=== PATIENT | female | born 1950 | race Two or more races ===

== ENCOUNTER → 2020-08-16 09:23 | Outpatient (BNVA) | payer MEDICARE, SELFPAY | PROVIDERS: PCP Internal Medicine; Visit Provider Hospitalist | DX: J45.909 Unspecified asthma, uncomplicated (principal); R01.1 Cardiac murmur, unspecified; Z79.899 Other long term (current) drug therapy | CPT/HCPCS: 99214 ==

== ENCOUNTER → 2020-09-20 14:43 | Outpatient (BNVA) | payer MEDICARE, SELFPAY | PROVIDERS: PCP Internal Medicine; Visit Provider Hospitalist | DX: J44.9 Chronic obstructive pulmonary disease, unspecified (principal); J45.41 Moderate persistent asthma with (acute) exacerbation; R01.1 Cardiac murmur, unspecified; Z79.899 Other long term (current) drug therapy | CPT/HCPCS: Q3014 ==

== ENCOUNTER → 2020-11-24 09:38 | Outpatient (BNVA) | payer MEDICARE, SELFPAY | PROVIDERS: PCP Internal Medicine; Visit Provider Hospitalist | DX: Z13.89 Encounter for screening for other disorder (principal) | CPT/HCPCS: Q3014 ==

== ENCOUNTER 2020-12-28 10:11 | Outpatient (REF) | payer MEDICARE, SELFPAY ==
[2020-12-28 11:58] LABS: SARS COV2 IgG Positive (Negative)
== END 2020-12-28 10:12 | disposition home or self-care (01) ==
LOC: HO.LAB 10:11
PROVIDERS: PCP Internal Medicine; Visit Provider Hospitalist
DX: Z01.84 Encounter for antibody response examination (principal); U07.1 COVID-19
CPT/HCPCS: 36415; 86769

== ENCOUNTER 2021-02-09 10:04 | Outpatient (REF) | payer MEDICARE, SELFPAY ==
--- NOTE | ~2021-02-09 | XR_ITS ---
EXAMINATION: XR CHEST CLINICAL INFORMATION: Dyspnea. COMPARISON: None TECHNIQUE: 2 views of the chest were obtained. FINDINGS: The lungs are well-expanded and clear of acute pneumonic process. There is a 8 mm small nodule left lung base. Minimal atelectasis or scarring is seen in the left lung base. The heart size and pulmonary vascularity is normal. There is mild dextroscoliosis dorsal spine. No lytic process. XR/XR chest 2V IMPRESSION: Minimal scarring or atelectasis left lung base with a small nodule as well. Moderate dextroscoliosis dorsal spine.
--- NOTE | 2021-02-09 16:59 | PFT_ITS ---
INDICATION: Dyspnea. SPIROMETRY: The FEV1 to FVC 80% with an FEV1 of 2.01 L, which is 105% predicted, and an FVC of 2.5 L, which is 100% predicted. Bronchodilators were not used because she had just used her Ventolin. Maximum voluntary ventilation 126% predicted. LUNG VOLUMES: Total lung capacity 98% predicted. DIFFUSION CAPACITY: DLCO 91% predicted. COMPARISONS: None. INTERPRETATION: No obstructive nor restrictive ventilatory defects identified. No bronchodilators were used. Normal maximum voluntary ventilation. Lung volumes are within normal limits. Diffusion capacity within normal limits. Otherwise consistent with normal lung mechanics. Matheus Dover MD MR/MODL / [id number]
== END 2021-02-09 10:05 | disposition home or self-care (01) ==
LOC: HO.RESP 10:04
PROVIDERS: PCP Internal Medicine; Visit Provider Hospitalist
DX: R06.00 Dyspnea, unspecified (principal)
CPT/HCPCS: 71046; 94010; 94727; 94729; 99212

== ENCOUNTER 2021-03-21 12:33 | Outpatient (REF) | payer MEDICARE, SELFPAY ==
--- NOTE | ~2021-03-21 | CT_ITS ---
EXAMINATION: CT CHEST WITHOUT CONTRAST CLINICAL INFORMATION: Pulmonary nodule. COMPARISON: Previous chest x-ray January 2021 TECHNIQUE: Multidetector volumetric CT imaging of the chest was done. Axial MIP volume rendering provided. Sagittal and coronal reformatted images were obtained. This CT examination was performed using dose optimization techniques as appropriate, variously including the following: *Automated exposure control *Adjustment of mA and/or kV according to patient size (this includes techniques or standardized protocols for targeted exams where dose is matched to indication/reason for exam; i.e. extremities or head) *Use of iterative reconstruction technique DLP: 153 mGy-cm FINDINGS: LUNGS: There is a 3 mm posterior segment right upper lobe nodule axial image 161 series 7. There is scarring or subsegmental atelectasis seen at the lung bases in the lingula, left lower lobe and right middle lobe. There is a 0.8 x 1.6 cm calcified peripheral or subpleural left lower lobe nodule versus pleural calcification axial image 409 series 7 accounting for abnormality on chest x-ray. MEDIASTINUM: There is mild coronary artery and aortic valve calcification. The mediastinum is otherwise normal. No adenopathy is seen. PLEURA: No pleural thickening or pleural effusion. AXILLA: No chest wall mass is seen. Small left axillary lymph nodes. UPPER ABDOMEN: Post cholecystectomy. OSSEOUS STRUCTURES: Severe thoracolumbar scoliosis. There are degenerative changes of the spine. CT/CT chest wo con IMPRESSION: 0.8 x 1.6 cm left lower lobe peripheral or subpleural calcified nodule accounting for chest x-ray abnormality. Small 3 mm right upper lobe noncalcified nodule. Coronary artery and aortic valve calcification.
== END 2021-03-21 12:34 | disposition home or self-care (01) ==
LOC: HO.CT 12:33
PROVIDERS: PCP Internal Medicine; Visit Provider Hospitalist
DX: R91.1 Solitary pulmonary nodule (principal); R91.8 Other nonspecific abnormal finding of lung field
CPT/HCPCS: 71250

== ENCOUNTER → 2022-01-24 10:36 | Outpatient (BNVA) | payer MEDICARE, SELFPAY | PROVIDERS: PCP Internal Medicine; Visit Provider Internal Medicine | DX: J45.901 Unspecified asthma with (acute) exacerbation (principal); J30.9 Allergic rhinitis, unspecified; R91.1 Solitary pulmonary nodule | CPT/HCPCS: 99212 ==

== ENCOUNTER 2022-01-31 07:42 | Outpatient (REF) | payer OTHER, SELFPAY ==
--- NOTE | ~2022-01-31 | CT_ITS ---
EXAMINATION: CT chest wo con. CLINICAL INFORMATION: Lung nodule COMPARISON: Prior CT from February 2021 TECHNIQUE: Multidetector volumetric CT imaging of the chest was done. Axial MIP volume rendering provided. Sagittal and coronal reformatted images were obtained. This CT examination was performed using dose optimization techniques as appropriate, variously including the following: *Automated exposure control *Adjustment of mA and/or kV according to patient size (this includes techniques or standardized protocols for targeted exams where dose is matched to indication/reason for exam; i.e. extremities or head) *Use of iterative reconstruction technique CONTRAST: Noncontrasted study. DLP: 128 mGy-cm FINDINGS: EXCEL EXPERT: LINES/TUBES: Electrophysiology Tech reviewed, no lines. LUNGS: Lung parenchyma: No evidence of significant interstitial disease. Lung nodules/masses: 3 mm nodule posterior segment right upper lobe image 224 series 7 unchanged. No new nodules no suspicious lesion no mass. AIRWAYS: Trachea and bronchi are normal. PLEURA: Redemonstration of a calcified nodule peripheral pleural-based or subpleural 1.4 cm left lower lobe unchanged. MEDIASTINUM AND KRISTY: No mediastinal, hilar or axillary lymphadenopathy. No mediastinal mass. VESSELS: HEART AND PERICARDIUM: Thoracic aorta is normal in size. Heart is normal in size. No pericardial effusion. There are coronary calcifications. Pulmonary arteries are normal in size. LOWER NECK, AXILLA: The visualized thyroid gland is unremarkable. No axillary mass or adenopathy. VISUALIZED ABDOMEN: Unremarkable CHEST WALL AND BONES: Asymmetric dense tissue right breast retroareolar region for which correlation with follow-up mammogram recommended. Severe S-shaped scoliosis of the thoracolumbar spine. CT/CT chest wo con IMPRESSION: *Stable 3 mm nodule right upper lobe, stable calcified pleural-based or subpleural nodule left lower lobe. No new or suspicious nodule or lesion. *Incidental finding was made of asymmetric dense tissue retroareolar RIGHT BREAST this require further investigation. attention to correlation with FOLLOW-UP MAMMOGRAM RECOMMENDED. *Coronary calcifications. *Scoliosis. (Referring physician staff is being called, to be alerted of the above findings and recommendations.) DC
== END 2022-01-31 07:43 | disposition home or self-care (01) ==
LOC: HO.CT 07:42
PROVIDERS: PCP Internal Medicine; Visit Provider Hospitalist
DX: R91.1 Solitary pulmonary nodule (principal)
CPT/HCPCS: 71250

== ENCOUNTER → 2022-02-09 09:49 | Outpatient (BNVA) | payer OTHER, SELFPAY | PROVIDERS: PCP Internal Medicine; Visit Provider Hospitalist | DX: J45.41 Moderate persistent asthma with (acute) exacerbation (principal); R91.1 Solitary pulmonary nodule; R92.8 Other abnormal and inconclusive findings on diagnostic imaging of breast; Z79.899 Other long term (current) drug therapy; Z86.16 Personal history of COVID-19 | CPT/HCPCS: 99212 ==

== ENCOUNTER 2022-03-02 08:15 | Outpatient (REF) | payer OTHER, SELFPAY ==
[2022-03-02 08:41] LABS: MANUAL DIFF FLAG NO
[2022-03-02 09:03] LABS: Basophils Percent Auto 0.6 % (0-2); Eosinophils Absolute Auto 0.2 X10*3/uL (0.0-0.4); Eosinophils Percent Auto 3.3 % (0-4); Hematocrit 38.9 % (37.0-47.0); Hemoglobin 11.7 g/dl (12.0-16.0); Imm Gran Abs Auto 0.02 X10*3/uL (0.00-0.03); Imm Gran Pct Auto 0.3 % (0.0-0.4); Lymphocytes Absolute Auto 1.6 X10*3/uL (1.2-4.9); Lymphocytes Percent Auto 23.4 % (20-40); Mean Corpuscular HGB Conc 30.1 g/dl (31.0-35.0); Mean Corpuscular Hemoglobin 24.9 pg (27.0-33.0); Mean Corpuscular Volume 82.9 fL (80.0-98.0); Mean Platelet Volume 9.6 fL (9.4-12.3); Monocytes Absolute Auto 0.5 X10*3/uL (0.1-1.2); Monocytes Percent Auto 7.3 % (2-11); Neutrophils Absolute Auto 4.4 x10*3/uL (2.0-8.3); Neutrophils Percent Auto 65.1 % (45-73); Platelet Count 292 X10*3/uL (160-400); Red Blood Count 4.69 X10*6/uL (4.20-5.50); Red Cell Distribution Width 14.2 % (11.0-16.0); White Blood Count 6.7 X10*3/uL (4.8-10.8)
[2022-03-02 09:27] LABS: Anion Gap 14 (12-20); Blood Urea Nitrogen 11 mg/dL (9-16); Calcium 9.9 mg/dL (8.4-10.2); Carbon Dioxide 25 mmol/L (22-29); Chloride 107 mmol/L (96-108); Estimated Glomerular Filt Rate > 60; Glucose Random 91 mg/dL (60-115); Potassium 4.2 mmol/L (3.3-5.1); Sodium 142 mmol/L (135-145)
[2022-03-02 09:44] LABS: Erythrocyte Sedimentation Rate 18 MM/HR (0-20)
[2022-03-05 18:21] LABS: IgA 166 mg/dL (70-320); IgG 1052 mg/dL (600-1540); IgM 141 mg/dL (50-300)
[2022-03-05 22:56] LABS: Immunoglobulin E 39 kU/L (<OR=114)
== END 2022-03-02 08:16 | disposition home or self-care (01) ==
LOC: HO.LAB 08:15
PROVIDERS: PCP Internal Medicine; Visit Provider Hospitalist
DX: J45.41 Moderate persistent asthma with (acute) exacerbation (principal)
CPT/HCPCS: 36415; 80048; 82784; 82785; 85025; 85652

== ENCOUNTER → 2022-08-10 09:42 | Outpatient (BNVA) | payer OTHER, SELFPAY | PROVIDERS: PCP Internal Medicine; Visit Provider Hospitalist | DX: J44.9 Chronic obstructive pulmonary disease, unspecified (principal); J45.41 Moderate persistent asthma with (acute) exacerbation; R06.00 Dyspnea, unspecified; R91.1 Solitary pulmonary nodule | CPT/HCPCS: 99212 ==

== ENCOUNTER 2023-02-20 08:17 | Outpatient (REF) | payer OTHER, SELFPAY ==
--- NOTE | ~2023-02-20 | CT_ITS ---
EXAMINATION: CT CHEST WITHOUT CONTRAST CLINICAL INFORMATION: Solitary pulmonary nodule COMPARISON: Previous chest CT scans from 2020 and 2021 and chest x-ray from 2020 TECHNIQUE: Multidetector volumetric CT imaging of the chest was done. Axial MIP volume rendering provided. Sagittal and coronal reformatted images were obtained. This CT examination was performed using dose optimization techniques as appropriate, variously including the following: *Automated exposure control *Adjustment of mA and/or kV according to patient size (this includes techniques or standardized protocols for targeted exams where dose is matched to indication/reason for exam; i.e. extremities or head) *Use of iterative reconstruction technique DLP: 279 mGy-cm FINDINGS: LUNGS: There are bilateral stable noncalcified and calcified nodules. 2 mm right upper lobe nodule axial image 135 series 5. 3 mm heterogeneous or semisolid right upper lobe nodule axial 5. 3 mm peripheral or subpleural right lower lobe nodule axial image 338 series 5. 1.4 cm calcified peripheral or subpleural left lower lobe nodule versus pleural calcification axial image 343 series 5. There is mild lower lobe bronchiectasis, left greater than right. There is a scarring or chronic subsegmental atelectasis left lower lobe. No endobronchial or endotracheal lesion. MEDIASTINUM: Trace pericardial fluid or thickening that is stable. Tortuous calcified thoracic aorta. Normal heart size. Mild coronary artery and aortic valve calcification. No enlarged hilar or mediastinal lymph nodes. Normal thyroid gland. CORONARY ARTERY CALCIFICATION: None visualized on this study. PLEURA: There is no pleural effusion. No pleural mass or thickening. AXILLA: Surgical clips in the right axilla. UPPER ABDOMEN: Postcholecystectomy. OSSEOUS STRUCTURES: Scoliosis and degenerative changes of the spine. CT/CT chest wo IV con IMPRESSION: Stable noncalcified and calcified pulmonary nodules. Fleischner guidelines were followed.
== END 2023-02-20 08:18 | disposition home or self-care (01) ==
LOC: HO.CT 08:17
PROVIDERS: PCP Internal Medicine; Visit Provider Hospitalist
DX: R91.1 Solitary pulmonary nodule (principal)
CPT/HCPCS: 71250

== ENCOUNTER 2023-06-27 15:15 | Outpatient (AMB) | payer OTHER, SELFPAY ==
[2023-06-27 15:22] VITALS: BP 132/60; PULSE 75; O2SAT 97; BMI 28.7
--- NOTE | 2023-06-27 15:22 | MHC.OFFVIS ---
Intake Vital Signs 06/27/23 15:22 Height 5 ft Weight 147 lb BMI 28.7 BP 132/60 Blood Pressure Location Lt brachial Position Sitting Pulse 75 Pulse Source Pulse Oximeter Pulse Oximetry (%) 97 Oxygen Delivery Method Room Air Intake Visit Reasons: CT Chest Follow Up Bar Staff Required: No Allergies meperidine [From Demerol] Allergy (Intermediate, Verified 06/27/23 15:25) Throat swollen HPI HPI Comments History of Present Illness Details the patient is a 73-year-old woman with a known history of asthma COPD overlap syndrome, chronic rhinitis. Overall she is responding well to the current respiratory regimen. Last fall she did have an exacerbation likely due to a respiratory infection. She does complaint of some dyspnea on exertion mild in severity. Does get better with rest. She continues to use her medication as prescribed a day and been effective in beneficial. We did have to switch Symbicort to Dulera due to her insurance issues, but, she is tolerating it well. Denies any significant nasal congestion at this time. Denies any lower extremity edema. On examination she did have a very mild systolic ejection murmur. 09/20/2020 the patient has of motion real a telephone visit. She has been developing worsening shortness of breath and wheezing and coughing for the last couple days. She feels like her typical asthma exacerbations. She denies any fevers or chills or any sore throat. She does not have any COVID like symptoms at this time. No one in the family has been experiencing any viral symptoms either. The patient be treated for an asthma exacerbation. If she is no better she should be tested for COVID-19. In the meantime she is going to maintain her distance as she heals from her condition. 11/24/2020 patient today has a telephone visit. Apparently she was tested positive for COVID-19. About 5 days ago she started having symptoms of flu-like symptoms. She was tested over the weekend and that recently was told that she was positive. She has not had any significant respiratory complaints. She does have a slight cough. 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 And has had some headaches and malaise. Aptx-do-[id number] severity. She did has been using her respiratory medications for asthma, but, at this point the asthma symptoms have not worsen. Patient is aware that if she starts having worsening respiratory symptoms she is to start Decadron 6 mg daily for 10 days and also could also started taking doxycycline for postviral bacterial infection. The patient will get an oximeter to be able to monitor her oxygen. She is also going to start vitamin-C, vitamin-D and she is going to take zinc. She is taking melatonin for sleep at this time. Will continue monitoring her progress the patient is aware that if her symptoms worsen on the medical therapy she is to seek medical advice. 02/09/2021 the patient is here for pulmonary follow-up visit. She recovered completely from COVID-19. She also became vaccinated. Overall she is feeling a lot better. Denies any significant shortness of breath. Denies any significant coughing. She has been using her respiratory therapy as prescribed. She did undergo blood work demonstrating positive antibodies for the SARs cov2. In addition to that she did have a pulmonary function studies which we reviewed in the office demonstrating normal lung mechanics. In addition to that she did have a chest x-ray which demonstrated a nodular opacity in the left lower lung zone. This is measuring more than 1 cm. I will request a CT scan at this time 08/10/2022 the patient is here for pulmonary follow-up visit. overall the patient has been doing well. She continues to respond well to Dulera. She still requires her rescue inhaler once or twice a week. She also has some wheezing at times. Although, she tried multiple medications already ill seems that Dulera is most effective. We also talked a biologic. At this point the patient is not interested since she is doing okay. We did again review her last CT scan of the chest that was done back in January 2021 demonstrating pulmonary nodules. The patient has 2 nodules that need to be followed further. In addition to that she did have her abnormal breast findings evaluated with ultrasound in close monitoring. This point will have the patient undergo repeat CT scan of the chest to make sure that there is stability of the pulmonary nodules for more than 2 years. Once that is completed if the nodules are stable the they do no longer have to be monitored serially. 06/27/2023 the patient is here for a pulmonary follow-up visit. The patient overall continues to do well. She continues on the Dulera inhaler with good effect. Has not required any prednisone of her rescue inhaler which is reassuring. Regards her pulmonary nodules she did have a CT scan in January 2023 demonstrating stable pulmonary nodules and more than 2 years. The patient's nodules are extremely small and sent have not changed in a couple years is safe to say that they are benign. This point we can hold off on serial imaging studies. If the patient develops any worsening symptoms or any new symptoms we can always reassess. COUNT INCLUDES THE [facility] Medical History (Updated 02/18/22 @ 21:05 by Matheus Dover MD) Abnormal finding on breast imaging Allergic rhinitis Asthma Bronchitis Dyspnea Exacerbation of asthma Murmur Pulmonary nodule Family History Other Asthma Social History (Updated 08/10/22 @ 10:09 by Maria Luz Garay [facility]) Patient Tobacco Use Status: Never used Tobacco Review of Systems Const Reports fatigue, Denies headache(s) and Denies night sweats ENT Denies change in voice, Denies headache(s), Denies lip swelling, Denies mouth pain, Reports nasal congestion, Reports nasal discharge and Denies tongue swelling Card Denies chest pain Resp Denies chest congestion, Reports cough and Denies wheezing GI Denies abdominal pain Musc Denies no additional complaints Neuro Denies Neuro-related abnormal movements and Denies headache(s) Psych Denies no additional complaints Endo Reports fatigue Chandan/Lymph Denies easy bleeding and Denies lymphadenopathy Aller/Immun Denies lip swelling, Denies tongue swelling and Denies wheezing Physical Exam Vital Signs: Last Vital Signs Pulse 75 06/27/23 15:22 BP 132/60 06/27/23 15:22 Pulse Ox 97 06/27/23 15:22 Oxygen Delivery Method Room Air 06/27/23 15:22 BMI result Body Mass Index 28.7 Const General: comfortable, no acute distress, alert and awake Orientation/consciousness: patient oriented x3 HEENT Head: Yes normal to inspection General nose exam: No nasal polyps present and No nasal discharge present Face and sinus: Yes sinuses nontender Mouth: oropharynx normal Throat: Yes posterior oropharynx normal Eyes General: appearance normal, both eyes and all related structures Neck Neck: Yes normal visual inspection, Yes no lymphadenopathy, Yes trachea midline and Yes no JVD Thyroid: Thyroid normal Chest Chest palpation & inspection: normal inspection of the chest, normal palpation of entire chest wall and no tenderness Resp Other: Percussion note is resonant, breath sounds are equal on both sides. She has definite inspiratory crackles over the right upper and mid chest, and she has scattered expiratory wheezes throughout the chest. Auscultation: clear to auscultation bilaterally, no rales, no rhonchi and no wheezes Cardio Palpation: normal PMI Rate: regular rate Rhythm: regular rhythm Heart sounds: no gallops and no murmurs Peripheral pulses: Peripheral pulses 2+ throughout GI Palpation (GI): Soft to palpation, Tenderness to palpation present (GI), No hepatosplenomegaly present and Palpable mass present Auscultation: normal bowel sounds Back/Spine/Pelvis Thoracic/Lumbar Spine: thoracic and lumbar spine normal to inspection Skin General skin exam: no rashes or lesions noted Neuro General: patient oriented x3 and no focal motor deficits Cranial nerves: Yes CN's II-XII intact bilaterally Extrem General: Yes normal to inspection, Yes no clubbing, cyanosis or edema and Yes no calf tenderness Psych Appearance: grossly normal and well kempt Speech and movement: Normal speech and movement present Results Reviewed Results Reviewed: [address] [address] [address] Scan Report Signed Patient: Jessi Castrejon MR#: [id number] : 1950 Acct:[id number] Age/Sex: 73 / F ADM Date: 02/20/23 Loc: .CT Attending Dr: Matheus Dover MD Ordering Physician: Matheus Dover MD Date of Service: 02/20/23 Procedure(s): CT chest wo IV con Accession Number(s): [id number] cc: Matheus Dover MD~ EXAMINATION: CT CHEST WITHOUT CONTRAST CLINICAL INFORMATION: Solitary pulmonary nodule? COMPARISON: Previous chest CT scans from 2020 and 2021 and chest x-ray from 2020 TECHNIQUE: Multidetector volumetric CT imaging of the chest was done. Axial MIP volume rendering provided. Sagittal and coronal reformatted images were obtained.? This CT examination was performed using dose optimization techniques as appropriate, variously including the following: *Automated exposure control *Adjustment of mA and/or kV according to patient size (this includes techniques or standardized protocols for targeted exams where dose is matched to indication/reason for exam; i.e. extremities or head) *Use of iterative reconstruction technique DLP: 279 mGy-cm FINDINGS: LUNGS: There are bilateral stable noncalcified and calcified nodules. 2 mm right upper lobe nodule axial image 135 series 5. 3 mm heterogeneous or semisolid right upper lobe nodule axial 5. 3 mm peripheral or subpleural right lower lobe nodule axial image 338 series 5. 1.4 cm calcified peripheral or subpleural left lower lobe nodule versus pleural calcification axial image 343 series 5. There is mild lower lobe bronchiectasis, left greater than right. There is a scarring or chronic subsegmental atelectasis left lower lobe. No endobronchial or endotracheal lesion. MEDIASTINUM: Trace pericardial fluid or thickening that is stable. Tortuous calcified thoracic aorta. Normal heart size. Mild coronary artery and aortic valve calcification. No enlarged hilar or mediastinal lymph nodes. Normal thyroid gland.? CORONARY ARTERY CALCIFICATION: None visualized on this study. PLEURA: There is no pleural effusion. No pleural mass or thickening.? AXILLA: Surgical clips in the right axilla.? UPPER ABDOMEN: Postcholecystectomy.? OSSEOUS STRUCTURES: Scoliosis and degenerative changes of the spine. CT/CT chest wo IV con IMPRESSION: Stable noncalcified and calcified pulmonary nodules. ? Fleischner guidelines were followed. Dictated By: Yolanda Acevedo MD Signed By: <Electronically signed by Yolanda Acevedo MD in OV> 02/27/23 1212 DD/ 0840 TD/TT:? Crime Specialist: KATHIE Assessment & Plan Assessment & Plan (1) Asthma: Code(s): J45.909 - Unspecified asthma, uncomplicated Qualifiers: Asthma complication type: with acute exacerbation Asthma persistence: persistent Asthma severity: moderate Qualified Code(s): J45.41 - Moderate persistent asthma with (acute) exacerbation (2) Dyspnea: Code(s): R06.00 - Dyspnea, unspecified Qualifiers: Dyspnea type: dyspnea on exertion Qualified Code(s): R06.00 - Dyspnea, unspecified (3) Pulmonary nodule: Comment: unchanged when compared to last CT scan from February 2021 pulmonary nodule measuring 3 mm in size and also with the pleural base component Code(s): R91.1 - Solitary pulmonary nodule Plan Continue Dulera consider additng LAMA short-acting beta agonist as needed continue singular at nighttime Follow-up in the Spring 2023 Coding Level of Care Code Est Pt Level 4 (58050) Diagnoses Asthma J45.41 Asthma complication type: with acute exacerbation Asthma persistence: persistent Asthma severity: moderate Dyspnea R06.00 Dyspnea type: dyspnea on exertion Pulmonary nodule R91.1 Time Spent (min) 17
== END 2023-06-27 15:53 | disposition home or self-care (01) ==
PROVIDERS: PCP Internal Medicine; Visit Provider Hospitalist
DX: J45.41 Moderate persistent asthma with (acute) exacerbation (principal); R06.00 Dyspnea, unspecified; R91.1 Solitary pulmonary nodule
CPT/HCPCS: 99214

== ENCOUNTER → 2023-06-27 15:15 | Outpatient (BNVA) | payer OTHER, SELFPAY | PROVIDERS: PCP Internal Medicine; Visit Provider Hospitalist | DX: J45.41 Moderate persistent asthma with (acute) exacerbation (principal); R06.00 Dyspnea, unspecified; R91.1 Solitary pulmonary nodule | CPT/HCPCS: 99212 ==

== ENCOUNTER 2024-01-27 15:07 | Outpatient (REF) | payer MEDICARE, SELFPAY ==
--- NOTE | ~2024-01-27 | XR_ITS ---
EXAMINATION: XR CHEST CLINICAL INFORMATION: Dorsalgia. COMPARISON: CXR from 02/09/2021 TECHNIQUE: 2 views of the chest were obtained. FINDINGS: Lungs are well expanded. Linear opacity of scarring or atelectasis in the left lung base. No airspace disease, pleural effusion or pneumothorax. An old stable calcified pleural-based nodule seen in the medial left lung base. Cardiac silhouette is normal in size. Pulmonary vascular pattern is normal. Skeletal findings include chronic dextroscoliosis of the thoracic spine, levoscoliosis of the lumbar spine and osteoarthritis of glenohumeral joints. Chronic multilevel degenerative narrowing of disc spaces and vertebral osteophyte formation. No acute vertebral compression fractures. Cholecystectomy clips are present in the right upper quadrant of the abdomen. Surgical clips in right axillary region. XR/XR chest 2V IMPRESSION: No acute abnormalities within the chest compared to 02/09/2021.
== END 2024-01-27 15:08 | disposition home or self-care (01) ==
LOC: HO.XRAY 15:07
PROVIDERS: PCP Internal Medicine; Visit Provider Hospitalist
DX: J45.41 Moderate persistent asthma with (acute) exacerbation (principal); M54.9 Dorsalgia, unspecified; R06.00 Dyspnea, unspecified; R91.1 Solitary pulmonary nodule
CPT/HCPCS: 71046; 99212

== ENCOUNTER 2024-01-27 15:07 | Outpatient (AMB) | payer MEDICARE, SELFPAY ==
--- NOTE | 2024-01-27 15:19 | MHC.OFFVIS ---
Intake Vital Signs 01/27/24 15:21 Height 5 ft Weight 146 lb 13.246 oz BMI 28.7 Pulse 73 Pulse Source Pulse Oximeter Pulse Oximetry (%) 98 Oxygen Delivery Method Room Air Intake Visit Reasons: CT Chest Follow Up Director Educational Radio Required: No Allergies meperidine [From Demerol] Allergy (Intermediate, Verified 01/27/24 15:23) Throat swollen HPI HPI Comments History of Present Illness Details The patient is a 73-year-old woman with a known history of asthma COPD overlap syndrome, chronic rhinitis. Overall she is responding well to the current respiratory regimen. Last fall she did have an exacerbation likely due to a respiratory infection. She does complaint of some dyspnea on exertion mild in severity. Does get better with rest. She continues to use her medication as prescribed a day and been effective in beneficial. We did have to switch Symbicort to Dulera due to her insurance issues, but, she is tolerating it well. Denies any significant nasal congestion at this time. Denies any lower extremity edema. On examination she did have a very mild systolic ejection murmur. 01/27/2024 the patient is here for a pulmonary follow-up visit. Overall she is doing fair. She continues have asthma symptoms. She continues on the Dulera and also the allergy medications. She is started developing worsening respiratory symptoms she is congestion. Patient did have some wheezing intermittently. She has a planned trip to [place] to visit a sick family member. Therefore, will send her some antibiotics and prednisone in case her symptoms do worsen. In addition to that she does need a nebulizer. She does need albuterol for the nebulizer. I will make sure to provide her a nebulizer 1 of the [employer]. The patient can use it twice a day with albuterol to help her with her significant bronchospasms and wheezing. The patient also has been having some back pain. Appears to be positional. Primarily when she is sleeping. Denies any respirophasic component. She did have a chest x-ray demonstrating significant scoliosis and degenerative disc disease. Likely musculoskeletal issues are contributing to her back pain. [facility] Medical History (Updated 01/27/24 @ 15:49 by Matheus Dover MD) Abnormal finding on breast imaging Allergic rhinitis Bronchitis Exacerbation of asthma Pulmonary nodule Murmur Asthma Dyspnea Family History Other Asthma Social History (Updated 08/10/22 @ 10:09 by ERIN Betancourt) Patient Tobacco Use Status: Never used Tobacco Review of Systems Const Reports fatigue, Denies headache(s) and Denies night sweats ENT Denies change in voice, Denies headache(s), Denies lip swelling, Denies mouth pain, Reports nasal congestion, Reports nasal discharge and Denies tongue swelling Card Denies chest pain Resp Reports chest congestion, Reports cough and Reports wheezing GI Denies abdominal pain Musc Denies no additional complaints Neuro Denies Neuro-related abnormal movements and Denies headache(s) Psych Denies no additional complaints Endo Reports fatigue Chandan/Lymph Denies easy bleeding and Denies lymphadenopathy Aller/Immun Denies lip swelling, Denies tongue swelling and Reports wheezing Physical Exam Vital Signs: Last Vital Signs Pulse 73 01/27/24 15:21 Pulse Ox 98 01/27/24 15:21 Oxygen Delivery Method Room Air 01/27/24 15:21 BMI result Body Mass Index 28.7 Const General: comfortable, no acute distress, alert and awake Orientation/consciousness: patient oriented x3 HEENT Head: Yes normal to inspection General nose exam: No nasal polyps present and No nasal discharge present Face and sinus: Yes sinuses nontender Mouth: oropharynx normal Throat: Yes posterior oropharynx normal Eyes General: appearance normal, both eyes and all related structures Neck Neck: Yes normal visual inspection, Yes no lymphadenopathy, Yes trachea midline and Yes no JVD Thyroid: Thyroid normal Chest Chest palpation & inspection: normal inspection of the chest, normal palpation of entire chest wall and no tenderness Resp Other: Percussion note is resonant, breath sounds are equal on both sides. She has definite inspiratory crackles over the right upper and mid chest, and she has scattered expiratory wheezes throughout the chest. Auscultation: no rales, no rhonchi, no wheezes and diminished lung sounds Cardio Palpation: normal PMI Rate: regular rate Rhythm: regular rhythm Heart sounds: no gallops and no murmurs Peripheral pulses: Peripheral pulses 2+ throughout GI Palpation (GI): Soft to palpation, Tenderness to palpation present (GI), No hepatosplenomegaly present and Palpable mass present Auscultation: normal bowel sounds Back/Spine/Pelvis Thoracic/Lumbar Spine: thoracic and lumbar spine normal to inspection Skin General skin exam: no rashes or lesions noted Neuro General: patient oriented x3 and no focal motor deficits Cranial nerves: Yes CN's II-XII intact bilaterally Extrem General: Yes normal to inspection, Yes no clubbing, cyanosis or edema and Yes no calf tenderness Psych Appearance: grossly normal and well kempt Speech and movement: Normal speech and movement present Assessment & Plan Assessment & Plan (1) Asthma: Code(s): J45.909 - Unspecified asthma, uncomplicated Qualifiers: Asthma complication type: with acute exacerbation Asthma persistence: persistent Asthma severity: moderate Qualified Code(s): J45.41 - Moderate persistent asthma with (acute) exacerbation (2) Dyspnea: Code(s): R06.00 - Dyspnea, unspecified Qualifiers: Dyspnea type: dyspnea on exertion Qualified Code(s): R06.00 - Dyspnea, unspecified (3) Pulmonary nodule: Comment: unchanged when compared to last CT scan from February 2021 pulmonary nodule measuring 3 mm in size and also with the pleural base component Code(s): R91.1 - Solitary pulmonary nodule Plan Continue Dulera consider additng LAMA short-acting beta agonist as needed Needs anebulizer (provided) for albuterol continue singular at nighttime CXR Follow-up 6-8 months Orders: Orders XR chest 2V Today M54.9 - Dorsalgia, unspecified Medications: New prednisone PO daily; Take 2 tabs daily x 5 days, then 1 tablet daily x 5 days 10 days 15 tabs 0RF azithromycin 500 mg PO DAILY 5 days 5 tabs 0RF Changed From albuterol sulfate 2.5 mg (3 mL) inhalation Q4-6H 30 days PRN 75 mL 1RF shortness of breath or wheezing To albuterol sulfate 2.5 mg (3 mL) inhalation Q6H 30 days PRN 180 mL 6RF shortness of breath or wheezing Coding Level of Care Code Est Pt Level 4 (33184) Diagnoses Moderate persistent asthma with acute exacerbation J45.41 Asthma complication type: with acute exacerbation Asthma persistence: persistent Asthma severity: moderate Dyspnea on exertion R06.00 Dyspnea type: dyspnea on exertion Pulmonary nodule R91.1 Time Spent (min) 17
[2024-01-27 15:21] VITALS: PULSE 73; O2SAT 98; BMI 28.7
== END 2024-01-27 15:56 | disposition home or self-care (01) ==
PROVIDERS: PCP Internal Medicine; Visit Provider Hospitalist
DX: J45.41 Moderate persistent asthma with (acute) exacerbation (principal); R06.00 Dyspnea, unspecified; R91.1 Solitary pulmonary nodule
CPT/HCPCS: 99214

== ENCOUNTER 2024-07-31 15:06 | Outpatient (AMB) | payer MEDICARE, MEDICAID, SELFPAY ==
[2024-07-31 15:11] VITALS: BP 132/60; PULSE 80; O2SAT 98; BMI 26.7
--- NOTE | 2024-07-31 15:11 | MHC.OFFVIS ---
Vital Signs 07/31/24 15:11 Height 5 ft Weight 136 lb 10.986 oz BMI 26.7 BP 132/60 Blood Pressure Location Lt brachial Position Sitting Pulse 80 Pulse Source Pulse Oximeter Pulse Oximetry (%) 98 Oxygen Delivery Method Room Air Intake Visit Reasons: Asthma Food And Beverage Controller Required: No Allergies meperidine [From Demerol] Allergy (Intermediate, Verified 07/31/24 15:13) Throat swollen HPI Comments Details: The patient is a 74-year-old woman with a known history of asthma COPD overlap syndrome, chronic rhinitis. Overall she is responding well to the current respiratory regimen. Last fall she did have an exacerbation likely due to a respiratory infection. She does complaint of some dyspnea on exertion mild in severity. Does get better with rest. She continues to use her medication as prescribed a day and been effective in beneficial. We did have to switch Symbicort to Dulera due to her insurance issues, but, she is tolerating it well. Denies any significant nasal congestion at this time. Denies any lower extremity edema. On examination she did have a very mild systolic ejection murmur. 01/27/2024 the patient is here for a pulmonary follow-up visit. Overall she is doing fair. She continues have asthma symptoms. She continues on the Dulera and also the allergy medications. She is started developing worsening respiratory symptoms she is congestion. Patient did have some wheezing intermittently. She has a planned trip to [place] to visit a sick family member. Therefore, will send her some antibiotics and prednisone in case her symptoms do worsen. In addition to that she does need a nebulizer. She does need albuterol for the nebulizer. I will make sure to provide her a nebulizer 1 of the [employer]. The patient can use it twice a day with albuterol to help her with her significant bronchospasms and wheezing. The patient also has been having some back pain. Appears to be positional. Primarily when she is sleeping. Denies any respirophasic component. She did have a chest x-ray demonstrating significant scoliosis and degenerative disc disease. Likely musculoskeletal issues are contributing to her back pain. 07/31/2024 the patient is here for a pulmonary follow-up visit. Overall she is doing well from a respiratory status. She continues Dulera. She is having significant allergies though. She stopped taking the Singulair because she thought it was causing to have high blood pressure. Therefore will go ahead and send her Claritin. She can also use as the Astelin nasal spray to also help her. The patient also was having issues with pain on the right side of the chest especially when laying down and sleeping. She had gotten an x-ray that was back in 02/15/2024 which we personally reviewed. She had significant scoliosis. Also has evidence of osteoarthritis primarily in the right shoulder. Therefore, likely contributing to her discomfort. Although with abnormal chest x-ray and the fact that she has pulmonary nodules will plan to repeat the CT scan of the chest in 6 months to make sure that there stability of the nodules in view of her persistent chest pain. [facility] Medical History (Updated 08/02/24 @ 22:12 by Matheus Dover MD) Abnormal finding on breast imaging Allergic rhinitis Bronchitis Exacerbation of asthma Pulmonary nodule Murmur Asthma Dyspnea Family History Other Asthma Social History (Updated 08/10/22 @ 10:09 by Maria Luz Garay [facility]) Patient Tobacco Use Status: Never used Tobacco Review of Systems Const Reports fatigue, Denies headache(s) and Denies night sweats ENT Denies change in voice, Denies headache(s), Denies lip swelling, Denies mouth pain, Reports nasal congestion, Reports nasal discharge and Denies tongue swelling Card Denies chest pain Resp Reports chest congestion, Reports cough and Reports wheezing GI Denies abdominal pain Musc Denies no additional complaints Neuro Denies Neuro-related abnormal movements and Denies headache(s) Psych Denies no additional complaints Endo Reports fatigue Chandan/Lymph Denies easy bleeding and Denies lymphadenopathy Aller/Immun Denies lip swelling, Denies tongue swelling and Reports wheezing Physical Exam Vital Signs: Last Vital Signs Pulse 80 07/31/24 15:11 BP 132/60 07/31/24 15:11 Pulse Ox 98 07/31/24 15:11 Oxygen Delivery Method Room Air 07/31/24 15:11 BMI result Body Mass Index 26.7 Const General: comfortable, no acute distress, alert and awake Orientation/consciousness: patient oriented x3 HEENT Head: Yes normal to inspection General nose exam: No nasal polyps present and No nasal discharge present Face and sinus: Yes sinuses nontender Mouth: oropharynx normal Throat: Yes posterior oropharynx normal Eyes General: appearance normal, both eyes and all related structures Neck Neck: Yes normal visual inspection, Yes no lymphadenopathy, Yes trachea midline and Yes no JVD Thyroid: Thyroid normal Chest Chest palpation & inspection: normal inspection of the chest, normal palpation of entire chest wall and no tenderness Resp Other: Percussion note is resonant, breath sounds are equal on both sides. She has definite inspiratory crackles over the right upper and mid chest, and she has scattered expiratory wheezes throughout the chest. Auscultation: no rales, no rhonchi, no wheezes and diminished lung sounds Cardio Palpation: normal PMI Rate: regular rate Rhythm: regular rhythm Heart sounds: no gallops and no murmurs Peripheral pulses: Peripheral pulses 2+ throughout GI Palpation (GI): Soft to palpation, Tenderness to palpation present (GI), No hepatosplenomegaly present and Palpable mass present Auscultation: normal bowel sounds Back/Spine/Pelvis Thoracic/Lumbar Spine: thoracic and lumbar spine normal to inspection Skin General skin exam: no rashes or lesions noted Neuro General: patient oriented x3 and no focal motor deficits Cranial nerves: Yes CN's II-XII intact bilaterally Extrem General: Yes normal to inspection, Yes no clubbing, cyanosis or edema and Yes no calf tenderness Psych Appearance: grossly normal and well kempt Speech and movement: Normal speech and movement present Assessment & Plan Assessment & Plan (1) Asthma: Code(s): J45.909 - Unspecified asthma, uncomplicated Category: Medical Qualifiers: Asthma complication type: with acute exacerbation Asthma persistence: persistent Asthma severity: moderate Qualified Code(s): J45.41 - Moderate persistent asthma with (acute) exacerbation (2) Dyspnea: Code(s): R06.00 - Dyspnea, unspecified Category: Medical Qualifiers: Dyspnea type: dyspnea on exertion Qualified Code(s): R06.00 - Dyspnea, unspecified (3) Pulmonary nodule: Code(s): R91.1 - Solitary pulmonary nodule Category: Medical Plan Continue Dulera consider additng LAMA short-acting beta agonist as needed Needs nebulizer (provided) for albuterol stop singular at nighttime CT chest Follow-up 6-8 months Orders: Orders CT chest wo IV con 01/11/25 R91.1 - Solitary pulmonary nodule Medications: New azelastine administer into each nostril 2 sprays intranasal BID 30 mL 6RF 30 days Changed From loratadine 10 mg PO DAILY To loratadine 10 mg PO DAILY 30 tabs 6RF 30 days Coding Level of Care Code Est Pt Level 4 (82197) Diagnoses Moderate persistent asthma with acute exacerbation J45.41 Asthma complication type: with acute exacerbation Asthma persistence: persistent Asthma severity: moderate Dyspnea on exertion R06.00 Dyspnea type: dyspnea on exertion Pulmonary nodule R91.1 Time Spent (min) 17
== END 2024-07-31 15:52 | disposition home or self-care (01) ==
PROVIDERS: PCP Internal Medicine; Visit Provider Hospitalist
DX: J45.41 Moderate persistent asthma with (acute) exacerbation (principal); R06.00 Dyspnea, unspecified; R91.1 Solitary pulmonary nodule
CPT/HCPCS: 99214

== ENCOUNTER → 2024-07-31 15:06 | Outpatient (BNVA) | payer MEDICARE, MEDICAID, SELFPAY | PROVIDERS: PCP Internal Medicine; Visit Provider Hospitalist | DX: J45.41 Moderate persistent asthma with (acute) exacerbation (principal); J31.0 Chronic rhinitis; R06.00 Dyspnea, unspecified; R91.1 Solitary pulmonary nodule | CPT/HCPCS: 99212 ==

== ENCOUNTER 2024-12-24 13:35 | Outpatient (RCR) | payer OTHER, SELFPAY | END 2024-12-24 15:11 | disposition home or self-care (01) | LOC: HO.PT 13:35 | PROVIDERS: PCP Internal Medicine | DX: M41.9 Scoliosis, unspecified (principal) | CPT/HCPCS: 97110; 97140; 97162; 97530 ==

== ENCOUNTER 2025-01-11 15:43 | Outpatient (REF) | payer OTHER, MEDICAID, SELFPAY ==
--- OUTSIDE RECORDS SUMMARY | 2025-01-11 18:09 | XMS_ITS ---
Author Organization [employer] [facility] Address [address] [place] [address] Care Team Providers Care Internal Sales Name Role Phone BERNADINEEileen BAYLEE Unavailable [phone] MEDICATIONS Medication SIG (Take, Route, Fr equency, Duration) Notes Start Date End Date Status Zepbound 2.5 MG/0.5ML 2.5mg Subcutaneous weekly for 30 days 11/16/2024 Active Encounters Encounter Location Date Provider Diagnosis [place] [id number] [address] 11/13/2024 BAYLEE PAVON PLAN OF TREATMENT Medication Medication Name Sig Start Date Stop Date Notes Zepbound 2.5 MG/0.5ML 2.5mg Subcutaneous weekly for 30 days 11/16/2024 Next Appt Details Provider Name:BAYLEE PAVON, 01/13/2025 08:30:00 AM, [address], [phone], Provider Name:BAYLEE PAVON, 2025 02:45:00 PM, [address], [address], Progress Notes * DION DALEY:11/1949 (74 yo F)Acc No.[id number]:11/13/2024 Patient:??JUVE DALEY BRIE :1950?Age:74 Y?Sex:Fe male Address:[address] [place] [id number] * Refills?? Start Zepbound Solution Auto-injector, 2.5 MG/0.5ML, Subcutaneous, 4 Pen Needle, 2.5mg, weekly, 30 days, Refills=0 * true * Date:??
--- OUTSIDE RECORDS SUMMARY | 2025-01-11 18:09 | XMS_ITS | Encounter Summary ---
Author Organization [employer] Address [address] [place] [address] Care Team Providers Care Clinical Documentation Consultant Name Role Phone Saba Solorzano MD Primary Care Provider [phone] Reason for Referral * Consultation (Routine) - Closed Specialty Diagnoses / Procedures Referred By Farrukh nolan Referred To Contact Neurology Diagnoses Loss of memory Saba Solorzano MD [address] [place] [phone] Phone: tel: fax: Valeri Aguilar MD [address] [place] [address] [place] [address] Phone: tel: fax: Referral ID Status Reason Start Date Expiration Date V isits Requested Visits Authorized [id number] Closed Specialty Services Required 12/23/2024 12/23/2025 1 1 Reason for Visit * Reason Onset Date Comments referral 12/23/2024 Encounter Details Date Type Department Care Team ([facility] Contact Info) Description 12/23/2024 Telephone Adult Medicine [address] [phone] Saba Solorzano MD [address] [place] [phone] referral Social History Tobacco Use Types Packs/Day Years Used Date Smoking Tobacco: Former Cigarettes 0.2 5 0 10/28/1968 - 10/28/1973 Smokeless Tobacco: Never Alcohol Use Standard Drinks/Week Comments Not Currently 0 (1 standard drink = 0.6 oz pur e alcohol) Comments No Sex and Gender Information Value Date Recorded Sex Assigned at Female 11/25/2024 10:30 AM EST Legal Sex Female 1:45 AM EST Gender Identity Female 11/25/2024 10:30 AM EST Sexual Orientation Straight 11/25/2024 10 :30 AM EST documented as of this encounter Progress Notes * Ambreen Fairbanks RN - 12/24/2024 11:03 AM EST Pt booked 12/29 with kayleigh torres * Saba Solorzano MD - 12/23/2024 8:10 PM EST Patient does not have a visit schedule with us ,please schedule visit , I have signed the referral * Ton Foley RN - 12/23/2024 3:01 PM EST Called and spoke with pt. Pt st that used to see neurology years ago believes 2022, pt could tell me where, pt sts mother has been seeing dr albright and would like to see him too for it please review and advise * Binta Serrano - 12/23/2024 2:55 PM EST The patient is requesting a referral to [facility] Albright she states she is having forgetness. documented in this encounter Plan of Treatment Upcoming Encounters Date Type Department Care Team (Late st Contact Info) Description 02/11/2025 3:00 PM EDT Office Visit Orthopedic Surgery - [place] [address] [facility] [address] [place] [address] Gus Judge, DPM 175 [facility] [address] [place] [address] 07/02/2025 3:00 PM EDT Ancillary Procedure [facility] [address] [facility] [address] [place] [phone] 07/15/2025 1:30 PM EDT Office Visit Adult Medicine [place] [id number] [place] [address] Saba Solorzano MD [address] [place] [address] 08/03/2025 3:30 PM EDT Office Visit [facility] [address] [place] [address] Yan Hilario MD [address] [place] [address] [address] [place] [address] Scheduled Referrals Name Type Priority Associated Diagnoses Order Schedule Ambulatory referral to Neurology Outpatient Referral Routine Loss of memory 1 Occurrences starting 12/23/2024 until 12/23/2025 documented as of this encounter Goals Goal Patient Goal Type Associated Problems Recent Progress Patient-Stated? Author LTG in 4 visits General On track(10/15/20 24 3:25 PM EST) No Aurora Curtis, OT Note: No nystag w/ repeat positonal testing all 10/15 MET No reported dizziness w/ bed mob 10/15 MET Indep HEP if/when indic 10/15 MET documented as of this encounter Visit Diagnoses Diagnosis Loss of memory- Primary Memory loss documented in this encounter Care Teams Clinical Documentation Consultant Relationship Specialty Start Date End Date Saba Solorzano MD [address] [place] [phone] PCP - General Internal Medicine 09/21/24 documented as of this encounter"
--- OUTSIDE RECORDS SUMMARY | 2025-01-11 18:09 | XMS_ITS | Clinical Summary ---
Author Organization [facility] Address [address] [place] [address] Care Team Providers Care Software Development Leader Name Role Phone Ayo Denis MD Primary Care Provider [phone] Allergies Active Allergy Reactions Criticality Noted Date Comments Lisinopril Cough 03/31/2020 And dizziness Meperidine Lethargy 12/26/2021 Meperidine Hcl Lethargy 08/16/2021 Medications Ventolin HFA 90 mcg/actuation inhaler INHALE 2 PUFFS EVERY 6 HOURS NEEDED FOR SHORTNESS OF BREATH OR WHEEZING FOR 30 DAYS 1 Active busPIRone (BUSPAR) 5 mg tablet Take 5 mg by mouth 3 times a day. 1 Active calcium carbonate-vitam in D3 600 mg-10 mcg (400 unit) per tablet TAKE 1 TABLET BY MOUTH TWICE A DAY WITH MEALS 2 Active cetirizine (ZyrTEC) 10 mg tablet Take 10 mg by mouth daily as needed. 1 Active cholecalciferol (VITAMIN D3) 1,000 unit tablet Take 1,000 Units by mouth once a day. 1 Active fluticasone propionate (FLONASE) 50 mcg/actuation nasal spray fluticasone propionate 50 mcg/actuation nasal spray,suspension Active ibuprofen (MOTRIN) 800 mg tablet ibuprofen 800 mg tablet Active loratadine (CLARITIN) 10 mg tablet Take 10 mg by mouth once a day. 1 Active Dulera 200-5 mcg/actuation inhaler 2 puffs 2 times a day. 1 Active naproxen (NAPROSYN) 500 mg tablet Take 500 mg by mouth nightly as needed. 1 Active neomycin-polymy sharmin B-dexamethasone (MAXITROL) 3.5 mg/g-10,000 unit/g-0.1 % ointment SMARTSIG:Sparing ly In Eye(s) Every Night 1 Active omeprazole (PriLOSEC) 40 mg capsule 2 Active sucralfate (CARAFATE) 1 g/10 mL suspension SMARTSI Milliliter(s) By Mouth Twice Daily 1 Active rosuvastatin (CRESTOR) 10 mg tablet Take 10 mg by mouth once a day. 2 Active famotidine (PEPCID) 20 mg tablet Take 10 mg by mouth. PRN Active LORazepam (ATIVAN) 1 mg tablet Take 1 tablet (1 mg total) by mouth See admin instructions. 1 by mouth 1 hour prior to MRI, may repeat X 1 dose 2 tablet 2 Active azithromycin (ZITHROMAX) 250 mg tablet TAKE 2 TABLETS BY MOUTH TODAY, THEN TAKE 1 TABLET DAILY FOR 4 DAYS 2 Active montelukast (SINGULAIR) 10 mg tablet 2 Active predniSONE (DELTASONE) 20 mg tablet Take 20 mg by mouth 2 times a day. 2 Active Active Problems No known active problems Family History Medical History Relation Name Comments Cancer Mother's Sister Relation Name Status Comments Father Mother Mother's Sister Social History Tobacco Use Types Packs/Day Years Used Date Smoking Tobacco: Former Smokeless Tobacco: Never Alcohol Use Standard Drinks/Week Comments Never 0 (1 standard drink = 0.6 oz pur e alcohol) Comments Unknown Sex and Gender Information Value Date Recorded Sex Assigned at Not on file Legal Sex Female 1:58 PM EST Gender Identity Not on file Sexual Orientation Not on file Last Filed Vital Signs Vital Sign Reading Time Taken Comments Blood Pressure 144/86 12/26/2021 3:54 PM EST Pulse 97 12/26/2021 3:54 PM EST Temperature - - Respiratory Rate - - Oxygen Saturation - - Inhaled Oxygen Concentration - - Weight 71.8 kg (158 lb 6.4 oz) 12/26/2021 3:54 P M EST Height 152.4 cm (5') 12/26/2021 3:54 PM EST Body Mass Index 30.94 12/26/2021 3:54 PM EST Plan of Treatment Health Maintenance Due Date Last Done Comments Cologuard 1951 Colon Cancer Screening 1950 Colonoscopy 1950 FOBT / Fit Test 1950 Hepatitis C Screening 1950 Sigmoidoscopy [address] Lung Cancer Screening (Baseline) 2001 Osteoporosis Screening 2001 RSV Vaccine (60+ years old and patients) (1 - Risk 60-74 years 1-dose series) 2011 Zoster Vaccines (3 of 3) 10/07/2020 08/12/2020, 03/2009 DTaP,Tdap,and Td Vaccines (2 - Td or Tdap) 03/05/2023 03/05/2013 COVID-19 Vaccine (4 - season) 2024 09/09/2021, 02/28/2021, 01/31/2021 Influenza Vaccine (#1) 2024 , 07/26/2020, 07/26/2020, Additional history exists Alcohol/Substance Use Screening 10/28/2024 Depression Screening and Follow-Up 10/28/2024 Health Care Proxy Review 10/28/2024 Social Drivers of Health Annual Screening 10/28/2024 Pneumococcal Vaccine: 50+ Years Completed 04/25/2021, 03/01/2017, 08/02/2009 Hepatitis B Vaccines Aged Out No long er eligible based on patient's age to complete this topic Insurance [facility] Care Teams Software Development Leader Relationship Specialty Start Date End Date Ayo Denis MD PCP - General Internal Medicine 12/26/21
--- OUTSIDE RECORDS SUMMARY | 2025-01-11 18:09 | XMS_ITS | Referral Summary ---
Author Organization [facility] Address [address] [place] [address] Care Team Providers Care Hotel Manager Name Role Phone Ayo Denis MD Primary Care Provider [phone] Allergies Active Allergy Reactions Criticality Noted Date [...] Active Active Problems No known active problems Social History Tobacco Use Types Packs/Day Years [...] 12/26/2021 3:54 PM EST Plan of Treatment Not on file Insurance [facility] Care Teams Hotel Manager Relationship Specialty Start Date End Date Ayo Denis MD PCP - General Internal Medicine 12/26/21
--- OUTSIDE RECORDS SUMMARY | 2025-01-11 18:09 | XMS_ITS | Encounter Summary ---
Author Organization [facility] Address [address] [place] [address] Care Team Providers Care Rectangular Tank Cooper Name Role Phone Saba Solorzano MD Primary Care Provider Reason for Visit * Reason Comments medication review Encounter Details Date Type Department Care Team (Late st Contact Info) Description 12/29/2024 11:30 AM EST Office Visit Adult Medicine [address] [phone] Darrell Salazar PA [address] [place] [phone] Vitamin D deficiency (Primary Dx); Age-related osteoporosis without current pathological fracture; Pure hypercholesterolemia; Moderate persistent asthma without complication Social History Tobacco Use Types Packs/Day Years Used Date Smoking Tobacco: Former Cigarettes 0.2 5 0 10/28/1968 - 10/28/1973 Smokeless Tobacco: Never Tobacco Cessation:Counseling Given: Not Answered Alcohol Use Standard Drinks/Week Comments Not Currently 0 (1 standard drink = 0.6 oz pur e alcohol) Comments No Sex and Gender Information Value Date Recorded Sex Assigned at Female 11/25/2024 10:30 AM EST Legal Sex Female 1:45 AM EST Gender Identity Female 11/25/2024 10:30 AM EST Sexual Orientation Straight 11/25/2024 10 :30 AM EST documented as of this encounter Last Filed Vital Signs Vital Sign Reading Time Taken Comments Blood Pressure 124/62 12/29/2024 11:19 AM EST Pulse 80 12/29/2024 11:19 AM EST Temperature 36.8 ??C (98.2 ??F) 12/29/2024 11:[address] Respiratory Rate 14 12/29/2024 11:19 AM EST Oxygen Saturation - - Inhaled Oxygen Concentration - - Weight 64.6 kg (142 lb 8 oz) 12/29/2024 11:19 AM EST Height 152.4 cm (5') 12/29/2024 11:19 AM EST Body Mass Index 27.83 12/29/2024 11:19 AM EST documented in this encounter Progress Notes * NEIL Trivedi - 12/29/2024 11:30 AM EST CHIEF COMPLAINT: medication review IDENTIFIER: Jessi Sunshine is a 74 y.o. old female. HPI: 74-year-old female presents for follow-up and reports no concerns today. Patient has vitamin D deficiency, recent bone density screening also showed osteoporosis. Reports taking calcium and vitamin Ddaily. Patient has hyperlipidemia, follows with Dr. Perez who has ordered repeat lipid studies which she tells me she will complete later this week. Reports taking rosuvastatin 20 mg daily as prescribed. Patient has asthma, on Dulera, follows with Dr. Dover and states she has an upcoming appointment with him. ROS: GENERAL: No malaise, significant weight loss or fever. RESPIRATORY: Denies shortness of breath. CARDIOVASCULAR: Denies chest pain, palpitations. PAST MEDICAL HISTORY: Patient Active Problem List Diagnosis Date Noted Vitamin D deficiency 12/29/2024 Age-related osteoporosis without current pathological fracture 12/29/2024 Stress incontinence 10/23/2024 BPPV (benign paroxysmal positional vertigo), unspecified laterality 09/21/2024 Asthma, moderate persistent 08/14/2024 Chronic back pain 08/14/2024 Gastropathy 08/14/2024 GERD (gastroesophageal reflux disease) 08/14/2024 Passage of loose stools 08/14/2024 Coronary artery disease involving [place] coronary artery of [place] heart without angina pectoris 08/09/2023 COVID-19 virus infection 06/13/2023 Abnormal MRI, shoulder 01/30/2022 Anxiety 10/17/2021 HLD (hyperlipidemia) 07/11/2021 History of 2019 novel coronavirus disease (COVID-19) 11/21/2020 Cataract 10/07/2020 Elevated anti-tissue transglutaminase (tTG) IgA level 08/31/2020 Internal derangement of knee, right 08/05/2020 Osteoarthritis 08/05/2020 Obesity (BMI 30.0-34.9) 02/24/2020 Gastric polyps 08/05/2018 Aortic stenosis 12/10/2017 Past Surgical History: Procedure Laterality Date BREAST BIOPSY Left 2016 PROCEDURE: BX BREAST; PERC NEEDLE CORE W/IMAG GUID; COMMENT: neg BREAST SURGERY Right 2000 PROCEDURE: [place] UNLISTED PROCEDURE BREAST; COMMENT: cancer BREAST SURGERY Right 2001 PROCEDURE: [place] UNLISTED PROCEDURE BREAST; COMMENT: b9 SECTION PROCEDURE: HISTORICAL DELIVERY; COMMENT: x 2; 1977, 1974 CHOLECYSTECTOMY PROCEDURE: HISTORICAL CHOLECYSTECTOMY; COMMENT: in [place] COLONOSCOPY 2011 PROCEDURE: HISTORICAL COLONOSCOPY; COMMENT: In [place]. Patient reports clear ESOPHAGOGASTRODUODENOSCOPY PROCEDURE: [place] EGD TRANSORAL BIOPSY SINGLE/MULTIPLE; COMMENT: Performed in [place] OTHER SURGICAL HISTORY 12/29/2020 PROCEDURE: [place] ESOPHAGEAL MOTILITY STUDY W/INTERP&RPT; COMMENT: [facility]; small sliding hiatal hernia suggested, otherwise normal. OTHER SURGICAL HISTORY 12/29/2020 PROCEDURE: ACID REFLUX TEST OF ESOPHAGUS; COMMENT: [facility]; 24 hour ambulatory impedance-pH study off meds: positive for acid reflux. STEREOTACTIC BREAST BIOPSY Left 04/26/2015 PROCEDURE: STEREOTACTIC BREAST BIOPSY; COMMENT: Negative for malignancy UPPER GASTROINTESTINAL ENDOSCOPY 04/26/2020 PROCEDURE: UPPER GI ENDOSCOPY/EXAM; COMMENT: negative, biopsy shows reactive gastropathy without H.pylori UPPER GASTROINTESTINAL ENDOSCOPY 01/05/2015 PROCEDURE: [place] UPPER GI ENDOSCOPY PERFORMED; COMMENT: Gastric polyp x 3 - SOCIAL HISTORY: Social History Tobacco Use Smoking status: Former Current packs/day: 0.00 Average packs/day: 0.2 packs/day for 5.0 years (0.8 ttl pk-yrs) Types: Cigarettes Start date: 10/28/1968 Quit date: 10/28/1973 Years since quittin.2 Smokeless tobacco: Never Substance Use Topics Alcohol use: Not Currently FAMILY HISTORY: Family History Problem Relation Name Age of Onset Other (Other: cancer of throat) Father + smoker, Alcohol Abuse Diabetes Mother hypertension Obesity Son Andrew : 1975 No Known Problems Daughter Noni : 08/28/1978 No Known Problems Brother Soren Multiple sclerosis Brother Almas No Known Problems Sister Neida No Known Problems Sister Milagros Other (Other: Pancreatitis) Sister Sandy Celiac Disease Uterine cancer Maternal Grandmother Breast cancer Mother's side aunt 67 Aunt Prostate cancer Mother's side Uncle Coronary artery disease Neg Hx Family Status Relation Name Status Father at age 50s CA of throat and jaw; + EtOH/smoker Mother Alive Son Andrew Alive Daughter Noni Alive Brother Soren Alive Brother Almas at age 50 Sister Neida Alive Sister Milagros Alive Sister Sandy MGM Mother's alexa aunt 67 Mother's alexa (Not Specified) Neg Hx (Not Specified) MGF PGM PGF No partnership data on file MEDICATIONS DISCONTINUED/REORDERED: Medications Discontinued During This Encounter Medication Reason busPIRone (BUSPAR) 10 mg tablet Therapy completed cloNIDine (CATAPRES) 0.1 mg tablet Therapy completed ACTIVE MEDICATIONS: Outpatient Medications Marked as Taking for the 12/29/24 encounter (Office Visit) with NEIL Trivedi Medication Sig Dispense Refill albuterol HFA (PROVENTIL HFA;VENTOLIN HFA) 108 (90 Base) MCG/ACT inhaler INHALE 2 PUFFS INTO THE LUNGS EVERY 4 HOURS NEEDED FOR COUGH, WHEEZING OR SHORTNESS OF BREATH ammonium lactate (AMLACTIN) 12 % cream Apply topically at bedtime. Both heels dry skin 770 g 0 aspirin 81 mg chewable tablet Chew 1 tablet (81 mg total) 1 (one) time each day. calcium carbonate-vitamin D3 600 mg-5 mcg (200 unit) per tablet TAKE 1 TABLET BY MOUTH EVERY DAY coenzyme Q-10 10 mg capsule Take by mouth daily. famotidine (PEPCID) 20 mg tablet Take 0.5 Tablets by mouth daily. fluocinolone acetonide oiL 0.01 % drops Place 3 Drops in ear(s) as needed (ear itching). 50 each 1 incontinence pad, liner, disp pad 5 Each by Does not apply route as needed for Other (urinary incontinence). MAIDA-99 5/day 150/month 11 refills For urinary incontinence magnesium oxide 250 mg magnesium tablet Take 1 tablet (250 mg total) by mouth 1 (one) time each day. naproxen (NAPROSYN) 500 mg tablet TAKE 1 TABLET BY MOUTH AT BEDTIME NEEDED (JOINT PAIN). omeprazole (PriLOSEC) [address] capsule Take 1 capsule (40 mg total) by mouth 2 (two) times a day before meals. 180 each 1 rosuvastatin (CRESTOR) 20 mg tablet TAKE 1 TABLET BY MOUTH EVERY DAY 90 tablet 1 salicylic acid 17 % gel Apply topically 1 (one) time each day. 15 g 0 sertraline (ZOLOFT) 25 mg tablet Take 1 tablet (25 mg total) by mouth 1 (one) time each day. sucralfate (CARAFATE) 100 mg/mL suspension TAKE 10 ML BY MOUTH 4 TIMES DAILY (BEFORE MEALS AND NIGHTLY). Vitamin D3 25 mcg (1,000 unit) tablet TAKE 2 TABLETS BY MOUTH DAILY 180 tablet 1 [DISCONTINUED] cloNIDine (CATAPRES) 0.1 mg tablet TAKE 1 TABLET ORALLY AT BEDTIME NEEDED FOR SLEEP, ANXIETY 30 DAYS ALLERGIES: Allergies Allergen Reactions Lisinopril Cough And dizziness Meperidine Unknown PHYSICAL EXAM: Visit Vitals BP 124/62 Pulse 80 Temp 36.8 ??C (98.2 ??F) (Temporal) Resp 14 Ht 1.524 m (60 ) Wt 64.6 kg (142 lb 8 oz) BMI 27.83 kg/m?? OB Status Postmenopausal Smoking Status Former BSA 1.62 m?? APPEARANCE: Alert and in no acute distress EYES: PERRL, conjunctiva and sclera normal. HEART: RRR with normal S1 and S2, no murmurs, no gallops NEURO: Awake, alert and oriented x 3 LABS: Ordered No results found for: WBC , HGB , HCT , MCV No results found for: NA , K , CO2 , CL , BUN , GLU , ALB , ALKPHOS , TP Lab Results Component Value Date CHOL 160 09/27/2023 LDL 72 09/27/2023 HDL 71 09/27/2023 TRIG 86 09/27/2023 IMAGING: none IMPRESSION: 1. Vitamin D deficiency 2. Age-related osteoporosis without current pathological fracture 3. Pure hypercholesterolemia 4. Moderate persistent asthma without complication PLAN: 74-year-old female with vitamin D deficiency and osteoporosis. Continue daily calcium and vitamin D. Will obtain repeat vitamin D studies to assess for additional replenishment needs with further orders pending results. Patient follows with Dr. Perez for management of hyperlipidemia, has repeat lipid studies ordered and states she will complete them later this week. Continue rosuvastatin as prescribed. Patient has asthma, does not appear to have an acute exacerbation. Follows with Dr. Dover in [facility]. I have asked patient to have Dr. Dover send visit notes for review asthe last one received was from January of last year. Advise schedule annual wellness exam. Patient instructed to return if symptoms worsen or do not improve; patient acknowledges understandsand agrees with plan Medication and lab orders: Orders Placed This Encounter Procedures Vitamin D 25 hydroxy Other orders: None documented in this encounter Plan of Treatment Upcoming Encounters Date Type Department Care Team (Late st Contact Info) Description 02/11/2025 3:00 PM EDT Office Visit Orthopedic Surgery - [place] [address] [facility] [address] [place] [id number] Gus Judge DPLonnie [address] [facility] [address] [place] [address] 07/02/2025 3:00 PM EDT Ancillary Procedure [facility] [address] [place] [address] 07/15/2025 1:30 PM EDT Office Visit Adult Medicine [facility] [place] [address] [place] [address] Saba Solorzano MD [address] [place] [address] 08/03/2025 3:30 PM EDT Office Visit [facility] [address] [facility] [address] [place] [address] Yan Hilario MD [address] [place] [address] [place] [address] documented as of this encounter Goals Goal Patient Goal Type Associated Problems Recent Progress Patient-Stated? Author in 4 visits General On track(10/15/20 24 3:25 PM EST) No Aurora Curtis, OT Note: No nystag w/ repeat positonal testing all 10/15 MET No reported dizziness w/ bed mob 10/15 MET Indep HEP if/when indic 10/15 MET documented as of this encounter Results * (ABNORMAL) Vitamin D 25 hydroxy (01/01/2025 7:43 AM EST) Vit D, 25-Hydroxy 28.6(L) 30.0 - 80.0 ng/mL LAB CHEMISTRY METHOD 01/01/2025 10:25 AM EST [facility] Blood Venous blood specimen / Unknown Venipuncture / Unknown 01/01/2025 7:43 AM EST 01/01/2025 7:43 AM EST us Darrell TREJO LAB BLOOD ORDERABLES Final Res ult [facility] [address] [place] [address], documented in this encounter Visit Diagnoses Diagnosis Vitamin D deficiency- Primary Age-related osteoporosis without current pathological fracture Pure hypercholesterolemia Moderate persistent asthma without complication documented in this encounter Discontinued Medications Medication Sig Discontinue Reason Start Date End Da te busPIRone (BUSPAR) 10 mg tablet TOME MISAEL TABLETA TODOS LOS D FOR 30 DAYS Therapy completed 10/24/2023 12/29/2024 cloNIDine (CATAPRES) 0.1 mg tablet TAKE 1 TABLET ORALLY AT BEDTIME NEEDED FOR SLEEP, ANXIETY 30 DAYS Therapy completed 10/19/2023 12/29/2024 documented as of this encounter Historical Medications * This list may reflect changes made after this encounter. mometasone/formot delio (DULERA INHL) Inhale by mouth. added in this encounter Care Teams Rectangular Tank Cooper Relationship Specialty Start Date End Date Saba Solorzano MD [address] [place] [address] PCP - General Internal Medicine 09/21/24 documented as of this encounter
--- OUTSIDE RECORDS SUMMARY | 2025-01-11 18:09 | XMS_ITS | Encounter Summary ---
Author Organization [employer] Address [address] [place] [address] Care Team Providers Care Groundskeeper Name Role Phone Saba Solorzano MD Primary Care Provider [phone] Reason for Visit * Reason Comments Follow-up NPV plantars wart * Consultation (Routine) - Closed Specialty Diagnoses / Procedures Referred By Contact Referred To Contact Podiatry / Orthopaedic Surgery Diagnoses Plantar warts Procedures AMB REFERRAL TO PODIATRY Darrell Salazar PA Phone: tel: fax: Orthopedic Surgery [facility] [address] [address] Phone: tel: fax: Referral ID Status Reason Start Date Expiration Date V isits Requested Visits Authorized [id number] Closed Consult and Treat 08/29/2024 08/29/2025 1 1 Encounter Details Date Type Department Care Team ([facility] st Contact Info) Description 01/07/2025 3:00 PM EDT Office Visit Orthopedic Surgery [facility] [address] [address] Gus Judge, DPM [address] [address] Xerosis of skin (Primary Dx); Verruca plantaris Social History Tobacco Use Types Packs/Day Years [...] Sign Reading Time Taken Comments Blood Pressure - - Pulse - - Temperature - - Respiratory Rate - - Oxygen Saturation - - Inhaled Oxygen Concentration - - Weight 64.4 kg (142 lb) 01/07/2025 2:38 PM EDT Height 152.4 cm (5') 01/07/2025 2:38 PM EDT Body Mass Index 27.73 01/07/2025 2:38 PM EDT documented in this encounter Progress Notes * Gus Judge DPM - 01/07/2025 3:00 PM EDT S Presents complaining of chronic pain in both feet she states that she has multiple areas on her right heel and left foot that feels she is walking small rocks she is wonders what they are she states her prescription out they was come back and they never really go away she states she has had it for several years they are chronic achy painful 3-7 out of 10 visual analog scale also reports she has dry skin patient is seen the back of her heels has been improving she has been using lotion states that the left great toe wart seems to have resolved she is also in her left heel but overall is been happy with the treatment so far and pain discomfort continues to improve ROS: GENERAL: Pt denies nausea, fever, vomiting, chills, or shortness of breath. Pt in NAD. CARDIOLOGY: pt denies chest pain, palpitations LUNGS: pt denies shortness of breath MUSCULOSKELETAL: See HPI, otherwise no joint pain or swelling, back pain, or muscle pain. SKIN: see HPI, otherwise no lesions, rash or itching NEURO: No persistent headache, weakness or numbness The remainder of the review of systems is noncontributory PAST MEDICAL HISTORY: Patient Active Problem List Diagnosis Abnormal MRI, shoulder Anxiety Aortic stenosis Asthma, moderate persistent Coronary artery disease involving [place] coronary artery of [place] heart without angina pectoris Cataract Chronic back pain COVID-19 virus infection Elevated anti-tissue transglutaminase (tTG) IgA level Gastric polyps Gastropathy GERD (gastroesophageal reflux disease) History of 2018 novel coronavirus disease (COVID-19) HLD (hyperlipidemia) Internal derangement of knee, right Obesity (BMI 30.0-34.9) Osteoarthritis Passage of loose stools BPPV (benign paroxysmal positional vertigo), unspecified laterality Stress incontinence Vitamin D deficiency Age-related osteoporosis without current pathological fracture SOCIAL HISTORY: Social History Tobacco Use Smoking status: Former Current packs/day: 0.00 Average packs/day: 0.2 packs/day for 5.0 years (0.8 ttl pk-yrs) Types: Cigarettes Start date: 10/28/1968 Quit date: 10/28/1973 Years since quittin.2 Smokeless tobacco: Never Substance Use Topics Alcohol use: Not Currently ACTIVE MEDICATIONS: Outpatient Medications Marked as Taking for the 01/07/25 encounter (Office Visit) with Gus Briones DPM Medication Sig Dispense Refill albuterol HFA (PROVENTIL [...] 5/day 150/month 11 refills For urinary incontinence loratadine (CLARITIN) 10 mg tablet Take 10 mg by mouth daily. magnesium oxide 250 mg magnesium tablet Take 1 tablet (250 mg total) by mouth 1 (one) time each day. mometasone/formoterol (DULERA INHL) Inhale by mouth. naproxen (NAPROSYN) 500 mg tablet TAKE 1 TABLET BY MOUTH AT BEDTIME NEEDED (JOINT PAIN). omeprazole (PriLOSEC) [address] capsule Take 1 capsule (40 mg total) by mouth 2 (two) times a day before meals. 180 each 1 rosuvastatin (CRESTOR) 20 mg tablet TAKE 1 TABLET BY MOUTH EVERY DAY 90 tablet 1 sertraline (ZOLOFT) 25 mg tablet Take 1 tablet (25 mg total) by mouth 1 (one) time each day. sucralfate (CARAFATE) 100 mg/mL suspension TAKE 10 ML BY MOUTH 4 TIMES DAILY (BEFORE MEALS AND NIGHTLY). UNABLE TO FIND Mometasone Furo-Formoterol Fum 200-5 MCG/ACT Aerosol Sig - Route: Inhale into the lungs daily. - Inhalation Vitamin D3 25 mcg (1,000 unit) tablet TAKE 2 TABLETS BY MOUTH DAILY 180 tablet 1 ALLERGIES: Allergies Allergen Reactions Lisinopril Cough And dizziness Meperidine Unknown PHYSICAL EXAM: Visit Vitals Ht 1.524 m (60 ) Wt 64.4 kg (142 lb) BMI 27.73 kg/m?? OB Status Postmenopausal Smoking Status Former BSA 1.61 m?? PODIATRIC EXAMINATION: GENERAL: Patient appears well nourished, with NAD. VASCULAR: Dorsalis pedis pulses are 2/4 bilaterally and Posterior tibial pulses are 2/4 bilaterally. Capillary filling time within normal limits the digits. No pallor on elevation or rubor on dependency. No varicosities. Denies rest pain or claudication pain. NEUROLOGICAL: Sharp/dull sensation intact, protective sensation intact 10/10 with 5.07 semmes sharan bilaterally, vibratory sensation with tuning fork intact to the tibial tuberosity. ORTHOPEDIC: Good muscle strength 5/5 of all flexors and extensors. Dorsi flexion of ankle ,10 degrees, plantar flexion WNL. No muscle atrophy. DERMATOLOGICAL:. Dryness and thickness of heels bilaterally Multiple skin lesions right heel deep central core pain with lateral compression pinpoint bleeding on debridement total of 2 lesions right heel BIOMECHANICS: Ankle ROM WNL, STJ ROM wnl, MTJ ROM wnl, 1st MPJ ROM wnl. IMAGING: IMPRESSION: 1. Xerosis of skin 2. Verruca plantaris PLAN: Pt was seen and examined, history reviewed. Xerosis dryness of skin heels and thickness of skin was discussed and reviewed ammonium lactate continue with Salicylic acid continue with treatment options verrucous plantaris were discussed and reviewed including definitive diagnosis with biopsy Discussed with patient concerns for biopsy as it may lead to scar tissue formation but would have surgical cure and definitive diagnosis patient declined Would recommend destructive procedures patient is willing to proceed Salicylic acid was prescribed to be used at home daily at night Follow-up in 1 month [id number]: Destruction of Plantar Verrucae: Verbal informed consent was obtained from the patient. Debrided wart(s) with a scalpel. Aggressive debridement dermal curette and 15 scalpel blade followed by chemical destruction and cauterization with silver nitrate sticks. Gus Judge DPM documented in this encounter Plan of Treatment Upcoming Encounters Date Type Department Care Team (Late st Contact Info) Description 02/11/2025 3:00 PM EDT Office Visit Orthopedic Surgery - [facility] [address] [address] Gus Judge DPM [address] [address] 07/02/2025 3:00 PM EDT Ancillary Procedure [facility] [address] [facility] [address] [place] [address] 07/15/2025 1:30 PM EDT Office Visit Adult Medicine [address] [address] Saba Solorzano MD [address] [place] [phone] 08/03/2025 3:30 PM EDT Office Visit [facility] [address] [place] [address] Yan Hilario MD [address] [place] [address] [address] [place] [address] documented as of this encounter Goals Goal Patient Goal Type Associated Problems Recent Progress Patient-Stated? Author LTG in 4 visits General On track(10/15/20 3:25 PM EST) No Aurora Curtis, OT Note: No nystag w/ repeat positonal testing all 10/15 MET No reported dizziness w/ bed mob 10/15 MET Indep HEP if/when indic 10/15 MET documented as of this encounter Visit Diagnoses Diagnosis Xerosis of skin- Primary Verruca plantaris Plantar wart documented in this encounter Care Teams Groundskeeper Relationship Specialty Start Date End Date Saba Solorzano MD [address] [place] [id number] PCP - General Internal Medicine 09/21/24 documented as of this encounter
--- OUTSIDE RECORDS SUMMARY | 2025-01-11 18:09 | XMS_ITS | Encounter Summary ---
Author Organization [employer] Address [address] [place] [address] Care Team Providers Care Belling Machine Operator Name Role Phone Saba Solorzano MD Primary Care Provider [phone] Reason for Referral * Imaging (Routine) - Pending Review Specialty Diagnoses / Procedures Referred By Farrukh nolan Referred To Contact Cardiology Diagnoses Nonrheumatic aortic valve stenosis Procedures Transthoracic echocardiogram (TTE) complete with PRN contrast, bubble, strain, and 3D order panel TX TTE W 2D IMAGE COMPLETE W DOPPLER ECHO & COLOR FLOW DOPPLER ECHO TX JOEL 2D COMPLETE W/CONTRAST OR W & WO CONTRAST WITH DOPPLER Nirmal Oleary MD [address] [place] [address] [address] Vigil [address] [place] [id number] Phone: tel: fax: [facility] Referral ID Status Reason Start Date Expiration Date V isits Requested Visits Authorized [id number] Pending Review 12/23/2024 12/23/2025 1 1 Reason for Visit * Reason Comments Follow-up Encounter Details Date Type Department Care Team ([facility] Contact Info) Description 12/23/2024 8:20 AM EST Office Visit [facility] [address] [place] [address] Dr [address] [place] [address] Nirmal Oleary MD [address] [place] [address] Dr V[address] [place] [address] Coronary artery disease involving [place] coronary artery of [place] heart without angina pectoris (Primary Dx); Nonrheumatic aortic valve stenosis; Pure hypercholesterolemia; Coronary artery disease, unspecified vessel or lesion type, unspecified whether angina present, unspecified whether [place] or transplanted heart Social History Tobacco Use Types Packs/Day Years [...] Sign Reading Time Taken Comments Blood Pressure 138/70 12/23/2024 7:55 AM EST Pulse 78 12/23/2024 7:55 AM EST Temperature - - Respiratory Rate - - Oxygen Saturation 96% 12/23/2024 7:55 AM EST Inhaled Oxygen Concentration - - Weight 62.6 kg (138 lb) 12/23/2024 7:55 AM EST Height 152.4 cm (5') 12/23/2024 7:55 AM EST Body Mass Index 26.95 12/23/2024 7:55 AM EST documented in this encounter Progress Notes * Nirmal Oleary MD - 12/23/2024 8:20 AM ESTAssociated Problem(s): Coronary artery disease involving [place] coronary artery of [place] heart with out angina pectoris The patient was found to have mild nonobstructive coronary artery disease on a cardiac CT scan donein 2022. On today's visit, she denies any symptoms of chest discomfort. She continues on rosuvastatin 20 mg orally daily. Patient was instructed to start aspirin 81 mg orally daily for primary prevention given her history of mild nonobstructive CAD. Patient occasionally uses naproxen for joint pain. The patient was advised to avoid the use of naproxen. Instead, she was instructed to use Tylenol as needed for her joint pain. * Nirmal Oleary MD - 12/23/2024 8:20 AM ESTAssociated Problem(s): Aortic stenosis The patient has a history of aortic valve stenosis. On her last echocardiogram from 2022 the aorticvalve stenosis was noted to be mild in severity. On today's visit, the patient refers a mild shortness of breath sensation when she is doing more intense activities (or exertion). Nevertheless, she denies any shortness of breath with her usual activities. Given that her coronary artery disease is only mild, it is unlikely that her symptoms are due to her underlying coronary artery disease. Nevertheless, we need to consider the possibility that her mild exertional dyspnea may be secondary to progression of her aortic valve stenosis. Therefore, we will proceed with an echocardiogram to reevaluate his aortic valve stenosis. Orders: Transthoracic echocardiogram (TTE) complete with PRN contrast, bubble, strain, and 3D order panel; Future perflutren lipid microsphere (DEFINITY) 1.3 mL in sodium chloride 0.9% 8.7 mL injection * Nirmal Oleary MD - 12/23/2024 8:20 AM ESTAssociated Problem(s): HLD (hyperlipidemia) The patient has a history of hyperlipidemia. The patient is currently on rosuvastatin 20 mg orally daily. We will order a new lipid panel to evaluate the patient's current lipid control and determineif any adjustment are needed in the lipid lowering therapy. Orders: Lipid panel with reflex to direct LDL; Future Comprehensive metabolic panel; Future * Nirmal Oleary MD - 12/23/2024 8:20 AM EST [facility] Outpatient Follow Up Note PCP: Saba Solorzano MD HPI: Mrs. De La Rosa is a 74 years old female patient with history of mild nonobstructive coronary artery disease, aortic stenosis, bronchial asthma (followed by Dr. Dover - Pulmonology), GERD, scoliosis,right breast cancer status post chemotherapy and radiotherapy, former smoker, scoliosis, and obesity who underwent a follow-up evaluation today. The patient states that she has been noticing a mild shortness of breath with overexertion. Nevertheless, she denies any shortness of breath with her usual activities. She denies any chest pain, palpitations, dizziness, or syncope. Ancillary testin. Chest CT (03/21/2021): Mild coronary artery and aortic valve calcification. 2. Echocardiogram (August 2021): Normal ventricular systolic function with a left ventricular ejection fraction of 60 to 65%. Normal RV size and function. Mild aortic valve stenosis. 3. Echocardiogram (01/21/2023): LVEF 55 to 60%. Indeterminate LV diastolic function. Normal left atrial size. Normal RV size and function. Mild aortic stenosis. No changes when compared to the echo done in 2020. 4. Nuclear stress test (01/30/2023): Normal study. No evidence of ischemia or infarct. 5. Cardiac CT scan (04/26/2023): Image quality is excellent. Contrast-enhancement is excellent. Trileaflet aortic valve. Normal left main. Small eccentric calcified plaque in the ostial LAD causing a 25% stenosis. Remainder of the LAD is normal. Normal circumflex. Normal RCA. ACTIVE MEDICATIONS: Outpatient Medications Marked as Taking for the 12/23/24 encounter (Office Visit) with Nirmal Oleary MD Medication Sig Dispense Refill albuterol HFA (PROVENTIL HFA;VENTOLIN HFA) 108 (90 Base) MCG/ACT inhaler INHALE 2 PUFFS INTO THE LUNGS EVERY 4 HOURS NEEDED FOR COUGH, WHEEZING OR SHORTNESS OF BREATH ammonium lactate (AMLACTIN) 12 % cream Apply topically at bedtime. Both heels dry skin 770 g 0 calcium carbonate-vitamin D3 600 mg-5 mcg (200 unit) per tablet TAKE 1 TABLET BY MOUTH EVERY DAY cloNIDine (CATAPRES) 0.1 mg tablet TAKE 1 TABLET ORALLY AT BEDTIME NEEDED FOR SLEEP, ANXIETY 30 DAYS coenzyme Q-10 10 mg capsule Take by [...] Reactions Lisinopril Cough And dizziness Meperidine Unknown SOCIAL HISTORY: Social History Tobacco Use Smoking status: Former Current packs/day: 0.00 Average packs/day: 0.2 packs/day for 5.0 years (0.8 ttl pk-yrs) Types: Cigarettes Start date: 10/28/1968 Quit date: 10/28/1973 Years since quittin.1 Smokeless tobacco: Never Substance Use Topics Alcohol use: Not Currently REVIEW OF SYSTEMS: Review of Systems Constitutional: Negative for malaise/fatigue. Cardiovascular: Positive for dyspnea on exertion. Negative for chest pain, claudication, leg swelling, near-syncope, orthopnea, palpitations, paroxysmal nocturnal dyspnea and syncope. Respiratory: Positive for shortness of breath. Neurological: Negative for dizziness and light-headedness. PHYSICAL EXAM: Vitals: 12/23/24 0755 BP: 138/70 Pulse: 78 SpO2: 96% Body mass index is 26.95 kg/m??. Physical Exam Constitutional: Appearance: Normal appearance. HENT: Head: Normocephalic. Nose: Nose normal. Cardiovascular: Rate and Rhythm: Normal rate and regular rhythm. Heart sounds: Murmur heard. Midsystolic murmur is present with a grade of 3/6 at the upper right sternal border. No friction rub. No gallop. Pulmonary: Effort: Pulmonary effort is normal. Breath sounds: Normal breath sounds. Musculoskeletal: General: No swelling. Skin: General: Skin is warm. Neurological: Mental Status: She is oriented to person, place, and time. Mental status is at baseline. Psychiatric: Mood and Affect: Mood normal. Behavior: Behavior normal. EKG: Encounter Date: 12/23/24 ECG 12 lead Result Value Ventricular Rate ECG 76 Atrial Rate 76 P-R Interval 120 QRS Duration 80 Q-T Interval 390 QTc 438 P Wave [place] 25 R [place] 93 T [place] 18 ECG Interpretation Normal sinus rhythm Normal ECG No previous ECGs available Confirmed by NIRMAL OLEARY ([id number]) on 12/23/2024 8:22:01 AM *Note: Due to a large number of results and/or encounters for the requested time period, some results have not been displayed. A complete set of results can be found in Results Review. ASSESSMENT/PLAN: Assessment & Plan Coronary artery disease involving [place] coronary artery of [place] heart without angina pectoris The patient was found to have mild nonobstructive coronary artery disease on a cardiac CT scan donein 2022. On today's visit, she denies any symptoms of chest discomfort. She continues on rosuvastatin 20 mg orally daily. Patient was instructed to start aspirin 81 mg orally daily for primary prevention given her history of mild nonobstructive CAD. Patient occasionally uses naproxen for joint pain. The patient was advised to avoid the use of naproxen. Instead, she was instructed to use Tylenol as needed for her joint pain. Nonrheumatic aortic valve stenosis The patient has a history of aortic valve stenosis. On her last echocardiogram from 2022 the aorticvalve stenosis was noted to be mild in severity. On today's visit, the patient refers a mild shortness of breath sensation when she is doing more intense activities (or exertion). Nevertheless, she denies any shortness of breath with her usual activities. Given that her coronary artery disease is only mild, it is unlikely that her symptoms are due to her underlying coronary artery disease. Nevertheless, we need to consider the possibility that her mild exertional dyspnea may be secondary to progression of her aortic valve stenosis. Therefore, we will proceed with an echocardiogram to reevaluate his aortic valve stenosis. Orders: Transthoracic echocardiogram (TTE) complete with PRN contrast, bubble, strain, and 3D order panel; Future perflutren lipid microsphere (DEFINITY) 1.3 mL in sodium chloride 0.9% 8.7 mL injection Pure hypercholesterolemia The patient has a history of hyperlipidemia. The patient is currently on rosuvastatin 20 mg orally daily. We will order a new lipid panel to evaluate the patient's current lipid control and determineif any adjustment are needed in the lipid lowering therapy. Orders: Lipid panel with reflex to direct LDL; Future Comprehensive metabolic panel; Future The [facility] team will continue to co-manage this patient following the plan of care as established by my initial visit and as per AHA guidelines for ongoing management and surveillance of the medical conditions described previously in this note. This will include medication titration, initiation of appropriate medications and further titration, and diagnostic studies to manage this disease process. I have applied the code G2211 to this patient???s visit as the provider managing CAD, aortic stenosis, hyperlipidemia that is/are complex) leading to the extensive work up, ongoing monitoring, and management associated with the medical care of this patient.? I have a longitudinal relationship with the patient. documented in this encounter Plan of Treatment Upcoming Encounters Date Type Department Care Team (Late st Contact Info) Description 02/11/2025 3:00 PM EDT Office Visit Orthopedic Surgery - [place] [address] [facility] [address] [place] [id number] Gus Judge, DPM [address] [facility] [address] [place] [address] 07/02/2025 3:00 PM EDT Ancillary Procedure [facility] [address] [place] [address] 07/15/2025 1:30 PM EDT Office Visit On [facility] [address] [place] [address] Saba Solorzano MD [address] [place] [address] 08/03/2025 3:30 PM EDT Office Visit [facility] [place] [address] [place] [address] Nirmal Oleary MD [address] [place] [address] [address] [place] [address] Scheduled Orders Name Type Priority Associated Diagnoses Order Schedule Transthoracic echocardiogram (TTE) complete with PRN contrast, bubble, strain, and 3D order panel Echocardiography Routine Nonrheumatic aortic valve stenosis 1 Occurrences starting 12/23/2024 until 12/23/2025 documented [...] 10/15 MET documented as of this encounter Procedures Procedure Name Priority Date/Time Associated Diagnosis Comments ECG 12-LEAD Routine 12/23/2024 8:14 AM EST Coronary artery disease, unspecified vessel or lesion type, unspecified whether angina present, unspecified whether [place] or transplanted heart documented in this encounter Results * Comprehensive metabolic panel (01/01/2025 7:43 AM EST) Sodium 142 133 - 145 mmol/L LAB CHEMISTRY METHOD 01/01/2025 10:21 AM [facility] Potassium 3.8 3.5 - 5.5 mmol/L LAB CHEMISTRY METHOD 01/01/2025 10:21 AM [facility] Chloride 108 96 - 110 mmol/L LAB CHEMISTRY METHOD 01/01/2025 10:21 AM [facility] CO2 26 21 - 32 mmol/L LAB CHEMISTRY METHOD 01/01/2025 10:21 AM [facility] Anion Gap 8 3 - 11 LAB CHEMISTRY METHOD 01/01/2025 10:21 AM [facility] Glucose 79 70 - 100 mg/dL LAB CHEMISTRY METHOD 01/01/2025 10:21 AM [facility] BUN 15 5 - 25 mg/dL LAB CHEMISTRY METHOD 01/01/2025 10:21 AM [facility] Creatinine 0.70 0.50 - 1.10 mg/dL LAB CHEMISTRY METHOD 01/01/2025 10:21 AM [facility] eGFR 91 >=60 mL/min/1. 73m2 LAB CHEMISTRY METHOD 01/01/2025 10:21 AM [facility] Comment:Calculation based on the??Chronic Kidney Disease Epidemiology Collaboration (CKD-EPI) equation refit??without adjustment for race. BUN/Creatinine Ratio 21.4 LAB CHEMISTRY METHOD 01/01/2025 10:21 AM [facility] Calcium 9.6 8.5 - 10.5 mg/dL LAB CHEMISTRY METHOD 01/01/2025 10:21 AM [facility] AST (SGOT) 23 10 - 42 unit/L LAB CHEMISTRY METHOD 01/01/2025 10:21 AM [facility] ALT (SGPT) 26 10 - 60 unit/L LAB CHEMISTRY METHOD 01/01/2025 10:21 AM [facility] Alkaline Phosphatase 106 42 - 121 unit/L LAB CHEMISTRY METHOD 01/01/2025 10:21 AM [facility] Total Protein 7.1 6.0 - 8.0 g/dL LAB CHEMISTRY METHOD 01/01/2025 10:21 AM [facility] Albumin 3.8 3.2 - 5.0 g/dL LAB CHEMISTRY METHOD 01/01/2025 10:21 AM [facility] Total Bilirubin 0.5 0.0 - 1.4 mg/dL LAB CHEMISTRY METHOD 01/01/2025 10:21 AM [facility] Blood Venous blood specimen / Unknown Venipuncture / Unknown 01/01/2025 7:43 AM EST 01/01/2025 7:43 AM EST us Nirmal Oleary MD LAB BLOOD ORDERABLES F inal Result [facility] [address] [place] [address], * Lipid panel with reflex to direct LDL (01/01/2025 7:43 AM EST) Cholesterol 158 0 - 200 mg/dL LAB CHEMISTRY METHOD 01/01/2025 10:18 AM [facility] Triglycerides 94 0 - 150 mg/dL LAB CHEMISTRY METHOD 01/01/2025 10:18 AM [facility] HDL 79 >=40 mg/dL LAB CHEMISTRY METHOD 01/01/2025 10:18 AM [facility] LDL Calculated 60 0 - 100 mg/dL LAB CHEMISTRY METHOD 01/01/2025 10:18 AM [facility] VLDL Cholesterol Reji 18.8 mg/dL LAB CHEMISTRY METHOD 01/01/2025 10:18 AM EST [facility] Non HDL Chol. (LDL+VLDL) 79 <145 mg/dL LAB CHEMISTRY METHOD 01/01/2025 10:18 AM EST [facility] Chol/HDL Ratio 2.0 0.0 - 4.4 LAB CHEMISTRY METHOD 01/01/2025 10:18 AM EST [facility] Blood Venous blood specimen / Unknown Venipuncture / Unknown 01/01/2025 7:43 AM EST 01/01/2025 7:43 AM EST Nirmal Oleary MD LAB BLOOD ORDERABLES F inal Result Performing Organization Address [facility] Co de Phone Number [facility] [address] [place] [address], [place] [phone] * ECG 12 lead (12/23/2024 8:14 AM EST) Ventricular Rate ECG 76 BPM GEMUSE Atrial Rate 76 BPM GEMUSE P-R Interval 120 ms GEMUSE QRS Duration 80 ms GEMUSE Q-T Interval 390 ms GEMUSE QTc 438 ms GEMUSE P Wave [place] 25 degrees GEMUSE R [place] 93 degrees GEMUSE T [place] 18 degrees GEMUSE ECG Interpretation Normal sinus rhythm Normal ECG No previous ECGs available Confirmed by NIRMAL OLEARY ([id number]) on 12/23/2024 8:22:01 AM GEMUSE 12/23/2024 8:14 AM EST 12/23/2024 8:22 AM EST Nirmal Oleary MD ECG ORDERABLES Final Result GEMUSE documented in this encounter Visit Diagnoses Diagnosis Coronary artery disease, unspecified vessel or lesion type, unspecified whether angina present, unspecified whether [place] or transplanted heart Nonrheumatic aortic valve stenosis Pure hypercholesterolemia documented in this encounter Discontinued Medications Medication Sig Discontinue Reason Start Date End Da te busPIRone (BUSPAR) 10 mg tablet TOME MISAEL TABLETA TODOS LOS D FOR 30 DAYS Therapy completed 10/24/2023 12/29/2024 tirzepatide (Mounjaro) 2.5 mg/0.5 mL injection Inject into the skin daily. Mounjaro Patient Discharge 12/23/2024 documented as of this encounter Historical Medications * This list may reflect changes made after this encounter. aspirin 81 mg chewable tablet Chew 1 tablet (81 mg total) 1 (one) time each day. sertraline (ZOLOFT) 25 mg tablet Take 1 tablet (25 mg total) by mouth 1 (one) time each day. added in this encounter Care Teams Belling Machine Operator Relationship Specialty Start Date End Date Saba Solorzano MD [address] [place] [id number] PCP - General Internal Medicine 09/21/24 documented as of this encounter
--- OUTSIDE RECORDS SUMMARY | 2025-01-11 18:10 | XMS_ITS ---
Author Organization [facility] Address [address] [place] [address] Care Team Providers Care Theatrical Performer Name Role Phone BAYLEE PAVON Unavailable [phone] ALLERGIES Allergen (clinical drug ingredient) Drug/Non Drug Allergy documented on EMR Reaction Allergy Type Onset Date Status meperidine Demerol Unknown Drug Allergy Active REASON FOR VISIT Pt seen in office for wt mgt f/u visit with DANAY, Pt received tirzepatide injection given in right arm sub Q, Pt tolerated well with no interactions and discharged in stable condition. MEDICATIONS Medication SIG (Take, Route, Frequency, Duration) Notes Start Date End Date Status busPIRone HCl 5 MG 1 tablet Orally Twic e a day Active Rosuvastatin Calcium 10 MG 1 tablet Orally Once a day Active Calcium + D3 600-800 MG-UNIT 1 tablet with a meal Orally Once a day Active Linzess 145 MCG 1 capsule at least 3 0 minutes before the first meal of the day on an empty stomach Orally Once a day for 30 days Active Zepbound 2.5 MG/0.5ML 2.5mg Subcutaneous weekly for 30 days 11/16/2024 Not-Taking Naproxen 500 MG 1 tablet with food o r milk as needed Orally every 12 hrs Active Wegovy 0.25 MG/0.5ML 0.25mg Subcutaneous weekly for 30 days 11/23/2024 Active Mounjaro 2.5 MG/0.5ML 2.5mg Subcutaneous weekly for 30 days Not-Taking Omeprazole 40 MG 1 capsule 30 minutes before morning meal Orally Once a day Active SOCIAL HISTORY Tobacco Use: Social History Observation Description Date Details (start date - stop date) Former Smoker NA - NA Sex Assigned At : Social History Observation Description Sex Assigned At Unknown Tobacco Use/Smoking Question Answer Notes Are you a former smoker How long has it been since y ou last smoked? > 10 years Additional Findings: Tobacco User Modera te cigarette smoker (10-19 cigs/day) Section Notes: QUIT SMOKING 1970 ABOUT N1 P ACK A DAY VITAL SIGNS Blood pressure systolic 112 mm Hg 11/23/19 25 Blood pressure diastolic 80 mm Hg 025 Heart Rate 73 /min 11/23/2024 Height 59 in 11/23/2024 Weight 139 lbs 11/23/2024 BMI 28.07 kg/m2 11/23/2024 Oximetry 99 % 11/23/2024 Encounters Encounter Location Date Provider Diagnosis [facility] [address] [facility] [address] [place] [address] 11/23/2024 BAYLEE PAVON BMI 27.0-27.9,adult Z68.27 ; Mild intermittent asthma without complication J45.20 ; Overweight E66.3 and Gastroesophageal reflux disease with esophagitis without hemorrhage K21.00 ASSESSMENTS Encounter Date Diagnosis Assessment Notes Treatment Notes Treatment Clinical Notes Section Notes 11/23/2024 BMI 27.0-27.9,adult (ICD-10 - Z68.27) #Weight Management 11/23/2024 Will give her dose of 2.5 mg today here in office of Tirz Will work on getting Wegovy covered Patient has been found to be overweight with a BMI of (27). Patient was reassured and welcomed to the practice. Total time spent today was 30 minutes of which greater than 50% was spent on coordinating and counseling Of note, some information is being carried forward from prior records for informational purposes only and is being cited so that efficiency, safety and quality of the patient's care is not compromised This note was prepared using voice recognition software and direct typing Please excuse inadvertent wrist closer or typing errors, or uncorrected word substitutions Although every attempt has been made by the provider to proofread this document, occasional misspellings and typographical errors may still be present Due to the previous pandemic, and the use of personal protective equipment (PPE) This may decrease voice recognition accuracy Inadvertent wrist closer errors may occur 11/23/2024 Mild intermittent asthma without complication (ICD-10 - J45.20) #Weight Management 11/23/2024 Will give her dose of 2.5 mg today here in office of Tirz Will work on getting Wegovy covered Patient has been found to be overweight with a BMI of (27). Patient was reassured and welcomed to the practice. Total time spent today was 30 minutes of which greater than 50% was spent on coordinating and counseling Of note, some information is being carried forward from prior records for informational purposes only and is being cited so that efficiency, safety and quality of the patient's care is not compromised This note was prepared using voice recognition software and direct typing Please excuse inadvertent wrist closer or typing errors, or uncorrected word substitutions Although every attempt has been made by the provider to proofread this document, occasional misspellings and typographical errors may still be present Due to the previous pandemic, and the use of personal protective equipment (PPE) This may decrease voice recognition accuracy Inadvertent wrist closer errors may occur 11/23/2024 Overweight (ICD-10 - E66.3) #Weight Management 11/23/2024 Will give her dose of 2.5 mg today here in office of Tir Will work on getting Wegovy covered Patient has been found to be overweight with a BMI of (27). Patient was reassured and welcomed to the practice. Total time spent today was 30 minutes of which greater than 50% was spent on coordinating and counseling Of note, some information is being carried forward from prior records for informational purposes only and is being cited so that efficiency, safety and quality of the patient's care is not compromised This note was prepared using voice recognition software and direct typing Please excuse inadvertent wrist closer or typing errors, or uncorrected word substitutions Although every attempt has been made by the provider to proofread this document, occasional misspellings and typographical errors may still be present Due to the previous pandemic, and the use of personal protective equipment (PPE) This may decrease voice recognition accuracy Inadvertent wrist closer errors may occur 11/23/2024 Gastroesophageal reflux disease with esophagitis without hemorrhage (ICD-10 - K21.00) #Weight Management 11/23/2024 Will give her dose of 2.5 mg today here in office of Tir Will work on getting Wegovy covered Patient has been found to be overweight with a BMI of (27). Patient was reassured and welcomed to the practice. Total time spent today was 30 minutes of which greater than 50% was spent on coordinating and counseling Of note, some information is being carried forward from prior records for informational purposes only and is being cited so that efficiency, safety and quality of the patient's care is not compromised This note was prepared using voice recognition software and direct typing Please excuse inadvertent wrist closer or typing errors, or uncorrected word substitutions Although every attempt has been made by the provider to proofread this document, occasional misspellings and typographical errors may still be present Due to the previous pandemic, and the use of personal protective equipment (PPE) This may decrease voice recognition accuracy Inadvertent wrist closer errors may occur PLAN OF TREATMENT Medication Medication Name Sig Start Date Stop Date Notes Linzess 145 MCG 1 capsule at least 3 0 minutes before the first meal of the day on an empty stomach Orally Once a day for 30 days Wegovy 0.25 MG/0.5ML 0.25mg Subcutaneous weekly for 30 days 11/23/2024 Next Appt Details Provider Name:BAYLEE PAVON, 01/13/2025 08:30:00 AM, [address] [facility], [place] [address], [place], [address], Provider Name:BAYLEE PAVON, 2025 02:45:00 PM, [address] [facility], [facility] [address], [place], [address], MEDICATIONS ADMINISTERED Medication Instructions Date of Administration Dosage Notes Tirzepatide 11/23/2024 2.5 mg Progress Notes * CHAGO DALEYB:11/1949 (74 yo F)Acc No.[id number]:11/23/2024 Patient:??JUVE DALEY [place] Provider:??BAYLEE PAVON NP :1950?Age:74 Y?Sex:Fe male Date:11/23/2024 Address:[address] [place], [place] [id number] Subjective: * Chief Complaints: * ?1. Pt seen in office f or wt mgt f/u visit with SECA, Pt received tirzepatide injection given in right arm sub Q, Pt tolerated well with no interactions and discharged in stable condition.. * HPI: ?Constitutional:? Patient here today for a weight management f/u visit ?Patient seen and examined. ?Full past medical history, social history, family history, allergies and current medications ?were reviewed and updated ?Body composition analysis reviewed ?#Weight Management ?11/23/2024 ?Patient has been off of her medication for 3 weeks ?Was on Mounjaro 2.5 mg ?Lack of type 2 diabetes diagnosis ?Insurance change, does not cover Zepbound ?Had done very well was thriving ?on maintenance dosing ?As she has reached her target goal weight ?Discussed compounding program versus transitioning to Wegovy ?We also discussed getting a home sleep study to have a potential MIRIAN diagnosis ?Past medical history that includes acid reflux, chronic obstructive asthma which is well controlled w/Dulera ? Denies side effects such as nausea, vomtiing, diarrhea, constipation, or abdominal pain. ?She does have a history of gastroesophageal reflux on PPI as well as Carafate ?Recent EGD with , [facility] ?Dr Cornelius/Physiatry, gets injections for her lower back pain ?States her pain has been a barrier to exercise ?hx of scoliosis. Has appoinment tomorrow. ?BP stable, states at home 130s/80s. ?Has had elevated BP during previous visits as well. ?Pt follows w/ Cardiology. Sees them once yearly ?Sees a membership administrator once a year, Niall ?Liliana HOFF ? comprehensive labs in April 2024 at [place] through epic chart review ?weight 11/23/2024 139lbs , BMI 27 ?weight 10/01/2024, 138 lbs, BMI 27.87 ?weight 08/11/2024, 135lbs BMI 27 ?weight 01/15/2024, 136lbs BMI 27 ?weight ,11/15/2023, 136lbs, BMI 27 ?weight 09/12/23: 137lbs, BMI 27, (-3lbs) ?weight 07/31/23: 140 lbs (-16 lbs) 28.3 BMI ?weight 01/31/23: 156 lbs, BMI 31.5 (+1) ?weight 12/19/22: 155 BMI 31, (+1lbs) ?weight 11/07/22: 154lbs BMI 31,(+2lbs) ?weight 09/26/22: 152lbs, 5 MONTH HIATUS, BMI 30 ?weight 04/11/22: 156lbs, BMI 31 (+1lb) ?weight 02/22/22, 155lbs, BMI 31 (-2lbs) ?weight 12/20/21 157 lbs, BMI 31 (-1 lbs) ?weight 11/14/21 158lbs, BMI 32 (-6lbs) ?weight 09/28/21 164lbs, BMI 32 (+4lbs) ?weight 08/30/21 160lbs, BMI 32 ?Her target goal weight is 140 pounds. * ROS:?All Other Systems:?Review of Systems (ROS)??All others negative except those mentioned in HPI.? * Medical History:??Asthma, Go ut, Anxiety, Allergic rhinitis. * Surgical History:??lumpectom y, right breast 2000, section 1975, cholecystectomy 02/2005. * Hospitalization/Major Diagno stic Procedure:??Denies Past Hospitalization. * Family History:??Father: dec eased, cancer, throat, diagnosed with Other malignant neoplasm of unspecified site.??Mother: , hypertension, type II diabetes controlled, diagnosed with Diabetes mellitus without mention of complication, type II or unspecified type, not stated as uncontrolled, Unspecified essential hypertension.??2 brother(s) , 3 sister(s) - healthy. 1 son(s) , 1 daughter(s) - healthy. .?? 1 sister 1 brother . * Social History:?Tobacco Use:??Tobacco Use/Smoking??Are you a??former smoker,??How long has it been since you last smoked???> 10 years,??Additional Findings: Tobacco User??Moderate cigarette smoker (10-19 cigs/day).?QUIT SMOKING 1970 ABOUT N1 PACK A DAY. * Medications:??Taking Linzess 145 MCG Capsule 1 capsule at least 30 minutes before the first meal of the day on an empty stomach Orally Once a day , Taking Rosuvastatin Calcium 10 MG Tablet 1 tablet Orally Once a day , Taking busPIRone HCl 5 MG Tablet 1 tablet Orally Twice a day , Taking Calcium + D3 600-800 MG-UNIT Tablet 1 tablet with a meal Orally Once a day , Taking Naproxen 500 MG Tablet 1 tablet with food or milk as needed Orally every 12 hrs , Taking Omeprazole 40 MG Capsule Delayed Release 1 capsule 30 minutes before morning meal Orally Once a day , Not-Taking Mounjaro 2.5 MG/0.5ML Solution Pen-injector 2.5mg Subcutaneous weekly , Not-Taking Zepbound 2.5 MG/0.5ML Solution Auto-injector 2.5mg Subcutaneous weekly , Medication List reviewed and reconciled with the patient * Allergies:??Demerol. Objective: * Vitals:??HR:73/min, BP:112/8 0mm Hg, Wt:139lbs, BMI:28.07Index, Ht: 59 in, Oxygen sat %:99%. * Examination: ?General Examination: ?GENERAL APPEARANCE:??in no acute distress, well developed, well nourished.??HEAD:??normocephalic, atraumatic.??EYES:??pupils equal, round, reactive to light and accommodation.??NECK/THYROID:??neck supple, full range of motion..??SKIN:??no suspicious lesions, warm and dry.??HEART:??3/6 systolic ejection murmur, regular rate and rhythm, S1, S2 normal.??LUNGS:??clear to auscultation bilaterally.??ABDOMEN:??normal, bowel sounds present, soft, nontender, nondistended.??EXTREMITIES:??no clubbing, cyanosis, or edema.??NEUROLOGIC:??nonfocal, active range of motion present in the upper and lower extremities bilaterally. Sensory exam intact.? Assessment: * Assessment: 1.??Overweight - E66.3 (Prim jazmin)??2.??BMI 27.0-27.9,adult - Z68.27??3.??Mild intermittent asthma without complication - J45.20??4.??Gastroesophageal reflux disease with esophagitis without hemorrhage - K21.00?? #Weight Management 11/23/2024 Will give her dose of 2.5 mg today here in office of Keira Will work on getting Wegovy covered Patient has been found to be overweight with a BMI of (27). Patient was reassured and welcomed to the practice. Total time spent today was 30 minutes of which greater than 50% was spent on coordinating and counseling Of note, some information is being carried forward from prior records for informational purposes only and is being cited so that efficiency, safety and quality of the patient's care is not compromised This note was prepared using voice recognition software and direct typing Please excuse inadvertent wrist closer or typing errors, or uncorrected word substitutions Although every attempt has been made by the provider to proofread this document, occasional misspellings and typographical errors may still be present Due to the previous pandemic, and the use of personal protective equipment (PPE) This may decrease voice recognition accuracy Inadvertent wrist closer errors may occur. Plan: * Treatment: * Therapeutic Injections:? Tirzepatide : 2.5 mg (Route: Subcutaneous) given by Kay Fish on subcutaneus * Procedure Codes:??80980 P/M FRAME BANDER, INDIV 15 MIN * Images: Billing Information: * Visit Code:?? 30941 Office Visit, Est Pt., Level 4. * Procedure Codes:?? 85123 P/M FRAME BANDER, INDIV 15 MIN. * Sign off status: Completed true * Provider:??BAYLEE PAVON NP Date:??10/29 History and Physical Notes * HPI (History of Present Illness) Category Sub-Category Detail Notes Category Not es Constitutional Patient here today for a weight management f/u visit Patient seen and examined. Full past medical history, social history, family history, allergies and current medications were reviewed and updated Body composition analysis reviewed #Weight Management 11/23/2024 Patient has been off of her medication for 3 weeks Was on Mounjaro 2.5 mg Lack of type 2 diabetes diagnosis Insurance change, does not cover Zepbound Had done very well was thriving on maintenance dosing As she has reached her target goal weight Discussed compounding program versus transitioning to Wegovy We also discussed getting a home sleep study to have a potential MIRIAN diagnosis Past medical history that includes acid reflux, chronic obstructive asthma which is well controlled w/Dulera Denies side effects such as nausea, vomtiing, diarrhea, constipation, or abdominal pain. She does have a history of gastroesophageal reflux on PPI as well as Carafate Recent EGD with GI, [facility] Dr Cornelius/Physiatry, gets injections for her lower back pain States her pain has been a barrier to exercise hx of scoliosis. Has appoinment tomorrow. BP stable, states at home 130s/80s. Has had elevated BP during previous visits as well. Pt follows w/ Cardiology. Sees them once yearly Sees a membership administrator once a year, Niall PCP Liliana GUEVARA comprehensive labs in April 2024 at [place] through epic chart review weight 11/23/2024 139lbs , BMI 27 weight 10/01/2024, 138 lbs, BMI 27.87 weight 08/11/2024, 135lbs BMI 27 weight 01/15/2024, 136lbs BMI 27 weight ,11/15/2023, 136lbs, BMI 27 weight 09/12/23: 137lbs, BMI 27, (-3lbs) weight 07/31/23: 140 lbs (-16 lbs) 28.3 BMI weight 01/31/23: 156 lbs, BMI 31.5 (+1) weight 12/19/22: 155 BMI 31, (+1lbs) weight 11/07/22: 154lbs BMI 31,(+2lbs) weight 09/26/22: 152lbs, 5 MONTH HIATUS, BMI 30 weight 04/11/22: 156lbs, BMI 31 (+1lb) weight 02/22/22, 155lbs, BMI 31 (-2lbs) weight 12/20/21 157 lbs, BMI 31 (-1 lbs) weight 11/14/21 158lbs, BMI 32 (-6lbs) weight 09/28/21 164lbs, BMI 32 (+4lbs) weight 08/30/21 160lbs, BMI 32 Her target goal weight is 140 pounds Examination Category Sub-Category Detail Notes Category Not es General Examination GENERAL APPEARANCE: in no ac [place] distress, well developed, well nourished HEAD: normocephalic, atrau matic EYES: pupils equal, round, reactive to light and accommodation NECK/THYROID: neck supple, full ra nge of motion. HEART: 3/6 systolic ejectio n murmur, regular rate and rhythm, S1, S2 normal LUNGS: clear to auscultatio n bilaterally ABDOMEN: normal, bowel sounds present, soft, nontender, nondistended NEUROLOGIC: nonfocal, active ran ge of motion present in the upper and lower extremities bilaterally. Sensory exam intact SKIN: no suspicious lesion s, warm and dry EXTREMITIES: no clubbing, cyanosi s, or edema
--- OUTSIDE RECORDS SUMMARY | 2025-01-11 18:10 | XMS_ITS ---
Author Organization [facility] Address [address] [place] [address] Care Team Providers Care Silver Spray Worker Name Role Phone BAYLEE PAVON Unavailable [phone] ALLERGIES Allergen (clinical drug ingredient) Drug/Non Drug Allergy documented on EMR Reaction Allergy Type Onset Date Status meperidine Demerol Unknown Drug Allergy Active REASON FOR VISIT Pt here for weight management follow up SECA done. Pt has not been on anything due to insurance reasons. Tirzepatide 2.5mg given on LLQ sub q, pt tolerated well with no reaction. MEDICATIONS Medication SIG (Take, Route, Frequency, Duration) Notes Start Date End Date Status Omeprazole 40 MG 1 capsule 30 minutes before morning meal Orally Once a day Active Rosuvastatin Calcium 10 MG 1 tablet Orally Once a day Active Calcium + D3 600-800 MG-UNIT 1 tablet with a meal Orally Once a day Active busPIRone HCl 5 MG 1 tablet Orally Twic e a day Active Wegovy 0.25 MG/0.5ML 0.25mg Subcutaneous weekly for 30 days Active Linzess 145 MCG 1 capsule at least 3 0 minutes before the first meal of the day on an empty stomach Orally Once a day for 30 days Active SOCIAL HISTORY Tobacco Use: Social History [...] A DAY VITAL SIGNS Blood pressure systolic 156 mm Hg 12/31/19 25 Blood pressure diastolic 88 mm Hg 025 Heart Rate 80 /min 12/30/2024 Height 59 in 12/30/2024 Weight 142 lbs 12/30/2024 BMI 28.68 kg/m2 12/30/2024 Oximetry 98 % 12/30/2024 Encounters Encounter Location Date Provider Diagnosis [address] [facility] [address] [place] [address] 12/30/2024 BAYLEE PAVON BMI 28.0-28.9,adult Z68.28 ; Dietary counseling and surveillance Z71.3 ; Mild intermittent asthma without complication J45.20 ; Overweight E66.3 and Gastroesophageal reflux disease with esophagitis without hemorrhage K21.00 ASSESSMENTS Encounter Date Diagnosis Assessment Notes Treatment Notes Treatment Clinical Notes Section Notes 12/30/2024 BMI 28.0-28.9,adult (ICD-10 - Z68.28) #Weight Management 12/30/2024 Discussed options for her. She seems amendable to maintenance dosing of Tirzepatide compounded. She will get back to us if this works financially Going for labs on Saturday from Dr. Perez@ [facility] Patient has been found to be overweight with a BMI of (28). Total time spent today was 30 minutes [...] software and direct typing Please excuse inadvertent financial director or typing errors, or uncorrected word substitutions Although every attempt has been made by the provider to proofread this document, occasional misspellings and typographical errors may still be present Due to the previous pandemic, and the use of personal protective equipment (PPE) This may decrease voice recognition accuracy Inadvertent financial director errors may occur 12/30/2024 Dietary counseling and surveillance (ICD-10 - Z71.3) #Weight Management 12/30/2024 Discussed options for her. She seems amendable to maintenance dosing of Tirzepatide compounded. She will get back to us if this works financially Going for labs on Saturday from Dr. Perez@ [facility] Patient has been found to be overweight with a BMI of (28). Total time spent today was 30 minutes [...] software and direct typing Please excuse inadvertent financial director or typing errors, or uncorrected word substitutions Although every attempt has been made by the provider to proofread this document, occasional misspellings and typographical errors may still be present Due to the previous pandemic, and the use of personal protective equipment (PPE) This may decrease voice recognition accuracy Inadvertent financial director errors may occur 12/30/2024 Mild intermittent asthma without complication (ICD-10 - J45.20) #Weight Management 12/30/2024 Discussed options for her. She seems amendable to maintenance dosing of Tirzepatide compounded. She will get back to us if this works financially Going for labs on Saturday from Dr. Perez@ [facility] Patient has been found to be overweight with a BMI of (28). Total time spent today was 30 minutes [...] software and direct typing Please excuse inadvertent financial director or typing errors, or uncorrected word substitutions Although every attempt has been made by the provider to proofread this document, occasional misspellings and typographical errors may still be present Due to the previous pandemic, and the use of personal protective equipment (PPE) This may decrease voice recognition accuracy Inadvertent financial director errors may occur 12/30/2024 Overweight (ICD-10 - E66.3) #Weight Management 12/30/2024 Discussed options for her. She seems amendable to maintenance dosing of Tirzepatide compounded. She will get back to us if this works financially Going for labs on Saturday from Dr. Perez@ [facility] Patient has been found to be overweight with a BMI of (28). Total time spent today was 30 minutes [...] software and direct typing Please excuse inadvertent financial director or typing errors, or uncorrected word substitutions Although every attempt has been made by the provider to proofread this document, occasional misspellings and typographical errors may still be present Due to the previous pandemic, and the use of personal protective equipment (PPE) This may decrease voice recognition accuracy Inadvertent financial director errors may occur 12/30/2024 Gastroesophageal reflux disease with esophagitis without hemorrhage (ICD-10 - K21.00) #Weight Management 12/30/2024 Discussed options for her. She seems amendable to maintenance dosing of Tirzepatide compounded. She will get back to us if this works financially Going for labs on Saturday from Dr. Perez@ [facility] Patient has been found to be overweight with a BMI of (28). Total time spent today was 30 minutes [...] software and direct typing Please excuse inadvertent financial director or typing errors, or uncorrected word substitutions Although every attempt has been made by the provider to proofread this document, occasional misspellings and typographical errors may still be present Due to the previous pandemic, and the use of personal protective equipment (PPE) This may decrease voice recognition accuracy Inadvertent financial director errors may occur PLAN OF TREATMENT Medication Medication Name Sig Start Date Stop Date Notes Wegovy 0.25 MG/0.5ML 0.25mg Subcutaneous weekly for 30 days Linzess 145 MCG 1 capsule at least 3 0 minutes before the first meal of the day on an empty stomach Orally Once a day for 30 days Next Appt Details Provider Name:BAYLEE PAVON, 01/13/2025 08:30:00 AM, [address] [facility], [address], [place], [address], Provider Name:BAYLEE PAVON, 2025 02:45:00 PM, [address], [address], [place], [address], MEDICATIONS ADMINISTERED Medication Instructions Date of Administration Dosage Notes Tirzepatide 12/30/2024 2.5 mg Progress Notes * DION DALEY:11/1949 (74 yo F)Acc No.[id number]:12/30/2024 Patient:??JUVE DALEY [place] Provider:??BAYLEE PAVON NP :1950?Age:74 Y?Sex:Fe male Date:12/30/2024 Address:[address] [place], [place] [id number] Subjective: * Chief Complaints: * ?1. Pt here for weight management follow up SECA done. Pt has not been on anything due to insurance reasons. Tirzepatide 2.5mg given on LLQ sub q, pt tolerated well with no reaction.. * HPI: ?Constitutional:? Patient here today for a weight management f/u visit ?Patient seen and examined. ?Full past medical history, social history, family history, allergies and current medications ?were reviewed and updated ?Body composition analysis reviewed ?#Weight Management ?12/30/2024 ?Not on weight loss medications at present. ?[facility] will not approve any weight loss meds. ?She is at her goal weight but is very concerned about weight gain. ?Concerned that with weight gain, her scoliosis will get worse. ?No sleep study in the past. ?Protein: Doing Fairly well, peanut butter, eggs, chicken, beans. ?Exercise: Walks stairs, especially while cold. ?Was on Mounjaro ?Lack of type 2 diabetes diagnosis ?Had done very well was thriving ?Discussed compounding program versus transitioning to [facility] direct. ?We also discussed getting a home sleep study to have a potential MIRIAN diagnosis ?other Past medical history that includes acid reflux, chronic obstructive asthma which is well controlled w/Dulera ? Denies side effects such as nausea, vomtiing, diarrhea, constipation, or abdominal pain. ?She does have a history of gastroesophageal reflux on PPI as well as Carafate ?Recent EGD with GI, [facility] ?Dr Cornelius/Physiatry, gets injections for her lower back pain ?States her pain has been a barrier to exercise ?hx of scoliosis. Has appoinment tomorrow. ?BP stable, states at home 130s/80s. ?Has had elevated BP during previous visits as well. ?Pt follows w/ Cardiology. Sees them once yearly ?Sees a dag sprayer once a year, Niall ?PCP Liliana GUEVARA ? comprehensive labs in April 2024 at [place] through epic chart review ?weight 12/30/2024 142 , BMI 27.8 ?weight 11/23/2024 139lbs , BMI 27 ?weight [...] breast 2000, section 1975, cholecystectomy 02/2005. * Family History:??Father: dec eased, cancer, throat, [...] ABOUT N1 PACK A DAY. * Medications:??Taking Rosuvas tatin Calcium 10 MG Tablet 1 tablet Orally Once a day , Taking busPIRone HCl 5 MG Tablet 1 tablet Orally Twice a day , Taking Calcium + D3 600-800 MG-UNIT Tablet 1 tablet with a meal Orally Once a day , Taking Omeprazole 40 MG Capsule Delayed Release 1 capsule 30 minutes before morning meal Orally Once a day , Discontinued Linzess 145 MCG Capsule 1 capsule at least 30 minutes before the first meal of the day on an empty stomach Orally Once a day , Discontinued Naproxen 500 MG Tablet 1 tablet with food or milk as needed Orally every 12 hrs , Discontinued Wegovy 0.25 MG/0.5ML Solution Auto-injector 0.25mg Subcutaneous weekly , Discontinued Mounjaro 2.5 MG/0.5ML Solution Pen-injector 2.5mg Subcutaneous weekly , Discontinued Zepbound 2.5 MG/0.5ML Solution Auto-injector 2.5mg Subcutaneous weekly , Medication List reviewed and reconciled with the patient * Allergies:??Demerol. Objective: * Vitals:??HR:80/min, BP:156/8 8mm Hg, Wt:142lbs, BMI:28.68Index, Ht: 59 in, Oxygen sat %:98%. * Examination: ?General Examination: ?GENERAL APPEARANCE:??in no [...] * Assessment: 1.??Overweight - E66.3 (Prim jazmin)??2.??BMI 28.0-28.9,adult - Z68.28??3.??Dietary counseling and surveillance - Z71.3??4.??Mild intermittent asthma without complication - J45.20??5.??Gastroesophageal reflux disease with esophagitis without hemorrhage - K21.00?? #Weight Management 12/30/2024 Discussed options for her. She seems amendable to maintenance dosing of Tirzepatide compounded. She will get back to us if this works financially Going for labs on Saturday from Dr. Perez@ [facility] Patient has been found to be overweight with a BMI of (28). Total time spent today was 30 minutes [...] software and direct typing Please excuse inadvertent financial director or typing errors, or uncorrected word substitutions Although every attempt has been made by the provider to proofread this document, occasional misspellings and typographical errors may still be present Due to the previous pandemic, and the use of personal protective equipment (PPE) This may decrease voice recognition accuracy Inadvertent financial director errors may occur. Plan: * Treatment: * Therapeutic Injections:? Tirzepatide : 2.5 mg (Route: Subcutaneous) given by Osvaldo Bowen on subcutaneus * Procedure Codes:??51790 P/M STEAM STATION SUPERVISOR, INDIV 15 MIN * Images: Billing Information: * Visit Code:?? 92637 Office Visit, Est Pt., Level 4. Modifiers: 25, SA * Procedure Codes:?? 52449 P/M STEAM STATION SUPERVISOR, INDIV 15 MIN. * Sign off status: Completed true * Provider:??BAYLEE PAVON NP Date:??02/2025 History and Physical Notes * HPI (History of Present Illness) Category Sub-Category Detail Notes Category Not es Constitutional Patient here today for a weight management f/u visit Patient seen and examined. Full past medical history, social history, family history, allergies and current medications were reviewed and updated Body composition analysis reviewed #Weight Management 12/30/2024 Not on weight loss medications at present. D[facility]elle will not approve any weight loss meds. She is at her goal weight but is very concerned about weight gain. Concerned that with weight gain, her scoliosis will get worse. No sleep study in the past. Protein: Doing Fairly well, peanut butter, eggs, chicken, beans. Exercise: Walks stairs, especially while cold. Was on Mounjaro Lack of type 2 diabetes diagnosis Had done very well was thriving Discussed compounding program versus transitioning to [employer] direct. We also discussed getting a home sleep study to have a potential MIRIAN diagnosis other Past medical history that includes acid reflux, chronic obstructive asthma which is well controlled w/Dulera Denies side effects such as nausea, vomtiing, diarrhea, constipation, or abdominal pain. She does have a history of gastroesophageal reflux on PPI as well as Carafate Recent EGD with GI, [facility] Dr Cornelius/Physiatry, gets injections for her lower back pain States her pain has been a barrier to exercise hx of scoliosis. Has appoinment tomorrow. BP stable, states at home 130s/80s. Has had elevated BP during previous visits as well. Pt follows w/ Cardiology. Sees them once yearly Sees a dag sprayer once a year, Liliana Gonzalez comprehensive labs in April 2024 at [place] through epic chart review weight 12/30/2024 142 , BMI 27.8 weight 11/23/2024 139lbs , BMI 27 weight 10/01/2024, 138 lbs, BMI 27.87 weight 08/11/2024, 135lbs BMI 27 weight 01/15/2024, 136lbs BMI 27 weight ,11/15/2023, 136lbs, BMI 27 weight 09/12/23: 137lbs, BMI 27, (-3lbs) weight 07/31/23: 140 lbs (-16 lbs) 28.3 BMI weight 01/31/23: 156 lbs, BMI 31.5 (+1) weight 12/19/22: 155 BMI 31, (+1lbs) weight 11/07/22: 154lbs BMI 31,(+2lbs) weight 11/30/22: 152lbs, 5 MONTH HIATUS, BMI 30 weight [...] General Examination GENERAL APPEARANCE: in no ac [place] distress, well developed, well nourished HEAD: normocephalic, [...]
--- OUTSIDE RECORDS SUMMARY | 2025-01-11 18:10 | XMS_ITS | Clinical Summary ---
Author Organization [facility] Address [address] [place] [address] Phone Care Team Providers Care Registered Pharmacist Name Role Phone Saba Solorzano MD Primary Care Provider [phone] Allergies Active Allergy Reactions Criticality Noted Date Comments Lisinopril Cough 03/31/2020 And dizziness Meperidine Unknown 04/26/2020 Medications naproxen (NAPROSYN) 500 mg tablet TAKE 1 TABLET BY MOUTH AT BEDTIME NEEDED (JOINT PAIN). 06/22/20 24 Active sucralfate (CARAFATE) 100 mg/mL suspension TAKE 10 ML BY MOUTH 4 TIMES DAILY (BEFORE MEALS AND NIGHTLY). 03/02/20 24 Active famotidine (PEPCID) 20 mg tablet Take 0.5 Tablets by mouth daily. Active calcium carbonate-vitam in D3 600 mg-5 mcg (200 unit) per tablet TAKE 1 TABLET BY MOUTH EVERY DAY Active magnesium oxide 250 mg magnesium tablet Take 1 tablet (250 mg total) by mouth 1 (one) time each day. 10/30/19 24 Active coenzyme Q-10 10 mg capsule Take by mouth daily. Active incontinence pad, liner, disp pad 5 Each by Does not apply route as needed for Other (urinary incontinence). MAIDA-99 5/day 150/month 11 refills For urinary incontinence 04/16/20 22 Active loratadine (CLARITIN) 10 mg tablet Take 10 mg by mouth daily. Active UNABLE TO FIND Mometasone Furo-Formoterol Fum 200-5 MCG/ACT Aerosol Sig - Route: Inhale ??into the lungs daily. - Inhalation Active albuterol HFA (PROVENTIL HFA;VENTOLIN HFA) 108 (90 Base) MCG/ACT inhaler INHALE 2 PUFFS INTO THE LUNGS EVERY 4 HOURS NEEDED FOR COUGH, WHEEZING OR SHORTNESS OF BREATH Active Vitamin D3 25 mcg (1,000 unit) tabletIndicatio ns:Vitamin D deficiency TAKE 2 TABLETS BY MOUTH DAILY 180 tablet 1 09/02/20 24 Active rosuvastatin (CRESTOR) 20 mg tabletIndicatio ns:Pure hypercholestero lemia, unspecified TAKE 1 TABLET BY MOUTH EVERY DAY 90 tablet 1 09/01/20 24 Active fluocinolone acetonide oiL 0.01 % drops Place 3 Drops in ear(s) as needed (ear itching). 50 each 1 10/23/20 24 Active omeprazole (PriLOSEC) [address] capsule Take 1 capsule (40 mg total) by mouth 2 (two) times a day before meals. 180 each 1 11/24/19 25 025 Active ammonium lactate (AMLACTIN) 12 % cream Apply topically at bedtime. Both heels dry skin 770 g 12/07/19 25 026 Active sertraline (ZOLOFT) 25 mg tablet Take 1 tablet (25 mg total) by mouth 1 (one) time each day. Active aspirin 81 mg chewable tablet Chew 1 tablet (81 mg total) 1 (one) time each day. Active mometasone/form oterol (DULERA INHL) Inhale by mouth. Act damien busPIRone (BUSPAR) 10 mg tablet TOME MISAEL LANETTEA TODOS LOS D FOR 30 DAYS 10/24/20 23 025 Discontinu ed(Therapy completed) cloNIDine (CATAPRES) 0.1 mg tablet TAKE 1 TABLET ORALLY AT BEDTIME NEEDED FOR SLEEP, ANXIETY 30 DAYS 10/19/20 23 025 Discontinu ed(Therapy completed) tirzepatide (Mounjaro) 2.5 mg/0.5 mL injection Inject into the skin daily. Chalo 025 Discontinu ed(Patient Discharge) salicylic acid 17 % gel Apply topically 1 (one) time each day. 15 g 12/07/19 25 025 Active Problems Problem Noted Date Diagnosed Date Vitamin D deficiency 12/29/2024 Age-related osteoporosis wit hout current pathological fracture 12/29/2024 Stress incontinence 10/23/2024 BPPV (benign paroxysmal posi tional vertigo), unspecified laterality 09/21/2024 Asthma, moderate persistent 08/14/2024 Chronic back pain 08/14/2024 Gastropathy 08/14/2024 GERD (gastroesophageal reflux disease) Overview (08/14/2024): Refractory GERD despite trying multiple PPIs, H2 blockers and [id number] antacids. Upper endoscopy in March 2020 was essentially normal with biopsy consistent with reactive gastropathy, no H. Pylori. Per Dr. Stahl on 01/09/21 - received the report of the esophageal motility and the 24-hour ambulatory impedance-pH study which was performed while the patient was not taking any acid suppression medications. The esophageal motility study was normal. The 24-hour acid study was positive for acid reflux with good symptom correlation and a DeMeester score of 31.6. Passage of loose stools 08/14/2024 Coronary artery disease invo lving iroquois coronary artery of iroquois heart without angina pectoris 08/09/2023 Overview (08/14/2024): Last Assessment & Plan: The patient has a history of coronary artery disease. Recent cardiac CT scan showed mild nonobstructive coronary artery disease in the LAD without any significant disease in the left main, circumflex, and RCA. Currently, the patient denies any chest pain at rest or with exertion. The patient continues on statin therapy with rosuvastatin. This point, we will continue her current therapy. Assessment & Plan (12/23/2024 8:41 AM EST): The patient was found to have mild nonobstructive coronary artery disease on a cardiac CT scan done in 2022. On today's visit, she denies any [...] Tylenol as needed for her joint pain. COVID-19 virus infection 06/13/2023 Overview (08/14/2024): May/2023, likely from travel to/from [place], treated with Paxlovid Abnormal MRI, shoulder 01/30/2022 Overview (08/14/2024): Focal bony abnormality in the proximal humerus as described above. Principal differential diagnostic considerations include but are not limited to enchondroma, chondrosarcoma, bone infarct and metastasis. CT and whole body bone scan are recommended for further evaluation. Pt seen with [facility] Ortho Onc Dr. Cueva. Repeat MRI W/WO contrast and finding felt to be consistent with hyperemic red marrow not a marrow replacing neoplastic process. Advised no further w/u needed and to f/u with local ortho for intrinsic shoulder issues. Anxiety 10/17/2021 HLD (hyperlipidemia) 07/11/2021 Overview (08/14/2024): Last Assessment & Plan: The patient has a history of hyperlipidemia. She is currently on rosuvastatin 20 mg orally daily. We will continue her current therapy. Assessment & Plan (12/23/2024 8:41 AM EST): The patient has a history of hyperlipidemia. The patient is currently on rosuvastatin 20 mg orally daily. We will order a new lipid panel to evaluate the patient's current lipid control and determine if any adjustment are needed in the lipid lowering therapy. Orders: Lipid panel with reflex to direct LDL; Future Comprehensive metabolic panel; Future History of 2019 novel coronavirus disease (COVID -19) 11/21/2020 Cataract 10/07/2020 Overview (08/14/2024): Bilateral Elevated anti-tissue transglutaminase (tTG) IgA level 08/31/2020 Overview (08/14/2024): Patient with chronic diarrhea found to have elevated TTG suggestive of celiac disease. Would normally confirm his diagnosis with upper endoscopy and duodenal biopsy, however the patient just had upper endoscopy completed on 04/26/2020. Patient will be referred for nutrition counseling and was advised to follow a gluten- free diet to see if this has any significant impact at reducing her symptoms. Internal derangement of knee, right 08/05/2020 Osteoarthritis 08/05/2020 Overview (08/14/2024): Lubosacral Spine, Rt Knee Obesity (BMI 30.0-34.9) 02/24/2020 Gastric polyps 08/05/2018 Overview (08/14/2024): EGD [address] Daniel Cota - 3 fundic polyps removed. Also has a pathology report from [place] dated 01/2009 with fundic gland polyp Aortic stenosis 12/10/2017 Overview (08/14/2024): Last Assessment & Plan: The patient has a history of aortic valve stenosis. Aortic valve stenosis was noted to be mild on the echocardiogram done in December 2022. We will recommend to continue periodic monitoring with annual echocardiograms every 3 to 5 years. Assessment & Plan (12/23/2024 8:41 AM EST): The patient has a history of aortic valve stenosis. On her last echocardiogram from 2022 the aortic valve stenosis was noted to be mild in [...] in sodium chloride 0.9% 8.7 mL injection Resolved Problems Problem Noted Date Diagnosed Date Resolved Date Chest pain 11/28/2022 12/23/2024 Overview (08/14/2024): Last Assessment & Plan: The patient has been experiencing episodes of exertional chest discomfort. She describes her symptoms as a chest tightness sensation that occurs in association with shortness of breath. This is worse with certain activities such as participating in longer walks. She denies any chest discomfort or shortness of breath at rest. She underwent a nuclear stress test in January 2023 that did not show any evidence of ischemia or infarct. Also, the echocardiogram done recently showed a normal EF and mild aortic valve stenosis. However, the patient does have multiple risk factors for CAD including: Former smoker, hyperlipidemia, and obesity. Therefore, given her continued exertional symptoms as well as her risk factors for coronary artery disease, further testing is indicated. We will order a cardiac CT scan to rule out any epicardial coronary artery disease as a cause of her symptoms. The use of a cardiac CT scan as recommended by the [employer] chest pain guidelines. Osteopenia 03/22/2020 12/29/2024 Encounters Date Type Department Care Team Description 01/07/2025 3:00 PM EDT Office Visit Orthopedic Surgery - [place] [address] [facility] [address] [place] [address] Gus Judge DPM Xerosis of skin (Primary Dx); Verruca plantaris 12/29/2024 11:30 AM EST Office Visit [address] [phone] Darrell Salazar PA Vitamin D deficiency (Primary Dx); Age-related osteoporosis without current pathological fracture; Pure hypercholesterolemia ; Moderate persistent asthma without complication 12/23/2024 8:20 AM EST Office Visit [facility] [address] [place] [address] Nirmal Hilario MD Coronary artery disease involving iroquois coronary artery of iroquois heart without angina pectoris (Primary Dx); Nonrheumatic aortic valve stenosis; Pure hypercholesterolemia ; Coronary artery disease, unspecified vessel or lesion type, unspecified whether angina present, unspecified whether iroquois or transplanted heart 12/23/2024 Telephone Adult [address] [phone] Saba Solorzano MD referral 12/08/2024 Telephone [place] [phone] [phone] Gus Judge DPM 12/07/2024 9:15 AM EST Office Visit [place] [address] [phone] Gus Judge DPM Verruca plantaris (Primary Dx); Xerosis of skin 10/23/2024 9:00 AM EST Office Visit Adult [address] [phone] Saba Solorzano MD Ear itching (Primary Dx); Skin lesion; Stress incontinence 10/23/2024 Telephone Adult [address] [phone] Susan Velázquez LPN Fitting for DME 10/15/2024 3:00 PM EST Treatment [facility] [address] [phone] Aurora Curtis, OT BPPV (benign paroxysmal positional vertigo), unspecified laterality (Primary Dx) from Last 3 Months Immunizations Name Administration Dates Next Due Influenza trivalent, 0.5mL ( Fluad) 65yo and older 08/10/2023,08/06/2021,07/27/2019,07/21 Influenza trivalent, with pr eservative (Fluzone; Afluria) 6mo and older 07/26/2020 Influenza, Unspecified 09/17/2021 Pneumococcal conjugate 13 va lent (Prevnar 13, PCV13) 2mo and older 03/01/2017 Pneumococcal polysaccharide 23 valent (Pneumovax 23) 2yo and older 04/25/2021,08/02/2009 RSV, bivalent, protein subun it RSVpreF, 0.5mL, Preservative Free (Arexvy) 60yo and older 09/25/2023 Tdap Tetanus diptheria acell ular pertussis (Boostrix; Adacel) 7yo and older 03/05/2013 Zoster Live 08/02/2009 Zoster recombinant (Shingrix ) 19yo and older 08/12/2020 Surgical History Surgery Date Site/Laterality Comments SECTION PROCEDURE: HISTORICAL DELIVERY; COMMENT: x 2; 1977, 1974 CHOLECYSTECTOMY PROCEDURE: HISTORICAL CHOLECYSTECTOMY; COMMENT: [place] ESOPHAGOGASTRODUODENOSCOPY PROCEDURE: [place] EGD TRANSORAL BIOPSY SINGLE/MULTIPLE; COMMENT: Performed in [place] UPPER GASTROINTESTINAL ENDOSCOPY 04/26/2020 PROCEDURE: UPPER GI ENDOSCOPY/EXAM; COMMENT: negative, biopsy shows reactive gastropathy without H. pylori STEREOTACTIC BREAST BIOPSY 04/26/2015 Left PROCEDURE: STEREOTACTIC BREAST BIOPSY; COMMENT: Negative for malignancy UPPER GASTROINTESTINAL ENDOSCOPY 01/05/2015 PROCEDURE: [place] UPPER GI ENDOSCOPY PERFORMED; COMMENT: Gastric polyp x 3 - COLONOSCOPY 2011 PROCEDURE: HISTORICAL COLONOSCOPY; COMMENT: In [place]. Patient reports clear OTHER SURGICAL HISTORY 12/29/2020 PROCEDURE: [place] ESOPHAGEAL MOTILITY STUDY W/INTERP&RPT; COMMENT: [facility]; small sliding hiatal hernia suggested, otherwise normal. OTHER SURGICAL HISTORY 12/29/2020 PROCEDURE: ACID REFLUX TEST OF ESOPHAGUS; COMMENT: [facility]; 24 hour ambulatory impedance-pH study off meds: positive for acid reflux. BREAST BIOPSY 2016 Left PROCEDURE: BX BREAST; PERC NEEDLE CORE W/IMAG GUID; COMMENT: neg BREAST SURGERY 2000 Right PROCEDURE: NV UNLISTED PROCEDURE BREAST; COMMENT: cancer BREAST SURGERY 2001 Right PROCEDURE: [place] UNLISTED PROCEDURE BREAST; COMMENT: b9 Medical History Medical History Date Comments GERD (gastroesophageal reflu x disease) DX:GERD (gastroesophageal re flux disease) Chronic back pain DX:Chronic garry k pain Asthma, moderate persistent DX:A sthma, moderate persistent Gastric polyps 08/05/2018 DX:Gastric polyp s; COMMENT: EGD [address] Daniel Cota - 3 fundic polyps removed. Also has a pathology report from [place] dated 01/2009 with fundic gland polyp Abdominal discomfort DX:Abdomina l discomfort Passage of loose stools DX:Passa ge of loose stools Elevated anti-tissue transgl utaminase (tTG) IgA level 08/31/2020 DX:Elevated anti-tissue transglutaminase (tTG) IgA level; COMMENT: Patient with chronic diarrhea found to have elevated TTG suggestive of celiac disease. Would normally confirm his diagnosis with upper endoscopy and duodenal biopsy, however the patient just had upper endoscopy completed on 04/26/2020. Patient will be referred for nutrition counseling and was advised to follow a gluten-free diet t* Acute adjustment disorder wi th mixed anxiety and depressed mood 10/07/2020 DX:Acute adjustment disorde r with mixed anxiety and depressed mood Cataract 10/07/2020 DX:Cataract; COM MENT: Bilateral Osteopenia 03/22/2020 DX:Osteopenia Osteoarthritis 08/05/2020 DX:Osteoarthriti s; COMMENT: Lubosacral Spine, Rt Knee Gastropathy DX:Gastropathy History of breast cancer in female DX:History of breast cancer in female; COMMENT: [id number] wide local excision & axillary node dissection f/b XRT & Chemo for Lobular carcinoma Internal derangement of knee, right 08/05/2020 DX:Internal derangement of knee, right Obesity (BMI 30.0-34.9) 02/24/2020 DX:Obesi ty (BMI 30.0-34.9) Perennial allergic rhinitis 07/16/2017 DX:P erennial allergic rhinitis Vitamin D deficiency 01/05/2020 DX:Vitamin D deficiency Hypertension 12/23/2018 DX:Hypertension Personal history of malignan t neoplasm of breast DX:Personal history of malig nant neoplasm of breast GERD (gastroesophageal reflu x disease) DX:GERD (gastroesophageal re flux disease) Esophagitis DX:Esophagitis Hyperlipidemia DX:Hyperlipidemi a Family History Medical History Relation Name Comments No Known Problems Brother 1 Soren Multiple sclerosis Brother 2 Almas No Known Problems Daughter Noni : 1977 Other: cancer of throat Father + sm oker, Alcohol Abuse Uterine cancer Maternal Grandmother Diabetes Mother hypertension Breast cancer Mother's side 1 aunt 67 Aunt Prostate cancer Mother's side 2 Uncle No Known Problems Sister 1 Martiza No Known Problems Sister 2 Milagros Other: Pancreatitis Sister 3 Sandy Celiac D isease Obesity Son Andrew : 1975 Coronary artery disease Neg Hx Relation Name Status Comments Brother 1 Soren Alive Brother 2 Almas (Age 50) Daughter Noni Alive Father (Age 50s) CA of thr oat and jaw; + EtOH/smoker Maternal Grandfather Maternal Grandmother Mother Alive Mother's side 1 aunt 67 Mother's side 2 Paternal Grandfather Paternal Grandmother Sister 1 Martiza Alive Sister 2 Milagros Alive Sister 3 Sandy Son Andrew Alive Social History Tobacco Use Types Packs/Day Years [...] Orientation Straight 11/25/2024 10 :30 AM EST Obstetrics History Last Filed Vital Signs Vital Sign Reading Time Taken Comments Blood Pressure 124/62 12/29/2024 11:19 AM EST Pulse 80 12/29/2024 11:19 AM EST Temperature 36.8 ??C (98.2 ??F) 12/29/2024 11:[address] Respiratory Rate 14 12/29/2024 11:19 AM EST Oxygen Saturation 96% 12/23/2024 7:55 AM EST Inhaled Oxygen Concentration - - Weight 64.4 kg (142 lb) 01/07/2025 2:38 PM EDT Height 152.4 cm (5') 01/07/2025 2:38 PM EDT Body Mass Index 27.73 01/07/2025 2:38 PM EDT Plan of Treatment Upcoming Encounters Date Type Department Care Team (Late st Contact Info) Description 02/11/2025 3:00 PM EDT Office Visit Orthopedic Surgery - [place] [address] [facility] [address] [place] [phone] Gus Judge, ISAURA [address] [address] 07/02/2025 3:00 PM EDT Ancillary Procedure [facility] [address] [place] [phone] 07/15/2025 1:30 PM EDT Office Visit Adult Medicine [facility] [address] [place] [phone] Saba Solorzano MD [address] [place] [phone] 08/03/2025 3:30 PM EDT Office Visit [facility] [address] [place] [phone] Chris-Nirmal Ledezma MD [address] [place] [address] [address] [place] [address] Health Maintenance Due Date Last Done Comments Falls Risk Assessment 10/06/2022 Social Influencers of Health Screening 10/06/2022 Depression Screening 09/27/2024 09/27/2023 Medicare Annual Wellness Visit 09/27/2024 09/27/2023 Hypertension/CHF/CAD Annual BMP Blood Test 01/01/2026 01/01/2025, 07/30/2023 Breast Cancer Screening 08/21/2026 08/21/20, 08/03/2023, 07/28/2022, Additional history exists Colorectal Cancer Screening: Colonoscopy 12/30/2028 12/31/2023 Cholesterol Screening (Lipid Panel) 01/01/2030 01/01/2025, 09/27/2023 DTaP,Tdap,and Td Vaccines (3 - Td or Tdap) 01/14/2034 01/15/2024, 03/05/2013 Osteoporosis Screening (Bone Density Screening) 07/24/2034 07/24/2024, 08/17/2020, 04/10/2018 Hepatitis C Screening Completed 04/01/2020 Pneumococcal Vaccine: 50+ Years Completed 04/25/2021, 03/01/2017, 08/02/2009 RSV Immunization Patients 60+ Years Old Completed 09/25/2023 Zoster Vaccines Completed 01/10/2024, 07/28, 08/02/2009 COVID-19 Vaccine Completed 07/21/2024, , 09/09/2021, Additional history exists Influenza Vaccine Completed 07/21/2024, , 08/22/2022, Additional history exists HIB Vaccines Aged Out No longer eligi ble based on patient's age to complete this topic HPV Vaccines Aged Out No longer eligi ble based on patient's age to complete this topic Hepatitis A Vaccines Aged Out No long er eligible based on patient's age to complete this topic Hepatitis B Vaccines Aged Out No long er eligible based on patient's age to complete this topic IPV Vaccines Aged Out No longer eligi ble based on patient's age to complete this topic MMR Vaccines Aged Out No longer eligi ble based on patient's age to complete this topic Meningococcal ACWY Vaccine Aged Out N o longer eligible based on patient's age to complete this topic Meningococcal B Vacine Aged Out No lo nger eligible based on patient's age to complete this topic RSV Immunization Patients Under 20 months Aged Out No longer eligible based on patient's age to complete this topic Varicella Vaccines Aged Out No longer eligible based on patient's age to complete this topic Goals Goal Patient Goal Type Associated Problems Recent Progress Patient-Stated? Author in 4 visits General On track(10/15/20 24 3:25 PM EST) No Aurora Curtis, OT Note: No nystag w/ repeat positonal testing all 10/15 MET No reported dizziness w/ bed mob 10/15 MET Indep HEP if/when indic 10/15 MET Procedures Procedure Name Priority Date/Time Associated Diagnosis Comments COMPREHENSIVE METABOLIC PANEL Routine 01/01/2025 7:43 AM EST Pure hypercholesterolemia LIPID PANEL WITH REFLEX TO DIRECT LDL Routine 01/01/2025 7:43 AM EST Pure hypercholesterolemia VITAMIN D 25 HYDROXY Routine 01/01/2025 7:43 AM EST Vitamin D deficiency ECG 12-LEAD Routine 12/23/2024 8:14 AM EST Coronary artery disease, unspecified vessel or lesion type, unspecified whether angina present, unspecified whether iroquois or transplanted heart BRETT SCREENING DIGITAL Routine 08/21/2024 1:08 PM EDT Encounter for screening mammogram for malignant neoplasm of breast [facility] DEXA AXIAL SKELETON Routine 07/24/2024 1:14 PM EDT Age-related osteoporosis without current pathological fracture COLONOSCOPY Routine 12/31/2023 DEPRESSION SCREENING Routine 09/27/2023 HEPATITIS C SCREENING Routine 04/01/2020 from Last 3 Months or Most Recently Relevant to Health Maintenance Results * Lipid panel with reflex to direct LDL (01/01/2025 7:43 AM EST) Cholesterol 158 0 - 200 mg/dL LAB CHEMISTRY METHOD 01/01/2025 10:18 AM EST [facility] Triglycerides 94 0 - 150 mg/dL LAB CHEMISTRY METHOD 01/01/2025 10:18 AM EST [facility] HDL 79 >=40 mg/dL LAB CHEMISTRY METHOD 01/01/2025 10:18 AM EST [facility] LDL Calculated 60 0 - 100 mg/dL LAB CHEMISTRY METHOD 01/01/2025 10:18 AM EST [facility] VLDL Cholesterol Reji 18.8 mg/dL LAB CHEMISTRY METHOD 01/01/2025 10:18 AM EST [facility] Non HDL Chol. (LDL+VLDL) 79 <145 mg/dL LAB CHEMISTRY METHOD 01/01/2025 10:18 AM EST [facility] Chol/HDL Ratio 2.0 0.0 - 4.4 LAB CHEMISTRY METHOD 01/01/2025 10:18 AM [facility] Blood Venous blood specimen / Unknown Venipuncture / Unknown 01/01/2025 7:43 AM EST 01/01/2025 7:43 AM EST us Nirmal Hilario MD LAB BLOOD ORDERABLES F inal Result [facility] [address] [place] [address], [place] [phone] * (ABNORMAL) Vitamin D 25 hydroxy (01/01/2025 7:43 AM EST) [facility] Vit D, 25-Hydroxy 28.6(L) 30.0 - 80.0 ng/mL LAB CHEMISTRY METHOD 01/01/2025 10:25 AM EST [facility] Blood Venous blood specimen / Unknown Venipuncture / Unknown 01/01/2025 7:43 AM EST 01/01/2025 7:43 AM EST Darrell TREJO LAB BLOOD ORDERABLES Final Res ult [facility] [address] [place] [address], [place] [phone] * Comprehensive metabolic panel (01/01/2025 7:43 AM EST) [facility] Sodium 142 133 - 145 mmol/L LAB CHEMISTRY METHOD 01/01/2025 10:21 AM [facility] Potassium 3.8 3.5 - 5.5 mmol/L LAB CHEMISTRY METHOD 01/01/2025 10:21 AM [facility] Chloride 108 96 - 110 mmol/L LAB CHEMISTRY METHOD 01/01/2025 10:21 AM [facility] CO2 26 21 - 32 mmol/L LAB CHEMISTRY METHOD 01/01/2025 10:21 AM [facility] Anion Gap 8 3 - 11 LAB CHEMISTRY METHOD 01/01/2025 10:21 AM [facility] Glucose 79 70 - 100 mg/dL LAB CHEMISTRY METHOD 01/01/2025 10:21 AM [facility] BUN 15 5 - 25 mg/dL LAB CHEMISTRY METHOD 01/01/2025 10:21 AM [facility] Creatinine 0.70 0.50 - 1.10 mg/dL LAB CHEMISTRY METHOD 01/01/2025 10:21 AM [facility] eGFR 91 >=60 mL/min/1. 73m2 LAB CHEMISTRY METHOD 01/01/2025 10:21 AM [facility] Comment:Calculation based on the??Chronic Kidney Disease Epidemiology Collaboration (CKD-EPI) equation refit??without adjustment for race. BUN/Creatinine Ratio 21.4 LAB CHEMISTRY METHOD 01/01/2025 10:21 AM [facility] Calcium 9.6 8.5 - 10.5 mg/dL LAB CHEMISTRY METHOD 01/01/2025 10:21 AM [facility] AST (SGOT) 23 10 - 42 unit/L LAB CHEMISTRY METHOD 01/01/2025 10:21 AM [facility] ALT (SGPT) 26 10 - 60 unit/L LAB CHEMISTRY METHOD 01/01/2025 10:21 AM [facility] Alkaline Phosphatase 106 42 - 121 unit/L LAB CHEMISTRY METHOD 01/01/2025 10:21 AM [facility] Total Protein 7.1 6.0 - 8.0 g/dL LAB CHEMISTRY METHOD 01/01/2025 10:21 AM [facility] Albumin 3.8 3.2 - 5.0 g/dL LAB CHEMISTRY METHOD 01/01/2025 10:21 AM [facility] Total Bilirubin 0.5 0.0 - 1.4 mg/dL LAB CHEMISTRY METHOD 01/01/2025 10:21 AM [facility] Blood Venous blood specimen / Unknown Venipuncture / Unknown 01/01/2025 7:43 AM EST 01/01/2025 7:43 AM EST Nirmal Hilario MD LAB BLOOD ORDERABLES F inal Result [facility] [address] [place] [address], * ECG 12 lead (12/23/2024 8:14 AM EST) Ventricular Rate ECG 76 BPM GEMUSE Atrial Rate 76 BPM GEMUSE P-R Interval 120 ms GEMUSE QRS Duration 80 ms GEMUSE Q-T Interval 390 ms GEMUSE QTc 438 ms GEMUSE P Wave [place] 25 degrees GEMUSE R [place] 93 degrees GEMUSE T [place] 18 degrees GEMUSE ECG Interpretation Normal sinus rhythm Normal ECG No previous ECGs available Confirmed by NIRMAL HILARIO ([id number]) on 12/23/2024 8:22:01 AM GEMUSE 12/23/2024 8:14 AM EST 12/23/2024 8:22 AM EST us Nirmal Hilario MD ECG ORDERABLES Final Result GEMUSE * BRETT SCREENING DIGITAL (08/21/2024 1:08 PM EDT) Anatomical Region Laterality Modality Mammography 08/20/2024 3:10 PM EDT Narrative 08/21/2024 1:08 PM EDT [facility] Diagnostic Imaging Department [address] [place] [address] Patient: ??JESSI CASTREJON ?/Age/Sex: 1950 - Unit#: ??[id number] ? Location/Status: ??SPDIMAM/REG CLI ? Mnemonic/Ordering Site: ??DIGSC/SPMAM Ordering Physician: ??SABA SOLORZANO MD [facility] Screening Digital - 08/20/24 - 1535 Report Status:Signed EXAM: [facility] Screening Digital EXAM DATE AND TIME: 08/20/2024 3:36 PM HISTORY: ??Annual screening. ??History of right breast cancer. COMPARISON: ??07/18/2020 and 04/23/2019 TECHNIQUE: Bilateral digital breast tomosynthesis was performed in the CC and MLO projections. Computer aided detection with Gangkr 7.2-H and Dealdrive 3D 3.1 was employed. TISSUE DENSITY: b. There are scattered areas of fibroglandular density. FINDINGS: No suspicious masses, grouped microcalcifications, or areas of architectural distortion are seen. The skin and vascularity are unremarkable. ??Stable lumpectomy changes in the right breast. ??Bilateral benign-appearing calcifications. ??Biopsy marker in the left breast. IMPRESSION: Stable mammographic appearance of the breasts. ??No evidence of malignancy is seen. A negative mammogram in the presence of a clinically suspicious palpable abnormality does not preclude the possibility of malignancy or alter the indications for biopsy. BI-RADS: ??Category 2: Benign RECOMMENDATION(S): 1: Routine screening mammogram BILATERAL in 1 year. Dictating Physician: ??FREDY CAR MD Electronically Signed by: ??FREDY CAR MD Dic Date/Time: ??08/21/24 1306 Sign date/Time: ??08/21/24 1308 Procedure Note Fredy Car MD - 08/29/2024 [facility] Diagnostic Imaging Department [address] [place] [address] [id number] Patient: DUBOIS SANCHEZ,JESSI M /Age/Sex: 1950 - 74 - F Unit#: [id number] Location/Status: SPDIMAM/REG CLI Mnemonic/Ordering Site: [facility] Ordering Physician: SABA SOLORZANO MD [facility] Screening Digital - 08/20/24 - 1535 Report Status:Signed EXAM: [facility] Screening Digital EXAM DATE AND TIME: 08/20/2024 3:36 PM HISTORY: Annual screening. History of right breast cancer. COMPARISON: 07/18/2020 and 04/23/2019 TECHNIQUE: Bilateral digital breast tomosynthesis was performed in the CCand MLO projections. Computer aided detection with Gangkr 7.2-H andfrenting AI 3D 3.1 was employed. TISSUE DENSITY: b. There are scattered areas of fibroglandular density. FINDINGS: No suspicious masses, grouped microcalcifications, or areas ofarchitectural distortion are seen. The skin and vascularity are unremarkable. Stable lumpectomy changes in the right breast. Bilateral benign-appearing calcifications. Biopsy marker in the left breast. IMPRESSION: Stable mammographic appearance of the breasts. No evidence of malignancyis seen. A negative mammogram in the presence of a clinically suspicious palpable abnormality does not preclude the possibility of malignancy or alter the indications for biopsy. BI-RADS: Category 2: Benign RECOMMENDATION(S): 1: Routine screening mammogram BILATERAL in 1 year. Dictating Physician: FREDY CAR MD Electronically Signed by: FREDY CAR MD Dic Date/Time: 08/21/24 1306 Sign date/Time: 08/21/24 1308 us Saba Solorzano MD IMG BI PROCEDURES Final Result * [facility] DEXA AXIAL SKELETON (07/24/2024 1:14 PM EDT) Anatomical Region Laterality Modality Mammography 07/23/2024 2:29 PM EDT Narrative 07/24/2024 1:14 PM EDT [facility] Diagnostic Imaging Department [address] [place], [place] [id number] Patient: ??DUBOISJESSI HOOKER Lonnie ?/Age/Sex: 1950 - Unit#: ??[id number] ? Location/Status: ??SPDIMAM/REG CLI ? Mnemonic/Ordering Site: ??MAMDEXAAX/SPMAM Ordering Physician: ??SABA SOLORZANO MD [facility] Dexa Axial Skeleton - 07/23/24 - Report Status:Signed History: Low estrogen state due to menopause. Parent hip fracture. On omeprazole. Comparison: No comparison imaging. Findings: Bone densitometry is performed utilizing dual energy x-ray absorptiometry (DXA) in the ZoweeTVigDataRank unit. The lumbar spine and proximal femora are evaluated in the AP projection. The FRAX questionaire was completed. The results indicate osteoporosis, with a right femoral neck T-score of -3.3. The Z score is -1.4, indicating low bone mineral density for age. ??The detailed DEXA report will be mailed to the referring physician's office. DualFemur FRAX: 10-year Probability of Fracture: Major Osteoporotic 27.0 percent ??Hip 18.1 percent. IMPRESSION: Osteoporosis. [id number] Dictating Physician: ??YESSI SULLIVAN MD Electronically Signed by: ??YESSI SULLIVAN MD Dic Date/Time: ??07/24/24 1314 Sign date/Time: ??07/24/24 1314 Procedure Note Yessi Sullivan MD - 08/12/2024 [facility] Diagnostic Imaging Department [address] [place] [address] Patient: SILVINO SANCHEZJESSIO.B./Age/Sex: 1950 - 74 - F Unit#: [id number] Location/Status: [facility] CLI [facility]emonic[facility] Order[facility] Physician: SABA SOLORZANO MD [facility] Dexa Axial Skeleton - 07/23/24 - Report Status:Signed History: Low estrogen state due to menopause. Parent hip fracture. On omeprazole. Comparison: No comparison imaging. Findings: Bone densitometry is performed utilizing dual energy x-ray absorptiometry(DXA) in the ZoweeTVigDataRank unit. The lumbar spine and proximal femora areevaluated in the AP projection. The FRAX questionaire was completed. The results indicate osteoporosis, with a right femoral neck T-score of-3.3. The Z score is -1.4, indicating low bone mineral density for age. Thedetailed DEXA report will be mailed to the referring physician's office. DualFemur FRAX: 10-year Probability of Fracture: Major Osteoporotic 27.0 percent Hip 18.1 percent. IMPRESSION: Osteoporosis. [id number] Dictating Physician: YESSI SULLIVAN MD Electronically Signed by: YESSI SULLIVAN MD Dic Date/Time: 07/24/24 1314 Sign date/Time: 07/24/24 1314 Saba Solorzano MD IMG BI PROCEDURES Final Result * Colonoscopy (12/31/2023) Colonoscopy no interpretation , abstracted Anatomical Region Laterality Modality Other Historical Provider HEALTH MAINTENANCE Final Result * Depression Screening (09/27/2023) Depression Screening ABSTRACTED Historical Provider HEALTH MAINTENANCE Final Result * Hepatitis C Screening (04/01/2020) Hepatitis C Screening ABSTRACTED Historical Provider HEALTH MAINTENANCE Final Result from Last 3 Months or Most Recently Relevant to Health Maintenance Insurance MEDICA[place] [employer] MEDIC[place] ADVANTAGE Care Teams Registered Pharmacist Relationship Specialty Start Date End Date Saba Solorzano MD [address] [place] [id number] PCP - General Internal Medicine 09/21/24
--- OUTSIDE RECORDS SUMMARY | 2025-01-11 18:10 | XMS_ITS | Patient Health Record ---
Author Organization [facility] Address [address] [place] [address] Care Team Providers Care Pet Caregiver Name Role Phone BAYLEE PAVON Unavailable [phone] ALLERGIES Allergen (clinical drug ingredient) Drug/Non Drug Allergy documented on EMR Reaction Allergy Type Onset Date Status meperidine Demerol Unknown Drug Allergy Active REASON FOR REFERRAL No Information MEDICATIONS Medication SIG (Take, Route, Frequency, Duration) Notes Start Date End Date Status Linzess 145 MCG 1 capsule at least 3 0 minutes before the first meal of the day on an empty stomach Orally Once a day for 30 days Active Rosuvastatin Calcium 10 MG 1 tablet Orally Once a day Active Calcium + D3 600-800 MG-UNIT 1 tablet with a meal Orally Once a day Active busPIRone HCl 5 MG 1 tablet Orally Twic e a day Active Wegovy 0.25 MG/0.5ML 0.25mg Subcutaneous weekly for 30 days Active Omeprazole 40 MG 1 capsule 30 minutes [...] smoker (10-19 cigs/day) Section Notes: QUIT SMOKING 1969 ABOUT N1 P ACK A DAY QUIT SMOKING 1969 ABOUT N1 P ACK A DAY QUIT SMOKING 1969 ABOUT N1 P ACK A DAY QUIT SMOKING 1969 ABOUT N1 P ACK A DAY QUIT SMOKING 1969 ABOUT N1 P ACK A DAY QUIT SMOKING 1969 ABOUT N1 P ACK A DAY QUIT SMOKING 1969 ABOUT N1 P ACK A DAY QUIT SMOKING 1969 ABOUT N1 P ACK A DAY QUIT SMOKING 1969 ABOUT N1 P ACK A DAY QUIT SMOKING 1969 ABOUT N1 P ACK A DAY QUIT SMOKING 1969 ABOUT N1 P ACK A DAY QUIT SMOKING 1969 ABOUT N1 P ACK A DAY QUIT SMOKING 1969 ABOUT N1 P ACK A DAY QUIT SMOKING 1969 ABOUT N1 P ACK A DAY QUIT SMOKING 1970 ABOUT N1 P ACK A DAY QUIT SMOKING 1969 ABOUT N1 P ACK A DAY QUIT SMOKING 1969 ABOUT N1 P ACK A DAY QUIT SMOKING 1969 ABOUT N1 P ACK A DAY PROBLEMS Problem Type ICD Code Onset Dates Problem Status W/U Status Risk SNOMED Code Notes Problem Other obesity due to excess calories (E66.09) Active confirmed 206672340 Problem Overweight (E66.3) Active confirmed Ove rweight (410534791) Problem Body mass index [BMI] 32.0-32.9, adult (Z68.32) Active confirmed 536746853 Problem Gastroesophageal reflux disease with esophagitis without hemorrhage (K21.00) Active confirmed 890469601 Problem Mild intermittent asthma without complication (J45.20) Active confirmed 663457127 Problem BMI 30.0-30.9,adult (Z68.30) Active confirmed 312300664 VITAL SIGNS Heart Rate 80 /min 12/30/2024 Oximetry 98 % 12/30/2024 Blood pressure diastolic 88 mm Hg 12/30/2024 Height 59 in 12/30/2024 Blood pressure systolic 156 mm Hg 12/30/2024 Weight 142 lbs 12/30/2024 BMI 28.68 kg/m2 12/30/2024 Encounters Encounter Location Date Provider Diagnosis [place] [address] [address] 07/31/2024 BAYLEE BORHOT Mild intermittent as thma without complication J45.20 ; Overweight E66.3 ; Gastroesophageal reflux disease with esophagitis without hemorrhage K21.00 and BMI 27.0-27.9,adult Z68.27 [place] [address] 01/15/2024 BAYLEE BORHOT Mild intermittent as thma without complication J45.20 ; Overweight E66.3 ; Gastroesophageal reflux disease with esophagitis without hemorrhage K21.00 and BMI 27.0-27.9,adult Z68.27 [place] [address] [address] 08/11/2024 BAYLEE BORHOT BMI 27.0-27.9,adult Z68.27 ; Mild intermittent asthma without complication J45.20 ; Overweight E66.3 and Gastroesophageal reflux disease with esophagitis without hemorrhage K21.00 [place] [address] [address] 10/01/2024 BAYLEE BORHOT BMI 27.0-27.9,adult Z68.27 ; Mild intermittent asthma without complication J45.20 ; Overweight E66.3 and Gastroesophageal reflux disease with esophagitis without hemorrhage K21.00 [place] [address] [address] 11/23/2024 BAYLEE BORHOT BMI 27.0-27.9,adult Z68.27 ; Mild intermittent asthma without complication J45.20 ; Overweight E66.3 and Gastroesophageal reflux disease with esophagitis without hemorrhage K21.00 [place] [address] 12/30/2024 BAYLEE MONROEHOT BMI 28.0-28.9,adult Z68.28 ; Dietary counseling and surveillance Z71.3 ; Mild intermittent asthma without complication J45.20 ; Overweight E66.3 and Gastroesophageal reflux disease with esophagitis without hemorrhage K21.00 [place] [address] [address] 07/13/2024 [place] [address] 07/30/2024 BAYLEE MONROEHOT [place] [address] [address] 10/02/2024 BAYLEE MONROEHOT [place] [address] [phone] 10/16/2024 [place] [address] 11/13/2024 BAYLEE PAVON ASSESSMENTS Encounter Date Diagnosis Assessment Notes Treatment Notes Treatment Clinical Notes Section Notes 01/15/2024 Mild intermittent asthma without complication (ICD-10 - J45.20) #Weight Management 01/15/2024 followup on labs* She likes her current regimen and feels like her inactivity is the reason for the weight gain cont Genero 2.5mg, We discussed maintenance dosing moving forward* Linzess for constipation Discussed 5-10lb weights exercises to avoid sacropenia, especially in the upper extremities. Reports decreased activity due to back and shoulder pain I did discuss with her all FDA approved options Discussed importance of protein consumption for muscle maintenance as well as probiotics, B12 complex biotin , iron and other nutrients, To help avoid telogen effluvium while on weight loss medications such as GLP-1 Will follow up in 6 weeks Patient has been found to be overweight with a BMI of (27). Patient was reassured and welcomed to the practice. We discussed that we stress a hollistic medical approach with emphasis on lifestyle modification. Patient was informed that a healthy lifestyle with exercise and good eating habits can help reduce his risk of medical complications. He is explained that obesity increases his risk of diabetes, cardiovascular disease, or organ damage. We spent a lot of time discussing the relationship between food, exercise, sleep, mental health and obesity. Patient was counseled on the importance EATING local, organic food when possible. Patient was educated on clean 15 and dirty dozen. I provided information about reading books called The Food Rules by Evans Benavides and Eat Fat Get Lean by Dr Ishmael Craig. Self education is important in the journey for weight management. Patient was offered diagnostic testing. We want to measure visceral adiposity, advanced body composition, adverse lipids, fatty acid balance, risk for heart disease and atherosclerosis, markers of inflammation and genetic susceptibility. Patient was counseled on weight management and was advised to lose weight using A. Meal Replacement Products Patient was educated on the replacement products called optifast. This is a good way of taking fixed amount of calories. It has been shown in studies to be ineffective weight management tool. This however has to be coupled with lifestyle intervention as well as laboratory data and EKG monitoring. It is impossible to know how a person will tolerate complete meal replacement. The side effects of meal replacement and weight loss could include syncopal attacks, dizziness, gallstones, potential cholecystectomy, possible heart attack and even . The benefits of meal replacement would be potential weight loss but no guarantees can be made. Meal replacement products are not covered by insurance. Once the patient has bought these products we cannot return them B. Lifestyle management which includes several strategies as below 1. Eat a low carbohydrate good fat good protein diet. Eliminate refined carbohydrates from the diet. Continue blood sugar and sugared beverages. Eat local organic when possible. Cook your own meals. Read food labels. None about healthy snacks. Portion control and food with low glycemic index 2. Exercise regularly. Try to get at least 6000 steps a day. Use a predominant to track activity level. Consider using apps like Evomail, Results [employer], lose it, stick as needed for self-monitoring and weight management. Consider group exercises. Consider hiring a sports athletic trainer. Regular exercise is benavidez to sustainable health and prevents as a buffer against weight regain 3. Sleep is most important for healing. Tried to sleep at least 8 hours a night. A good quality sleep needs a sleep ritual with ideal room temperature of around 68. It might help to take a shower and have no electronics in the room and sleep in a very dark room without artificial light. Start her sleep routine and get up early in the morning and go to bed on time 4. Make a social connection. Surround yourself with positive people with positive energy. Connect with friends and family. 5. Get into the habit of meditating and mindfulness while doing everything. 6. Go outside and connect with nature. C. Prescription medications Patient was educated on the use of prescription medications for medical weight loss. This is a growing list and includes phentermine, Topamax,Qsymia, contrave, belviq and saxenda. All prescription medications could have side effects including but not limited to kidney stones, seizure disorder cardiac arrhythmias heart attack pancreatitis etc. etc.. Patient was encouraged to read the prescription insert and have coaching with their pharmacist and make an informed decision about taking medication and know that these medications are being prescribed with good intentions and we do not know how a patient would react to her medication. Sudden medications are FDA approved for weight loss and there is also off label use depending on patient's inability to afford medications in an attempt to lose weight D. Behavioral counseling was done to establish a relationship between food and an mood. Patient was provided information about local counseling and psychiatry and Dr Bearden at [facility]. We would like to cover regular topics and build on low glycemic eating exercise mindful eating, using yoga and meditation along with deep breathing and connecting with friends and family. E. MASS PAT reviewed, Patient's current medications were reviewed and opinion was given on medication that can cause weight gain and can be substituted F. Patient was assessed for risk with obesity including and not limiting to atherosclerosis heart disease stroke kidney disease, restrictive lung disease, irritable bowel syndrome and overall mortality. Risk of developing prediabetes diabetes and metabolic syndrome was discussed G. Therapeutic plan: We have decided to make therapeutic plan which would include choosing wisely on calories restricting portion getting active, tracking weight, getting good quality sleep and working on time management H. Patient will follow up in (4) weeks for weight management Total time spent today was 30 minutes [...] software and direct typing Please excuse inadvertent adult care manager or typing errors, or uncorrected word substitutions Although every attempt has been made by the provider to proofread this document, occasional misspellings and typographical errors may still be present Due to the previous pandemic, and the use of personal protective equipment (PPE) This may decrease voice recognition accuracy Inadvertent adult care manager errors may occur 07/31/2024 Mild intermittent asthma without complication (ICD-10 - J45.20) #Weight Management 07/31/2024 followup on labs* She likes her current regimen and feels like her inactivity is the reason for the weight gain cont Mounjaro 2.5mg, We discussed maintenance dosing moving forward* Linzess for constipation Discussed 5-10lb weights exercises to avoid sacropenia, especially in the upper extremities. Reports decreased activity due to back and shoulder pain I did discuss with her all FDA approved options Discussed importance of protein consumption for muscle maintenance as well as probiotics, B12 complex biotin , iron and other nutrients, To help avoid telogen effluvium while on weight loss medications such as GLP-1 Will follow up in 6 weeks Patient has been found to be overweight with a BMI of (27). Patient was reassured and welcomed to the practice. We discussed that we stress a hollistic medical approach with emphasis on lifestyle modification. Patient was informed that a healthy lifestyle with exercise and good eating habits can help reduce his risk of medical complications. He is explained that obesity increases his risk of diabetes, cardiovascular disease, or organ damage. We spent a lot of time discussing the relationship between food, exercise, sleep, mental health and obesity. Patient was counseled on the importance EATING local, organic food when possible. Patient was educated on clean 15 and dirty dozen. I provided information about reading books called The Food Rules by Evans Benavides and Eat Fat Get Lean by Dr Ishmael Craig. Self education is important in the journey for weight management. Patient was offered diagnostic testing. We want to measure visceral adiposity, advanced body composition, adverse lipids, fatty acid balance, risk for heart disease and atherosclerosis, markers of inflammation and genetic susceptibility. Patient was counseled on weight management and was advised to lose weight using A. Meal Replacement Products Patient was educated on the replacement products called optifast. This is a good way of taking fixed amount of calories. It has been shown in studies to be ineffective weight management tool. This however has to be coupled with lifestyle intervention as well as laboratory data and EKG monitoring. It is impossible to know how a person will tolerate complete meal replacement. The side effects of meal replacement and weight loss could include syncopal attacks, dizziness, gallstones, potential cholecystectomy, possible heart attack and even . The benefits of meal replacement would be potential weight loss but no guarantees can be made. Meal replacement products are not covered by insurance. Once the patient has bought these products we cannot return them B. Lifestyle management which includes several strategies as below 1. Eat a low carbohydrate good fat good protein diet. Eliminate refined carbohydrates from the diet. Continue blood sugar and sugared beverages. Eat local organic when possible. Cook your own meals. Read food labels. None about healthy snacks. Portion control and food with low glycemic index 2. Exercise regularly. Try to get at least 6000 steps a day. Use a predominant to track activity level. Consider using apps like Evomail, Results [employer], lose it, stick as needed for self-monitoring and weight management. Consider group exercises. Consider hiring a sports athletic trainer. Regular exercise is benavidez to sustainable health and prevents as a buffer against weight regain 3. Sleep is most important for healing. Tried to sleep at least 8 hours a night. A good quality sleep needs a sleep ritual with ideal room temperature of around 68. It might help to take a shower and have no electronics in the room and sleep in a very dark room without artificial light. Start her sleep routine and get up early in the morning and go to bed on time 4. Make a social connection. Surround yourself with positive people with positive energy. Connect with friends and family. 5. Get into the habit of meditating and mindfulness while doing everything. 6. Go outside and connect with nature. C. Prescription medications Patient was educated on the use of prescription medications for medical weight loss. This is a growing list and includes phentermine, Topamax,Qsymia, contrave, belviq and saxenda. All prescription medications could have side effects including but not limited to kidney stones, seizure disorder cardiac arrhythmias heart attack pancreatitis etc. etc.. Patient was encouraged to read the prescription insert and have coaching with their pharmacist and make an informed decision about taking medication and know that these medications are being prescribed with good intentions and we do not know how a patient would react to her medication. Sudden medications are FDA approved for weight loss and there is also off label use depending on patient's inability to afford medications in an attempt to lose weight D. Behavioral counseling was done to establish a relationship between food and an mood. Patient was provided information about local counseling and psychiatry and Dr Bearden at [facility]. We would like to cover regular topics and build on low glycemic eating exercise mindful eating, using yoga and meditation along with deep breathing and connecting with friends and family. E. MASS PAT reviewed, Patient's current medications were reviewed and opinion was given on medication that can cause weight gain and can be substituted F. Patient was assessed for risk with obesity including and not limiting to atherosclerosis heart disease stroke kidney disease, restrictive lung disease, irritable bowel syndrome and overall mortality. Risk of developing prediabetes diabetes and metabolic syndrome was discussed G. Therapeutic plan: We have decided to make therapeutic plan which would include choosing wisely on calories restricting portion getting active, tracking weight, getting good quality sleep and working on time management H. Patient will follow up in (4) weeks for weight management Total time spent today was 30 minutes [...] software and direct typing Please excuse inadvertent adult care manager or typing errors, or uncorrected word substitutions Although every attempt has been made by the provider to proofread this document, occasional misspellings and typographical errors may still be present Due to the previous pandemic, and the use of personal protective equipment (PPE) This may decrease voice recognition accuracy Inadvertent adult care manager errors may occur 08/11/2024 BMI 27.0-27.9,adult (ICD-10 - Z68.27) #Weight Management 08/11/2024 Continue 2.5 mg dosing Patient has been found to be overweight with a BMI of (27). Patient was reassured and welcomed to the practice. We discussed that we stress a hollistic medical approach with emphasis on lifestyle modification. Patient was informed that a healthy lifestyle with exercise and good eating habits can help reduce his risk of medical complications. He is explained that obesity increases his risk of diabetes, cardiovascular disease, or organ damage. We spent a lot of time discussing the relationship between food, exercise, sleep, mental health and obesity. Patient was counseled on the importance EATING local, organic food when possible. Patient was educated on clean 15 and dirty dozen. I provided information about reading books called The Food Rules by Evans Benavides and Eat Fat Get Lean by Dr Ishmael Craig. Self education is important in the journey for weight management. Patient was offered diagnostic testing. We want to measure visceral adiposity, advanced body composition, adverse lipids, fatty acid balance, risk for heart disease and atherosclerosis, markers of inflammation and genetic susceptibility. Patient was counseled on weight management and was advised to lose weight using A. Meal Replacement Products Patient was educated on the replacement products called optifast. This is a good way of taking fixed amount of calories. It has been shown in studies to be ineffective weight management tool. This however has to be coupled with lifestyle intervention as well as laboratory data and EKG monitoring. It is impossible to know how a person will tolerate complete meal replacement. The side effects of meal replacement and weight loss could include syncopal attacks, dizziness, gallstones, potential cholecystectomy, possible heart attack and even . The benefits of meal replacement would be potential weight loss but no guarantees can be made. Meal replacement products are not covered by insurance. Once the patient has bought these products we cannot return them B. Lifestyle management which includes several strategies as below 1. Eat a low carbohydrate good fat good protein diet. Eliminate refined carbohydrates from the diet. Continue blood sugar and sugared beverages. Eat local organic when possible. Cook your own meals. Read food labels. None about healthy snacks. Portion control and food with low glycemic index 2. Exercise regularly. Try to get at least 6000 steps a day. Use a predominant to track activity level. Consider using apps like Evomail, myfitnesspal, lose it, stick as needed for self-monitoring and weight management. Consider group exercises. Consider hiring a sports athletic trainer. Regular exercise is benavidez to sustainable health and prevents as a buffer against weight regain 3. Sleep is most important for healing. Tried to sleep at least 8 hours a night. A good quality sleep needs a sleep ritual with ideal room temperature of around 68. It might help to take a shower and have no electronics in the room and sleep in a very dark room without artificial light. Start her sleep routine and get up early in the morning and go to bed on time 4. Make a social connection. Surround yourself with positive people with positive energy. Connect with friends and family. 5. Get into the habit of meditating and mindfulness while doing everything. 6. Go outside and connect with nature. C. Prescription medications Patient was educated on the use of prescription medications for medical weight loss. This is a growing list and includes phentermine, Topamax,Qsymia, contrave, belviq and saxenda. All prescription medications could have side effects including but not limited to kidney stones, seizure disorder cardiac arrhythmias heart attack pancreatitis etc. etc.. Patient was encouraged to read the prescription insert and have coaching with their pharmacist and make an informed decision about taking medication and know that these medications are being prescribed with good intentions and we do not know how a patient would react to her medication. Sudden medications are FDA approved for weight loss and there is also off label use depending on patient's inability to afford medications in an attempt to lose weight D. Behavioral counseling was done to establish a relationship between food and an mood. Patient was provided information about local counseling and psychiatry and Dr Bearden at [facility]. We would like to cover regular topics and build on low glycemic eating exercise mindful eating, using yoga and meditation along with deep breathing and connecting with friends and family. E. MASS PAT reviewed, Patient's current medications were reviewed and opinion was given on medication that can cause weight gain and can be substituted F. Patient was assessed for risk with obesity including and not limiting to atherosclerosis heart disease stroke kidney disease, restrictive lung disease, irritable bowel syndrome and overall mortality. Risk of developing prediabetes diabetes and metabolic syndrome was discussed G. Therapeutic plan: We have decided to make therapeutic plan which would include choosing wisely on calories restricting portion getting active, tracking weight, getting good quality sleep and working on time management H. Patient will follow up in (4) weeks for weight management Total time spent today was 30 minutes [...] software and direct typing Please excuse inadvertent adult care manager or typing errors, or uncorrected word substitutions Although every attempt has been made by the provider to proofread this document, occasional misspellings and typographical errors may still be present Due to the previous pandemic, and the use of personal protective equipment (PPE) This may decrease voice recognition accuracy Inadvertent adult care manager errors may occur 10/01/2024 BMI 27.0-27.9,adult (ICD-10 - Z68.27) #Weight Management 10/01/2024 Continue Mounjaro 2.5 mg dosing. Congratulated patient on effort for physical actiivty and making healthy choices regarding her diet. Patient has been found to be overweight [...] software and direct typing Please excuse inadvertent adult care manager or typing errors, or uncorrected word substitutions Although every attempt has been made by the provider to proofread this document, occasional misspellings and typographical errors may still be present Due to the previous pandemic, and the use of personal protective equipment (PPE) This may decrease voice recognition accuracy Inadvertent adult care manager errors may occur 11/23/2024 BMI 27.0-27.9,adult (ICD-10 - Z68.27) #Weight [...] software and direct typing Please excuse inadvertent adult care manager or typing errors, or uncorrected word substitutions Although every attempt has been made by the provider to proofread this document, occasional misspellings and typographical errors may still be present Due to the previous pandemic, and the use of personal protective equipment (PPE) This may decrease voice recognition accuracy Inadvertent adult care manager errors may occur 12/30/2024 BMI 28.0-28.9,adult (ICD-10 - Z68.28) #Weight Management 12/30/2024 Discussed options for her. She seems amendable to maintenance dosing of Tirzepatide compounded. She will get back to us if this works financially Going for labs on Saturday from Dr. Perez@ [facility] Patient has been found to be [...] software and direct typing Please excuse inadvertent adult care manager or typing errors, or uncorrected word substitutions Although every attempt has been made by the provider to proofread this document, occasional misspellings and typographical errors may still be present Due to the previous pandemic, and the use of personal protective equipment (PPE) This may decrease voice recognition accuracy Inadvertent adult care manager errors may occur 12/30/2024 Dietary counseling and surveillance (ICD-10 - Z71.3) #Weight Management 12/30/2024 Discussed options for her. She seems amendable to maintenance dosing of Tirzepatide compounded. She will get back to us if this works financially Going for labs on Saturday from Dr. Perez@ [facility] Patient has been found to be [...] software and direct typing Please excuse inadvertent adult care manager or typing errors, or uncorrected word substitutions Although every attempt has been made by the provider to proofread this document, occasional misspellings and typographical errors may still be present Due to the previous pandemic, and the use of personal protective equipment (PPE) This may decrease voice recognition accuracy Inadvertent adult care manager errors may occur 10/01/2024 Mild intermittent asthma without complication (ICD-10 - J45.20) #Weight Management 10/01/2024 Continue Mounjaro 2.5 mg dosing. Congratulated patient on effort for physical actiivty and making healthy choices regarding her diet. Patient has been found to be overweight [...] software and direct typing Please excuse inadvertent adult care manager or typing errors, or uncorrected word substitutions Although every attempt has been made by the provider to proofread this document, occasional misspellings and typographical errors may still be present Due to the previous pandemic, and the use of personal protective equipment (PPE) This may decrease voice recognition accuracy Inadvertent adult care manager errors may occur 11/23/2024 Mild intermittent asthma [...] software and direct typing Please excuse inadvertent adult care manager or typing errors, or uncorrected word substitutions Although every attempt has been made by the provider to proofread this document, occasional misspellings and typographical errors may still be present Due to the previous pandemic, and the use of personal protective equipment (PPE) This may decrease voice recognition accuracy Inadvertent adult care manager errors may occur 08/11/2024 Mild intermittent asthma without complication (ICD-10 - J45.20) #Weight Management 08/11/2024 Continue 2.5 mg dosing Patient has been found to be overweight with a BMI of (27). Patient was reassured and welcomed to the practice. We discussed that we stress a hollistic medical approach with emphasis on lifestyle modification. Patient was informed that a healthy lifestyle with exercise and good eating habits can help reduce his risk of medical complications. He is explained that obesity increases his risk of diabetes, cardiovascular disease, or organ damage. We spent a lot of time discussing the relationship between food, exercise, sleep, mental health and obesity. Patient was counseled on the importance EATING local, organic food when possible. Patient was educated on clean 15 and dirty dozen. I provided information about reading books called The Food Rules by Evans Benavides and Eat Fat Get Lean by Dr Ishmael Craig. Self education is important in the journey for weight management. Patient was offered diagnostic testing. We want to measure visceral adiposity, advanced body composition, adverse lipids, fatty acid balance, risk for heart disease and atherosclerosis, markers of inflammation and genetic susceptibility. Patient was counseled on weight management and was advised to lose weight using A. Meal Replacement Products Patient was educated on the replacement products called optifast. This is a good way of taking fixed amount of calories. It has been shown in studies to be ineffective weight management tool. This however has to be coupled with lifestyle intervention as well as laboratory data and EKG monitoring. It is impossible to know how a person will tolerate complete meal replacement. The side effects of meal replacement and weight loss could include syncopal attacks, dizziness, gallstones, potential cholecystectomy, possible heart attack and even . The benefits of meal replacement would be potential weight loss but no guarantees can be made. Meal replacement products are not covered by insurance. Once the patient has bought these products we cannot return them B. Lifestyle management which includes several strategies as below 1. Eat a low carbohydrate good fat good protein diet. Eliminate refined carbohydrates from the diet. Continue blood sugar and sugared beverages. Eat local organic when possible. Cook your own meals. Read food labels. None about healthy snacks. Portion control and food with low glycemic index 2. Exercise regularly. Try to get at least 6000 steps a day. Use a predominant to track activity level. Consider using apps like [employer], [employer], lose it, stick as needed for self-monitoring and weight management. Consider group exercises. Consider hiring a sports athletic trainer. Regular exercise is benavidez to sustainable health and prevents as a buffer against weight regain 3. Sleep is most important for healing. Tried to sleep at least 8 hours a night. A good quality sleep needs a sleep ritual with ideal room temperature of around 68. It might help to take a shower and have no electronics in the room and sleep in a very dark room without artificial light. Start her sleep routine and get up early in the morning and go to bed on time 4. Make a social connection. Surround yourself with positive people with positive energy. Connect with friends and family. 5. Get into the habit of meditating and mindfulness while doing everything. 6. Go outside and connect with nature. C. Prescription medications Patient was educated on the use of prescription medications for medical weight loss. This is a growing list and includes phentermine, Topamax,Qsymia, contrave, belviq and saxenda. All prescription medications could have side effects including but not limited to kidney stones, seizure disorder cardiac arrhythmias heart attack pancreatitis etc. etc.. Patient was encouraged to read the prescription insert and have coaching with their pharmacist and make an informed decision about taking medication and know that these medications are being prescribed with good intentions and we do not know how a patient would react to her medication. Sudden medications are FDA approved for weight loss and there is also off label use depending on patient's inability to afford medications in an attempt to lose weight D. Behavioral counseling was done to establish a relationship between food and an mood. Patient was provided information about local counseling and psychiatry and Dr Bearden at [facility]. We would like to cover regular topics and build on low glycemic eating exercise mindful eating, using yoga and meditation along with deep breathing and connecting with friends and family. E. MASS PAT reviewed, Patient's current medications were reviewed and opinion was given on medication that can cause weight gain and can be substituted F. Patient was assessed for risk with obesity including and not limiting to atherosclerosis heart disease stroke kidney disease, restrictive lung disease, irritable bowel syndrome and overall mortality. Risk of developing prediabetes diabetes and metabolic syndrome was discussed G. Therapeutic plan: We have decided to make therapeutic plan which would include choosing wisely on calories restricting portion getting active, tracking weight, getting good quality sleep and working on time management H. Patient will follow up in (4) weeks for weight management Total time spent today was 30 minutes [...] software and direct typing Please excuse inadvertent adult care manager or typing errors, or uncorrected word substitutions Although every attempt has been made by the provider to proofread this document, occasional misspellings and typographical errors may still be present Due to the previous pandemic, and the use of personal protective equipment (PPE) This may decrease voice recognition accuracy Inadvertent adult care manager errors may occur 08/11/2024 Overweight (ICD-10 - E66.3) #Weight Management 08/11/2024 Continue 2.5 mg dosing Patient has been found to be overweight with a BMI of (27). Patient was reassured and welcomed to the practice. We discussed that we stress a hollistic medical approach with emphasis on lifestyle modification. Patient was informed that a healthy lifestyle with exercise and good eating habits can help reduce his risk of medical complications. He is explained that obesity increases his risk of diabetes, cardiovascular disease, or organ damage. We spent a lot of time discussing the relationship between food, exercise, sleep, mental health and obesity. Patient was counseled on the importance EATING local, organic food when possible. Patient was educated on clean 15 and dirty dozen. I provided information about reading books called The Food Rules by Evans Benavides and Eat Fat Get Lean by Dr Ishmael Craig. Self education is important in the journey for weight management. Patient was offered diagnostic testing. We want to measure visceral adiposity, advanced body composition, adverse lipids, fatty acid balance, risk for heart disease and atherosclerosis, markers of inflammation and genetic susceptibility. Patient was counseled on weight management and was advised to lose weight using A. Meal Replacement Products Patient was educated on the replacement products called optifast. This is a good way of taking fixed amount of calories. It has been shown in studies to be ineffective weight management tool. This however has to be coupled with lifestyle intervention as well as laboratory data and EKG monitoring. It is impossible to know how a person will tolerate complete meal replacement. The side effects of meal replacement and weight loss could include syncopal attacks, dizziness, gallstones, potential cholecystectomy, possible heart attack and even . The benefits of meal replacement would be potential weight loss but no guarantees can be made. Meal replacement products are not covered by insurance. Once the patient has bought these products we cannot return them B. Lifestyle management which includes several strategies as below 1. Eat a low carbohydrate good fat good protein diet. Eliminate refined carbohydrates from the diet. Continue blood sugar and sugared beverages. Eat local organic when possible. Cook your own meals. Read food labels. None about healthy snacks. Portion control and food with low glycemic index 2. Exercise regularly. Try to get at least 6000 steps a day. Use a predominant to track activity level. Consider using apps like Ev[employer], [employer], lose it, stick as needed for self-monitoring and weight management. Consider group exercises. Consider hiring a sports athletic trainer. Regular exercise is benavidez to sustainable health and prevents as a buffer against weight regain 3. Sleep is most important for healing. Tried to sleep at least 8 hours a night. A good quality sleep needs a sleep ritual with ideal room temperature of around 68. It might help to take a shower and have no electronics in the room and sleep in a very dark room without artificial light. Start her sleep routine and get up early in the morning and go to bed on time 4. Make a social connection. Surround yourself with positive people with positive energy. Connect with friends and family. 5. Get into the habit of meditating and mindfulness while doing everything. 6. Go outside and connect with nature. C. Prescription medications Patient was educated on the use of prescription medications for medical weight loss. This is a growing list and includes phentermine, Topamax,Qsymia, contrave, belviq and saxenda. All prescription medications could have side effects including but not limited to kidney stones, seizure disorder cardiac arrhythmias heart attack pancreatitis etc. etc.. Patient was encouraged to read the prescription insert and have coaching with their pharmacist and make an informed decision about taking medication and know that these medications are being prescribed with good intentions and we do not know how a patient would react to her medication. Sudden medications are FDA approved for weight loss and there is also off label use depending on patient's inability to afford medications in an attempt to lose weight D. Behavioral counseling was done to establish a relationship between food and an mood. Patient was provided information about local counseling and psychiatry and Dr Bearden at [facility]. We would like to cover regular topics and build on low glycemic eating exercise mindful eating, using yoga and meditation along with deep breathing and connecting with friends and family. E. MASS PAT reviewed, Patient's current medications were reviewed and opinion was given on medication that can cause weight gain and can be substituted F. Patient was assessed for risk with obesity including and not limiting to atherosclerosis heart disease stroke kidney disease, restrictive lung disease, irritable bowel syndrome and overall mortality. Risk of developing prediabetes diabetes and metabolic syndrome was discussed G. Therapeutic plan: We have decided to make therapeutic plan which would include choosing wisely on calories restricting portion getting active, tracking weight, getting good quality sleep and working on time management H. Patient will follow up in (4) weeks for weight management Total time spent today was 30 minutes [...] software and direct typing Please excuse inadvertent adult care manager or typing errors, or uncorrected word substitutions Although every attempt has been made by the provider to proofread this document, occasional misspellings and typographical errors may still be present Due to the previous pandemic, and the use of personal protective equipment (PPE) This may decrease voice recognition accuracy Inadvertent adult care manager errors may occur 07/31/2024 Overweight (ICD-10 - E66.3) #Weight Management 07/31/2024 followup on labs* She likes her current regimen and feels like her inactivity is the reason for the weight gain cont Mounjaro 2.5mg, We discussed maintenance dosing moving forward* Linzess for constipation Discussed 5-10lb weights exercises to avoid sacropenia, especially in the upper extremities. Reports decreased activity due to back and shoulder pain I did discuss with her all FDA approved options Discussed importance of protein consumption for muscle maintenance as well as probiotics, B12 complex biotin , iron and other nutrients, To help avoid telogen effluvium while on weight loss medications such as GLP-1 Will follow up in 6 weeks Patient has been found to be overweight with a BMI of (27). Patient was reassured and welcomed to the practice. We discussed that we stress a hollistic medical approach with emphasis on lifestyle modification. Patient was informed that a healthy lifestyle with exercise and good eating habits can help reduce his risk of medical complications. He is explained that obesity increases his risk of diabetes, cardiovascular disease, or organ damage. We spent a lot of time discussing the relationship between food, exercise, sleep, mental health and obesity. Patient was counseled on the importance EATING local, organic food when possible. Patient was educated on clean 15 and dirty dozen. I provided information about reading books called The Food Rules by Evans Benavides and Eat Fat Get Lean by Dr Ishmael Craig. Self education is important in the journey for weight management. Patient was offered diagnostic testing. We want to measure visceral adiposity, advanced body composition, adverse lipids, fatty acid balance, risk for heart disease and atherosclerosis, markers of inflammation and genetic susceptibility. Patient was counseled on weight management and was advised to lose weight using A. Meal Replacement Products Patient was educated on the replacement products called optifast. This is a good way of taking fixed amount of calories. It has been shown in studies to be ineffective weight management tool. This however has to be coupled with lifestyle intervention as well as laboratory data and EKG monitoring. It is impossible to know how a person will tolerate complete meal replacement. The side effects of meal replacement and weight loss could include syncopal attacks, dizziness, gallstones, potential cholecystectomy, possible heart attack and even . The benefits of meal replacement would be potential weight loss but no guarantees can be made. Meal replacement products are not covered by insurance. Once the patient has bought these products we cannot return them B. Lifestyle management which includes several strategies as below 1. Eat a low carbohydrate good fat good protein diet. Eliminate refined carbohydrates from the diet. Continue blood sugar and sugared beverages. Eat local organic when possible. Cook your own meals. Read food labels. None about healthy snacks. Portion control and food with low glycemic index 2. Exercise regularly. Try to get at least 6000 steps a day. Use a predominant to track activity level. Consider using apps like [employer], [employer], lose it, stick as needed for self-monitoring and weight management. Consider group exercises. Consider hiring a sports athletic trainer. Regular exercise is benavidez to sustainable health and prevents as a buffer against weight regain 3. Sleep is most important for healing. Tried to sleep at least 8 hours a night. A good quality sleep needs a sleep ritual with ideal room temperature of around 68. It might help to take a shower and have no electronics in the room and sleep in a very dark room without artificial light. Start her sleep routine and get up early in the morning and go to bed on time 4. Make a social connection. Surround yourself with positive people with positive energy. Connect with friends and family. 5. Get into the habit of meditating and mindfulness while doing everything. 6. Go outside and connect with nature. C. Prescription medications Patient was educated on the use of prescription medications for medical weight loss. This is a growing list and includes phentermine, Topamax,Qsymia, contrave, belviq and saxenda. All prescription medications could have side effects including but not limited to kidney stones, seizure disorder cardiac arrhythmias heart attack pancreatitis etc. etc.. Patient was encouraged to read the prescription insert and have coaching with their pharmacist and make an informed decision about taking medication and know that these medications are being prescribed with good intentions and we do not know how a patient would react to her medication. Sudden medications are FDA approved for weight loss and there is also off label use depending on patient's inability to afford medications in an attempt to lose weight D. Behavioral counseling was done to establish a relationship between food and an mood. Patient was provided information about local counseling and psychiatry and Dr Bearden at [facility]. We would like to cover regular topics and build on low glycemic eating exercise mindful eating, using yoga and meditation along with deep breathing and connecting with friends and family. E. MASS PAT reviewed, Patient's current medications were reviewed and opinion was given on medication that can cause weight gain and can be substituted F. Patient was assessed for risk with obesity including and not limiting to atherosclerosis heart disease stroke kidney disease, restrictive lung disease, irritable bowel syndrome and overall mortality. Risk of developing prediabetes diabetes and metabolic syndrome was discussed G. Therapeutic plan: We have decided to make therapeutic plan which would include choosing wisely on calories restricting portion getting active, tracking weight, getting good quality sleep and working on time management H. Patient will follow up in (4) weeks for weight management Total time spent today was 30 minutes [...] software and direct typing Please excuse inadvertent adult care manager or typing errors, or uncorrected word substitutions Although every attempt has been made by the provider to proofread this document, occasional misspellings and typographical errors may still be present Due to the previous pandemic, and the use of personal protective equipment (PPE) This may decrease voice recognition accuracy Inadvertent adult care manager errors may occur 01/15/2024 Overweight (ICD-10 - E66.3) #Weight Management 01/15/2024 followup on labs* She likes her current regimen and feels like her inactivity is the reason for the weight gain cont Mounjaro 2.5mg, We discussed maintenance dosing moving forward* Linzess for constipation Discussed 5-10lb weights exercises to avoid sacropenia, especially in the upper extremities. Reports decreased activity due to back and shoulder pain I did discuss with her all FDA approved options Discussed importance of protein consumption for muscle maintenance as well as probiotics, B12 complex biotin , iron and other nutrients, To help avoid telogen effluvium while on weight loss medications such as GLP-1 Will follow up in 6 weeks Patient has been found to be overweight with a BMI of (27). Patient was reassured and welcomed to the practice. We discussed that we stress a hollistic medical approach with emphasis on lifestyle modification. Patient was informed that a healthy lifestyle with exercise and good eating habits can help reduce his risk of medical complications. He is explained that obesity increases his risk of diabetes, cardiovascular disease, or organ damage. We spent a lot of time discussing the relationship between food, exercise, sleep, mental health and obesity. Patient was counseled on the importance EATING local, organic food when possible. Patient was educated on clean 15 and dirty dozen. I provided information about reading books called The Food Rules by Evans Benavides and Eat Fat Get Lean by Dr Ishmael Craig. Self education is important in the journey for weight management. Patient was offered diagnostic testing. We want to measure visceral adiposity, advanced body composition, adverse lipids, fatty acid balance, risk for heart disease and atherosclerosis, markers of inflammation and genetic susceptibility. Patient was counseled on weight management and was advised to lose weight using A. Meal Replacement Products Patient was educated on the replacement products called optifast. This is a good way of taking fixed amount of calories. It has been shown in studies to be ineffective weight management tool. This however has to be coupled with lifestyle intervention as well as laboratory data and EKG monitoring. It is impossible to know how a person will tolerate complete meal replacement. The side effects of meal replacement and weight loss could include syncopal attacks, dizziness, gallstones, potential cholecystectomy, possible heart attack and even . The benefits of meal replacement would be potential weight loss but no guarantees can be made. Meal replacement products are not covered by insurance. Once the patient has bought these products we cannot return them B. Lifestyle management which includes several strategies as below 1. Eat a low carbohydrate good fat good protein diet. Eliminate refined carbohydrates from the diet. Continue blood sugar and sugared beverages. Eat local organic when possible. Cook your own meals. Read food labels. None about healthy snacks. Portion control and food with low glycemic index 2. Exercise regularly. Try to get at least 6000 steps a day. Use a predominant to track activity level. Consider using apps like Evomail, myfitStudentboxpal, lose it, stick as needed for self-monitoring and weight management. Consider group exercises. Consider hiring a sports athletic trainer. Regular exercise is benavidez to sustainable health and prevents as a buffer against weight regain 3. Sleep is most important for healing. Tried to sleep at least 8 hours a night. A good quality sleep needs a sleep ritual with ideal room temperature of around 68. It might help to take a shower and have no electronics in the room and sleep in a very dark room without artificial light. Start her sleep routine and get up early in the morning and go to bed on time 4. Make a social connection. Surround yourself with positive people with positive energy. Connect with friends and family. 5. Get into the habit of meditating and mindfulness while doing everything. 6. Go outside and connect with nature. C. Prescription medications Patient was educated on the use of prescription medications for medical weight loss. This is a growing list and includes phentermine, Topamax,Qsymia, contrave, belviq and saxenda. All prescription medications could have side effects including but not limited to kidney stones, seizure disorder cardiac arrhythmias heart attack pancreatitis etc. etc.. Patient was encouraged to read the prescription insert and have coaching with their pharmacist and make an informed decision about taking medication and know that these medications are being prescribed with good intentions and we do not know how a patient would react to her medication. Sudden medications are FDA approved for weight loss and there is also off label use depending on patient's inability to afford medications in an attempt to lose weight D. Behavioral counseling was done to establish a relationship between food and an mood. Patient was provided information about local counseling and psychiatry and Dr Bearden at [facility]. We would like to cover regular topics and build on low glycemic eating exercise mindful eating, using yoga and meditation along with deep breathing and connecting with friends and family. E. MASS PAT reviewed, Patient's current medications were reviewed and opinion was given on medication that can cause weight gain and can be substituted F. Patient was assessed for risk with obesity including and not limiting to atherosclerosis heart disease stroke kidney disease, restrictive lung disease, irritable bowel syndrome and overall mortality. Risk of developing prediabetes diabetes and metabolic syndrome was discussed G. Therapeutic plan: We have decided to make therapeutic plan which would include choosing wisely on calories restricting portion getting active, tracking weight, getting good quality sleep and working on time management H. Patient will follow up in (4) weeks for weight management Total time spent today was 30 minutes [...] software and direct typing Please excuse inadvertent adult care manager or typing errors, or uncorrected word substitutions Although every attempt has been made by the provider to proofread this document, occasional misspellings and typographical errors may still be present Due to the previous pandemic, and the use of personal protective equipment (PPE) This may decrease voice recognition accuracy Inadvertent adult care manager errors may occur 01/15/2024 Gastroesophageal reflux disease with esophagitis without hemorrhage (ICD-10 - K21.00) #Weight Management 01/15/2024 followup on labs* She likes her current regimen and feels like her inactivity is the reason for the weight gain cont Mounjaro 2.5mg, We discussed maintenance dosing moving forward* Linzess for constipation Discussed 5-10lb weights exercises to avoid sacropenia, especially in the upper extremities. Reports decreased activity due to back and shoulder pain I did discuss with her all FDA approved options Discussed importance of protein consumption for muscle maintenance as well as probiotics, B12 complex biotin , iron and other nutrients, To help avoid telogen effluvium while on weight loss medications such as GLP-1 Will follow up in 6 weeks Patient has been found to be overweight with a BMI of (27). Patient was reassured and welcomed to the practice. We discussed that we stress a hollistic medical approach with emphasis on lifestyle modification. Patient was informed that a healthy lifestyle with exercise and good eating habits can help reduce his risk of medical complications. He is explained that obesity increases his risk of diabetes, cardiovascular disease, or organ damage. We spent a lot of time discussing the relationship between food, exercise, sleep, mental health and obesity. Patient was counseled on the importance EATING local, organic food when possible. Patient was educated on clean 15 and dirty dozen. I provided information about reading books called The Food Rules by Evans Benavides and Eat Fat Get Lean by Dr Ishmael Craig. Self education is important in the journey for weight management. Patient was offered diagnostic testing. We want to measure visceral adiposity, advanced body composition, adverse lipids, fatty acid balance, risk for heart disease and atherosclerosis, markers of inflammation and genetic susceptibility. Patient was counseled on weight management and was advised to lose weight using A. Meal Replacement Products Patient was educated on the replacement products called optifast. This is a good way of taking fixed amount of calories. It has been shown in studies to be ineffective weight management tool. This however has to be coupled with lifestyle intervention as well as laboratory data and EKG monitoring. It is impossible to know how a person will tolerate complete meal replacement. The side effects of meal replacement and weight loss could include syncopal attacks, dizziness, gallstones, potential cholecystectomy, possible heart attack and even . The benefits of meal replacement would be potential weight loss but no guarantees can be made. Meal replacement products are not covered by insurance. Once the patient has bought these products we cannot return them B. Lifestyle management which includes several strategies as below 1. Eat a low carbohydrate good fat good protein diet. Eliminate refined carbohydrates from the diet. Continue blood sugar and sugared beverages. Eat local organic when possible. Cook your own meals. Read food labels. None about healthy snacks. Portion control and food with low glycemic index 2. Exercise regularly. Try to get at least 6000 steps a day. Use a predominant to track activity level. Consider using apps like Evomail, myfitnesspal, lose it, stick as needed for self-monitoring and weight management. Consider group exercises. Consider hiring a sports athletic trainer. Regular exercise is benavidez to sustainable health and prevents as a buffer against weight regain 3. Sleep is most important for healing. Tried to sleep at least 8 hours a night. A good quality sleep needs a sleep ritual with ideal room temperature of around 68. It might help to take a shower and have no electronics in the room and sleep in a very dark room without artificial light. Start her sleep routine and get up early in the morning and go to bed on time 4. Make a social connection. Surround yourself with positive people with positive energy. Connect with friends and family. 5. Get into the habit of meditating and mindfulness while doing everything. 6. Go outside and connect with nature. C. Prescription medications Patient was educated on the use of prescription medications for medical weight loss. This is a growing list and includes phentermine, Topamax,Qsymia, contrave, belviq and saxenda. All prescription medications could have side effects including but not limited to kidney stones, seizure disorder cardiac arrhythmias heart attack pancreatitis etc. etc.. Patient was encouraged to read the prescription insert and have coaching with their pharmacist and make an informed decision about taking medication and know that these medications are being prescribed with good intentions and we do not know how a patient would react to her medication. Sudden medications are FDA approved for weight loss and there is also off label use depending on patient's inability to afford medications in an attempt to lose weight D. Behavioral counseling was done to establish a relationship between food and an mood. Patient was provided information about local counseling and psychiatry and Dr Bearden at [facility]. We would like to cover regular topics and build on low glycemic eating exercise mindful eating, using yoga and meditation along with deep breathing and connecting with friends and family. E. MASS PAT reviewed, Patient's current medications were reviewed and opinion was given on medication that can cause weight gain and can be substituted F. Patient was assessed for risk with obesity including and not limiting to atherosclerosis heart disease stroke kidney disease, restrictive lung disease, irritable bowel syndrome and overall mortality. Risk of developing prediabetes diabetes and metabolic syndrome was discussed G. Therapeutic plan: We have decided to make therapeutic plan which would include choosing wisely on calories restricting portion getting active, tracking weight, getting good quality sleep and working on time management H. Patient will follow up in (4) weeks for weight management Total time spent today was 30 minutes [...] software and direct typing Please excuse inadvertent adult care manager or typing errors, or uncorrected word substitutions Although every attempt has been made by the provider to proofread this document, occasional misspellings and typographical errors may still be present Due to the previous pandemic, and the use of personal protective equipment (PPE) This may decrease voice recognition accuracy Inadvertent adult care manager errors may occur 07/31/2024 Gastroesophageal reflux disease with esophagitis without hemorrhage (ICD-10 - K21.00) #Weight Management 07/31/2024 followup on labs* She likes her current regimen and feels like her inactivity is the reason for the weight gain cont Mounjaro 2.5mg, We discussed maintenance dosing moving forward* Linzess for constipation Discussed 5-10lb weights exercises to avoid sacropenia, especially in the upper extremities. Reports decreased activity due to back and shoulder pain I did discuss with her all FDA approved options Discussed importance of protein consumption for muscle maintenance as well as probiotics, B12 complex biotin , iron and other nutrients, To help avoid telogen effluvium while on weight loss medications such as GLP-1 Will follow up in 6 weeks Patient has been found to be overweight with a BMI of (27). Patient was reassured and welcomed to the practice. We discussed that we stress a hollistic medical approach with emphasis on lifestyle modification. Patient was informed that a healthy lifestyle with exercise and good eating habits can help reduce his risk of medical complications. He is explained that obesity increases his risk of diabetes, cardiovascular disease, or organ damage. We spent a lot of time discussing the relationship between food, exercise, sleep, mental health and obesity. Patient was counseled on the importance EATING local, organic food when possible. Patient was educated on clean 15 and dirty dozen. I provided information about reading books called The Food Rules by Evans Benavides and Eat Fat Get Lean by Dr Ishmael Craig. Self education is important in the journey for weight management. Patient was offered diagnostic testing. We want to measure visceral adiposity, advanced body composition, adverse lipids, fatty acid balance, risk for heart disease and atherosclerosis, markers of inflammation and genetic susceptibility. Patient was counseled on weight management and was advised to lose weight using A. Meal Replacement Products Patient was educated on the replacement products called optifast. This is a good way of taking fixed amount of calories. It has been shown in studies to be ineffective weight management tool. This however has to be coupled with lifestyle intervention as well as laboratory data and EKG monitoring. It is impossible to know how a person will tolerate complete meal replacement. The side effects of meal replacement and weight loss could include syncopal attacks, dizziness, gallstones, potential cholecystectomy, possible heart attack and even . The benefits of meal replacement would be potential weight loss but no guarantees can be made. Meal replacement products are not covered by insurance. Once the patient has bought these products we cannot return them B. Lifestyle management which includes several strategies as below 1. Eat a low carbohydrate good fat good protein diet. Eliminate refined carbohydrates from the diet. Continue blood sugar and sugared beverages. Eat local organic when possible. Cook your own meals. Read food labels. None about healthy snacks. Portion control and food with low glycemic index 2. Exercise regularly. Try to get at least 6000 steps a day. Use a predominant to track activity level. Consider using apps like Evomail, Results [employer]pal, lose it, stick as needed for self-monitoring and weight management. Consider group exercises. Consider hiring a sports athletic trainer. Regular exercise is benavidez to sustainable health and prevents as a buffer against weight regain 3. Sleep is most important for healing. Tried to sleep at least 8 hours a night. A good quality sleep needs a sleep ritual with ideal room temperature of around 68. It might help to take a shower and have no electronics in the room and sleep in a very dark room without artificial light. Start her sleep routine and get up early in the morning and go to bed on time 4. Make a social connection. Surround yourself with positive people with positive energy. Connect with friends and family. 5. Get into the habit of meditating and mindfulness while doing everything. 6. Go outside and connect with nature. C. Prescription medications Patient was educated on the use of prescription medications for medical weight loss. This is a growing list and includes phentermine, Topamax,Qsymia, contrave, belviq and saxenda. All prescription medications could have side effects including but not limited to kidney stones, seizure disorder cardiac arrhythmias heart attack pancreatitis etc. etc.. Patient was encouraged to read the prescription insert and have coaching with their pharmacist and make an informed decision about taking medication and know that these medications are being prescribed with good intentions and we do not know how a patient would react to her medication. Sudden medications are FDA approved for weight loss and there is also off label use depending on patient's inability to afford medications in an attempt to lose weight D. Behavioral counseling was done to establish a relationship between food and an mood. Patient was provided information about local counseling and psychiatry and Dr Bearden at [facility]. We would like to cover regular topics and build on low glycemic eating exercise mindful eating, using yoga and meditation along with deep breathing and connecting with friends and family. E. MASS PAT reviewed, Patient's current medications were reviewed and opinion was given on medication that can cause weight gain and can be substituted F. Patient was assessed for risk with obesity including and not limiting to atherosclerosis heart disease stroke kidney disease, restrictive lung disease, irritable bowel syndrome and overall mortality. Risk of developing prediabetes diabetes and metabolic syndrome was discussed G. Therapeutic plan: We have decided to make therapeutic plan which would include choosing wisely on calories restricting portion getting active, tracking weight, getting good quality sleep and working on time management H. Patient will follow up in (4) weeks for weight management Total time spent today was 30 minutes [...] software and direct typing Please excuse inadvertent adult care manager or typing errors, or uncorrected word substitutions Although every attempt has been made by the provider to proofread this document, occasional misspellings and typographical errors may still be present Due to the previous pandemic, and the use of personal protective equipment (PPE) This may decrease voice recognition accuracy Inadvertent adult care manager errors may occur 08/11/2024 Gastroesophageal reflux disease with esophagitis without hemorrhage (ICD-10 - K21.00) #Weight Management 08/11/2024 Continue 2.5 mg dosing Patient has been found to be overweight with a BMI of (27). Patient was reassured and welcomed to the practice. We discussed that we stress a hollistic medical approach with emphasis on lifestyle modification. Patient was informed that a healthy lifestyle with exercise and good eating habits can help reduce his risk of medical complications. He is explained that obesity increases his risk of diabetes, cardiovascular disease, or organ damage. We spent a lot of time discussing the relationship between food, exercise, sleep, mental health and obesity. Patient was counseled on the importance EATING local, organic food when possible. Patient was educated on clean 15 and dirty dozen. I provided information about reading books called The Food Rules by Evans Benavides and Eat Fat Get Lean by Dr Ishmael Craig. Self education is important in the journey for weight management. Patient was offered diagnostic testing. We want to measure visceral adiposity, advanced body composition, adverse lipids, fatty acid balance, risk for heart disease and atherosclerosis, markers of inflammation and genetic susceptibility. Patient was counseled on weight management and was advised to lose weight using A. Meal Replacement Products Patient was educated on the replacement products called optifast. This is a good way of taking fixed amount of calories. It has been shown in studies to be ineffective weight management tool. This however has to be coupled with lifestyle intervention as well as laboratory data and EKG monitoring. It is impossible to know how a person will tolerate complete meal replacement. The side effects of meal replacement and weight loss could include syncopal attacks, dizziness, gallstones, potential cholecystectomy, possible heart attack and even . The benefits of meal replacement would be potential weight loss but no guarantees can be made. Meal replacement products are not covered by insurance. Once the patient has bought these products we cannot return them B. Lifestyle management which includes several strategies as below 1. Eat a low carbohydrate good fat good protein diet. Eliminate refined carbohydrates from the diet. Continue blood sugar and sugared beverages. Eat local organic when possible. Cook your own meals. Read food labels. None about healthy snacks. Portion control and food with low glycemic index 2. Exercise regularly. Try to get at least 6000 steps a day. Use a predominant to track activity level. Consider using apps like Evomail, Results [employer], lose it, stick as needed for self-monitoring and weight management. Consider group exercises. Consider hiring a sports athletic trainer. Regular exercise is benavidez to sustainable health and prevents as a buffer against weight regain 3. Sleep is most important for healing. Tried to sleep at least 8 hours a night. A good quality sleep needs a sleep ritual with ideal room temperature of around 68. It might help to take a shower and have no electronics in the room and sleep in a very dark room without artificial light. Start her sleep routine and get up early in the morning and go to bed on time 4. Make a social connection. Surround yourself with positive people with positive energy. Connect with friends and family. 5. Get into the habit of meditating and mindfulness while doing everything. 6. Go outside and connect with nature. C. Prescription medications Patient was educated on the use of prescription medications for medical weight loss. This is a growing list and includes phentermine, Topamax,Qsymia, contrave, belviq and saxenda. All prescription medications could have side effects including but not limited to kidney stones, seizure disorder cardiac arrhythmias heart attack pancreatitis etc. etc.. Patient was encouraged to read the prescription insert and have coaching with their pharmacist and make an informed decision about taking medication and know that these medications are being prescribed with good intentions and we do not know how a patient would react to her medication. Sudden medications are FDA approved for weight loss and there is also off label use depending on patient's inability to afford medications in an attempt to lose weight D. Behavioral counseling was done to establish a relationship between food and an mood. Patient was provided information about local counseling and psychiatry and Dr Bearden at [facility]. We would like to cover regular topics and build on low glycemic eating exercise mindful eating, using yoga and meditation along with deep breathing and connecting with friends and family. E. MASS PAT reviewed, Patient's current medications were reviewed and opinion was given on medication that can cause weight gain and can be substituted F. Patient was assessed for risk with obesity including and not limiting to atherosclerosis heart disease stroke kidney disease, restrictive lung disease, irritable bowel syndrome and overall mortality. Risk of developing prediabetes diabetes and metabolic syndrome was discussed G. Therapeutic plan: We have decided to make therapeutic plan which would include choosing wisely on calories restricting portion getting active, tracking weight, getting good quality sleep and working on time management H. Patient will follow up in (4) weeks for weight management Total time spent today was 30 minutes [...] software and direct typing Please excuse inadvertent adult care manager or typing errors, or uncorrected word substitutions Although every attempt has been made by the provider to proofread this document, occasional misspellings and typographical errors may still be present Due to the previous pandemic, and the use of personal protective equipment (PPE) This may decrease voice recognition accuracy Inadvertent adult care manager errors may occur 10/01/2024 Overweight (ICD-10 - E66.3) #Weight Management 10/01/2024 Continue Mounjaro 2.5 mg dosing. Congratulated patient on effort for physical actiivty and making healthy choices regarding her diet. Patient has been found to be overweight [...] software and direct typing Please excuse inadvertent adult care manager or typing errors, or uncorrected word substitutions Although every attempt has been made by the provider to proofread this document, occasional misspellings and typographical errors may still be present Due to the previous pandemic, and the use of personal protective equipment (PPE) This may decrease voice recognition accuracy Inadvertent adult care manager errors may occur 11/23/2024 Overweight (ICD-10 - [...] software and direct typing Please excuse inadvertent adult care manager or typing errors, or uncorrected word substitutions Although every attempt has been made by the provider to proofread this document, occasional misspellings and typographical errors may still be present Due to the previous pandemic, and the use of personal protective equipment (PPE) This may decrease voice recognition accuracy Inadvertent adult care manager errors may occur 12/30/2024 Overweight (ICD-10 - E66.3) #Weight Management 12/30/2024 Discussed options for her. She seems amendable to maintenance dosing of Tirzepatide compounded. She will get back to us if this works financially Going for labs on Saturday from Dr. Perez@ [facility] Patient has been found to be [...] software and direct typing Please excuse inadvertent adult care manager or typing errors, or uncorrected word substitutions Although every attempt has been made by the provider to proofread this document, occasional misspellings and typographical errors may still be present Due to the previous pandemic, and the use of personal protective equipment (PPE) This may decrease voice recognition accuracy Inadvertent adult care manager errors may occur 12/30/2024 Mild intermittent asthma without complication (ICD-10 - J45.20) #Weight Management 12/30/2024 Discussed options for her. She seems amendable to maintenance dosing of Tirzepatide compounded. She will get back to us if this works financially Going for labs on Saturday from Dr. Perez@ [facility] Patient has been found to be [...] software and direct typing Please excuse inadvertent adult care manager or typing errors, or uncorrected word substitutions Although every attempt has been made by the provider to proofread this document, occasional misspellings and typographical errors may still be present Due to the previous pandemic, and the use of personal protective equipment (PPE) This may decrease voice recognition accuracy Inadvertent adult care manager errors may occur 12/30/2024 Gastroesophageal reflux disease with esophagitis without hemorrhage (ICD-10 - K21.00) #Weight Management 12/30/2024 Discussed options for her. She seems amendable to maintenance dosing of Tirzepatide compounded. She will get back to us if this works financially Going for labs on Saturday from Dr. Perez@ [facility] Patient has been found to be [...] software and direct typing Please excuse inadvertent adult care manager or typing errors, or uncorrected word substitutions Although every attempt has been made by the provider to proofread this document, occasional misspellings and typographical errors may still be present Due to the previous pandemic, and the use of personal protective equipment (PPE) This may decrease voice recognition accuracy Inadvertent adult care manager errors may occur 11/23/2024 Gastroesophageal reflux disease [...] software and direct typing Please excuse inadvertent adult care manager or typing errors, or uncorrected word substitutions Although every attempt has been made by the provider to proofread this document, occasional misspellings and typographical errors may still be present Due to the previous pandemic, and the use of personal protective equipment (PPE) This may decrease voice recognition accuracy Inadvertent adult care manager errors may occur 10/01/2024 Gastroesophageal reflux disease with esophagitis without hemorrhage (ICD-10 - K21.00) #Weight Management 10/01/2024 Continue Mounjaro 2.5 mg dosing. Congratulated patient on effort for physical actiivty and making healthy choices regarding her diet. Patient has been found to be overweight [...] software and direct typing Please excuse inadvertent adult care manager or typing errors, or uncorrected word substitutions Although every attempt has been made by the provider to proofread this document, occasional misspellings and typographical errors may still be present Due to the previous pandemic, and the use of personal protective equipment (PPE) This may decrease voice recognition accuracy Inadvertent adult care manager errors may occur 07/31/2024 BMI 27.0-27.9,adult (ICD-10 - Z68.27) #Weight Management 07/31/2024 followup on labs* She likes her current regimen and feels like her inactivity is the reason for the weight gain cont Mounjaro 2.5mg, We discussed maintenance dosing moving forward* Linzess for constipation Discussed 5-10lb weights exercises to avoid sacropenia, especially in the upper extremities. Reports decreased activity due to back and shoulder pain I did discuss with her all FDA approved options Discussed importance of protein consumption for muscle maintenance as well as probiotics, B12 complex biotin , iron and other nutrients, To help avoid telogen effluvium while on weight loss medications such as GLP-1 Will follow up in 6 weeks Patient has been found to be overweight with a BMI of (27). Patient was reassured and welcomed to the practice. We discussed that we stress a hollistic medical approach with emphasis on lifestyle modification. Patient was informed that a healthy lifestyle with exercise and good eating habits can help reduce his risk of medical complications. He is explained that obesity increases his risk of diabetes, cardiovascular disease, or organ damage. We spent a lot of time discussing the relationship between food, exercise, sleep, mental health and obesity. Patient was counseled on the importance EATING local, organic food when possible. Patient was educated on clean 15 and dirty dozen. I provided information about reading books called The Food Rules by Evans Benavides and Eat Fat Get Lean by Dr Ishmael Craig. Self education is important in the journey for weight management. Patient was offered diagnostic testing. We want to measure visceral adiposity, advanced body composition, adverse lipids, fatty acid balance, risk for heart disease and atherosclerosis, markers of inflammation and genetic susceptibility. Patient was counseled on weight management and was advised to lose weight using A. Meal Replacement Products Patient was educated on the replacement products called optifast. This is a good way of taking fixed amount of calories. It has been shown in studies to be ineffective weight management tool. This however has to be coupled with lifestyle intervention as well as laboratory data and EKG monitoring. It is impossible to know how a person will tolerate complete meal replacement. The side effects of meal replacement and weight loss could include syncopal attacks, dizziness, gallstones, potential cholecystectomy, possible heart attack and even . The benefits of meal replacement would be potential weight loss but no guarantees can be made. Meal replacement products are not covered by insurance. Once the patient has bought these products we cannot return them B. Lifestyle management which includes several strategies as below 1. Eat a low carbohydrate good fat good protein diet. Eliminate refined carbohydrates from the diet. Continue blood sugar and sugared beverages. Eat local organic when possible. Cook your own meals. Read food labels. None about healthy snacks. Portion control and food with low glycemic index 2. Exercise regularly. Try to get at least 6000 steps a day. Use a predominant to track activity level. Consider using apps like Evomail, myfitStudentboxpal, lose it, stick as needed for self-monitoring and weight management. Consider group exercises. Consider hiring a sports athletic trainer. Regular exercise is benavidez to sustainable health and prevents as a buffer against weight regain 3. Sleep is most important for healing. Tried to sleep at least 8 hours a night. A good quality sleep needs a sleep ritual with ideal room temperature of around 68. It might help to take a shower and have no electronics in the room and sleep in a very dark room without artificial light. Start her sleep routine and get up early in the morning and go to bed on time 4. Make a social connection. Surround yourself with positive people with positive energy. Connect with friends and family. 5. Get into the habit of meditating and mindfulness while doing everything. 6. Go outside and connect with nature. C. Prescription medications Patient was educated on the use of prescription medications for medical weight loss. This is a growing list and includes phentermine, Topamax,Qsymia, contrave, belviq and saxenda. All prescription medications could have side effects including but not limited to kidney stones, seizure disorder cardiac arrhythmias heart attack pancreatitis etc. etc.. Patient was encouraged to read the prescription insert and have coaching with their pharmacist and make an informed decision about taking medication and know that these medications are being prescribed with good intentions and we do not know how a patient would react to her medication. Sudden medications are FDA approved for weight loss and there is also off label use depending on patient's inability to afford medications in an attempt to lose weight D. Behavioral counseling was done to establish a relationship between food and an mood. Patient was provided information about local counseling and psychiatry and Dr Bearden at [facility]. We would like to cover regular topics and build on low glycemic eating exercise mindful eating, using yoga and meditation along with deep breathing and connecting with friends and family. E. MASS PAT reviewed, Patient's current medications were reviewed and opinion was given on medication that can cause weight gain and can be substituted F. Patient was assessed for risk with obesity including and not limiting to atherosclerosis heart disease stroke kidney disease, restrictive lung disease, irritable bowel syndrome and overall mortality. Risk of developing prediabetes diabetes and metabolic syndrome was discussed G. Therapeutic plan: We have decided to make therapeutic plan which would include choosing wisely on calories restricting portion getting active, tracking weight, getting good quality sleep and working on time management H. Patient will follow up in (4) weeks for weight management Total time spent today was 30 minutes [...] software and direct typing Please excuse inadvertent adult care manager or typing errors, or uncorrected word substitutions Although every attempt has been made by the provider to proofread this document, occasional misspellings and typographical errors may still be present Due to the previous pandemic, and the use of personal protective equipment (PPE) This may decrease voice recognition accuracy Inadvertent adult care manager errors may occur 01/15/2024 BMI 27.0-27.9,adult (ICD-10 - Z68.27) #Weight Management 01/15/2024 followup on labs* She likes her current regimen and feels like her inactivity is the reason for the weight gain cont Mounjaro 2.5mg, We discussed maintenance dosing moving forward* Linzess for constipation Discussed 5-10lb weights exercises to avoid sacropenia, especially in the upper extremities. Reports decreased activity due to back and shoulder pain I did discuss with her all FDA approved options Discussed importance of protein consumption for muscle maintenance as well as probiotics, B12 complex biotin , iron and other nutrients, To help avoid telogen effluvium while on weight loss medications such as GLP-1 Will follow up in 6 weeks Patient has been found to be overweight with a BMI of (27). Patient was reassured and welcomed to the practice. We discussed that we stress a hollistic medical approach with emphasis on lifestyle modification. Patient was informed that a healthy lifestyle with exercise and good eating habits can help reduce his risk of medical complications. He is explained that obesity increases his risk of diabetes, cardiovascular disease, or organ damage. We spent a lot of time discussing the relationship between food, exercise, sleep, mental health and obesity. Patient was counseled on the importance EATING local, organic food when possible. Patient was educated on clean 15 and dirty dozen. I provided information about reading books called The Food Rules by Evans Benavides and Eat Fat Get Lean by Dr Ishmael Craig. Self education is important in the journey for weight management. Patient was offered diagnostic testing. We want to measure visceral adiposity, advanced body composition, adverse lipids, fatty acid balance, risk for heart disease and atherosclerosis, markers of inflammation and genetic susceptibility. Patient was counseled on weight management and was advised to lose weight using A. Meal Replacement Products Patient was educated on the replacement products called optifast. This is a good way of taking fixed amount of calories. It has been shown in studies to be ineffective weight management tool. This however has to be coupled with lifestyle intervention as well as laboratory data and EKG monitoring. It is impossible to know how a person will tolerate complete meal replacement. The side effects of meal replacement and weight loss could include syncopal attacks, dizziness, gallstones, potential cholecystectomy, possible heart attack and even . The benefits of meal replacement would be potential weight loss but no guarantees can be made. Meal replacement products are not covered by insurance. Once the patient has bought these products we cannot return them B. Lifestyle management which includes several strategies as below 1. Eat a low carbohydrate good fat good protein diet. Eliminate refined carbohydrates from the diet. Continue blood sugar and sugared beverages. Eat local organic when possible. Cook your own meals. Read food labels. None about healthy snacks. Portion control and food with low glycemic index 2. Exercise regularly. Try to get at least 6000 steps a day. Use a predominant to track activity level. Consider using apps like Evomail, Results Unitedpal, lose it, stick as needed for self-monitoring and weight management. Consider group exercises. Consider hiring a sports athletic trainer. Regular exercise is benavidez to sustainable health and prevents as a buffer against weight regain 3. Sleep is most important for healing. Tried to sleep at least 8 hours a night. A good quality sleep needs a sleep ritual with ideal room temperature of around 68. It might help to take a shower and have no electronics in the room and sleep in a very dark room without artificial light. Start her sleep routine and get up early in the morning and go to bed on time 4. Make a social connection. Surround yourself with positive people with positive energy. Connect with friends and family. 5. Get into the habit of meditating and mindfulness while doing everything. 6. Go outside and connect with nature. C. Prescription medications Patient was educated on the use of prescription medications for medical weight loss. This is a growing list and includes phentermine, Topamax,Qsymia, contrave, belviq and saxenda. All prescription medications could have side effects including but not limited to kidney stones, seizure disorder cardiac arrhythmias heart attack pancreatitis etc. etc.. Patient was encouraged to read the prescription insert and have coaching with their pharmacist and make an informed decision about taking medication and know that these medications are being prescribed with good intentions and we do not know how a patient would react to her medication. Sudden medications are FDA approved for weight loss and there is also off label use depending on patient's inability to afford medications in an attempt to lose weight D. Behavioral counseling was done to establish a relationship between food and an mood. Patient was provided information about local counseling and psychiatry and Dr Bearden at [facility]. We would like to cover regular topics and build on low glycemic eating exercise mindful eating, using yoga and meditation along with deep breathing and connecting with friends and family. E. MASS PAT reviewed, Patient's current medications were reviewed and opinion was given on medication that can cause weight gain and can be substituted F. Patient was assessed for risk with obesity including and not limiting to atherosclerosis heart disease stroke kidney disease, restrictive lung disease, irritable bowel syndrome and overall mortality. Risk of developing prediabetes diabetes and metabolic syndrome was discussed G. Therapeutic plan: We have decided to make therapeutic plan which would include choosing wisely on calories restricting portion getting active, tracking weight, getting good quality sleep and working on time management H. Patient will follow up in (4) weeks for weight management Total time spent today was 30 minutes [...] software and direct typing Please excuse inadvertent adult care manager or typing errors, or uncorrected word substitutions Although every attempt has been made by the provider to proofread this document, occasional misspellings and typographical errors may still be present Due to the previous pandemic, and the use of personal protective equipment (PPE) This may decrease voice recognition accuracy Inadvertent adult care manager errors may occur PLAN OF TREATMENT Next Appt Details Provider Name:BAYLEE SAVANAH, 01/13/2025 08:30:00 AM, [address] [facility], [place] [address], [place], [address], Provider Name:BAYLEE PAVON, 2025 02:45:00 PM, [address] [facility], [place] [address], [place], [address], Insurance Providers Payer Name Payer Address Payer Phone Subscriber Number Group Number Insured Name Patient Relationship to Insured Coverage Start Date Coverage End Date [employer] [address] [address] [place] GAME[place] [id number] DANIELITO BIRMINGHAM Self - patient is the insured [place] [address] [place] [address] [id number] DANIELITO BIRMINGHAM Self - patient is the insured MEDICATIONS ADMINISTERED Medication Instructions Date of Administration Dosage Notes MICC B12 INJECTION 08/30/2021 1 [facility] LOT#[id number] MICC B12 INJECTION 11/14/2021 MICC B12 INJECTION 12/20/2021 1 mL MICC B12 INJECTION 02/22/2022 lot # [id number] MICC B12 INJECTION 04/11/2022 MICC B12 INJECTION 09/26/2022 MICC B12 INJECTION 11/07/2022 MICC B12 INJECTION 12/19/2022 MICC B12 INJECTION 01/31/2023 1 MICC B12 INJECTION 09/12/2023 MICC B12 INJECTION 01/15/2024 MICC B12 INJECTION 10/01/2024 1 mg Tirzepatide 11/23/2024 2.5 mg Tirzepatide 12/30/2024 2.5 mg MEDICAL (GENERAL) HISTORY Medical History History ICD Code asthma Gout anxiety allergic rhinitis Surgical History Surgery Date(Month/Year) lumpectomy, right breast 2000 section 1975 cholecystectomy 02/2005
== END 2025-01-11 15:44 | disposition home or self-care (01) ==
LOC: HO.CT 15:43
PROVIDERS: PCP Internal Medicine; Visit Provider Hospitalist
DX: R91.1 Solitary pulmonary nodule (principal)
CPT/HCPCS: 71250

== ENCOUNTER → 2025-01-11 15:45 | Outpatient (BNV) | payer OTHER, MEDICAID, SELFPAY | PROVIDERS: PCP Internal Medicine; Visit Provider Radiology Vascular & Interventional Radiology | DX: R91.1 Solitary pulmonary nodule (principal) | CPT/HCPCS: 71250 ==

== ENCOUNTER 2025-01-29 15:13 | Outpatient (AMB) | payer OTHER, MEDICAID, SELFPAY ==
[2025-01-29 15:15] VITALS: BP 114/68; PULSE 87; O2SAT 98; BMI 27.3
--- NOTE | 2025-01-29 15:15 | MHC.OFFVIS ---
Vital Signs 01/29/25 15:15 Height 5 ft Weight 139 lb 15.896 oz BMI 27.3 BP 114/68 Blood Pressure Location Lt brachial Position Sitting Pulse 87 Pulse Source Pulse Oximeter Pulse Oximetry (%) 98 Oxygen Delivery Method Room Air Intake Visit Reasons: Asthma follow-up Allergies meperidine [From Demerol] Allergy (Intermediate, Verified 01/29/25 15:20) Throat swollen HPI Comments Details: The patient is a 75-year-old woman with a known history of asthma COPD overlap syndrome, chronic rhinitis. Overall she is responding well to the current respiratory regimen. Last fall she did have an exacerbation likely due to a respiratory infection. She does complaint of some dyspnea on exertion mild in severity. Does get better with rest. She continues to use her medication as prescribed a day and been effective in beneficial. We did have to switch Symbicort to Dulera due to her insurance issues, but, she is tolerating it well. Denies any significant nasal congestion at this time. Denies any lower extremity edema. On examination she did have a very mild systolic ejection murmur. 01/27/2024 the patient is here for a pulmonary follow-up visit. Overall she is doing fair. She continues have asthma symptoms. She continues on the Dulera and also the allergy medications. She is started developing worsening respiratory symptoms she is congestion. Patient did have some wheezing intermittently. She has a planned trip to [place] to visit a sick family member. Therefore, will send her some antibiotics and prednisone in case her symptoms do worsen. In addition to that she does need a nebulizer. She does need albuterol for the nebulizer. I will make sure to provide her a nebulizer 1 of the [employer]. The patient can use it twice a day with albuterol to help her with her significant bronchospasms and wheezing. The patient also has been having some back pain. Appears to be positional. Primarily when she is sleeping. Denies any respirophasic component. She did have a chest x-ray demonstrating significant scoliosis and degenerative disc disease. Likely musculoskeletal issues are contributing to her back pain. 07/31/2024 the patient is here for a pulmonary follow-up visit. Overall she is doing well from a respiratory status. She continues Dulera. She is having significant allergies though. She stopped taking the Singulair because she thought it was causing to have high blood pressure. Therefore will go ahead and send her Claritin. She can also use as the Astelin nasal spray to also help her. The patient also was having issues with pain on the right side of the chest especially when laying down and sleeping. She had gotten an x-ray that was back in 02/15/2024 which we personally reviewed. She had significant scoliosis. Also has evidence of osteoarthritis primarily in the right shoulder. Therefore, likely contributing to her discomfort. Although with abnormal chest x-ray and the fact that she has pulmonary nodules will plan to repeat the CT scan of the chest in 6 months to make sure that there stability of the nodules in view of her persistent chest pain. 01/29/2025 the patient is here for a pulmonary follow-up visit. Overall the patient has been doing well. She continues have intermittent chest tightness. Now little bit more because of the seasons change. She does respond well to the Dulera. She does use it regularly. The patient also has a rescue inhaler. Typically as needed more than twice a week. she also does take Zyrtec during this time. Will go ahead and send the prescription. Recently she did have a CT scan of the chest that we personally reviewed. It appears that she has pulmonary nodules there small subcentimeter in nature. Most of the nodules appear to be unchanged from 2022. She does have 1 new 3 mm pulmonary nodule that will need follow-up in a year. The patient also has significant scoliosis. Will continue with current respiratory therapy and will follow-up in a year's time and will repeat a CAT scan at that time. If she has any worsening symptoms or any concerning issues prior to that she will call for an earlier assessment. [facility] Medical History (Updated 08/02/24 @ 22:12 by Matheus Dover MD) Abnormal finding on breast imaging Allergic rhinitis Bronchitis Exacerbation of asthma Pulmonary nodule Murmur Asthma Dyspnea Family History Other Asthma Social History Patient Tobacco Use Status: Never used Tobacco Review of Systems Const Reports fatigue, Denies headache(s) and Denies night sweats ENT Denies change in voice, Denies headache(s), Denies lip swelling, Denies mouth pain, Reports nasal congestion, Reports nasal discharge and Denies tongue swelling Card Denies chest pain Resp Reports chest congestion, Reports cough and Reports wheezing GI Denies abdominal pain Musc Denies no additional complaints Neuro Denies Neuro-related abnormal movements and Denies headache(s) Psych Denies no additional complaints Endo Reports fatigue Chandan/Lymph Denies easy bleeding and Denies lymphadenopathy Aller/Immun Denies lip swelling, Denies tongue swelling and Reports wheezing Physical Exam Vital Signs: Last Vital Signs Pulse 87 01/29/25 15:15 BP 114/68 01/29/25 15:15 Pulse Ox 98 01/29/25 15:15 Oxygen Delivery Method Room Air 01/29/25 15:15 BMI result Body Mass Index 27.3 Const General: comfortable, no acute distress, alert and awake Orientation/consciousness: patient oriented x3 HEENT Head: Yes normal to inspection General nose exam: No nasal polyps present and No nasal discharge present Face and sinus: Yes sinuses nontender Mouth: oropharynx normal Throat: Yes posterior oropharynx normal Eyes General: appearance normal, both eyes and all related structures Neck Neck: Yes normal visual inspection, Yes no lymphadenopathy, Yes trachea midline and Yes no JVD Thyroid: Thyroid normal Chest Chest palpation & inspection: normal inspection of the chest, normal palpation of entire chest wall and no tenderness Resp Effort & Inspection: Actively coughing Auscultation: no rales, no rhonchi, wheezes and diminished lung sounds Cardio Palpation: normal PMI Rate: regular rate Rhythm: regular rhythm Heart sounds: no gallops and no murmurs Peripheral pulses: Peripheral pulses 2+ throughout GI Palpation (GI): Soft to palpation, Tenderness to palpation present (GI), No hepatosplenomegaly present and Palpable mass present Auscultation: normal bowel sounds Back/Spine/Pelvis Thoracic/Lumbar Spine: thoracic and lumbar spine normal to inspection Skin General skin exam: no rashes or lesions noted Neuro General: patient oriented x3 and no focal motor deficits Cranial nerves: Yes CN's II-XII intact bilaterally Extrem General: Yes normal to inspection, Yes no clubbing, cyanosis or edema and Yes no calf tenderness Psych Appearance: grossly normal and well kempt Speech and movement: Normal speech and movement present Assessment & Plan Assessment & Plan (1) Asthma: Code(s): J45.909 - Unspecified asthma, uncomplicated Category: Medical Qualifiers: Asthma complication type: with acute exacerbation Asthma persistence: persistent Asthma severity: moderate Qualified Code(s): J45.41 - Moderate persistent asthma with (acute) exacerbation (2) Dyspnea: Code(s): R06.00 - Dyspnea, unspecified Category: Medical Qualifiers: Dyspnea type: dyspnea on exertion Qualified Code(s): R06.00 - Dyspnea, unspecified (3) Pulmonary nodule: Code(s): R91.1 - Solitary pulmonary nodule Category: Medical Plan start Doxycycline start prednisone taper Continue Dulera consider additng LAMA short-acting beta agonist as needed Needs nebulizer for albuterol stop singular at nighttime CT chest in 1 year Follow-up 6-8 months Orders: Orders CT chest wo IV con 11 Months R91.1 - Solitary pulmonary nodule Medications: New doxycycline monohydrate 100 mg PO BID 14 days 28 tabs 0RF cetirizine (Zyrtec) 10 mg PO DAILY 30 days PRN 30 tabs 6RF allergy symptoms prednisone PO daily; Take 6 tabs daily x 3 days, then 5 tabs x 3 days, then 4 tabs x 3 days, then 3 tabs x 3 days, then 2 tabs daily x 3 days, then 1 tab x 3 days to complete. 18 days 63 tabs 0RF Changed From mometasone-formoterol 200-5 mcg/actuation (Dulera) 2 puffs PO BID 13 grams 6RF To mometasone-formoterol 200-5 mcg/actuation (Dulera) 2 puffs PO BID 30 days 13 grams 11RF Refilled albuterol sulfate 90 mcg/actuation 2 inhalations inhalation Q6H 30 days PRN 18 grams 12RF shortness of breath or wheezing J44.9 - Chronic obstructive pulmonary disease, unspecified, J45.909 - Unspecified asthma, uncomplicated Coding Level of Care Code Est Pt Level 4 (80424) Complex EM visit Add On G2211 Diagnoses Moderate persistent asthma with acute exacerbation J45.41 Asthma complication type: with acute exacerbation Asthma persistence: persistent Asthma severity: moderate Dyspnea on exertion R06.00 Dyspnea type: dyspnea on exertion Pulmonary nodule R91.1 Time Spent (min) 17
--- OUTSIDE RECORDS SUMMARY | 2025-01-29 16:34 | XMS_ITS | Clinical Summary ---
Author Organization [facility] Address [address] [place] [address] Care Team Providers Care Clinical Nurse Name Role Phone Ayo Denis MD Primary Care Provider [phone] Allergies Active Allergy Reactions Criticality Noted Date [...] (4 - season) 2024 09/09/2021, 02/28/2021, 01/31/2021 Alcohol/Substance Use Screening 10/28/2024 Depression Screening and Follow-Up 10/28/2024 Health Care Proxy Review 10/28/2024 Social Drivers of Health Annual Screening 10/28/2024 Influenza Vaccine (Season Ended) 2025 08/06/2021, 07/26/2020, 07/26/2020, Additional history exists Pneumococcal Vaccine: 50+ Years Completed 04/25/2021, 03/01/2017, 08/02/2009 Hepatitis B Vaccines Aged Out No long er eligible based on patient's age to complete this topic Insurance [facility] [employer] Care Teams Clinical Nurse Relationship Specialty Start Date End Date Ayo Denis MD PCP - General Internal Medicine 12/26/21
--- OUTSIDE RECORDS SUMMARY | 2025-01-29 16:34 | XMS_ITS ---
Author Organization [facility] Address [address] [place] [address] Care Team Providers Care Field Service Rep Name Role Phone BAYLEE PAVON Unavailable [phone] Encounters Encounter Location Date Provider Diagnosis [address] [place] [address] [place] [address] 2025 BAYLEE PAVON Adult general medica l exam Z00.00 ; Encounter for screening for lipoid disorders Z13.220 ; Diabetes mellitus screening Z13.1 and Encounter for screening for endocrine disorder Z13.29 ASSESSMENTS Encounter Date Diagnosis Assessment Notes Treatment Notes Treatment Clinical Notes Section Notes 2025 Adult general medical exam (ICD-10 - Z00.00) 2025 Encounter for screening for lipoid disorders (ICD-10 - Z13.220) 2025 Diabetes mellitus screening (ICD-10 - Z13.1) 2025 Encounter for screening for endocrine disorder (ICD-10 - Z13.29) PLAN OF TREATMENT Pending Test Test Name Order Date LIPID PANEL, STANDARD 2025 COMPREHENSIVE METABOLIC PANEL 2025 CBC (INCLUDES DIFF/PLT) 2025 URINALYSIS, COMPLETE 2025 HEMOGLOBIN A1c 2025 TSH W/REFLEX TO FT4 2025 Next Appt Details Provider Name:BAYLEE PAVON, 02/18/2025 08:15:00 AM, [address], [address], [place], [address], Provider Name:CECIL CORDERO , 06/30/2025 02:00:00 PM, [address], [address], [place], [address], Progress Notes * XIANG DALEYADOB:11/1949 (75 yo F)Acc No.[id number] Patient:??JUVE DALEY IA :1950?Age:75 Y?Sex:Fe male Address:[address] [place] [id number] Subjective: * Chief Complaints: * ? * Medical History:?? * Surgical History:?? * Hospitalization/Major Diagno stic Procedure:?? * Medications:?? Objective: Assessment: * Assessment: 1.??Adult general medical ex am - Z00.00??2.??Encounter for screening for lipoid disorders - Z13.220??3.??Diabetes mellitus screening - Z13.1??4.??Encounter for screening for endocrine disorder - Z13.29?? Plan: * Treatment: 2.??Encounter for screening for lipoid disorders?LAB: LIPID PANEL, STANDARD 3.??Diabetes mellitus screen ing?LAB: HEMOGLOBIN A1c 4.??Encounter for screening for endocrine disorder?LAB: TSH W/REFLEX TO FT4 * Procedure Codes:?? * true * Date:??
--- OUTSIDE RECORDS SUMMARY | 2025-01-29 16:34 | XMS_ITS ---
Author Organization [facility] Address [address] [place] [address] Care Team Providers Care Analyst Geochemical Prospecting Name Role Phone BAYLEE PAVON Unavailable [phone] ALLERGIES Allergen (clinical drug ingredient) Drug/Non Drug Allergy documented on EMR Reaction Allergy Type Onset Date Status meperidine Demerol Unknown Drug Allergy Active REASON FOR VISIT Pt here for weight management follow up, SECA done, Tirzepatide 2.5mg given on LLQ sub q, [...] tablet Orally Twic e a day Active Contrave 8-90 MG Week 1, take 1 table t in the morning Week 2 take 1 tablet in the morning, 1 tablet in the evening Week 3 take 2 tablets in the morning, 1 tablet in the evening Week 4 onward 2 tablets in the morning, 2 tablets in the evening Orally twice a day for 30 days 2025 Active Tirzepatide 2.5 MG/0.5ML as directed Subcutaneous Active Wegovy 0.25 MG/0.5ML 0.25mg Subcutaneous weekly [...] A DAY VITAL SIGNS Blood pressure systolic 124 mm Hg 01/28/20 25 Blood pressure diastolic 82 mm Hg 025 Heart Rate 81 /min 2025 Height 59 in 2025 Weight 140 lbs 2025 BMI 28.27 kg/m2 2025 Oximetry 99 % 2025 Encounters Encounter Location Date Provider Diagnosis [facility] [address] [facility] [address] [facility] [address] [place] [address] 2025 BAYLEE PAVON BMI 28.0-28.9,adult Z68.28 ; Dietary counseling and surveillance Z71.3 ; Mild intermittent asthma without complication J45.20 ; Overweight E66.3 and Gastroesophageal reflux disease with esophagitis without hemorrhage K21.00 ASSESSMENTS Encounter Date Diagnosis Assessment Notes Treatment Notes Treatment Clinical Notes Section Notes 2025 BMI 28.0-28.9,adult (ICD-10 - Z68.28) #Weight Management 2025 Discussed options for her including adding Contrave. Will send rx and patient will set up her fill. Continue Tirzepatide compounded. She will get back to us if this works financially _update labs prior to next visit and upon return from [place] Patient has been found to be overweight with a BMI of (27). Total time spent today was 30 minutes [...] software and direct typing Please excuse inadvertent briar shop supervisor or typing errors, or uncorrected word substitutions Although every attempt has been made by the provider to proofread this document, occasional misspellings and typographical errors may still be present Due to the previous pandemic, and the use of personal protective equipment (PPE) This may decrease voice recognition accuracy Inadvertent briar shop supervisor errors may occur 2025 Dietary counseling and surveillance (ICD-10 - Z71.3) #Weight Management 2025 Discussed options for her including adding Contrave. Will send rx and patient will set up her fill. Continue Tirzepatide compounded. She will get back to us if this works financially _update labs prior to next visit and upon return from [place] Patient has been found to be overweight with a BMI of (27). Total time spent today was 30 minutes [...] software and direct typing Please excuse inadvertent briar shop supervisor or typing errors, or uncorrected word substitutions Although every attempt has been made by the provider to proofread this document, occasional misspellings and typographical errors may still be present Due to the previous pandemic, and the use of personal protective equipment (PPE) This may decrease voice recognition accuracy Inadvertent briar shop supervisor errors may occur 2025 Mild intermittent asthma without complication (ICD-10 - J45.20) #Weight Management 2025 Discussed options for her including adding Contrave. Will send rx and patient will set up her fill. Continue Tirzepatide compounded. She will get back to us if this works financially _update labs prior to next visit and upon return from [place] Patient has been found to be overweight with a BMI of (27). Total time spent today was 30 minutes [...] software and direct typing Please excuse inadvertent briar shop supervisor or typing errors, or uncorrected word substitutions Although every attempt has been made by the provider to proofread this document, occasional misspellings and typographical errors may still be present Due to the previous pandemic, and the use of personal protective equipment (PPE) This may decrease voice recognition accuracy Inadvertent briar shop supervisor errors may occur 2025 Overweight (ICD-10 - E66.3) #Weight Management 2025 Discussed options for her including adding Contrave. Will send rx and patient will set up her fill. Continue Tirzepatide compounded. She will get back to us if this works financially _update labs prior to next visit and upon return from [place] Patient has been found to be overweight with a BMI of (27). Total time spent today was 30 minutes [...] software and direct typing Please excuse inadvertent briar shop supervisor or typing errors, or uncorrected word substitutions Although every attempt has been made by the provider to proofread this document, occasional misspellings and typographical errors may still be present Due to the previous pandemic, and the use of personal protective equipment (PPE) This may decrease voice recognition accuracy Inadvertent briar shop supervisor errors may occur 2025 Gastroesophageal reflux disease with esophagitis without hemorrhage (ICD-10 - K21.00) #Weight Management 2025 Discussed options for her including adding Contrave. Will send rx and patient will set up her fill. Continue Tirzepatide compounded. She will get back to us if this works financially _update labs prior to next visit and upon return from [place] Patient has been found to be overweight with a BMI of (27). Total time spent today was 30 minutes [...] software and direct typing Please excuse inadvertent briar shop supervisor or typing errors, or uncorrected word substitutions Although every attempt has been made by the provider to proofread this document, occasional misspellings and typographical errors may still be present Due to the previous pandemic, and the use of personal protective equipment (PPE) This may decrease voice recognition accuracy Inadvertent briar shop supervisor errors may occur PLAN OF TREATMENT Medication Medication Name Sig Start Date Stop Date Notes Contrave 8-90 MG Week 1, take 1 table t in the morning Week 2 take 1 tablet in the morning, 1 tablet in the evening Week 3 take 2 tablets in the morning, 1 tablet in the evening Week 4 onward 2 tablets in the morning, 2 tablets in the evening Orally twice a day for 30 days 2025 Wegovy 0.25 MG/0.5ML 0.25mg Subcutaneous weekly for 30 days Linzess 145 MCG 1 capsule at least 3 0 minutes before the first meal of the day on an empty stomach Orally Once a day for 30 days Next Appt Details Provider Name:BAYLEE PAVON, 02/18/2025 08:15:00 AM, [address] [facility], [place] [address], [place], [address], Provider Name:CECIL GIL , 06/30/2025 02:00:00 PM, [address] [facility], [facility] [address], [place], [address], MEDICATIONS ADMINISTERED Medication Instructions Date of Administration Dosage Notes Tirzepatide 2025 2.5 mg Progress Notes * CHAGO DALEYB:11/1949 (75 yo F)Acc No.[id number]:2025 Patient:??JUVE DALEY [place] Provider:??BAYLEE PAVON NP :1950?Age:75 Y?Sex:Fe male Date:2025 Address:[address] [place], [place] [id number] Subjective: * Chief Complaints: * ?1. Pt here for weight management follow up, DANAY done, Tirzepatide 2.5mg given on LLQ sub q, pt tolerated well with no reaction.. * HPI: ?Constitutional:? Patient here today for a weight management f/u visit ?Patient seen and examined. ?Full past medical history, social history, family history, allergies and current medications ?were reviewed and updated ?Body composition analysis reviewed ?#Weight Management ?2025 ?Patient was coming in to office every other week for Tirz 2.5mg injections. ?Denies any side efefects and is tolerating well. ?She is going to [place] for a few months February-May and is concerned she will gain weight over this time. ?She is at her goal weight but is very concerned about weight gain. ?Concerned that with weight gain, her scoliosis will get worse. ?No sleep study in the past. ?We discussed the new surmount MIRIAN trial and indication for tirzepatide ?We also discussed getting a home sleep study to have a potential MIRIAN diagnosis ?Was on Mounjaro ?Lack of type 2 diabetes diagnosis, switching to Zepbound ?Had done very well was thriving ?Cannot afford [facility] or [facility] ?Past medical history that includes acid reflux, chronic obstructive asthma ?which is well controlled w/Dulera ? Denies side effects such as nausea, vomtiing, diarrhea, constipation, or abdominal pain. ?She does have a history of gastroesophageal reflux on PPI as well as Carafate ?Recent EGD with [facility], [facility] ?Dr Cornelius/Physiatry, gets injections for her lower back pain ?States her pain has been a barrier to exercise ?hx of scoliosis. Has appoinment tomorrow. ?BP stable, states at home 130s/80s. ?Has had elevated BP during previous visits as well. ?Pt follows w/ Cardiology. Sees them once yearly ?Sees a finishing trimmer once a year, Niall ?PCP Liliana GUEVARA ? comprehensive labs in April 2024 at [facility] through epic chart review ?weight 2025 140.8lbs, BMI 27.5 ?weight 12/30/2024 142 , BMI 27.8 ?weight [...] ABOUT N1 PACK A DAY. * Medications:??Taking Tirzepa tide 2.5 MG/0.5ML Solution Auto-injector as directed Subcutaneous , Taking Linzess 145 MCG Capsule 1 capsule at [...] meal Orally Once a day , Discontinued Wegovy 0.25 MG/0.5ML Solution Auto-injector 0.25mg Subcutaneous weekly , Medication List reviewed and reconciled with the patient * Allergies:??Demerol. Objective: * Vitals:??HR:81/min, BP:124/8 2mm Hg, Wt:140lbs, BMI:28.27Index, Ht: 59 in, Oxygen sat %:99%. * [...] esophagitis without hemorrhage - K21.00?? #Weight Management 2025 Discussed options for her including adding Contrave. Will send rx and patient will set up her fill. Continue Tirzepatide compounded. She will get back to us if this works financially _update labs prior to next visit and upon return from [place] Patient has been found to be overweight with a BMI of (27). Total time spent today was 30 minutes [...] software and direct typing Please excuse inadvertent briar shop supervisor or typing errors, or uncorrected word substitutions Although every attempt has been made by the provider to proofread this document, occasional misspellings and typographical errors may still be present Due to the previous pandemic, and the use of personal protective equipment (PPE) This may decrease voice recognition accuracy Inadvertent briar shop supervisor errors may occur. Plan: * Treatment: * Therapeutic Injections:? Tirzepatide : 2.5 mg (Route: Subcutaneous) given by Osvaldo Bowen on subcutaneus * Procedure Codes:??88763 P/M GUEST SERVICES AMBASSADOR, INDIV 15 MIN, Modifiers: 33 , SA * Images: Billing Information: * Visit Code:?? 57017 Office Visit, Est Pt., Level 4. Modifiers: SA * Procedure Codes:?? 77006 P/M GUEST SERVICES AMBASSADOR, INDIV 15 MIN. Modifiers: 33, SA * Sign off status: Completed true * Provider:??BAYLEE PAVON NP Date:??11/2024 History and Physical Notes * HPI (History of Present Illness) Category Sub-Category Detail Notes Category Not es Constitutional Patient here today for a weight management f/u visit Patient seen and examined. Full past medical history, social history, family history, allergies and current medications were reviewed and updated Body composition analysis reviewed #Weight Management 2025 Patient was coming in to office every other week for Tirz 2.5mg injections. Denies any side efefects and is tolerating well. She is going to [place] for a few months February-May and is concerned she will gain weight over this time. She is at her goal weight but is very concerned about weight gain. Concerned that with weight gain, her scoliosis will get worse. No sleep study in the past. We discussed the new surmount MIRIAN trial and indication for tirzepatide We also discussed getting a home sleep study to have a potential MIRIAN diagnosis Was on Mounjaro Lack of type 2 diabetes diagnosis, switching to Zepbound Had done very well was thriving Cannot afford [facility] or [facility] Past medical history that includes acid reflux, chronic obstructive asthma which is well controlled w/Dulera Denies side effects such as nausea, vomtiing, diarrhea, constipation, or abdominal pain. She does have a history of gastroesophageal reflux on PPI as well as Carafate Recent EGD with GI, [facility] Dr Cornelius/Physiatry, gets injections for her lower back pain States her pain has been a barrier to exercise hx of scoliosis. Has appoinment tomorrow. BP stable, states at home 130s/80s. Has had elevated BP during previous visits as well. Pt follows w/ Cardiology. Sees them once yearly Sees a finishing trimmer once a year, Niall PCP Liliana GUEVARA comprehensive labs in April 2024 at [facility] through epic chart review weight 2025 140.8lbs, BMI 27.5 weight 12/30/2024 142 , BMI 27.8 weight [...] General Examination GENERAL APPEARANCE: in no ac hopi distress, well developed, well nourished HEAD: normocephalic, [...]
--- OUTSIDE RECORDS SUMMARY | 2025-01-29 16:34 | XMS_ITS | Referral Summary ---
Author Organization [facility] Address [address] [place] [address] Care Team Providers Care Paragliding Instructor Name Role Phone Ayo Denis MD Primary Care Provider [phone] Allergies Active Allergy Reactions Criticality Noted Date [...] Plan of Treatment Not on file Insurance [facility] Care Teams Paragliding Instructor Relationship Specialty Start Date End Date Ayo Denis MD PCP - General Internal Medicine 12/26/21
--- OUTSIDE RECORDS SUMMARY | 2025-01-29 16:35 | XMS_ITS ---
Author Organization [facility] Address [address] [place] [address] Care Team Providers Care Residential Plumber Name Role Phone BERNADINEEileen BAYLEE Unavailable [phone] REASON FOR VISIT Pt here for Tirzepatide 2.5mg on RLQ sub q, pt tolerated well with no reaction. MEDICATIONS Medication SIG (Take, Route, Frequency, Duration) Notes Start Date End Date Status Wegovy 0.25 MG/0.5ML 0.25mg Subcutaneous weekly for 30 days Active Rosuvastatin Calcium 10 [...] Once a day for 30 days Active Encounters Encounter Location Date Provider Diagnosis [place] [address] [address] [address] 01/13/2025 BAYLEE PAVON PLAN OF TREATMENT Next Appt Details Provider Name:BAYLEE PAVON, 02/18/2025 08:15:00 AM, [address], [address], Provider Name:CECIL CORDERO , 06/30/2025 02:00:00 PM, [address], [address], MEDICATIONS ADMINISTERED Medication Instructions Date of Administration Dosage Notes Tirzepatide 01/13/2025 2.5 mg Progress Notes * XIANG DALEYADOB:11/1949 (75 yo F)Acc No.[id number]:01/13/2025 Patient:??JUVE DALEY Provider:??BAYLEE PAVON NP :1950?Age:74 Y?Sex:Fe male Date:01/13/2025 Address:[address] [place], [place] [id number] Subjective: * Chief Complaints: * ?1. Pt here for Tirzepa tide 2.5mg on RLQ sub q, pt tolerated well with no reaction.. * Medical History:?? * Medications:??Taking Linzess 145 MCG Capsule 1 [...] morning meal Orally Once a day Objective: Assessment: Plan: * Treatment: * Therapeutic Injections:? Tirzepatide : 2.5 mg (Route: Subcutaneous) given by Osvaldo Bowen on subcutaneus * Images: Billing Information: * Visit Code:?? * Procedure Codes:?? * Sign off status: Pending * Provider:??BAYLEE PAVON NP Date:??12/26
--- OUTSIDE RECORDS SUMMARY | 2025-01-29 16:35 | XMS_ITS | Clinical Summary ---
Author Organization 175 [facility] Address [address] [place] [address] Phone Care Team Providers Care It Generalist Name Role Phone Saba Solorzano MD Primary Care Provider [phone] Allergies Active Allergy Reactions Criticality Noted Date Comments Lisinopril Cough 03/31/2020 And dizziness Meperidine Unknown 04/26/2020 Medications naproxen (NAPROSYN) 500 mg tablet TAKE 1 TABLET BY MOUTH AT BEDTIME NEEDED (JOINT PAIN). 4 Active sucralfate (CARAFATE) 100 mg/mL suspension TAKE 10 ML BY MOUTH 4 TIMES DAILY (BEFORE MEALS AND NIGHTLY). 4 Active famotidine (PEPCID) 20 mg tablet Take 0.5 Tablets by mouth daily. Active calcium carbonate-vitam in D3 600 mg-5 mcg (200 unit) per tablet TAKE 1 TABLET BY MOUTH EVERY DAY Active magnesium oxide 250 mg magnesium tablet Take 1 tablet (250 mg total) by mouth 1 (one) time each day. 4 Active coenzyme Q-10 10 mg capsule Take by mouth daily. Active incontinence pad, liner, disp pad 5 Each by Does not apply route as needed for Other (urinary incontinence). MAIDA-99 5/day 150/month 11 refills For urinary incontinence 2 Active loratadine (CLARITIN) 10 mg tablet Take [...] TABLETS BY MOUTH DAILY 180 tablet 1 4 Active rosuvastatin (CRESTOR) 20 mg tabletIndicatio ns:Pure hypercholestero lemia, unspecified TAKE 1 TABLET BY MOUTH EVERY DAY 90 tablet 1 4 Active fluocinolone acetonide oiL 0.01 % drops Place 3 Drops in ear(s) as needed (ear itching). 50 each 1 4 Active omeprazole (PriLOSEC) [address] capsule Take 1 capsule (40 mg total) by mouth 2 (two) times a day before meals. 180 each 1 5 025 Active ammonium lactate (AMLACTIN) 12 % cream Apply topically at bedtime. Both heels dry skin 770 g 5 026 Active sertraline (ZOLOFT) 25 mg tablet Take 1 tablet (25 mg total) by mouth 1 (one) time each day. Active aspirin 81 mg chewable tablet Chew 1 tablet (81 mg total) 1 (one) time each day. Active mometasone/form oterol (DULERA INHL) Inhale by mouth. Act damien salicylic acid 17 % gel Apply topically 1 (one) time each day. 15 g 5 025 Active Problems Problem Noted Date Diagnosed Date Vitamin D deficiency 12/29/2024 Age-related osteoporosis wit hout current pathological fracture 12/29/2024 Stress incontinence 10/23/2024 BPPV (benign paroxysmal posi tional vertigo), unspecified laterality 09/21/2024 Asthma, moderate persistent 08/14/2024 Chronic back pain 08/14/2024 Gastropathy 08/14/2024 GERD (gastroesophageal reflux disease) Overview (08/14/2024): Refractory GERD despite trying multiple PPIs, H2 blockers and tlin-jvy-uqsseto antacids. Upper endoscopy in March 2020 was [...] stools 08/14/2024 Coronary artery disease invo lving [place] coronary artery of [place] heart without angina pectoris 08/09/2023 Overview (08/14/2024): [...] Overview (08/14/2024): May/2023, likely from travel to/from [place], treated with Paxlovid Abnormal MRI, shoulder 01/30/2022 Overview (08/14/2024): Focal bony abnormality in the proximal humerus as described above. Principal differential diagnostic considerations include but are not limited to enchondroma, chondrosarcoma, bone infarct and metastasis. CT and whole body bone scan are recommended for further evaluation. Pt seen with [facility] Ortho Onc Dr. Cueva. Repeat MRI W/WO [...] removed. Also has a pathology report from [place] dated 01/2009 with fundic gland polyp Aortic [...] cardiac CT scan as recommended by the [employer] chest pain guidelines. Osteopenia 03/22/2020 12/29/2024 Encounters Date Type Department Care Team Description 01/07/2025 3:00 PM EDT Office Visit [facility] [address] [phone] Gus Judge DPM Xerosis of skin (Primary Dx); Verruca plantaris 12/29/2024 11:30 AM EST Office Visit Adult Medicine [address] [phone] Darrell Salazar PA Vitamin D deficiency (Primary Dx); Age-related osteoporosis without current pathological fracture; Pure hypercholesterolemia ; Moderate persistent asthma without complication 12/23/2024 8:20 AM EST Office Visit [facility] [address] [place] [phone] Nirmal Hilario MD Coronary artery disease involving [place] coronary artery of [place] heart without angina pectoris (Primary Dx); Nonrheumatic aortic valve stenosis; Pure hypercholesterolemia ; Coronary artery disease, unspecified vessel or lesion type, unspecified whether angina present, unspecified whether [place] or transplanted heart 12/23/2024 Telephone Adult Medicine [address] [phone] Saba Solorzano MD referral 12/08/2024 Telephone [facility] [address] [phone] Gus Judge DPM 12/07/2024 9:15 AM EST Office Visit [facility] 250 175 [facility] 250 [place] [address] Gus Judge, DPM Verruca plantaris (Primary Dx); Xerosis of skin from Last 3 Months Immunizations Name Administration [...] 1974 CHOLECYSTECTOMY PROCEDURE: HISTORICAL CHOLECYSTECTOMY; COMMENT: [place] ESOPHAGOGASTRODUODENOSCOPY PROCEDURE: [place] EGD TRANSORAL BIOPSY SINGLE/MULTIPLE; COMMENT: Performed in [place] UPPER GASTROINTESTINAL ENDOSCOPY 04/26/2020 PROCEDURE: UPPER GI ENDOSCOPY/EXAM; COMMENT: negative, biopsy shows reactive gastropathy without H. pylori STEREOTACTIC BREAST BIOPSY 04/26/2015 Left PROCEDURE: STEREOTACTIC BREAST BIOPSY; COMMENT: Negative for malignancy UPPER GASTROINTESTINAL ENDOSCOPY 01/05/2015 PROCEDURE: GA UPPER GI ENDOSCOPY PERFORMED; COMMENT: Gastric polyp x 3 - COLONOSCOPY 2011 PROCEDURE: HISTORICAL COLONOSCOPY; COMMENT: In [place]. Patient reports clear OTHER SURGICAL HISTORY 12/29/2020 PROCEDURE: GA ESOPHAGEAL MOTILITY STUDY W/INTERP&RPT; COMMENT: [facility]; small sliding hiatal hernia suggested, otherwise normal. OTHER SURGICAL HISTORY 12/29/2020 PROCEDURE: ACID REFLUX TEST OF ESOPHAGUS; COMMENT: [facility]; 24 hour ambulatory impedance-pH study off meds: positive for acid reflux. BREAST BIOPSY 2016 Left PROCEDURE: BX BREAST; PERC NEEDLE CORE W/IMAG GUID; COMMENT: neg BREAST SURGERY 2000 Right PROCEDURE: GA UNLISTED PROCEDURE BREAST; COMMENT: cancer BREAST SURGERY 2001 Right PROCEDURE: GA UNLISTED PROCEDURE BREAST; COMMENT: b9 Medical History Medical History Date Comments GERD (gastroesophageal reflu x disease) DX:GERD (gastroesophageal re flux disease) Chronic back pain DX:Chronic garry k pain Asthma, moderate persistent DX:A sthma, moderate persistent Gastric polyps 08/05/2018 DX:Gastric polyp s; COMMENT: EGD [address] Daniel Cota - 3 fundic polyps removed. Also has a pathology report from [place] dated 01/2009 with fundic gland polyp Abdominal [...] DX:History of breast cancer in female; COMMENT: [id number] wide local excision & axillary node dissection [...] 2 Uncle No Known Problems Sister 1 Neida No Known Problems Sister 2 Milagros Other: [...] 2 Paternal Grandfather Paternal Grandmother Sister 1 Jackiea Alive Sister 2 Milagros Alive Sister 3 [...] PM EDT Office Visit [facility] 250 175 [facility] 250 [place] [phone] Gus Judge DPLonnie 175 [facility] 250 [place] [address] 07/02/2025 3:00 PM EDT Ancillary Procedure [facility] [address] [facility] 101 [place] [phone] 07/15/2025 1:30 PM EDT Office Visit Adult Medicine [facility] [address] [place] [phone] Saba Solorzano MD [address] [place] [phone] 08/03/2025 3:30 PM EDT Office Visit [facility] [address] [place] [address] Nirmal Hilario MD [address] [place] [address] [address] [place] [address] Health Maintenance Due Date Last Done Comments Falls Risk Assessment 10/06/2022 Social Influencers of Health Screening 10/06/2022 Depression Screening 09/27/2024 09/27/2023 Medicare Annual Wellness Visit 09/27/2024 09/27/2023 Hypertension/CHF/CAD Annual BMP Blood Test 01/01/2026 01/01/2025, 07/30/2023 Breast Cancer Screening 08/21/2026 08/21/20 24, 08/03/2023, 07/28/2022, Additional history exists Colorectal Cancer Screening: Colonoscopy 12/30/2028 12/31/2023 Cholesterol Screening (Lipid Panel) 01/01/2030 01/01/2025, 09/27/2023 DTaP,Tdap,and Td Vaccines (3 - Td or Tdap) 01/14/2034 01/15/2024, 03/05/2013 Osteoporosis Screening (Bone Density Screening) 07/24/2034 07/24/2024, 08/17/2020, 04/10/2018 Hepatitis C Screening Completed 04/01/2020 Pneumococcal Vaccine: 50+ Years Completed 04/25/2021, 03/01/2017, 08/02/2009 RSV Immunization Adult Patients Completed 09/25/2023 Zoster Vaccines Completed 01/10/2024, 07/28, [...] Author in 4 visits General On track(10/15/20 3:25 [...] type, unspecified whether angina present, unspecified whether [place] or transplanted heart [facility] SCREENING DIGITAL Routine 08/21/2024 1:08 PM EDT Encounter for screening mammogram for malignant neoplasm of breast [facility] DEXA AXIAL SKELETON Routine 07/24/2024 1:14 PM EDT Age-related osteoporosis without current pathological fracture COLONOSCOPY Routine 12/31/2023 DEPRESSION SCREENING Routine 09/27/2023 HEPATITIS C SCREENING Routine 04/01/2020 from Last 3 Months or Most Recently Relevant to Health Maintenance Results * Lipid panel with reflex to direct LDL (01/01/2025 7:43 AM EST) Cholesterol 158 0 - 200 mg/dL LAB CHEMISTRY METHOD 01/01/2025 10:18 AM EST [facility] Triglycerides 94 0 - 150 mg/dL LAB CHEMISTRY METHOD 01/01/2025 10:18 AM EST [facility] HDL 79 >=40 mg/dL LAB CHEMISTRY METHOD 01/01/2025 10:18 AM EST [facility] LDL Calculated 60 0 - 100 mg/dL LAB CHEMISTRY METHOD 01/01/2025 10:18 AM EST [facility] VLDL Cholesterol Reji 18.8 mg/dL LAB CHEMISTRY METHOD 01/01/2025 10:18 AM EST [facility] Non HDL Chol. (LDL+VLDL) 79 <145 mg/dL LAB CHEMISTRY METHOD 01/01/2025 10:18 AM EST [facility] Chol/HDL Ratio 2.0 0.0 - 4.4 LAB CHEMISTRY METHOD 01/01/2025 10:18 AM EST [facility] Blood Venous blood specimen / Unknown Venipuncture / Unknown 01/01/2025 7:43 AM EST 01/01/2025 7:43 AM EST Nirmal Hilario MD LAB BLOOD ORDERABLES F inal Result Performing Organization Address [facility]/ZIP Co de Phone Number [facility] [address] [place] [address], [place] [phone] * (ABNORMAL) Vitamin D 25 hydroxy (01/01/2025 7:43 AM EST) Pathologist [facility] Vit D, 25-Hydroxy 28.6(L) 30.0 - 80.0 ng/mL LAB CHEMISTRY METHOD 01/01/2025 10:25 AM EST [facility] Blood Venous blood specimen / Unknown Venipuncture / Unknown 01/01/2025 7:43 AM EST 01/01/2025 7:43 AM EST Darrell TREJO LAB BLOOD ORDERABLES Final Res ult [facility] [address] [place] [address], [place] [phone] * Comprehensive metabolic panel (01/01/2025 7:43 AM EST) [facility] Sodium 142 133 - 145 mmol/L LAB CHEMISTRY METHOD 01/01/2025 10:21 AM EST [facility] Potassium 3.8 3.5 - 5.5 mmol/L LAB CHEMISTRY METHOD 01/01/2025 10:21 AM [facility] Chloride 108 96 - 110 mmol/L LAB CHEMISTRY METHOD 01/01/2025 10:21 AM [facility] CO2 26 21 - 32 mmol/L LAB CHEMISTRY METHOD 01/01/2025 10:21 AM [facility] Anion Gap 8 3 - 11 LAB CHEMISTRY METHOD 01/01/2025 10:21 AM [facility] Glucose 79 70 - 100 mg/dL LAB CHEMISTRY METHOD 01/01/2025 10:21 AM [facility] BUN 15 5 - 25 mg/dL LAB CHEMISTRY METHOD 01/01/2025 10:21 AM [facility] Creatinine 0.70 0.50 - 1.10 mg/dL LAB CHEMISTRY METHOD 01/01/2025 10:21 AM [facility] eGFR 91 >=60 mL/min/1. 73m2 LAB CHEMISTRY METHOD 01/01/2025 10:21 AM [facility] Comment:Calculation based on the??Chronic Kidney Disease Epidemiology Collaboration (CKD-EPI) equation refit??without adjustment for race. BUN/Creatinine Ratio 21.4 LAB CHEMISTRY METHOD 01/01/2025 10:21 AM [facility] Calcium 9.6 8.5 - 10.5 mg/dL LAB CHEMISTRY METHOD 01/01/2025 10:21 AM [facility] AST (SGOT) 23 10 - 42 unit/L LAB CHEMISTRY METHOD 01/01/2025 10:21 AM [facility] ALT (SGPT) 26 10 - 60 unit/L LAB CHEMISTRY METHOD 01/01/2025 10:21 AM [facility] Alkaline Phosphatase 106 42 - 121 unit/L LAB CHEMISTRY METHOD 01/01/2025 10:21 AM [facility] Total Protein 7.1 6.0 - 8.0 g/dL LAB CHEMISTRY METHOD 01/01/2025 10:21 AM [facility] Albumin 3.8 3.2 - 5.0 g/dL LAB CHEMISTRY METHOD 01/01/2025 10:21 AM EST [facility] Total Bilirubin 0.5 0.0 - 1.4 mg/dL LAB CHEMISTRY METHOD 01/01/2025 10:21 AM EST [facility] Blood Venous blood specimen / Unknown Venipuncture / Unknown 01/01/2025 7:43 AM EST 01/01/2025 7:43 AM EST Nirmal Hilario MD LAB BLOOD ORDERABLES F inal Result Performing Organization Address City/[facility]/ZIP Co de Phone Number [facility] [address] [place] [address], * ECG 12 lead (12/23/2024 8:14 AM EST) Ventricular Rate ECG 76 BPM GEMUSE Atrial Rate 76 BPM GEMUSE P-R Interval 120 ms GEMUSE QRS Duration 80 ms GEMUSE Q-T Interval 390 ms GEMUSE QTc 438 ms GEMUSE P Wave [place] 25 degrees GEMUSE R [place] 93 degrees GEMUSE T [place] 18 degrees GEMUSE ECG Interpretation Normal sinus rhythm Normal ECG No previous ECGs available Confirmed by NIRMAL HILARIO ([id number]) on 12/23/2024 8:22:01 AM GEMUSE 12/23/2024 8:14 AM EST 12/23/2024 8:22 AM EST Nirmal Hilario MD ECG ORDERABLES Final Result GEMUSE * [facility]INE SCREENING DIGITAL (08/21/2024 1:08 PM EDT) Anatomical Region Laterality Modality Mammography 08/20/2024 3:10 PM EDT Narrative 08/21/2024 1:[address] [facility] Diagnostic Imaging Department [address] [place] [address] Patient: ??JESSI CASTREJON ?/Age/Sex: 1950 74 - F Unit#: ??[id number] ? Location/Status: ??SPDIMAM/REG CLI ? Mnemonic/Ordering Site: ??DIGSC/SPMAM Ordering Physician: ??SABA SOLORZANO MD [facility] Screening Digital - 08/20/24 - 1535 Report Status:Signed EXAM: [facility] Screening Digital EXAM DATE AND TIME: 08/20/2024 3:36 PM HISTORY: ??Annual screening. ??History of right breast cancer. COMPARISON: ??07/18/2020 and 04/23/2019 TECHNIQUE: Bilateral digital breast tomosynthesis was performed in the CC and MLO projections. Computer aided detection with Hoard 7.2-H and Mover 3D 3.1 was employed. TISSUE DENSITY: b. [...] Procedure Note Fredy Car MD - 08/29/2024 [facility] Diagnostic Imaging Department [address] [place] [address] Patient: SILVINO SANCHEZJESSI /Age/Sex: 1950 - 74 - F Unit#: [id number] Location/Status: [facility] CLI Mnemonic/Ordering Site: [facility] Ordering Physician: SABA SOLORZANO MD [facility] Screening Digital - 08/20/24 - 1535 Report Status:Signed EXAM: [facility] Screening Digital EXAM DATE AND TIME: 08/20/2024 3:36 PM HISTORY: Annual screening. History of right breast cancer. COMPARISON: 07/18/2020 and 04/23/2019 TECHNIQUE: Bilateral digital breast tomosynthesis was performed in the CCand MLO projections. Computer aided detection with Hoard 7.2-H andMover 3D 3.1 was employed. TISSUE DENSITY: b. [...] MD IMG BI PROCEDURES Final Result * ELAINE DEXA AXIAL SKELETON (07/24/2024 1:14 PM EDT) Anatomical Region Laterality Modality Mammography 07/23/2024 2:29 PM EDT Narrative 07/24/2024 1:[address] [facility] Diagnostic Imaging Department [address] [place] [id number] Patient: ??JESSI CASTREJON ?/Age/Sex: 1950 - 74 - F Unit#: ??[id number] ? Location/Status: ??SPDIMAM/REG CLI ? Mnemonic/Ordering Site: ??MAMDEXAAX/SPMAM Ordering Physician: ??SABA SOLORZANO MD [facility] Dexa Axial Skeleton - 07/23/24 - Report Status:Signed History: Low estrogen state due to menopause. Parent hip fracture. On omeprazole. Comparison: No comparison imaging. Findings: Bone densitometry is performed utilizing dual energy x-ray absorptiometry (DXA) in the [employer] unit. The lumbar spine and proximal femora [...] 27.0 percent ??Hip 18.1 percent. IMPRESSION: Osteoporosis. [id number] Dictating Physician: ??YESSI SULLIVAN MD Electronically Signed by: ??YESSI SULLIVAN MD Dic Date/Time: ??07/24/24 1314 Sign date/Time: ??07/24/24 1314 Procedure Note Yessi Sullivan MD - 08/12/2024 [facility] Diagnostic Imaging Department [address] [place] [address] Patient: JESSI CASTREJON D.O.B./Age/Sex: 1950 - 74 - F Unit#: [id number] Location/Status: SPDIMA/REG CLI [facility]emonic[facility] Ordering Physician: SABA SOLORZANO MD [facility] Dexa Axial Skeleton - 07/23/24 - Report Status:Signed History: Low estrogen state due to menopause. Parent hip fracture. On omeprazole. Comparison: No comparison imaging. Findings: Bone densitometry is performed utilizing dual energy x-ray absorptiometry(DXA) in the [employer] unit. The lumbar spine and proximal femora [...] 27.0 percent Hip 18.1 percent. IMPRESSION: Osteoporosis. [id number] Dictating Physician: YESSI SULLIVAN MD Electronically Signed by: YESSI SULLIVAN MD Dic Date/Time: 07/24/24 1314 Sign date/Time: 07/24/24 1314 Saba Solorzano MD IMG BI PROCEDURES Final Result * Colonoscopy (12/31/2023) [facility] Colonoscopy no interpretation , abstracted Anatomical Region Laterality Modality Other Petra Chi MD HEALTH MAINTENANCE Final Result * Depression Screening (09/27/2023) [facility] Depression Screening ABSTRACTED Petra Chi MD HEALTH MAINTENANCE Final Result * Hepatitis C Screening (04/01/2020) [facility] Hepatitis C Screening ABSTRACTED Petra Chi MD HEALTH MAINTENANCE Final Result from Last 3 Months or Most Recently Relevant to Health Maintenance Insurance [place]ICA[place] MEDIC[place]VANTAGE Care Teams It Generalist Relationship Specialty Start Date End Date Saba Solorzano MD [address] [place] [id number] PCP - General Internal Medicine 09/21/24
--- OUTSIDE RECORDS SUMMARY | 2025-01-29 16:35 | XMS_ITS | Patient Health Record ---
Author Organization [facility] Address [address] [place] [address] Care Team Providers Care Game Author Name Role Phone BAYLEE PAVON Unavailable [phone] ALLERGIES Allergen (clinical drug ingredient) Drug/Non Drug Allergy documented on EMR Reaction Allergy Type Onset Date Status meperidine Demerol Unknown Drug Allergy Active REASON FOR REFERRAL No Information MEDICATIONS Medication SIG (Take, Route, Frequency, Duration) Notes Start Date End Date Status Contrave 8-90 MG Week 1, take 1 [...] Once a day for 30 days Active busPIRone HCl 5 MG 1 tablet Orally Twic e a day Active SOCIAL HISTORY Tobacco Use: [...] 1969 ABOUT N1 P ACK A DAY PROBLEMS Problem Type ICD Code Onset Dates Problem Status W/U Status Risk SNOMED Code Notes Problem Other obesity due to excess calories (E66.09) Active confirmed 168311933 Problem Overweight (E66.3) Active confirmed Ove rweight (762661278) Problem Encounter for screening for lipoid disorders (Z13.220) Active confirmed Lipid screening (777414418) Problem Adult general medical exam (Z00.00) Active confirmed Adult health examination (823452307) Problem Diabetes mellitus screening (Z13.1) Active confirmed Diabetes mellitus screening (639179381) Problem Body mass index [BMI] 32.0-32.9, adult (Z68.32) Active confirmed 484630658 Problem Gastroesophageal reflux disease with esophagitis without hemorrhage (K21.00) Active confirmed 418235276 Problem Mild intermittent asthma without complication (J45.20) Active confirmed 844079385 Problem BMI 30.0-30.9,adult (Z68.30) Active confirmed 804794070 Problem Encounter for screening for endocrine disorder (Z13.29) Active confirmed Endocrine/meta bolic screening (937948057) VITAL SIGNS Heart Rate 81 /min 2025 Oximetry 99 % 2025 Blood pressure diastolic 82 mm Hg 2025 Height 59 in 2025 Blood pressure systolic 124 mm Hg 2025 Weight 140 lbs 2025 BMI 28.27 kg/m2 2025 Encounters Encounter Location Date Provider Diagnosis [place] [address] 07/31/2024 BAYLEE BORHOT Mild intermittent as thma without complication J45.20 ; Overweight E66.3 ; Gastroesophageal reflux disease with esophagitis without hemorrhage K21.00 and BMI 27.0-27.9,adult Z68.27 [place] [address] 01/13/2025 BALYEE BORHOT [place] [address] 08/11/2024 BAYLEE BORHOT BMI 27.0-27.9,adult Z68.27 ; Mild intermittent asthma without complication J45.20 ; Overweight E66.3 and Gastroesophageal reflux disease with esophagitis without hemorrhage K21.00 [place] [address] 10/01/2024 BAYLEE BORHOT BMI 27.0-27.9,adult Z68.27 ; Mild intermittent asthma without complication J45.20 ; Overweight E66.3 and Gastroesophageal reflux disease with esophagitis without hemorrhage K21.00 [place] [address] 11/23/2024 BAYLEE BORHOT BMI 27.0-27.9,adult Z68.27 ; Mild intermittent asthma without complication J45.20 ; Overweight E66.3 and Gastroesophageal reflux disease with esophagitis without hemorrhage K21.00 [place] [address] 12/30/2024 BAYLEE BORHOT BMI 28.0-28.9,adult Z68.28 ; Dietary counseling and surveillance Z71.3 ; Mild intermittent asthma without complication J45.20 ; Overweight E66.3 and Gastroesophageal reflux disease with esophagitis without hemorrhage K21.00 [place] [address] 2025 BAYLEE BORHOT BMI 28.0-28.9,adult Z68.28 ; Dietary counseling and surveillance Z71.3 ; Mild intermittent asthma without complication J45.20 ; Overweight E66.3 and Gastroesophageal reflux disease with esophagitis without hemorrhage K21.[address] [facility] [address] [facility] [address] [place] [phone] 07/13/[address] [facility] [address] [facility] [address] [place] [phone] 07/30/2024 [address]AVON [facility] [address] [facility] [address] [phone] 10/02/[address] [facility] [address] [facility] [address] [place] [phone] 10/16/2024 BAYLEE PAVON [facility] [address] [facility] [address] [place] [phone] 11/13/2024 BAYLEE PAVON [facility] [address] [facility] [address] [facility] [address] [place] [phone] 2025 BAYLEE PAVON Adult general medica l exam Z00.00 ; Encounter for screening for lipoid disorders Z13.220 ; Diabetes mellitus screening Z13.1 and Encounter for screening for endocrine disorder Z13.29 ASSESSMENTS Encounter Date Diagnosis Assessment Notes Treatment Notes Treatment Clinical Notes Section Notes 07/31/2024 Mild intermittent asthma without complication (ICD-10 [...] track activity level. Consider using apps like [employer], myfitnesspal, lose it, stick as needed for self-monitoring and weight management. Consider group exercises. Consider hiring a personal financial planner. Regular exercise is benavidez to sustainable health [...] counseling and psychiatry and Dr Bearden at [facility]. We would like to cover regular topics [...] software and direct typing Please excuse inadvertent transcription typist or typing errors, or uncorrected word substitutions Although every attempt has been made by the provider to proofread this document, occasional misspellings and typographical errors may still be present Due to the previous pandemic, and the use of personal protective equipment (PPE) This may decrease voice recognition accuracy Inadvertent transcription typist errors may occur 08/11/2024 BMI 27.0-27.9,adult (ICD-10 [...] track activity level. Consider using apps like [employer], Peer[employer], lose it, stick as needed for self-monitoring and weight management. Consider group exercises. Consider hiring a personal financial planner. Regular exercise is benavidez to sustainable health [...] counseling and psychiatry and Dr Bearden at [facility]. We would like to cover regular topics [...] software and direct typing Please excuse inadvertent transcription typist or typing errors, or uncorrected word substitutions Although every attempt has been made by the provider to proofread this document, occasional misspellings and typographical errors may still be present Due to the previous pandemic, and the use of personal protective equipment (PPE) This may decrease voice recognition accuracy Inadvertent transcription typist errors may occur 10/01/2024 BMI 27.0-27.9,adult (ICD-10 [...] software and direct typing Please excuse inadvertent transcription typist or typing errors, or uncorrected word substitutions Although every attempt has been made by the provider to proofread this document, occasional misspellings and typographical errors may still be present Due to the previous pandemic, and the use of personal protective equipment (PPE) This may decrease voice recognition accuracy Inadvertent transcription typist errors may occur 11/23/2024 BMI 27.0-27.9,adult (ICD-10 [...] software and direct typing Please excuse inadvertent transcription typist or typing errors, or uncorrected word substitutions Although every attempt has been made by the provider to proofread this document, occasional misspellings and typographical errors may still be present Due to the previous pandemic, and the use of personal protective equipment (PPE) This may decrease voice recognition accuracy Inadvertent transcription typist errors may occur 12/30/2024 BMI 28.0-28.9,adult (ICD-10 - Z68.28) #Weight Management 12/30/2024 Discussed options for her. She seems amendable to maintenance dosing of Tirzepatide compounded. She will get back to us if this works financially Going for labs on Saturday from Dr. Perez@ [facility] Patient has been found to be [...] software and direct typing Please excuse inadvertent transcription typist or typing errors, or uncorrected word substitutions Although every attempt has been made by the provider to proofread this document, occasional misspellings and typographical errors may still be present Due to the previous pandemic, and the use of personal protective equipment (PPE) This may decrease voice recognition accuracy Inadvertent transcription typist errors may occur 2025 BMI 28.0-28.9,adult (ICD-10 - Z68.28) #Weight Management 2025 Discussed options for her including adding Contrave. Will send rx and patient will set up her fill. Continue Tirzepatide compounded. She will get back to us if this works financially _update labs prior to next visit and upon return from [place] Patient has been found to be overweight [...] software and direct typing Please excuse inadvertent transcription typist or typing errors, or uncorrected word substitutions Although every attempt has been made by the provider to proofread this document, occasional misspellings and typographical errors may still be present Due to the previous pandemic, and the use of personal protective equipment (PPE) This may decrease voice recognition accuracy Inadvertent transcription typist errors may occur 2025 Adult general medical exam (ICD-10 - Z00.00) 2025 Encounter for screening for lipoid disorders (ICD-10 - Z13.220) 2025 Dietary counseling and surveillance (ICD-10 - Z71.3) #Weight Management 2025 Discussed options for her including adding Contrave. Will send rx and patient will set up her fill. Continue Tirzepatide compounded. She will get back to us if this works financially _update labs prior to next visit and upon return from [place] Patient has been found to be overweight [...] software and direct typing Please excuse inadvertent transcription typist or typing errors, or uncorrected word substitutions Although every attempt has been made by the provider to proofread this document, occasional misspellings and typographical errors may still be present Due to the previous pandemic, and the use of personal protective equipment (PPE) This may decrease voice recognition accuracy Inadvertent transcription typist errors may occur 12/30/2024 Dietary counseling and surveillance (ICD-10 - Z71.3) #Weight Management 12/30/2024 Discussed options for her. She seems amendable to maintenance dosing of Tirzepatide compounded. She will get back to us if this works financially Going for labs on Saturday from Dr. Perez@ [facility] Patient has been found to be [...] software and direct typing Please excuse inadvertent transcription typist or typing errors, or uncorrected word substitutions Although every attempt has been made by the provider to proofread this document, occasional misspellings and typographical errors may still be present Due to the previous pandemic, and the use of personal protective equipment (PPE) This may decrease voice recognition accuracy Inadvertent transcription typist errors may occur 10/01/2024 Mild intermittent asthma [...] software and direct typing Please excuse inadvertent transcription typist or typing errors, or uncorrected word substitutions Although every attempt has been made by the provider to proofread this document, occasional misspellings and typographical errors may still be present Due to the previous pandemic, and the use of personal protective equipment (PPE) This may decrease voice recognition accuracy Inadvertent transcription typist errors may occur 11/23/2024 Mild intermittent asthma [...] software and direct typing Please excuse inadvertent transcription typist or typing errors, or uncorrected word substitutions Although every attempt has been made by the provider to proofread this document, occasional misspellings and typographical errors may still be present Due to the previous pandemic, and the use of personal protective equipment (PPE) This may decrease voice recognition accuracy Inadvertent transcription typist errors may occur 08/11/2024 Mild intermittent asthma [...] track activity level. Consider using apps like [employer], [employer], lose it, stick as needed for self-monitoring and weight management. Consider group exercises. Consider hiring a personal financial planner. Regular exercise is benavidez to sustainable health [...] counseling and psychiatry and Dr Bearden at [facility]. We would like to cover regular topics [...] software and direct typing Please excuse inadvertent transcription typist or typing errors, or uncorrected word substitutions Although every attempt has been made by the provider to proofread this document, occasional misspellings and typographical errors may still be present Due to the previous pandemic, and the use of personal protective equipment (PPE) This may decrease voice recognition accuracy Inadvertent transcription typist errors may occur 08/11/2024 Overweight (ICD-10 - [...] track activity level. Consider using apps like [employer], Peer[employer], lose it, stick as needed for self-monitoring and weight management. Consider group exercises. Consider hiring a personal financial planner. Regular exercise is benavidez to sustainable health [...] counseling and psychiatry and Dr Bearden at [facility]. We would like to cover regular topics [...] software and direct typing Please excuse inadvertent transcription typist or typing errors, or uncorrected word substitutions Although every attempt has been made by the provider to proofread this document, occasional misspellings and typographical errors may still be present Due to the previous pandemic, and the use of personal protective equipment (PPE) This may decrease voice recognition accuracy Inadvertent transcription typist errors may occur 07/31/2024 Overweight (ICD-10 - [...] track activity level. Consider using apps like [employer], myfitnesspal, lose it, stick as needed for self-monitoring and weight management. Consider group exercises. Consider hiring a personal financial planner. Regular exercise is benavidez to sustainable health [...] counseling and psychiatry and Dr Bearden at [facility]. We would like to cover regular topics [...] software and direct typing Please excuse inadvertent transcription typist or typing errors, or uncorrected word substitutions Although every attempt has been made by the provider to proofread this document, occasional misspellings and typographical errors may still be present Due to the previous pandemic, and the use of personal protective equipment (PPE) This may decrease voice recognition accuracy Inadvertent transcription typist errors may occur 07/31/2024 Gastroesophageal reflux disease [...] track activity level. Consider using apps like [employer], myfitnesspal, lose it, stick as needed for self-monitoring and weight management. Consider group exercises. Consider hiring a personal financial planner. Regular exercise is benavidez to sustainable health [...] counseling and psychiatry and Dr Bearden at [facility]. We would like to cover regular topics [...] software and direct typing Please excuse inadvertent transcription typist or typing errors, or uncorrected word substitutions Although every attempt has been made by the provider to proofread this document, occasional misspellings and typographical errors may still be present Due to the previous pandemic, and the use of personal protective equipment (PPE) This may decrease voice recognition accuracy Inadvertent transcription typist errors may occur 08/11/2024 Gastroesophageal reflux disease [...] track activity level. Consider using apps like [employer], [employer], lose it, stick as needed for self-monitoring and weight management. Consider group exercises. Consider hiring a personal financial planner. Regular exercise is benavidez to sustainable health [...] counseling and psychiatry and Dr Bearden at [facility]. We would like to cover regular topics [...] software and direct typing Please excuse inadvertent transcription typist or typing errors, or uncorrected word substitutions Although every attempt has been made by the provider to proofread this document, occasional misspellings and typographical errors may still be present Due to the previous pandemic, and the use of personal protective equipment (PPE) This may decrease voice recognition accuracy Inadvertent transcription typist errors may occur 10/01/2024 Overweight (ICD-10 - [...] software and direct typing Please excuse inadvertent transcription typist or typing errors, or uncorrected word substitutions Although every attempt has been made by the provider to proofread this document, occasional misspellings and typographical errors may still be present Due to the previous pandemic, and the use of personal protective equipment (PPE) This may decrease voice recognition accuracy Inadvertent transcription typist errors may occur 11/23/2024 Overweight (ICD-10 - [...] software and direct typing Please excuse inadvertent transcription typist or typing errors, or uncorrected word substitutions Although every attempt has been made by the provider to proofread this document, occasional misspellings and typographical errors may still be present Due to the previous pandemic, and the use of personal protective equipment (PPE) This may decrease voice recognition accuracy Inadvertent transcription typist errors may occur 12/30/2024 Overweight (ICD-10 - E66.3) #Weight Management 12/30/2024 Discussed options for her. She seems amendable to maintenance dosing of Tirzepatide compounded. She will get back to us if this works financially Going for labs on Saturday from Dr. Perez@ [facility] Patient has been found to be [...] software and direct typing Please excuse inadvertent transcription typist or typing errors, or uncorrected word substitutions Although every attempt has been made by the provider to proofread this document, occasional misspellings and typographical errors may still be present Due to the previous pandemic, and the use of personal protective equipment (PPE) This may decrease voice recognition accuracy Inadvertent transcription typist errors may occur 12/30/2024 Mild intermittent asthma without complication (ICD-10 - J45.20) #Weight Management 12/30/2024 Discussed options for her. She seems amendable to maintenance dosing of Tirzepatide compounded. She will get back to us if this works financially Going for labs on Saturday from Dr. Perez@ [facility] Patient has been found to be [...] software and direct typing Please excuse inadvertent transcription typist or typing errors, or uncorrected word substitutions Although every attempt has been made by the provider to proofread this document, occasional misspellings and typographical errors may still be present Due to the previous pandemic, and the use of personal protective equipment (PPE) This may decrease voice recognition accuracy Inadvertent transcription typist errors may occur 2025 Mild intermittent asthma without complication (ICD-10 - J45.20) #Weight Management 2025 Discussed options for her including adding Contrave. Will send rx and patient will set up her fill. Continue Tirzepatide compounded. She will get back to us if this works financially _update labs prior to next visit and upon return from [place] Patient has been found to be overweight [...] software and direct typing Please excuse inadvertent transcription typist or typing errors, or uncorrected word substitutions Although every attempt has been made by the provider to proofread this document, occasional misspellings and typographical errors may still be present Due to the previous pandemic, and the use of personal protective equipment (PPE) This may decrease voice recognition accuracy Inadvertent transcription typist errors may occur 2025 Diabetes mellitus screening (ICD-10 - Z13.1) 2025 Encounter for screening for endocrine disorder (ICD-10 - Z13.29) 12/30/2024 Gastroesophageal reflux disease with esophagitis without hemorrhage (ICD-10 - K21.00) #Weight Management 12/30/2024 Discussed options for her. She seems amendable to maintenance dosing of Tirzepatide compounded. She will get back to us if this works financially Going for labs on Saturday from Dr. Perez@ [facility] Patient has been found to be [...] software and direct typing Please excuse inadvertent transcription typist or typing errors, or uncorrected word substitutions Although every attempt has been made by the provider to proofread this document, occasional misspellings and typographical errors may still be present Due to the previous pandemic, and the use of personal protective equipment (PPE) This may decrease voice recognition accuracy Inadvertent transcription typist errors may occur 2025 Gastroesophageal reflux disease with esophagitis without hemorrhage (ICD-10 - K21.00) #Weight Management 2025 Discussed options for her including adding Contrave. Will send rx and patient will set up her fill. Continue Tirzepatide compounded. She will get back to us if this works financially _update labs prior to next visit and upon return from [place] Patient has been found to be overweight [...] software and direct typing Please excuse inadvertent transcription typist or typing errors, or uncorrected word substitutions Although every attempt has been made by the provider to proofread this document, occasional misspellings and typographical errors may still be present Due to the previous pandemic, and the use of personal protective equipment (PPE) This may decrease voice recognition accuracy Inadvertent transcription typist errors may occur 2025 Overweight (ICD-10 - E66.3) #Weight Management 2025 Discussed options for her including adding Contrave. Will send rx and patient will set up her fill. Continue Tirzepatide compounded. She will get back to us if this works financially _update labs prior to next visit and upon return from [place] Patient has been found to be overweight [...] software and direct typing Please excuse inadvertent transcription typist or typing errors, or uncorrected word substitutions Although every attempt has been made by the provider to proofread this document, occasional misspellings and typographical errors may still be present Due to the previous pandemic, and the use of personal protective equipment (PPE) This may decrease voice recognition accuracy Inadvertent transcription typist errors may occur 11/23/2024 Gastroesophageal reflux disease [...] software and direct typing Please excuse inadvertent transcription typist or typing errors, or uncorrected word substitutions Although every attempt has been made by the provider to proofread this document, occasional misspellings and typographical errors may still be present Due to the previous pandemic, and the use of personal protective equipment (PPE) This may decrease voice recognition accuracy Inadvertent transcription typist errors may occur 10/01/2024 Gastroesophageal reflux disease [...] software and direct typing Please excuse inadvertent transcription typist or typing errors, or uncorrected word substitutions Although every attempt has been made by the provider to proofread this document, occasional misspellings and typographical errors may still be present Due to the previous pandemic, and the use of personal protective equipment (PPE) This may decrease voice recognition accuracy Inadvertent transcription typist errors may occur 07/31/2024 BMI 27.0-27.9,adult (ICD-10 [...] track activity level. Consider using apps like [employer], myfitnesspal, lose it, stick as needed for self-monitoring and weight management. Consider group exercises. Consider hiring a personal financial planner. Regular exercise is benavidez to sustainable health [...] counseling and psychiatry and Dr Bearden at [facility]. We would like to cover regular topics [...] software and direct typing Please excuse inadvertent transcription typist or typing errors, or uncorrected word substitutions Although every attempt has been made by the provider to proofread this document, occasional misspellings and typographical errors may still be present Due to the previous pandemic, and the use of personal protective equipment (PPE) This may decrease voice recognition accuracy Inadvertent transcription typist errors may occur PLAN OF TREATMENT Pending Test Test Name Order Date LIPID PANEL, STANDARD 2025 COMPREHENSIVE METABOLIC PANEL 2025 CBC (INCLUDES DIFF/PLT) 2025 URINALYSIS, COMPLETE 2025 HEMOGLOBIN A1c 2025 TSH W/REFLEX TO FT4 2025 Next Appt Details Provider Name:BAYLEE SAVANAH, 02/18/2025 08:15:00 AM, [address], [place] [address], [place], [address], Provider Name:CECIL CORDERO , 06/30/2025 02:00:00 PM, [address], [address], [place], [address], Insurance Providers Payer Name Payer Address Payer Phone Subscriber Number Group Number Insured Name Patient Relationship to Insured Coverage Start Date Coverage End Date [employer] [address] [address] NOEMI GAMEZ [id number] DANIELITO BIRMINGHAM Self - patient is the insured [place] [address] [place] [address] [id number] DANIELITO BIRMINGHAM Self - patient is the insured MEDICATIONS ADMINISTERED Medication Instructions Date of Administration Dosage Notes MICC B12 INJECTION 08/30/2021 1 [facility] LOT#[id number] MICC B12 INJECTION 11/14/2021 MICC B12 INJECTION 12/20/2021 1 mL MICC B12 INJECTION 02/22/2022 lot # [id number] MICC B12 INJECTION 04/11/2022 MICC B12 INJECTION 09/26/2022 MICC B12 INJECTION 11/07/2022 MICC B12 INJECTION 12/19/2022 MICC B12 INJECTION 01/31/2023 1 MICC B12 INJECTION 09/12/2023 MICC B12 INJECTION 01/15/2024 MICC B12 INJECTION 10/01/2024 1 mg Tirzepatide 11/23/2024 2.5 mg Tirzepatide 12/30/2024 2.5 mg Tirzepatide 01/13/2025 2.5 mg Tirzepatide 2025 2.5 mg MEDICAL (GENERAL) HISTORY Medical History History ICD Code asthma Gout anxiety allergic rhinitis Surgical History Surgery Date(Month/Year) lumpectomy, right breast 2000 section 1975 cholecystectomy 02/2005
== END 2025-01-29 15:45 | disposition home or self-care (01) ==
LOC: HO.HPS 15:14
PROVIDERS: PCP Internal Medicine; Visit Provider Hospitalist
DX: J45.41 Moderate persistent asthma with (acute) exacerbation (principal); R06.00 Dyspnea, unspecified; R91.1 Solitary pulmonary nodule
CPT/HCPCS: 99214; G2211

== ENCOUNTER 2025-07-01 09:40 | Outpatient (AMB) | payer OTHER, MEDICAID, SELFPAY ==
--- OUTSIDE RECORDS SUMMARY | 2025-02-18 04:15 | XMS_ITS ---
Author Organization [facility] [address] [address] Address [address] [place] [address] Care Team Providers Care Building Economist Name Role Phone BAYLEE PAVON Unavailable [phone] REASON FOR VISIT 2.5mg Encounters Encounter Location Date Provider Diagnosis [facility] [address] [place] [address] 02/18/2025 BAYLEE PAVON Plan Of Treatment Next Appt Details Provider Name:BAYLEE PAVON, 08/11/2025 02:45:00 PM, [address], [address], [place], [address], Progress Notes * YUKOCHAGO SANCHEZB:11/1949 (75 yo F)Acc No.[id number]:02/18/2025 Patient: Shabana JONESILAJOVIDANIELITO Provider: Maribeth PAVON NP :1950 A ge:75 Y S ex:Female Date:02/18/2025 Address:[address] [place], [place] [id number] Subjective: * Chief Complaints: * 1 . 2.5mg. * Medical History: Objective: * Vitals: Assessment: Plan: * Treatment: * Images: Billing Information: * Visit Code: * Procedure Codes: * Electronic signature of PETER PAVON on 07/01/2025 at 10:32 AM EDT Sign off status: Pending * Provider: Maribeth PAVON NP Date: 02/18/2025 Generated for Ruy saldana/Syl/eTransmitting on: 0 07/01/2025 10:32 AM EDT
--- OUTSIDE RECORDS SUMMARY | 2025-02-18 09:00 | XMS_ITS ---
Author Organization [facility] Address [address] [place] [address] Care Team Providers Care Hospitality Workers Name Role Phone SAVANAH BAYLEE Unavailable [phone] REASON FOR VISIT Pt here for SEMA [...] Location Date Provider Diagnosis [facility] [address] [facility] [address] [place] [address] 02/18/2025 BAYLEE PAVON Plan Of Treatment Next Appt Details Provider Name:BAYLEE PAVON, 08/11/2025 02:45:00 PM, [address] [facility], [address], Medications Administered Medication Instructions Date of Administration Dosage Notes Semaglutide 02/18/2025 .5 mg Progress Notes * CHAGO DALEYB:11/1949 (75 yo F)Acc No.[id number]:02/18/2025 Patient: DANIELITO LACEY Provider: Maribeth PAVON NP :1950 A ge:75 Y S ex:Female Date:02/18/2025 Address:[address] [place] [address] Subjective: * Chief Complaints: * 1 . [...] 0 02/18/2025 Generated for Ruy saldana/Syl/Ayaka on: 0 07/01/2025 10:32 AM EDT
--- OUTSIDE RECORDS SUMMARY | 2025-02-18 09:00 | XMS_ITS ---
Author Organization [facility] [address] Address [address] [place] [address] Care Team Providers Care Toll Bridge Operator Name Role Phone BAYLEE PAVON Unavailable [phone] REASON FOR VISIT 2.5mg Encounters Encounter Location Date Provider Diagnosis [facility] [address] [place] [address] 02/18/2025 BAYLEE PAVON Plan Of Treatment Next Appt Details Provider Name:BAYLEE PAVON, 08/11/2025 02:45:00 PM, [address], [address], [place], [address], Progress Notes * YUKOCHAGO SANCHEZB:11/1949 (75 yo F)Acc No.[id number]:02/18/2025 Patient: Shabana JONESILAJOVIDANIELITO Provider: Maribeth PAVON NP :1950 A ge:75 Y S ex:Female Date:02/18/2025 Address:[address] [place], [place] [id number] Subjective: * Chief Complaints: * 1 . [...]
--- OUTSIDE RECORDS SUMMARY | 2025-06-30 10:00 | XMS_ITS ---
Author Organization [facility] Address [address] [place] [address] Care Team Providers Care Farm Manager Name Role Phone BAYLEE PAVON Unavailable [phone] Allergies Allergen (clinical drug ingredient) Drug/Non Drug Allergy documented on EMR Reaction Allergy Type Onset Date Status meperidine Demerol Unknown Drug Allergy Active REASON FOR VISIT pt is here for wt mgt f/u with seca ready for review- seca pd Medications Medication SIG (Take, Route, Frequency, Duration) Notes Start Date End Date Status Rosuvastatin Calcium 10 MG 1 tablet Orally Once a day Active Tirzepatide 2.5 MG/0.5ML as directed Subcutaneous Active Omeprazole 40 MG 1 capsule 30 minutes before morning meal Orally Once a day Active Calcium + D3 600-800 MG-UNIT 1 tablet with a meal Orally Once a day Active Contrave [...] Orally twice a day; Duration: 30 days Active Wegovy 0.25 MG/0.5ML 0.25mg Subcutaneous weekly; Duration: 30 days Active Linzess 145 MCG 1 capsule at least 3 0 minutes before the first meal of the day on an empty stomach Orally Once a day; Duration: 30 days Active Social History Tobacco Use: Social History Observation Description Date Details (start date - stop date) Former Smoker NA - NA Tobacco Use/Smoking Question Answer Notes Are you a former smoker How long has it been since y ou last smoked? > 10 years Additional Findings: Tobacco User Modera te cigarette smoker (10-19 cigs/day) Section Notes: QUIT SMOKING 1970 ABOUT N1 P ACK A DAY Vital Signs Heart Rate 92 /min 06/30/2025 Blood pressure systolic 116 mm Hg 06/30/20 25 Blood pressure diastolic 80 mm Hg 025 Weight 142.8 lbs 06/30/2025 BMI 28.84 kg/m2 06/30/2025 Height 59 in 06/30/2025 Oximetry 97 % 06/30/2025 Encounters Encounter Location Date Provider Diagnosis [facility] [address] [facility] [address] [place] [address] 06/30/2025 BAYLEE PAVON BMI 28.0-28.9,adult Z68.28 ; Dietary counseling and surveillance Z71.3 ; Mild intermittent asthma without complication J45.20 ; Overweight E66.3 ; Gastroesophageal reflux disease with esophagitis without hemorrhage K21.00 and Encounter for examination of blood pressure without abnormal findings Z01.30 Assessments Encounter Date Diagnosis (ICD Code) Assessment Notes Treatment Notes Treatment Clinical Notes Section Notes 06/30/2025 BMI 28.0-28.9,adult (ICD-10 - Z68.28) #Weight Management 07/01/2025 Discussed options for her including adding Contrave It was a cheaper alternative to Taryn direct and Daphnie Nordisk She will get back to us if this works financially _update labs prior to next visit and upon return from [place] Patient has been found to be overweight [...] software and direct typing Please excuse inadvertent surg physician asst or typing errors, or uncorrected word substitutions Although every attempt has been made by the provider to proofread this document, occasional misspellings and typographical errors may still be present Due to the previous pandemic, and the use of personal protective equipment (PPE) This may decrease voice recognition accuracy Inadvertent surg physician asst errors may occur 06/30/2025 Dietary counseling and surveillance (ICD-10 - Z71.3) #Weight Management 07/01/2025 Discussed options for her including adding Contrave It was a cheaper alternative to Taryn direct and Daphnie Nordisk She will get back to us if this works financially _update labs prior to next visit and upon return from [place] Patient has been found to be overweight [...] software and direct typing Please excuse inadvertent surg physician asst or typing errors, or uncorrected word substitutions Although every attempt has been made by the provider to proofread this document, occasional misspellings and typographical errors may still be present Due to the previous pandemic, and the use of personal protective equipment (PPE) This may decrease voice recognition accuracy Inadvertent surg physician asst errors may occur 06/30/2025 Mild intermittent asthma without complication (ICD-10 - J45.20) #Weight Management 07/01/2025 Discussed options for her including adding Contrave It was a cheaper alternative to Taryn direct and Daphnie Nordisk She will get back to us if this works financially _update labs prior to next visit and upon return from [place] Patient has been found to be overweight [...] software and direct typing Please excuse inadvertent surg physician asst or typing errors, or uncorrected word substitutions Although every attempt has been made by the provider to proofread this document, occasional misspellings and typographical errors may still be present Due to the previous pandemic, and the use of personal protective equipment (PPE) This may decrease voice recognition accuracy Inadvertent surg physician asst errors may occur 06/30/2025 Overweight (ICD-10 - E66.3) #Weight Management 07/01/2025 Discussed options for her including adding Contrave It was a cheaper alternative to Taryn direct and Daphnie Nordisk She will get back to us if this works financially _update labs prior to next visit and upon return from [place] Patient has been found to be overweight [...] software and direct typing Please excuse inadvertent surg physician asst or typing errors, or uncorrected word substitutions Although every attempt has been made by the provider to proofread this document, occasional misspellings and typographical errors may still be present Due to the previous pandemic, and the use of personal protective equipment (PPE) This may decrease voice recognition accuracy Inadvertent surg physician asst errors may occur 06/30/2025 Gastroesophageal reflux disease with esophagitis without hemorrhage (ICD-10 - K21.00) #Weight Management 07/01/2025 Discussed options for her including adding Contrave It was a cheaper alternative to Taryn direct and Daphnie Nordisk She will get back to us if this works financially _update labs prior to next visit and upon return from [place] Patient has been found to be overweight [...] software and direct typing Please excuse inadvertent surg physician asst or typing errors, or uncorrected word substitutions Although every attempt has been made by the provider to proofread this document, occasional misspellings and typographical errors may still be present Due to the previous pandemic, and the use of personal protective equipment (PPE) This may decrease voice recognition accuracy Inadvertent surg physician asst errors may occur 06/30/2025 Encounter for examination of blood pressure without abnormal findings (ICD-10 - Z01.30) #Weight Management 07/01/2025 Discussed options for her including adding Contrave It was a cheaper alternative to Taryn direct and Daphnie Nordisk She will get back to us if this works financially _update labs prior to next visit and upon return from [place] Patient has been found to be overweight [...] software and direct typing Please excuse inadvertent surg physician asst or typing errors, or uncorrected word substitutions Although every attempt has been made by the provider to proofread this document, occasional misspellings and typographical errors may still be present Due to the previous pandemic, and the use of personal protective equipment (PPE) This may decrease voice recognition accuracy Inadvertent surg physician asst errors may occur Plan Of Treatment Medication Medication Name Sig Start Date Stop [...] Orally twice a day; Duration: 30 days Next Appt Details Provider Name:BAYLEE PAVON, 08/11/2025 02:45:00 PM, [address] [place] [address], [phone], Progress Notes * CHAGO DALEYB:11/1949 (75 yo F)Acc No.[id number]:06/30/2025 Patient: Shabana DANIELITO KEYES Provider: Maribeth PAVON NP :1950 A ge:75 Y S ex:Female Date:06/30/2025 Address:[address] [place] [address] Subjective: * Chief Complaints: * 1 . Pt is here for wt mgt f/u with seca ready for review- seca pd. * HPI: C onstitutional: Patient here today for a weight management f/u visit Patient seen and examined. Full past medical history, social history, family history, allergies and current medications were reviewed and updated Body composition analysis reviewed #Weight Management 07/01/2025 [employer] Patient Patient has been off of medications for quite some months now due to insurance issues and not covering Discuss cheaper alternatives such as Contrave No sleep study in the past. We discussed the new surmount MIRIAN trial and indication for tirzepatide We also discussed getting a home sleep study to have a potential MIRIAN diagnosis Was on Mounjaro Lack of type 2 diabetes diagnosis, switching to Zepbound Had done very well was thriving Cannot afford Taryn direct or Daphnie pharmacy Past medical history that includes acid reflux, chronic obstructive asthma which is well controlled w/Dulera Denies side effects such as nausea, vomtiing, diarrhea, constipation, or abdominal pain. She does have a history of gastroesophageal reflux on PPI as well as Carafate Recent EGD with GI, [facility] Dr Cornelius/Physiatry, gets injections for her lower back pain States her pain has been a barrier to exercise hx of scoliosis. Has appoinment tomorrow. BP stable, states at home 130s/80s. Has had elevated BP during previous visits as well. Pt follows w/ Cardiology. Sees them once yearly Sees a car coupler once a year, Niall PCP Liliana GUEVARA comprehensive labs in April 2024 at [place] through epic chart review weight 07/01/2025 142lbs, BMI 27 weight 2025 140.8lbs, BMI 27.5 weight 12/30/2024 [...] weight 09/28/21 164lbs, BMI 32 (+4lbs) weight 11/03/21 160lbs, BMI 32 Her target goal weight is 140 pounds. * ROS: A ll Other Systems: Review of Systems (ROS) A ll others negative except those mentioned in HPI. * Medical History: A sthma, Gout, Anxiety, Allergic rhinitis. * Surgical History: l umpectomy, right breast 2000, section 1975, cholecystectomy 02/2005. * Hospitalization/Major Diagno stic Procedure: D enies Past Hospitalization. * Family History: F ather: , cancer, throat, diagnosed with Cancer. M other: , hypertension, type II diabetes controlled, diagnosed with Diabetes, Hypertension. 2 brother(s) , 3 sister(s) - healthy. 1 son(s) , 1 daughter(s) - healthy. . 1 sister 1 brother . * Social History: T obacco Use: T obacco Use/Smoking A re you a f ormer smoker, H ow long has it been since you last smoked? > 10 years, A dditional Findings: Tobacco User M oderate cigarette smoker (10-19 cigs/day). Q UIT SMOKING 1970 ABOUT N1 PACK A DAY. * Medications: T aking Linzess 145 MCG [...] tablet Orally Once a day , Taking Calcium + D3 [...] in the evening Orally twice a day , Medication List reviewed and reconciled with the patient * Allergies: D emerol. Objective: * Vitals: H R:92/min, BP:116/80mm Hg, Wt:142.8lbs, BMI:28.84Index, Ht: 59 in, Oxygen sat %:97%. * Examination: G eneral Examination: GENERAL APPEARANCE: i n no acute distress, well developed, well nourished. H EAD: n ormocephalic, atraumatic. E YES: p upils equal, round, reactive to light and accommodation. N ARNIE/THYROID: n arnie supple, full range of motion.. S KIN: n o suspicious lesions, warm and dry. H EART: 3 /6 systolic ejection murmur, regular rate and rhythm, S1, S2 normal. L UNGS: c lear to auscultation bilaterally. A BDOMEN: normal, bowel sounds present, soft, nontender, nondistended. E XTREMITIES: n o clubbing, cyanosis, or edema. N EUROLOGIC: n onfocal, active range of motion present in the upper and lower extremities bilaterally. Sensory exam intact. Assessment: * Assessment: 1. O verweight - E66.3 (Primary) 2 . B AL 28.0-28.9,adult - Z68.28 ? 3 . D ietary counseling and surveillance - Z71.3 4 . M ild intermittent asthma without complication - J45.20 5 . G astroesophageal reflux disease with esophagitis without hemorrhage - K21.00 6 . E ncounter for examination of blood pressure without abnormal findings - Z01.30 #Weight Management 07/01/2025 Discussed options for her including adding Contrave It was a cheaper alternative to Taryn direct and Daphnie Nordisk She will get back to us if this works financially _update labs prior to next visit and upon return from [place] Patient has been found to be overweight [...] software and direct typing Please excuse inadvertent surg physician asst or typing errors, or uncorrected word substitutions Although every attempt has been made by the provider to proofread this document, occasional misspellings and typographical errors may still be present Due to the previous pandemic, and the use of personal protective equipment (PPE) This may decrease voice recognition accuracy Inadvertent surg physician asst errors may occur Plan: * Treatment: * Procedure Codes: 3 074F SYST BP LT 130 MM HG, 3079F DIAST BP 80-89 MM HG, 35074 P/M PULP GRINDER AND BLENDER, INDIV 15 MIN, Modifiers: 33 , SA * Images: Billing Information: * Visit Code: 60736 Office Visit, Est Pt., Level 4. Modifiers: SA * Procedure Codes: 3074F SYST BP LT 130 MM HG. 3079F DIAST BP 80-89 MM HG. 13766 P/M PULP GRINDER AND BLENDER, INDIV 15 MIN. Modifiers: 33, SA * Sign off status: Completed true * Provider: Maribeth PAVON NP Date: 06/30/2025 Generated for Ruy saldana/Syl/Ayaka on: 07/01/2025 10:32 AM EDT History and Physical Notes * HPI (History of Present Illness) Category Sub-Category Detail Notes Category Not es Constitutional Patient here today for a weight management f/u visit Patient seen and examined. Full past medical history, social history, family history, allergies and current medications were reviewed and updated Body composition analysis reviewed #Weight Management 07/01/2025 [employer] Patient Patient has been off of medications for quite some months now due to insurance issues and not covering Discuss cheaper alternatives such as Contrave No sleep study in the past. We discussed the new surmount MIRIAN trial and indication for tirzepatide We also discussed getting a home sleep study to have a potential MIRIAN diagnosis Was on Mounjaro Lack of type 2 diabetes diagnosis, switching to Zepbound Had done very well was thriving Cannot afford [facility] direct or [facility] pharmacy Past medical history that includes acid reflux, chronic obstructive asthma which is well controlled w/Dulera Denies side effects such as nausea, vomtiing, diarrhea, constipation, or abdominal pain. She does have a history of gastroesophageal reflux on PPI as well as Carafate Recent EGD with GI, [facility] Dr Cornelius/Physiatry, gets injections for her lower back pain States her pain has been a barrier to exercise hx of scoliosis. Has appoinment tomorrow. BP stable, states at home 130s/80s. Has had elevated BP during previous visits as well. Pt follows w/ Cardiology. Sees them once yearly Sees a car coupler once a year, Niall PCP Liliana GUEVARA comprehensive labs in April 2024 at [place] through [facility] chart review weight 07/01/2025 142lbs, BMI 27 weight 2025 140.8lbs, BMI 27.5 weight 12/30/2024 [...] General Examination GENERAL APPEARANCE: in no ac [place] distress, well developed, well nourished HEAD: normocephalic, [...]
--- NOTE | 2025-07-01 09:47 | MHC.OFFVIS ---
Intake Visit Reasons: Loss memory Allergies meperidine (From Demerol) Allergy (Intermediate, Verified 01/29/25 15:20) Throat swollen Medication List - Last Reconciled 07/01/25 by Valeri Aguilar MD albuterol sulfate 2.5 mg (3 mL) inhalation Q6H PRN 30 days albuterol sulfate 90 mcg/actuation 2 inhalations inhalation Q6H PRN 30 days azelastine 2 sprays intranasal BID calcium carbonate-vitamin D3 600 mg-10 mcg (400 unit) 1 tab PO BID cetirizine (Zyrtec) 10 mg PO DAILY PRN 30 days doxycycline monohydrate 100 mg PO BID 14 days famotidine 20 mg PO BID flu vac qv 2019(18yr up)rc(PF) mL IM loratadine 10 mg PO DAILY 30 days mometasone-formoterol 200-5 mcg/actuation (Dulera) 2 puffs PO BID 30 days nebulizers As directed omeprazole 0 mg PO prednisone PO daily; Take 6 tabs daily x 3 days, then 5 tabs x 3 days, then 4 tabs x 3 days, then 3 tabs x 3 days, then 2 tabs daily x 3 days, then 1 tab x 3 days to complete. 18 days rosuvastatin 20 mg PO BEDTIME sucralfate 10 mL PO QID varicella-zoster gE-AS01B (PF) 50 mcg/0.5 mL IM HPI Comments Details: 75 yo LH woman with anxiety and asthma, with a Master's degree, was here for forgetfulness. She is presenting with memory problems, experienced for more than a year. She describes these lapses as intermittent, impacting her ability to concentrate, forgetful of simple tasks like remembering possession of her purse. Stress from adjusting to a sedentary lifestyle [facility] [facility] and issues with transportation contribute to her cognitive symptoms. She has multiple comorbidities, including asthma, managed with medications like Albuterol and Dulera. Scoliosis complicates mobility, particularly with associated back pain and arthritis. Her medical history reveals a significant event of breast cancer 18 years prior, treated surgically, and a notable allergy. The patient nurys variably with sleep disturbances, sometimes using melatonin as an effective aid. While poor memory prompts the visit, her complex medical history and lifestyle changes also present challenges. [facility] Medical History (Updated 07/01/25 @ 09:58 by Valeri Aguilar MD) Memory loss Abnormal finding on breast imaging Allergic rhinitis Bronchitis Exacerbation of asthma Pulmonary nodule Murmur Asthma Dyspnea Family History Other Asthma Social History Patient Tobacco Use Status: Never used Tobacco Review of Systems Const Details: - Neurological: Reports memory lapses and concentration difficulties. - Respiratory: Reports shortness of breath, asthma, and wheezing. - Musculoskeletal: Reports back pain and leg cramping, history of scoliosis. - Allergic/Immunologic: Reports allergy have problems with medications. - Sleep: Reports sleep disturbances, uses melatonin occasionally. - General: Reports stress and difficulty managing appointments. Physical Exam Neuro Other: Mental Status: Alert and oriented to person, place, and time. Normal attention. Normal spontaneous speech, fluency, and comprehension. No obvious issues with mood and memory. Affect is appropriate. MOCA 26. MMS 29. Cranial Nerves: CN II: Visual babcock full to confrontation, visual acuity intact. CN III, IV, : Pupils equal, round, reactive to light and accommodation. Extraocular movements are normal. CN V: Facial sensation is normal. CN VII: Facial movements symmetrical. CN VIII: Hearing intact to bedside conversation is normal. CN IX, X: Palate elevates symmetrically. CN XI: Shoulder shrug and head turn symmetrical. CN XII: Tongue midline without atrophy or fasciculations. Motor: Bulk and tone normal in all extremities. No significant muscle weakness in arms and legs. No drift. Reflexes: Deep tendon reflexes 2+ and symmetric. Plantar response down-going bilaterally. Coordination: Wsgbfx-qt-pvdt and ppdv-om-horx testing normal. No dysmetria. Gait and Station: No obvious gait abnormality. No ataxia or instability. Extrapyramidal: Full facial expressions and blinking. No rigidity. Movements are appropriate with no tremor or abnormality. Speech: Normal; no dysarthria or tremor. Assessment & Plan Assessment & Plan (1) MCI (mild cognitive impairment): Code(s): G31.84 - Mild cognitive impairment of uncertain or unknown etiology Category: Medical Plan Impression: Mild cognitive impairment Rec: a: MRI brain WO b: B12/folate levels c: TSH Orders: Orders Vitamin B12 and Folate 07/01/25 G31.84 - Mild cognitive impairment of uncertain or unknown etiology MR head/brain wo con 07/01/25 G31.84 - Mild cognitive impairment of uncertain or unknown etiology Thyroid Stimulating Hormone 07/01/25 G31.84 - Mild cognitive impairment of uncertain or unknown etiology Coding Level of Care Code New Pt Level 5 (36179) Diagnoses MCI (mild cognitive impairment) G31.84
--- OUTSIDE RECORDS SUMMARY | 2025-07-01 10:32 | XMS_ITS | Encounter Summary ---
Author Organization [facility] Address [address] [place] [address] Care Team Providers Care Visual Educator Name Role Phone Saba Solorzano MD Primary Care Provider [phone] Reason for Visit * Reason Onset Date Comments Error 06/21/2025 Encounter Details Date Type Department Care Team (Late st Contact Info) Description 06/21/2025 Telephone Adult Medicine [address] [phone] Saba Solorzano MD [address] [place] [address] Social History Tobacco Use Types Packs/Day Years [...] as of this encounter Progress Notes * Aurora Lon - 06/21/2025 2:47 PM EDT Error documented in this encounter Plan of Treatment Upcoming Encounters Date Type Department Care Team (Late st Contact Info) Description 07/02/2025 3:00 PM EDT Ancillary Procedure [facility] [address] [facility] [address] [place] [address] 07/07/2025 2:30 PM EDT Consult Neurosurgery [facility] [address] [phone] Soren Jaimes PA [address] [address] 07/22/2025 1:30 PM EDT Office Visit Adult Medicine [facility] [address] [place] [address] Saba Solorzano MD [address] [place] [address] 07/28/2025 3:30 PM EDT Office Visit Orthopedic [facility] [address] [phone] Gus Judge DPLonnie [address] [phone] 08/03/2025 3:30 PM EDT Office Visit [facility] Cardiology [facility] [address] [place] [phone] Yan Hilario MD [address] [place] [address] [address] [place] [phone] documented as of this encounter Goals Goal Patient Goal Type Associated Problems Recent Progress Patient-Stated? Author LTG in 4 visits General On track(10/15/20 24 3:25 PM EST) No Aurora Curtis, OT Note: No nystag w/ repeat positonal testing all 10/15 MET No reported dizziness w/ bed mob 10/15 MET Indep HEP if/when indic 10/15 MET documented as of this encounter Visit Diagnoses Not on filedocumented in this encounter Care Teams Visual Educator Relationship Specialty Start Date End Date Saba Solorzano MD [address] [place] [phone] PCP - General Internal Medicine 09/21/24 documented as of this encounter
--- OUTSIDE RECORDS SUMMARY | 2025-07-01 10:32 | XMS_ITS | Clinical Summary ---
Author Organization [facility] Address [address] [place] [address] Care Team Providers Care Business Performance Manager Name Role Phone Ayo Denis MD Primary Care Provider [phone] Allergies Active Allergy Reactions Criticality Noted Date [...] Colonoscopy 1950 FOBT / Fit Test [address] Lung Cancer Screening (Baseline) 2001 Osteoporosis Screening 2001 Zoster Vaccines (3 of 3) 10/07/2020 08/12/2020, 03/2009 DTaP,Tdap,and Td Vaccines (2 - Td or Tdap) 03/05/2023 03/05/2013 Alcohol/Substance Use Screening 10/28/2024 Health Care Proxy Review 10/28/2024 COVID-19 Vaccine (2024- season) 2025 09/09/2021, 02/28/2021, 01/31/2021 Influenza Vaccine (#1) 2025 , 07/26/2020, 07/26/2020, Additional history exists RSV Vaccine (60+ years old and patients) (1 - 1-dose 75+ series) 2026 Pneumococcal Vaccine: 50+ Years Completed 04/25/2021, 03/01/2017, 08/02/2009 Hepatitis B Vaccines Aged Out No long er eligible based on patient's age to complete this topic Insurance [facility] Care Teams Business Performance Manager Relationship Specialty Start Date End Date Ayo Denis MD PCP - General Internal Medicine 12/26/21
--- OUTSIDE RECORDS SUMMARY | 2025-07-01 10:32 | XMS_ITS | Clinical Summary ---
Author Organization [facility] Address [address] [address] Phone Care Team Providers Care Senior Site Manager Name Role Phone Ester Padilla MD Primary Care Provide r Allergies Active Allergy Reactions Criticality Noted Date Comments Lisinopril Cough 03/31/2020 And dizziness Meperidine Unknown 08/16/2021 Medications CHOLECALCIFEROL 25 mcg (1,000 unit) tablet Take 2 tablets by mouth every morning. 4 Active ciprofloxacin-d exAMETHasone (CIPRODEX) otic suspension PLEASE SEE ATTACHED FOR DETAILED DIRECTIONS 4 Active famotidine (PEPCID) 20 MG tablet Take 10 mg by mouth. Active fluticasone propionate (FLONASE) 50 mcg/actuation nasal spray fluticasone propionate 50 mcg/actuation nasal spray,suspension Active ibuprofen (ADVIL,MOTRIN) 800 MG tablet ibuprofen 800 mg tablet Active naproxen (NAPROSYN) 500 MG tablet TAKE 1 TABLET BY MOUTH AT BEDTIME NEEDED (JOINT PAIN). 4 Active omeprazole (PRILOSEC) 40 MG capsule PLEASE SEE ATTACHED FOR DETAILED DIRECTIONS 4 Active rosuvastatin (CRESTOR) 20 MG tablet Take 1 tablet by mouth every morning. 4 Active sucralfate (CARAFATE) 100 mg/mL suspension TAKE 10 ML BY MOUTH 4 TIMES DAILY (BEFORE MEALS AND NIGHTLY). 4 Active MOUNJARO 2.5 mg/0.5 mL PnIj INJECT 2.5MG SUBCUTANEOUS WEEKLY FOR 30 DAYS 28 4 Active Social History Tobacco Use Types Packs/Day Years Used Date Smoking Tobacco: Never Smokeless Tobacco: Never Education Answer Date Recorded Are you interested in more education? Not on rohit e 02/23/2023 Are you concerned about learning? Not on file 02/23/2023 No 02/23/2023 No 02/23/2023 Digital Access Answer Date Recorded No 03/26/2023 No 03/26/2023 Reliable internet access at home? Not on file 03/26/2023 Device with a working camera? Not on file Comments Unknown Sex and Gender Information Value Date Recorded Sex Assigned at Not on file Legal Sex Female 9:27 AM EST Gender Identity Not on file Sexual Orientation Not on file Last Filed Vital Signs Vital Sign Reading Time Taken Comments Blood Pressure 179/79 05/06/2024 9:53 AM EDT Pulse 66 05/06/2024 9:53 AM EDT Temperature 36.8 C (98.2 F) 05/06/2024 9:53 AM EDT Respiratory Rate 16 05/06/2024 9:53 AM EDT Oxygen Saturation 100% 05/06/2024 9:53 AM EDT Inhaled Oxygen Concentration - - Weight 61.7 kg (136 lb) 05/06/2024 9:53 AM EDT Height 152.4 cm (5') 05/06/2024 9:53 AM EDT Body Mass Index 26.56 05/06/2024 9:53 AM EDT Plan of Treatment Health Maintenance Due Date Last Done Comments Adult Td,Tdap Booster 1951 LIPID PANEL 1951 DEPRESSION SCREENING 1963 HEPATITIS C SCREENING 1969 MAMMOGRAM 1991 COLOGUARD 01/28/1996 COLONOSCOPY 01/28/1996 COLORECTAL CANCER SCREENING 01/28/1996 FIT TEST 01/28/1996 FOBT 01/28/1996 SIGMOIDOSCOPY 01/28/1996 VIRTUAL COLONOSCOPY 01/28/1996 PNEUMOCOCCAL VACCINES (50+ y ears) (1 of 1 - PCV) 2001 ZOSTER VACCINES (1 of 2) 2001 OSTEOPOROSIS SCREENING INITI AL (ONE-TIME) 01/28/2016 COVID-19 VACCINE ( - 2023-2 5 season) 2024 RSV VACCINE (1 - 1-dose 75+ series) 2026 SMOKING STATUS SCREENING (On ce After 26 Yrs) Completed 05/06/2024 HEPATITIS A VACCINES Aged Out No long er eligible based on patient's age to complete this topic HIB VACCINES Aged Out No longer eligi ble based on patient's age to complete this topic MENINGOCOCCAL VACCINES (ACWY) Aged Out No longer eligible based on patient's age to complete this topic MENINGOCOCCAL VACCINES (B) Aged Out N o longer eligible based on patient's age to complete this topic Medical Devices Not on file [place] [address] [place] [address] MEDICARE REPLACEMENT [employer] [id number] MEDICARE REPLACEMENT MEDICARE REPLACEMENT MEDICARE REPLACEMENT MEDICARE REPLACEMENT MEDICARE [place] [address] [place] [address] MEDICARE REPLACEMENT [facility] [employer] MEDICARE REPLACEMENT [place] [id number] Care Teams Senior Site Manager Relationship Specialty Start Date End Date Ester Padilla MD [address] [place] [address] PCP - General Internal Medicine 07/03/22 Additional Source Comments The information contained in this document represents components of the legal health record. It is not the complete legal health record.[facility]
--- OUTSIDE RECORDS SUMMARY | 2025-07-01 10:32 | XMS_ITS | Encounter Summary ---
Author Organization [facility] Address [address] [facility] [address] [place] [id number] Phone Care Team Providers Care Disaster Recovery Coordinator Name Role Phone Ester Padilla MD Primary Care Provide r Encounter Details Date Type Department Care Team (Latest Contact Info) Description 11/06/2021 Transcribe Orders Virtual Department [address] [place] [address] Carl Mejia MD [address] [place] [address], [address] [place], [place] [id number] [email or web address] TIA (transient ischemic attack) (Primary Dx) Social History Tobacco Use Types Packs/Day Years Used Date Smoking Tobacco: Never Assessed Comments Unknown Sex and Gender Information Value Date Recorded Sex Assigned at Not on file Legal Sex Female 9:27 AM EST Gender Identity Not on file Sexual Orientation Not on file documented as of this encounter Plan of Treatment Not on file documented as of this encounter Results * US Carotid Duplex Complete (Bilateral) (07/20/2022 1:39 PM EDT) Anatomical Region Laterality Modality Heart, Thoracic Vasculature, Neck Ultrasound 07/22/2022 1:25 PM EDT Impressions 07/22/2022 1:34 PM EDT 1.No evidence of 50% or greater stenosis in the right or left internal carotid artery. Narrative 07/22/2022 1:34 PM EDT US CAROTID DUPLEX COMPLETE (BILATERAL) TECHNIQUE: Ultrasound Carotid Duplex with color flow Doppler and spectral waveform Doppler. Arterial inflow was assessed. The technologist's sheet is not available for review. COMPARISON: None FINDINGS: Right Common carotid artery: Proximal: No significant stenosis. Distal: No significant stenosis. Small amount of mixed plaque in bulb. Internal carotid artery: Proximal: No significant stenosis. Mid: No significant stenosis. Distal: No significant stenosis. External carotid artery: No significant stenosis. Vertebral artery: Antegrade. Left Common carotid artery: Proximal: No significant stenosis. Distal: No significant stenosis. Small amount of mixed plaque in bulb. Internal carotid artery: Proximal: No significant stenosis. Mid: No significant stenosis. Distal: No significant stenosis. External carotid artery: No significant stenosis. Vertebral artery: Antegrade. Right Peak Systolic Velocities: Proximal CCA: 137 cm/s Distal CCA: 89 cm/s Proximal ICA: 83 cm/s Mid ICA: 71 cm/s Distal ICA: 86 cm/s ECA: 146 cm/s Vertebral: 62 cm/s ICA/CCA: 0.97 Right End Diastolic Velocities: Proximal CCA: 21 cm/s Distal CCA: 18 cm/s Proximal ICA: 24 cm/s Mid ICA: 25 cm/s Distal ICA: 28 cm/s ECA: 24 cm/s Vertebral: 13 cm/s Left Peak Systolic Velocities: Proximal CCA: 109 cm/s Distal CCA: 123 cm/s Proximal ICA: 79 cm/s Mid ICA: 99 cm/s Distal ICA: 104 cm/s ECA: 170 cm/s Vertebral: 77 cm/s Left ICA/CCA: 0.85 Left End Diastolic Velocities: Proximal CCA: 22 cm/s Distal CCA: 29 cm/s Proximal ICA: 24 cm/s Mid ICA: 32 cm/s Distal ICA: 35 cm/s ECA: 24 cm/s Vertebral: 25 cm/s Abbreviations: CCA = Common Carotid Artery. ICA = Internal Carotid Artery. ECA = External Carotid Artery. Vert = Vertebral Artery. ICA/CCA ratio = maximal ICA PSV divided by the maximal CCA PSV. Procedure Note Tim Pearce MD - 07/22/2022 US CAROTID DUPLEX COMPLETE (BILATERAL) TECHNIQUE: Ultrasound Carotid Duplex with color flow Doppler and spectralwaveform Doppler. Arterial inflow was assessed. The technologist's sheetis not available for review. COMPARISON: None FINDINGS: Right Common carotid artery: Proximal: No significant stenosis. Distal: No significant stenosis. Small amount of mixed plaque inbulb. Internal carotid artery: Proximal: No significant stenosis. Mid: No significant stenosis. Distal: No significant stenosis. External carotid artery: No significant stenosis. Vertebral artery: Antegrade. Left Common carotid artery: Proximal: No significant stenosis. Distal: No significant stenosis. Small amount of mixed plaque inbulb. Internal carotid artery: Proximal: No significant stenosis. Mid: No significant stenosis. Distal: No significant stenosis. External carotid artery: No significant stenosis. Vertebral artery: Antegrade. Right Peak Systolic Velocities: Proximal CCA: 137 cm/s Distal CCA: 89 cm/s Proximal ICA: 83 cm/s Mid ICA: 71 cm/s Distal ICA: 86 cm/s ECA: 146 cm/s Vertebral: 62 cm/s ICA/CCA: 0.97 Right End Diastolic Velocities: Proximal CCA: 21 cm/s Distal CCA: 18 cm/s Proximal ICA: 24 cm/s Mid ICA: 25 cm/s Distal ICA: 28 cm/s ECA: 24 cm/s Vertebral: 13 cm/s Left Peak Systolic Velocities: Proximal CCA: 109 cm/s Distal CCA: 123 cm/s Proximal ICA: 79 cm/s Mid ICA: 99 cm/s Distal ICA: 104 cm/s ECA: 170 cm/s Vertebral: 77 cm/s Left ICA/CCA: 0.85 Left End Diastolic Velocities: Proximal CCA: 22 cm/s Distal CCA: 29 cm/s Proximal ICA: 24 cm/s Mid ICA: 32 cm/s Distal ICA: 35 cm/s ECA: 24 cm/s Vertebral: 25 cm/s Abbreviations: CCA = Common Carotid Artery. ICA = Internal Carotid Artery. ECA =External Carotid Artery. Vert = Vertebral Artery. ICA/CCA ratio = maximalICA PSV divided by the maximal CCA PSV. IMPRESSION: 1.No evidence of 50% or greater stenosis in the right or left internalcarotid artery. us Carl Mejia MD US NEUROVASCULAR Final Re sult documented in this encounter Visit Diagnoses Diagnosis TIA (transient ischemic attack)- Primary Unspecified transient cerebral ischemia TIA (transient ischemic attack) Unspecified transient cerebral ischemia documented in this encounter Care Teams Disaster Recovery Coordinator Relationship Specialty Start Date End Date Ester Padilla MD [address] [place] [address] PCP - General Internal Medicine 07/03/22 documented as of this encounter Additional Source Comments The information contained in this document represents components of the legal health record. It is not the complete legal health record.[facility]
--- OUTSIDE RECORDS SUMMARY | 2025-07-01 10:33 | XMS_ITS | Patient Health Record ---
Author Organization [facility] [address] Address [address] [place] [address] Care Team Providers Care Credit Portfolio Advisor Name Role Phone BAYLEE PAVON Unavailable [phone] Allergies Allergen (clinical drug ingredient) Drug/Non Drug Allergy documented on EMR Reaction Allergy Type Onset Date Status meperidine Demerol Unknown Drug Allergy Active Reason For Referral No Information Medications Medication SIG (Take, Route, Frequency, Duration) [...] 1969 ABOUT N1 P ACK A DAY Problems Problem Type SNOMED Code ICD Code Onset Dates Problem Status W/U Status Risk Notes Problem Obesity due to excess calories (706921358) Other obesity due to excess calories (E66.09) Active confirmed Problem Overweight (773441776) Overweight (E66.3) Active confirmed Problem Lipid screening (802687616) Encounter for screening for lipoid disorders (Z13.220) Active confirmed Problem Adult health examination (334077025) Adult general medical exam (Z00.00) Active confirmed Problem Diabetes mellitus screening (456316427) Diabetes mellitus screening (Z13.1) Active confirmed Problem Body mass index 30.00 to 34.99 (119547557573645) Body mass index [BMI] 32.0-32.9, adult (Z68.32) Active confirmed Problem Gastroesophageal reflux disease with esophagitis (disorder) (666496648) Gastroesophageal reflux disease with esophagitis without hemorrhage (K21.00) Active confirmed Problem Mild intermittent asthma (138790681) Mild intermittent asthma without complication (J45.20) Active confirmed Problem Body mass index 30+ - obesity (284307141) BMI 30.0-30.9,adult (Z68.30) Active confirmed Problem Endocrine/metabolic screening (430603314) Encounter for screening for endocrine disorder (Z13.29) Active confirmed Vital Signs Heart Rate 92 /min 06/30/2025 Oximetry 97 % 06/30/2025 Blood pressure diastolic 80 mm Hg 06/30/2025 Height 59 in 06/30/2025 Blood pressure systolic 116 mm Hg 06/30/2025 Weight 142.8 lbs 06/30/2025 BMI 28.84 kg/m2 06/30/2025 Encounters Encounter Location Date Provider Diagnosis [facility] [address] [address] 01/13/2025 BAYLEE BORHOT [facility] [address] [address] 02/18/2025 BAYLEE BORHOT [facility] [address] [address] 08/11/2024 BAYLEE BORHOT BMI 27.0-27.9,adult Z68.27 ; Mild intermittent asthma without complication J45.20 ; Overweight E66.3 and Gastroesophageal reflux disease with esophagitis without hemorrhage K21.00 [facility] [address] [address] 10/01/2024 BAYLEE BORHOT BMI 27.0-27.9,adult Z68.27 ; Mild intermittent asthma without complication J45.20 ; Overweight E66.3 and Gastroesophageal reflux disease with esophagitis without hemorrhage K21.00 [facility] [address] [address] 11/23/2024 BAYLEE BORHOT BMI 27.0-27.9,adult Z68.27 ; Mild intermittent asthma without complication J45.20 ; Overweight E66.3 and Gastroesophageal reflux disease with esophagitis without hemorrhage K21.00 [facility] [address] 12/30/2024 BAYLEE BORHOT BMI 28.0-28.9,adult Z68.28 ; Dietary counseling and surveillance Z71.3 ; Mild intermittent asthma without complication J45.20 ; Overweight E66.3 and Gastroesophageal reflux disease with esophagitis without hemorrhage K21.00 [facility] [address] [address] 2025 BAYLEE BORHOT BMI 28.0-28.9,adult Z68.28 ; Dietary counseling and surveillance Z71.3 ; Mild intermittent asthma without complication J45.20 ; Overweight E66.3 and Gastroesophageal reflux disease with esophagitis without hemorrhage K21.00 [facility] [address] [facility] [address] [address] 06/30/2025 BAYLEE PAVON BMI 28.0-28.9,adult Z68.28 ; Dietary counseling and surveillance Z71.3 ; Mild intermittent asthma without complication J45.20 ; Overweight E66.3 ; Gastroesophageal reflux disease with esophagitis without hemorrhage K21.00 and Encounter for examination of blood pressure without abnormal findings Z01.30 [facility] [address] [facility] [address] [address] 07/13/2024 BAYLEE COLINDREST [facility] [address] [address] 07/30/2024 BAYLEE COLINDREST [facility] [address] [address] 10/02/2024 BAYLEE COLINDREST [facility] [address] [address] 10/16/2024 BAYLEE PAVON [facility] [address] [address] 11/13/2024 BAYLEE PAVON [facility] [address] [address] 2025 BAYLEE PAVON Adult general medica l exam Z00.00 ; Encounter for screening for lipoid disorders Z13.220 ; Diabetes mellitus screening Z13.1 and Encounter for screening for endocrine disorder Z13.29 [facility] [address] [address] 02/16/2025 BAYLEE PAVON [facility] [address] [facility] [address] [address] 02/16/2025 BAYLEE PAVON [facility] [address] [facility] [address] [address] 06/16/2025 BAYLEE COLINDREST [facility] [address] [address] 06/30/2025 BAYLEE PAVON Assessments Encounter Date Diagnosis (ICD Code) Assessment Notes Treatment Notes Treatment Clinical Notes Section Notes 08/11/2024 BMI 27.0-27.9,adult (ICD-10 - Z68.27) #Weight [...] track activity level. Consider using apps like [employer], [employer], lose it, stick as needed for self-monitoring and weight management. Consider group exercises. Consider hiring a personal development educator. Regular exercise is benavidez to sustainable health [...] counseling and psychiatry and Dr Bearden at [facility]. We would like to cover regular topics [...] and direct typing Please excuse inadvertent adult high school instructor or typing errors, or uncorrected word substitutions Although every attempt has been made by the provider to proofread this document, occasional misspellings and typographical errors may still be present Due to the previous pandemic, and the use of personal protective equipment (PPE) This may decrease voice recognition accuracy Inadvertent adult high school instructor errors may occur 10/01/2024 BMI 27.0-27.9,adult (ICD-10 [...] and direct typing Please excuse inadvertent adult high school instructor or typing errors, or uncorrected word substitutions Although every attempt has been made by the provider to proofread this document, occasional misspellings and typographical errors may still be present Due to the previous pandemic, and the use of personal protective equipment (PPE) This may decrease voice recognition accuracy Inadvertent adult high school instructor errors may occur 11/23/2024 BMI 27.0-27.9,adult (ICD-10 [...] and direct typing Please excuse inadvertent adult high school instructor or typing errors, or uncorrected word substitutions Although every attempt has been made by the provider to proofread this document, occasional misspellings and typographical errors may still be present Due to the previous pandemic, and the use of personal protective equipment (PPE) This may decrease voice recognition accuracy Inadvertent adult high school instructor errors may occur 12/30/2024 BMI 28.0-28.9,adult (ICD-10 - Z68.28) #Weight Management 12/30/2024 Discussed options for her. She seems amendable to maintenance dosing of Tirzepatide compounded. She will get back to us if this works financially Going for labs on Saturday from Dr. Perez@ [facility] Patient has been found to be [...] and direct typing Please excuse inadvertent adult high school instructor or typing errors, or uncorrected word substitutions Although every attempt has been made by the provider to proofread this document, occasional misspellings and typographical errors may still be present Due to the previous pandemic, and the use of personal protective equipment (PPE) This may decrease voice recognition accuracy Inadvertent adult high school instructor errors may occur 2025 Adult general medical exam (ICD-10 - Z00.00) 2025 BMI 28.0-28.9,adult (ICD-10 - Z68.28) #Weight Management 2025 Discussed options for her including adding Contrave. Will send rx and patient will set up her fill. Continue Tirzepatide compounded. She will get back to us if this works financially _update labs prior to next visit and upon return from [place] Patient has been found to be overweight [...] and direct typing Please excuse inadvertent adult high school instructor or typing errors, or uncorrected word substitutions Although every attempt has been made by the provider to proofread this document, occasional misspellings and typographical errors may still be present Due to the previous pandemic, and the use of personal protective equipment (PPE) This may decrease voice recognition accuracy Inadvertent adult high school instructor errors may occur 06/30/2025 BMI 28.0-28.9,adult (ICD-10 - Z68.28) #Weight Management 07/01/2025 Discussed options for her including adding Contrave It was a cheaper alternative to Taryn direct and Daphnie Nordisk She will get back to us if this works financially _update labs prior to next visit and upon return from [place] Patient has been found to be overweight [...] and direct typing Please excuse inadvertent adult high school instructor or typing errors, or uncorrected word substitutions Although every attempt has been made by the provider to proofread this document, occasional misspellings and typographical errors may still be present Due to the previous pandemic, and the use of personal protective equipment (PPE) This may decrease voice recognition accuracy Inadvertent adult high school instructor errors may occur 2025 Encounter for screening for lipoid disorders (ICD-10 - Z13.220) 06/30/2025 Dietary counseling and surveillance (ICD-10 - Z71.3) #Weight Management 07/01/2025 Discussed options for her including adding Contrave It was a cheaper alternative to Taryn direct and Daphnie Nordisk She will get back to us if this works financially _update labs prior to next visit and upon return from [place] Patient has been found to be overweight [...] and direct typing Please excuse inadvertent adult high school instructor or typing errors, or uncorrected word substitutions Although every attempt has been made by the provider to proofread this document, occasional misspellings and typographical errors may still be present Due to the previous pandemic, and the use of personal protective equipment (PPE) This may decrease voice recognition accuracy Inadvertent adult high school instructor errors may occur 2025 Dietary counseling and surveillance (ICD-10 - Z71.3) #Weight Management 2025 Discussed options for her including adding Contrave. Will send rx and patient will set up her fill. Continue Tirzepatide compounded. She will get back to us if this works financially _update labs prior to next visit and upon return from [place] Patient has been found to be overweight [...] and direct typing Please excuse inadvertent adult high school instructor or typing errors, or uncorrected word substitutions Although every attempt has been made by the provider to proofread this document, occasional misspellings and typographical errors may still be present Due to the previous pandemic, and the use of personal protective equipment (PPE) This may decrease voice recognition accuracy Inadvertent adult high school instructor errors may occur 12/30/2024 Dietary counseling and surveillance (ICD-10 - Z71.3) #Weight Management 12/30/2024 Discussed options for her. She seems amendable to maintenance dosing of Tirzepatide compounded. She will get back to us if this works financially Going for labs on Saturday from Dr. Perez@ [facility] Patient has been found to be [...] and direct typing Please excuse inadvertent adult high school instructor or typing errors, or uncorrected word substitutions Although every attempt has been made by the provider to proofread this document, occasional misspellings and typographical errors may still be present Due to the previous pandemic, and the use of personal protective equipment (PPE) This may decrease voice recognition accuracy Inadvertent adult high school instructor errors may occur 11/23/2024 Mild intermittent asthma [...] and direct typing Please excuse inadvertent adult high school instructor or typing errors, or uncorrected word substitutions Although every attempt has been made by the provider to proofread this document, occasional misspellings and typographical errors may still be present Due to the previous pandemic, and the use of personal protective equipment (PPE) This may decrease voice recognition accuracy Inadvertent adult high school instructor errors may occur 08/11/2024 Mild intermittent asthma [...] track activity level. Consider using apps like [employer], [employer], lose it, stick as needed for self-monitoring and weight management. Consider group exercises. Consider hiring a personal development educator. Regular exercise is benavidez to sustainable health [...] counseling and psychiatry and Dr Bearden at [facility]. We would like to cover regular topics [...] and direct typing Please excuse inadvertent adult high school instructor or typing errors, or uncorrected word substitutions Although every attempt has been made by the provider to proofread this document, occasional misspellings and typographical errors may still be present Due to the previous pandemic, and the use of personal protective equipment (PPE) This may decrease voice recognition accuracy Inadvertent adult high school instructor errors may occur 10/01/2024 Mild intermittent asthma [...] and direct typing Please excuse inadvertent adult high school instructor or typing errors, or uncorrected word substitutions Although every attempt has been made by the provider to proofread this document, occasional misspellings and typographical errors may still be present Due to the previous pandemic, and the use of personal protective equipment (PPE) This may decrease voice recognition accuracy Inadvertent adult high school instructor errors may occur 08/11/2024 Overweight (ICD-10 - [...] track activity level. Consider using apps like [employer], [employer], lose it, stick as needed for self-monitoring and weight management. Consider group exercises. Consider hiring a personal development educator. Regular exercise is benavidez to sustainable health [...] about local counseling and psychiatry and Dr Beardne at [facility]. We would like to cover regular topics [...] and direct typing Please excuse inadvertent adult high school instructor or typing errors, or uncorrected word substitutions Although every attempt has been made by the provider to proofread this document, occasional misspellings and typographical errors may still be present Due to the previous pandemic, and the use of personal protective equipment (PPE) This may decrease voice recognition accuracy Inadvertent adult high school instructor errors may occur 08/11/2024 Gastroesophageal reflux disease [...] track activity level. Consider using apps like [employer], [employer], lose it, stick as needed for self-monitoring and weight management. Consider group exercises. Consider hiring a personal development educator. Regular exercise is benavidez to sustainable health [...] counseling and psychiatry and Dr Bearden at [facility]. We would like to cover regular topics [...] and direct typing Please excuse inadvertent adult high school instructor or typing errors, or uncorrected word substitutions Although every attempt has been made by the provider to proofread this document, occasional misspellings and typographical errors may still be present Due to the previous pandemic, and the use of personal protective equipment (PPE) This may decrease voice recognition accuracy Inadvertent adult high school instructor errors may occur 10/01/2024 Overweight (ICD-10 - [...] and direct typing Please excuse inadvertent adult high school instructor or typing errors, or uncorrected word substitutions Although every attempt has been made by the provider to proofread this document, occasional misspellings and typographical errors may still be present Due to the previous pandemic, and the use of personal protective equipment (PPE) This may decrease voice recognition accuracy Inadvertent adult high school instructor errors may occur 12/30/2024 Mild intermittent asthma without complication (ICD-10 - J45.20) #Weight Management 12/30/2024 Discussed options for her. She seems amendable to maintenance dosing of Tirzepatide compounded. She will get back to us if this works financially Going for labs on Saturday from Dr. Perez@ [facility] Patient has been found to be [...] and direct typing Please excuse inadvertent adult high school instructor or typing errors, or uncorrected word substitutions Although every attempt has been made by the provider to proofread this document, occasional misspellings and typographical errors may still be present Due to the previous pandemic, and the use of personal protective equipment (PPE) This may decrease voice recognition accuracy Inadvertent adult high school instructor errors may occur 12/30/2024 Overweight (ICD-10 - E66.3) #Weight Management 12/30/2024 Discussed options for her. She seems amendable to maintenance dosing of Tirzepatide compounded. She will get back to us if this works financially Going for labs on Saturday from Dr. Perez@ [facility] Patient has been found to be [...] and direct typing Please excuse inadvertent adult high school instructor or typing errors, or uncorrected word substitutions Although every attempt has been made by the provider to proofread this document, occasional misspellings and typographical errors may still be present Due to the previous pandemic, and the use of personal protective equipment (PPE) This may decrease voice recognition accuracy Inadvertent adult high school instructor errors may occur 11/23/2024 Overweight (ICD-10 - [...] and direct typing Please excuse inadvertent adult high school instructor or typing errors, or uncorrected word substitutions Although every attempt has been made by the provider to proofread this document, occasional misspellings and typographical errors may still be present Due to the previous pandemic, and the use of personal protective equipment (PPE) This may decrease voice recognition accuracy Inadvertent adult high school instructor errors may occur 2025 Diabetes mellitus screening (ICD-10 - Z13.1) 2025 Mild intermittent asthma without complication (ICD-10 - J45.20) #Weight Management 2025 Discussed options for her including adding Contrave. Will send rx and patient will set up her fill. Continue Tirzepatide compounded. She will get back to us if this works financially _update labs prior to next visit and upon return from [place] Patient has been found to be overweight [...] and direct typing Please excuse inadvertent adult high school instructor or typing errors, or uncorrected word substitutions Although every attempt has been made by the provider to proofread this document, occasional misspellings and typographical errors may still be present Due to the previous pandemic, and the use of personal protective equipment (PPE) This may decrease voice recognition accuracy Inadvertent adult high school instructor errors may occur 06/30/2025 Mild intermittent asthma without complication (ICD-10 - J45.20) #Weight Management 07/01/2025 Discussed options for her including adding Contrave It was a cheaper alternative to Taryn direct and Daphnie Nordisk She will get back to us if this works financially _update labs prior to next visit and upon return from [place] Patient has been found to be overweight [...] and direct typing Please excuse inadvertent adult high school instructor or typing errors, or uncorrected word substitutions Although every attempt has been made by the provider to proofread this document, occasional misspellings and typographical errors may still be present Due to the previous pandemic, and the use of personal protective equipment (PPE) This may decrease voice recognition accuracy Inadvertent adult high school instructor errors may occur 06/30/2025 Gastroesophageal reflux disease with esophagitis without hemorrhage (ICD-10 - K21.00) #Weight Management 07/01/2025 Discussed options for her including adding Contrave It was a cheaper alternative to Taryn direct and Daphnie Nordisk She will get back to us if this works financially _update labs prior to next visit and upon return from [place] Patient has been found to be overweight [...] and direct typing Please excuse inadvertent adult high school instructor or typing errors, or uncorrected word substitutions Although every attempt has been made by the provider to proofread this document, occasional misspellings and typographical errors may still be present Due to the previous pandemic, and the use of personal protective equipment (PPE) This may decrease voice recognition accuracy Inadvertent adult high school instructor errors may occur 2025 Encounter for screening for endocrine disorder (ICD-10 - Z13.29) 06/30/2025 Overweight (ICD-10 - E66.3) #Weight Management 07/01/2025 Discussed options for her including adding Contrave It was a cheaper alternative to Taryn direct and Daphnie Nordisk She will get back to us if this works financially _update labs prior to next visit and upon return from [place] Patient has been found to be overweight [...] and direct typing Please excuse inadvertent adult high school instructor or typing errors, or uncorrected word substitutions Although every attempt has been made by the provider to proofread this document, occasional misspellings and typographical errors may still be present Due to the previous pandemic, and the use of personal protective equipment (PPE) This may decrease voice recognition accuracy Inadvertent adult high school instructor errors may occur 2025 Gastroesophageal reflux disease with esophagitis without hemorrhage (ICD-10 - K21.00) #Weight Management 2025 Discussed options for her including adding Contrave. Will send rx and patient will set up her fill. Continue Tirzepatide compounded. She will get back to us if this works financially _update labs prior to next visit and upon return from [place] Patient has been found to be overweight [...] and direct typing Please excuse inadvertent adult high school instructor or typing errors, or uncorrected word substitutions Although every attempt has been made by the provider to proofread this document, occasional misspellings and typographical errors may still be present Due to the previous pandemic, and the use of personal protective equipment (PPE) This may decrease voice recognition accuracy Inadvertent adult high school instructor errors may occur 2025 Overweight (ICD-10 - E66.3) #Weight Management 2025 Discussed options for her including adding Contrave. Will send rx and patient will set up her fill. Continue Tirzepatide compounded. She will get back to us if this works financially _update labs prior to next visit and upon return from [place] Patient has been found to be overweight [...] and direct typing Please excuse inadvertent adult high school instructor or typing errors, or uncorrected word substitutions Although every attempt has been made by the provider to proofread this document, occasional misspellings and typographical errors may still be present Due to the previous pandemic, and the use of personal protective equipment (PPE) This may decrease voice recognition accuracy Inadvertent adult high school instructor errors may occur 11/23/2024 Gastroesophageal reflux disease with esophagitis without hemorrhage (ICD-10 - K21.00) #Weight Management 11/23/2024 Will give her dose of 2.5 mg today here in office of Roselyn[facility] Will work on getting [employer] covered Patient [...] and direct typing Please excuse inadvertent adult high school instructor or typing errors, or uncorrected word substitutions Although every attempt has been made by the provider to proofread this document, occasional misspellings and typographical errors may still be present Due to the previous pandemic, and the use of personal protective equipment (PPE) This may decrease voice recognition accuracy Inadvertent adult high school instructor errors may occur 12/30/2024 Gastroesophageal reflux disease with esophagitis without hemorrhage (ICD-10 - K21.00) #Weight Management 12/30/2024 Discussed options for her. She seems amendable to maintenance dosing of Tirzepatide compounded. She will get back to us if this works financially Going for labs on Saturday from Dr. Perez@ [facility] Patient has been found to be [...] and direct typing Please excuse inadvertent adult high school instructor or typing errors, or uncorrected word substitutions Although every attempt has been made by the provider to proofread this document, occasional misspellings and typographical errors may still be present Due to the previous pandemic, and the use of personal protective equipment (PPE) This may decrease voice recognition accuracy Inadvertent adult high school instructor errors may occur 10/01/2024 Gastroesophageal reflux disease [...] and direct typing Please excuse inadvertent adult high school instructor or typing errors, or uncorrected word substitutions Although every attempt has been made by the provider to proofread this document, occasional misspellings and typographical errors may still be present Due to the previous pandemic, and the use of personal protective equipment (PPE) This may decrease voice recognition accuracy Inadvertent adult high school instructor errors may occur 06/30/2025 Encounter for examination of blood pressure without abnormal findings (ICD-10 - Z01.30) #Weight Management 07/01/2025 Discussed options for her including adding Contrave It was a cheaper alternative to Taryn direct and Daphnie Nordisk She will get back to us if this works financially _update labs prior to next visit and upon return from [place] Patient has been found to be overweight [...] and direct typing Please excuse inadvertent adult high school instructor or typing errors, or uncorrected word substitutions Although every attempt has been made by the provider to proofread this document, occasional misspellings and typographical errors may still be present Due to the previous pandemic, and the use of personal protective equipment (PPE) This may decrease voice recognition accuracy Inadvertent adult high school instructor errors may occur 07/31/2024 #Weight Management 07/31/2024 followup on labs* She [...] track activity level. Consider using apps like [employer], [employer], lose it, stick as needed for self-monitoring and weight management. Consider group exercises. Consider hiring a personal development educator. Regular exercise is benavidez to sustainable health [...] counseling and psychiatry and Dr Bearden at [facility]. We would like to cover regular topics [...] and direct typing Please excuse inadvertent adult high school instructor or typing errors, or uncorrected word substitutions Although every attempt has been made by the provider to proofread this document, occasional misspellings and typographical errors may still be present Due to the previous pandemic, and the use of personal protective equipment (PPE) This may decrease voice recognition accuracy Inadvertent adult high school instructor errors may occur Plan Of Treatment Pending Test Test Name Order Date LIPID PANEL, STANDARD 2025 COMPREHENSIVE METABOLIC PANEL 2025 CBC (INCLUDES DIFF/PLT) 2025 URINALYSIS, COMPLETE 2025 HEMOGLOBIN A1c 2025 TSH W/REFLEX TO FT4 2025 Next Appt Details Provider Name:BAYLEE PAVON, 08/11/2025 02:45:00 PM, [address], [address], [place], [address], Insurance Providers Payer Name Payer Address Payer Phone Subscriber Number Group Number Insured Name Patient Relationship to Insured Coverage Start Date Coverage End Date [employer] [address] [address] NOEMI GAMEZ [id number] DANIELITO BIRMINGHAM Self - patient is the insured 5 [employer] of [place] s [address] [place] [address] [phone] [id number] DANIELITO BIRMINGHAM Self - patient is the insured 5 Medications Administered Medication Instructions Date of Administration Dosage Notes MICC B12 INJECTION 08/30/2021 1 ANDREA [facility]ARM LOT#[id number] MICC B12 INJECTION 11/14/2021 MICC B12 INJECTION 12/20/2021 1 mL MICC B12 INJECTION 02/22/2022 lot # [id number] MICC B12 INJECTION 04/11/2022 MICC B12 INJECTION 09/26/2022 MICC B12 INJECTION 11/07/2022 MICC B12 INJECTION 12/19/2022 MICC B12 INJECTION 01/31/2023 1 MICC B12 INJECTION 09/12/2023 MICC B12 INJECTION 01/15/2024 MICC B12 INJECTION 10/01/2024 1 mg Semaglutide 02/18/2025 .5 mg Tirzepatide 11/23/2024 2.5 mg Tirzepatide 12/30/2024 2.5 mg Tirzepatide 01/13/2025 2.5 mg Tirzepatide 2025 2.5 mg Medical (General) History Medical History History ICD Code asthma Gout anxiety allergic rhinitis Surgical History Surgery Date(Month/Year) lumpectomy, right breast 2000 section 1975 cholecystectomy 02/2005
--- OUTSIDE RECORDS SUMMARY | 2025-07-01 10:33 | XMS_ITS | Clinical Summary ---
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 Active magnesium oxide 250 mg magnesium tablet [...] Inhale into the lungs daily. - Inhalation Active albuterol HFA (PROVENTIL HFA;VENTOLIN HFA) 108 (90 Base) MCG/ACT inhaler INHALE 2 PUFFS INTO THE LUNGS EVERY 4 HOURS NEEDED FOR COUGH, WHEEZING OR SHORTNESS OF BREATH Active fluocinolone acetonide oiL 0.01 % drops Place 3 Drops in ear(s) as needed (ear itching). 50 each 1 4 Active ammonium lactate (AMLACTIN) 12 % cream Apply topically at bedtime. Both heels dry skin 770 g 5 12/07/19 26 Active sertraline (ZOLOFT) 25 mg tablet Take 1 tablet (25 mg total) by mouth 1 (one) time each day. Active aspirin 81 mg chewable tablet Chew 1 tablet (81 mg total) 1 (one) time each day. Active mometasone/form oterol (DULERA INHL) Inhale by mouth. 2 puffs twice a day Active predniSONE (DELTASONE) 20 mg tablet Take 60 mg PO daily for 3 days, then take 40 mg PO daily for 3 days, then 20 mg PO daily for 3 days, then stop 18 tablet 5 Active zafirlukast (Accolate) 20 mg tablet Take 1 tablet (20 mg total) by mouth 2 (two) times a day. 180 each 5 Active calcium carbonate-vitam in D3 600 mg-5 mcg (200 unit) per tablet TAKE 1 TABLET BY MOUTH EVERY DAY 90 tablet 1 5 Active rosuvastatin (CRESTOR) 20 mg tabletIndicatio ns:Pure hypercholestero lemia, unspecified TAKE 1 TABLET BY MOUTH EVERY DAY 90 tablet 1 5 Active Vitamin D3 25 mcg (1,000 unit) tabletIndicatio ns:Vitamin D deficiency TAKE 2 TABLETS BY MOUTH DAILY 180 tablet 1 5 Active ammonium lactate (AMLACTIN) 12 % cream Apply topically if needed for dry skin. 560 g 5 06/10/20 26 Active Active Problems Problem Noted Date Diagnosed Date Vitamin D deficiency 12/29/2024 Age-related osteoporosis latosha torres current pathological fracture 12/29/2024 Stress incontinence 10/23/2024 BPPV (benign paroxysmal posi tional vertigo), unspecified laterality 09/21/2024 Asthma, moderate persistent 08/14/2024 Chronic back pain 08/14/2024 Gastropathy 08/14/2024 GERD (gastroesophageal reflux disease) Overview (08/14/2024): Refractory GERD despite trying multiple PPIs, H2 blockers and [id number] antacids. Upper endoscopy in March 2020 was [...] stools 08/14/2024 Coronary artery disease invo lving [place] coronary artery of [place] heart without angina pectoris 08/09/2023 Overview (08/14/2024): [...] Overview (08/14/2024): May/2023, likely from travel to/from [place], treated with Paxlovid Abnormal MRI, shoulder 01/30/2022 Overview (08/14/2024): Focal bony abnormality in the proximal humerus as described above. Principal differential diagnostic considerations include but are not limited to enchondroma, chondrosarcoma, bone infarct and metastasis. CT and whole body bone scan are recommended for further evaluation. Pt [facility] with [facility] Orth[facility] On[facility] Dr. Cueva. Repeat MRI W/WO [...] removed. Also has a pathology report from [place] dated 01/2009 with fundic gland polyp Aortic [...] cardiac CT scan as recommended by the [place] [employer] chest pain guidelines. Osteopenia 03/22/2020 12/29/2024 Encounters Date Type Department Care Team Description 06/21/2025 Telephone Adult [address] [phone] Saba Solorzano MD 06/21/2025 Telephone Adult Medicine [address] [phone] Saba Solorzano MD 06/21/2025 Telephone Adult [address] [phone] Saba Solorzano MD 06/10/2025 1:00 PM EDT Office Visit Orthopedic Surgery - [address] [phone] Gus Judge, DPM Xerosis of skin (Primary Dx); Verruca plantaris 05/18/2025 Telephone Adult Medicine [address] [phone] Avis Sky MA 05/17/2025 Telephone Adult Medicine [address] [phone] Avis Sky MA from Last 3 Months Immunizations Name Administration [...] EGD TRANSORAL BIOPSY SINGLE/MULTIPLE; COMMENT: Performed in [place] UPPER GASTROINTESTINAL ENDOSCOPY 04/26/2020 PROCEDURE: UPPER GI ENDOSCOPY/EXAM; COMMENT: negative, biopsy shows reactive gastropathy without H. pylori STEREOTACTIC BREAST BIOPSY 04/26/2015 Left PROCEDURE: STEREOTACTIC BREAST BIOPSY; COMMENT: Negative for malignancy UPPER GASTROINTESTINAL ENDOSCOPY 01/05/2015 PROCEDURE: GA UPPER GI ENDOSCOPY PERFORMED; COMMENT: Gastric polyp x 3 - COLONOSCOPY 2011 PROCEDURE: HISTORICAL COLONOSCOPY; COMMENT: In [place]. Patient reports clear OTHER SURGICAL HISTORY 12/29/2020 PROCEDURE: GA ESOPHAGEAL MOTILITY STUDY W/INTERP&RPT; COMMENT: [facility]; small sliding hiatal hernia suggested, otherwise normal. OTHER SURGICAL HISTORY 12/29/2020 PROCEDURE: ACID REFLUX TEST OF ESOPHAGUS; COMMENT: [facility]; 24 hour ambulatory impedance-pH study off meds: positive for acid reflux. BREAST BIOPSY 2015 Left PROCEDURE: BX BREAST; PERC NEEDLE CORE [...] removed. Also has a pathology report from [place] dated 01/2009 with fundic gland polyp Abdominal [...] DX:History of breast cancer in female; COMMENT: [id number] wide local excision & axillary node dissection [...] 2 Paternal Grandfather Paternal Grandmother Sister 1 Neida Alive Sister 2 Milagros Alive Sister 3 [...] Sign Reading Time Taken Comments Blood Pressure 118/62 02/12/2025 8:53 AM EDT Pulse 86 02/12/2025 8:53 AM EDT Temperature 36.4 C (97.5 F) 02/12/2025 8:53 AM EDT Respiratory Rate 16 02/12/2025 8:53 AM EDT Oxygen Saturation 98% 02/12/2025 8:53 AM EDT Inhaled Oxygen Concentration - - Weight 62.9 kg (138 lb 9.6 oz) 02/12/2025 8:53 A M EDT Height 152.4 cm (5') 02/12/2025 8:53 AM EDT Body Mass Index 27.07 02/12/2025 8:53 AM EDT Plan of Treatment Upcoming Encounters Date Type Department Care Team (Late st Contact Info) Description 07/02/2025 3:00 PM EDT Ancillary Procedure [facility] Cardiology [facility] [address] [facility] [address] [place] [phone] 07/07/2025 2:30 PM EDT Consult Neurosurgery [place] [facility] [place] [facility] [address] [place] [phone] Soren Jaimes PA 175 [facility] [address] [place] [address] 07/22/2025 1:30 PM EDT Office Visit Adult Medicine [facility] [address] [place] [phone] Saba Solorzano MD [address] [place] [phone] 07/28/2025 3:30 PM EDT Office Visit Orthopedic Surgery - [place] [address] [phone] Gus Judge DPM [address] [phone] 08/03/2025 3:30 PM EDT Office Visit [facility] Cardiology [facility] [address] [place] [phone] Yan Hilario MD [address] [place] [address] [address] [place] [phone] Health Maintenance Due Date Last Done Comments Falls Risk Assessment 10/06/2022 Social Influencers of Health Screening 10/06/2022 Medicare Annual Wellness Visit 09/27/2024 09/27/2023 Depression Screening 10/28/2024 09/27/2023 COVID-19 Vaccine ( season) 2025 07/21/2024, 12/13/2022, 09/09/2021, Additional history exists Influenza Vaccine (#1) 2025 , 08/10/2023, 08/22/2022, Additional history exists Hypertension/CHF/CAD Annual BMP Blood Test 01/01/2026 01/01/2025, [...] 09/25/2023 Zoster Vaccines Completed 01/10/2024, 07/28, 08/02/2009 HIB Vaccines Aged Out No longer eligi [...] age to complete this topic Meningococcal B Vaccine Aged Out No l onger eligible based on patient's age to complete [...] track(10/15/20 24 3:25 PM EST) No Aurora Curtis G, OT Note: No nystag w/ repeat positonal testing all 10/15 MET No reported dizziness w/ bed mob 10/15 MET Indep HEP if/when indic 10/15 MET Procedures Procedure Name Priority Date/Time Associated Diagnosis Comments COMPREHENSIVE METABOLIC PANEL Routine 01/01/2025 7:43 AM EST Pure hypercholesterolemia LIPID PANEL WITH REFLEX TO DIRECT LDL Routine 01/01/2025 7:43 AM EST Pure hypercholesterolemia [facility] SCREENING DIGITAL Routine 08/21/2024 1:08 PM EDT Encounter for screening mammogram for malignant neoplasm of breast [facility] DEXA AXIAL SKELETON Routine 07/24/2024 1:14 [...] LAB CHEMISTRY METHOD 01/01/2025 10:18 AM EST [facility] Triglycerides 94 0 - 150 mg/dL LAB CHEMISTRY METHOD 01/01/2025 10:18 AM EST [facility] HDL 79 >=40 mg/dL LAB CHEMISTRY METHOD 01/01/2025 10:18 AM [facility] LDL Calculated 60 0 - 100 mg/dL LAB CHEMISTRY METHOD 01/01/2025 10:18 AM [facility] VLDL Cholesterol Reji 18.8 mg/dL LAB CHEMISTRY METHOD 01/01/2025 10:18 AM [facility] Non HDL Chol. (LDL+VLDL) 79 <145 mg/dL LAB CHEMISTRY METHOD 01/01/2025 10:18 AM [facility] Chol/HDL Ratio 2.0 0.0 - 4.4 LAB CHEMISTRY METHOD 01/01/2025 10:18 AM [facility] Blood Venous blood specimen / Unknown Venipuncture / Unknown 01/01/2025 7:43 AM EST 01/01/2025 7:43 AM EST Yan Hilario MD LAB BLOOD ORDERABLES F inal Result [facility] [address] [place] [address], * Comprehensive metabolic panel (01/01/2025 7:43 AM EST) Sodium 142 133 - 145 mmol/L LAB CHEMISTRY METHOD 01/01/2025 10:21 AM [facility] Potassium 3.8 3.5 - 5.5 mmol/L LAB CHEMISTRY METHOD 01/01/2025 10:21 AM [facility] Chloride 108 96 - 110 mmol/L LAB CHEMISTRY METHOD 01/01/2025 10:21 AM [facility] CO2 26 21 - 32 mmol/L LAB CHEMISTRY METHOD 01/01/2025 10:21 AM [facility] Anion Gap 8 3 - 11 LAB CHEMISTRY METHOD 01/01/2025 10:21 AM [facility] Glucose 79 70 - 100 mg/dL LAB CHEMISTRY METHOD 01/01/2025 10:21 AM [facility] BUN 15 5 - 25 mg/dL LAB CHEMISTRY METHOD 01/01/2025 10:21 AM [facility] Creatinine 0.70 0.50 - 1.10 mg/dL LAB CHEMISTRY METHOD 01/01/2025 10:21 AM [facility] eGFR 91 >=60 mL/min/1. 73m2 LAB CHEMISTRY METHOD 01/01/2025 10:21 AM [facility] Comment:Calculation based on the Chronic Kidney Disease Epidemiology Collaboration (CKD-EPI) equation refit without adjustment for race. BUN/Creatinine Ratio 21.4 LAB CHEMISTRY METHOD 01/01/2025 10:21 AM [facility] Calcium 9.6 8.5 - 10.5 mg/dL LAB CHEMISTRY METHOD 01/01/2025 10:21 AM [facility] AST (SGOT) 23 10 - 42 unit/L LAB CHEMISTRY METHOD 01/01/2025 10:21 AM [facility] ALT (SGPT) 26 10 - 60 unit/L LAB CHEMISTRY METHOD 01/01/2025 10:21 AM [facility] Alkaline Phosphatase 106 42 - 121 unit/L LAB CHEMISTRY METHOD 01/01/2025 10:21 AM [facility] Total Protein 7.1 6.0 - 8.0 g/dL LAB CHEMISTRY METHOD 01/01/2025 10:21 AM [facility] Albumin 3.8 3.2 - 5.0 g/dL LAB CHEMISTRY METHOD 01/01/2025 10:21 AM [facility] Total Bilirubin 0.5 0.0 - 1.4 mg/dL LAB CHEMISTRY METHOD 01/01/2025 10:21 AM [facility] Blood Venous blood specimen / Unknown Venipuncture / Unknown 01/01/2025 7:43 AM EST 01/01/2025 7:43 AM EST us Yan Hilario MD LAB BLOOD ORDERABLES F inal Result [facility] [address] [place] [address], * BRETT SCREENING DIGITAL (08/21/2024 1:08 PM EDT) Anatomical Region Laterality Modality Mammography 08/20/2024 3:10 PM EDT Narrative 08/21/2024 1:08 PM EDT [facility] Diagnostic Imaging Department [address] [place] [id number] Patient: SILVINO SANCHEZJESSI Lonnie WernerB./Age/Sex: 1950 - 74 - F Unit#: [id number] [facility] Ordering Physician: SABA SOLORZANO MD [facility] Screening Digital - 08/20/24 - 1535 Report Status:Signed EXAM: [facility] Screening Digital EXAM DATE AND TIME: 08/20/2024 3:36 PM HISTORY: Annual screening. History of right breast cancer. COMPARISON: 07/18/2020 and 04/23/2019 TECHNIQUE: Bilateral digital breast tomosynthesis was performed in the CC and MLO projections. Computer aided detection with COTA Track 7.2-H and [email or web address] 3D 3.1 was employed. TISSUE DENSITY: b. There are scattered areas of fibroglandular density. FINDINGS: No suspicious masses, grouped microcalcifications, or areas of architectural distortion are seen. The skin and vascularity are unremarkable. Stable lumpectomy changes in the right breast. Bilateral benign-appearing calcifications. Biopsy marker in the left breast. IMPRESSION: Stable mammographic appearance of the breasts. No evidence of malignancy is seen. A negative mammogram in the presence of a clinically suspicious palpable abnormality does not preclude the possibility of malignancy or alter the indications for biopsy. BI-RADS: Category 2: Benign RECOMMENDATION(S): 1: Routine screening mammogram BILATERAL in 1 year. Dictating Physician: FREDY CAR MD Electronically Signed by: FREDY CAR MD Dic Date/Time: 08/21/24 1306 Sign date/Time: 08/21/24 1308 Procedure Note Fredy Car MD - 08/29/2024 [facility] Diagnostic Imaging Department [address] [place] [id number] Patient: SILVINO SANCHEZJESSI Lonnie /Age/Sex: 1950 - 74 - F Unit#: [id number] Location/Status: [facility] CLI Mnemonic/Ordering Site: [facility] Ordering Physician: SABA SOLORZANO MD [facility] Screening Digital - 08/20/24 - 1535 Report Status:Signed EXAM: [facility] Screening Digital EXAM DATE AND TIME: 08/20/2024 3:36 PM HISTORY: Annual screening. History of right breast cancer. COMPARISON: 07/18/2020 and 04/23/2019 TECHNIQUE: Bilateral digital breast tomosynthesis was performed in the CCand MLO projections. Computer aided detection with COTA Track 7.2-H [email or web address] 3D 3.1 was employed. TISSUE DENSITY: b. [...] MD IMG BI PROCEDURES Final Result * BRETT DEXA AXIAL SKELETON (07/24/2024 1:14 PM EDT) Anatomical Region Laterality Modality Mammography 07/23/2024 2:29 PM EDT Narrative 07/24/2024 1:14 PM EDT [facility] Diagnostic Imaging Department [address] [place] [address] Patient: DUBOISBRAN SANCHEZJESSI D.O.B./Age/Sex: 1950 - 74 - F Unit#: [id number] Location/Status: [facility]REG CLI [facility] Ordering Physician: SABA SOLORZANO MD [facility] Dexa Axial Skeleton - 07/23/24 - Report Status:Signed History: Low estrogen state due to menopause. Parent hip fracture. On omeprazole. Comparison: No comparison imaging. Findings: Bone densitometry is performed utilizing dual energy x-ray absorptiometry (DXA) in the Shared Spectrum[employer]endr unit. The lumbar spine and proximal femora are evaluated in the AP projection. The FRAX questionaire was completed. The results indicate osteoporosis, with a right femoral neck T-score of -3.3. The Z score is -1.4, indicating low bone mineral density for age. The detailed DEXA report will be mailed to the referring physician's office. DualFemur FRAX: 10-year Probability of Fracture: Major Osteoporotic 27.0 percent Hip 18.1 percent. IMPRESSION: Osteoporosis. [id number] Dictating Physician: YESSI SULLIVAN MD Electronically Signed by: YESSI SULLIVAN MD Dic Date/Time: 07/24/241313 Sign date/Time: 07/24/241313 Procedure Note Yessi Sullivan MD - 08/12/2024 [facility] Diagnostic Imaging Department [address] [place] [address] Patient: DUBOIS SANCHEZJESSI./Age/Sex: 1950 - 74 - F Unit#: [id number] Location/Status: [facility]REG CLI [facility] Ordering Physician: SABA SOLORZANO MD Brett Dexa Axial Skeleton - 07/23/24 - Report Status:Signed History: Low estrogen state due to menopause. Parent hip fracture. On omeprazole. Comparison: No comparison imaging. Findings: Bone densitometry is performed utilizing dual energy x-ray absorptiometry(DXA) in the [employer] unit. The lumbar spine and proximal femora [...] 27.0 percent Hip 18.1 percent. IMPRESSION: Osteoporosis. [id number] Dictating Physician: YESSI SULLIVAN MD Electronically Signed by: YESSI SULLIVAN MD Dic Date/Time: 07/24/24 131 Sign date/Time: 07/24/24 1314 Saba Solorzano MD IMG BI PROCEDURES Final Result * Colonoscopy (12/31/2023) [facility] Colonoscopy no interpretation , abstracted Anatomical Region Laterality Modality Other Historical Provider HEALTH MAINTENANCE Final Result * Depression Screening (09/27/2023) [facility] Depression Screening ABSTRACTED Result [facility] Provider HEALTH MAINTENANCE Final Result * Hepatitis C Screening (04/01/2020) [facility] Hepatitis C Screening ABSTRACTED Result [facility] Heart Historical Arti ADHIKARI HEALTH MAINTENANCE Final Result from Last 3 Months or Most Recently Relevant to Health Maintenance Insurance [employer] MEDICARE ADVANTAGE Care 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
== END 2025-07-01 10:18 | disposition home or self-care (01) ==
LOC: HO.HSM 09:41
PROVIDERS: PCP Internal Medicine; Referring Provider Internal Medicine; Visit Provider Psychiatry & Neurology Neurology
DX: G31.84 Mild cognitive impairment of uncertain or unknown etiology (principal)
CPT/HCPCS: 99204

== ENCOUNTER 2025-08-15 14:57 | Outpatient (REF) | payer MEDICARE, SELFPAY ==
--- OUTSIDE RECORDS SUMMARY | 2025-01-13 04:30 | XMS_ITS ---
Author Organization [facility] [address] Address [address] [place] [address] Care Team Providers Care Gathering Machine Setter Name Role Phone FERVONDA BAYLEE Unavailable [phone] REASON FOR VISIT Pt here for Tirzepatide 2.5mg on RLQ sub q, pt tolerated well with no reaction. Medications Medication SIG (Take, Route, Frequency, Duration) Notes Start Date End Date Status Wegovy 0.25 MG/0.5ML 0.25mg Subcutaneous weekly; Duration: 30 days Active Rosuvastatin Calcium 10 MG 1 tablet Orally Once a day Active busPIRone HCl 5 MG 1 tablet Orally Twic e a day Active Calcium + D3 600-800 MG-UNIT 1 tablet with a meal Orally Once a day Active Omeprazole 40 MG 1 capsule 30 minutes before morning meal Orally Once a day Active Linzess 145 MCG 1 capsule at least 3 0 minutes before the first meal of the day on an empty stomach Orally Once a day; Duration: 30 days Active Encounters Encounter Location Date Provider Diagnosis [facility] [address] [address] 01/13/2025 BAYLEE PAVON Plan Of Treatment Next Appt Details Provider Name:BAYLEE PAVON, 09/22/2025 10:45:00 AM, [address] [address], [place], [address], Medications Administered Medication Instructions Date of Administration Dosage Notes Tirzepatide 01/13/2025 2.5 mg Progress Notes * DION DALEY:11/1949 (75 yo F)Acc No.[id number]:01/13/2025 Patient: N DANIELITO KEYES Provider: Maribeth PAVON NP :1950 A ge:74 Y S ex:Female Date:01/13/2025 Address:[address] [place], [place] [id number] Subjective: * Chief Complaints: * 1 . Pt here for Tirzepatide 2.5mg on RLQ sub q, pt tolerated well with no reaction.. * Medical History: * Medications: T aking Linzess 145 MCG Capsule 1 capsule at least 30 minutes before the first meal of the day on an empty stomach Orally Once a day , Taking Wegovy 0.25 MG/0.5ML Solution Auto-injector 0.25mg Subcutaneous weekly , Taking Rosuvastatin Calcium 10 MG Tablet 1 tablet Orally Once a day , Taking busPIRone HCl 5 MG Tablet 1 tablet Orally Twice a day , Taking Calcium + D3 600-800 MG-UNIT Tablet 1 tablet with a meal Orally Once a day , Taking Omeprazole 40 MG Capsule Delayed Release 1 capsule 30 minutes before morning meal Orally Once a day Objective: * Vitals: Assessment: Plan: * Treatment: * Therapeutic Injections: Tirzepatide : 2.5 mg (Route: Subcutaneous) given by Osvaldo Bowen on subcutaneus * Images: Billing Information: * Visit Code: * Procedure Codes: * Electronic signature of PETER PAVON on 08/15/2025 at 03:01 PM EDT Sign off status: Pending * Provider: Maribeth PAVON NP Date: 0 01/13/2025 Generated for Ruy saldana/Syl/Ayaka on: 03:01 PM EDT
--- OUTSIDE RECORDS SUMMARY | 2025-02-18 04:15 | XMS_ITS ---
Author Organization [facility] [address] [address] Address [address] [place] [address] Care Team Providers Care Financial Sales Advisor Name Role Phone BAYLEE PAVON Unavailable [phone] REASON FOR VISIT 2.5mg Encounters Encounter Location Date Provider Diagnosis [facility] [address] [place] [address] 02/18/2025 BAYLEE PAVON Plan Of Treatment Next Appt Details Provider Name:BAYLEE PAVON, 09/22/2025 10:45:00 AM, [address], [address], [place], [address], Progress Notes * DUBOIS-CHAGO SANCHEZB:11/1949 (75 yo F)Acc No.[id number]:02/18/2025 Patient: Shabana JONESCHONG DANIELITO Provider: Maribeth PAVON NP :1950 A ge:75 Y S ex:Female Date:02/18/2025 Address:[address] [place], [place] [id number] Subjective: * Chief Complaints: * 1 . 2.5mg. * Medical History: Objective: * Vitals: Assessment: Plan: * Treatment: * Images: Billing Information: * Visit Code: * Procedure Codes: * Electronic signature of PETER PAVON on 08/15/2025 at 03:01 PM EDT Sign off status: Pending * Provider: Maribeth PAVON NP Date: 0 02/18/2025 Generated for Ruy saldana/Syl/eTransmitting on: 03:01 PM EDT
--- OUTSIDE RECORDS SUMMARY | 2025-02-18 09:00 | XMS_ITS ---
Author Organization [facility] Address [address] [place] [address] Care Team Providers Care Appliquer Name Role Phone SAVANAH BAYLEE Unavailable [phone] REASON FOR VISIT Pt here for SEMA .5mg on LLQ sub q, pt tolerated well with no reaction. Medications Medication SIG (Take, Route, Frequency, Duration) Notes Start Date End Date Status Omeprazole 40 MG 1 capsule 30 minutes before morning meal Orally Once a day Active Contrave 8-90 MG Week 1, take 1 table t in the morning Week 2 take 1 tablet in the morning, 1 tablet in the evening Week 3 take 2 tablets in the morning, 1 tablet in the evening Week 4 onward 2 tablets in the morning, 2 tablets in the evening Orally twice a day; Duration: 30 days 2025 Active Rosuvastatin Calcium 10 MG 1 tablet Orally Once a day Active busPIRone HCl 5 MG 1 tablet Orally Twic e a day Active Calcium + D3 600-800 MG-UNIT 1 tablet with a meal Orally Once a day Active Tirzepatide 2.5 MG/0.5ML as directed Subcutaneous Active Linzess 145 MCG 1 capsule at least 3 0 minutes before the first meal of the day on an empty stomach Orally Once a day; Duration: 30 days Active Wegovy 0.25 MG/0.5ML 0.25mg Subcutaneous weekly; Duration: 30 days Active Encounters Encounter Location Date Provider Diagnosis [facility] [address] [facility] [address] [place] [address] 02/18/2025 BAYLEE PAVON Plan Of Treatment Next Appt Details Provider Name:BAYLEE PAVON, 09/22/2025 10:45:00 AM, [address] [facility], [address], Medications Administered Medication Instructions Date of Administration Dosage Notes Semaglutide 02/18/2025 .5 mg Progress Notes * CHAGO DALEYB:11/1949 (75 yo F)Acc No.[id number]:02/18/2025 Patient: DANIELITO LACEY Provider: Maribeth PAVON NP :1950 A ge:75 Y S ex:Female Date:02/18/2025 Address:[address] [place] [address] Subjective: * Chief Complaints: * 1 . Pt here for SEMA .5mg on LLQ sub q, pt tolerated well with no reaction.. * Medical History: * Medications: T aking Linzess 145 MCG Capsule 1 capsule at least 30 minutes before the first meal of the day on an empty stomach Orally Once a day , Taking Wegovy 0.25 MG/0.5ML Solution Auto-injector 0.25mg Subcutaneous weekly , Taking Tirzepatide 2.5 MG/0.5ML Solution Auto-injector as directed Subcutaneous , Taking Rosuvastatin Calcium 10 MG Tablet 1 tablet Orally Once a day , Taking busPIRone HCl 5 MG Tablet 1 tablet Orally Twice a day , Taking Calcium + D3 600-800 MG-UNIT Tablet 1 tablet with a meal Orally Once a day , Taking Omeprazole 40 MG Capsule Delayed Release 1 capsule 30 minutes before morning meal Orally Once a day , Taking Contrave 8-90 MG Tablet Extended Release 12 Hour Week 1, take 1 tablet in the morning Week 2 take 1 tablet in the morning, 1 tablet in the evening Week 3 take 2 tablets in the morning, 1 tablet in the evening Week 4 onward 2 tablets in the morning, 2 tablets in the evening Orally twice a day Objective: * Vitals: Assessment: Plan: * Treatment: * Therapeutic Injections: Semaglutide : .5 mg (Route: Subcutaneous) given by Osvaldo Bowen on subcutaneus * Images: Billing Information: * Visit Code: * Procedure Codes: * Electronic signature of PETER PAVON on 08/15/2025 at 02:59 PM EDT Sign off status: Pending * Provider: Maribeth PAVON NP Date: 0 02/18/2025 Generated for Ruy saldana/Syl/Ayaka on: 1 02:59 PM EDT
--- OUTSIDE RECORDS SUMMARY | 2025-02-18 09:00 | XMS_ITS ---
Author Organization [facility] [address] [address] Address [address] [place] [address] Care Team Providers Care Health Worker Name Role Phone BAYLEE PAVON Unavailable [phone] REASON FOR VISIT 2.5mg Encounters Encounter Location Date Provider Diagnosis [facility] [address] [place] [address] 02/18/2025 BAYLEE PAVON Plan Of Treatment Next Appt Details Provider Name:BAYLEE PAVON, 09/22/2025 10:45:00 AM, [address], [address], [place], [address], Progress Notes * DUBOIS-CHAGO SANCHEZB:11/1949 (75 yo F)Acc No.[id number]:02/18/2025 Patient: Shabana JONESCHONG DANIELITO Provider: Maribeth PAVON NP :1950 A ge:75 Y S ex:Female Date:02/18/2025 Address:[address] [place], [place] [id number] Subjective: * Chief Complaints: * 1 . 2.5mg. * Medical History: Objective: * Vitals: Assessment: Plan: * Treatment: * Images: Billing Information: * Visit Code: * Procedure Codes: * Electronic signature of PETER PAVON on 08/15/2025 at 03:00 PM EDT Sign off status: Pending * Provider: Maribeth PAVON NP Date: 0 02/18/2025 Generated for Ruy saldana/Syl/eTransmitting on: 03:00 PM EDT
--- OUTSIDE RECORDS SUMMARY | 2025-08-11 10:45 | XMS_ITS ---
Author Organization [facility] Address [address] [place] [address] Care Team Providers Care Plater Supervisor Name Role Phone BAYLEE PAVON Unavailable [phone] Allergies Allergen (clinical drug ingredient) Drug/Non Drug Allergy documented on EMR Reaction Allergy Type Onset Date Status meperidine Demerol Unknown Drug Allergy Active REASON FOR VISIT pt is here for wt mgt f/u with SECA scan ready for review Medications Medication SIG (Take, Route, Frequency, Duration) Notes Start Date End Date Status Calcium + D3 600-800 MG-UNIT 1 tablet [...] twice a day; Duration: 30 days Active Omeprazole 40 MG 1 capsule 30 minutes before morning meal Orally Once a day Active Linzess 145 MCG 1 capsule at least 3 0 minutes before the first meal of the day on an empty stomach Orally Once a day; Duration: 30 days Active Wegovy 0.25 MG/0.5ML 0.25mg Subcutaneous weekly; Duration: 30 days Active Tirzepatide 2.5 MG/0.5ML as directed Subcutaneous Active Rosuvastatin Calcium 10 MG 1 tablet Orally Once a day Active Social History Tobacco Use: Social History [...] 1969 ABOUT N1 P ACK A DAY Vital Signs Blood pressure systolic 112 mm Hg 08/11/20 25 Blood pressure diastolic 80 mm Hg 025 Heart Rate 103 /min 08/11/2025 Height 59 in 08/11/2025 Weight 145.3 lbs 08/11/2025 BMI 29.34 kg/m2 08/11/2025 Oximetry 98 % 08/11/2025 Encounters Encounter Location Date Provider Diagnosis [facility] [address] [facility] [address] [place] [address] 08/11/2025 BAYLEE PAVON BMI 28.0-28.9,adult Z68.28 ; Dietary counseling and surveillance Z71.3 ; Mild intermittent asthma without complication J45.20 ; Gastroesophageal reflux disease with esophagitis without hemorrhage K21.00 ; Overweight E66.3 and Encounter for examination of blood pressure without abnormal findings Z01.30 Assessments Encounter Date Diagnosis (ICD Code) Assessment Notes Treatment Notes Treatment Clinical Notes Section Notes 08/11/2025 BMI 28.0-28.9,adult (ICD-10 - Z68.28) #Weight Management 08/11/2025 I have given her options including getting back on Contrave as it is likely cheaper option Also given option for an office compounded injections She will get back to us if this works financially Patient has been found to be overweight [...] software and direct typing Please excuse inadvertent operating room surgical technician or typing errors, or uncorrected word substitutions Although every attempt has been made by the provider to proofread this document, occasional misspellings and typographical errors may still be present Due to the previous pandemic, and the use of personal protective equipment (PPE) This may decrease voice recognition accuracy Inadvertent operating room surgical technician errors may occur 08/11/2025 Dietary counseling and surveillance (ICD-10 - Z71.3) #Weight Management 08/11/2025 I have given her options including getting back on Contrave as it is likely cheaper option Also given option for an office compounded injections She will get back to us if this works financially Patient has been found to be overweight [...] software and direct typing Please excuse inadvertent operating room surgical technician or typing errors, or uncorrected word substitutions Although every attempt has been made by the provider to proofread this document, occasional misspellings and typographical errors may still be present Due to the previous pandemic, and the use of personal protective equipment (PPE) This may decrease voice recognition accuracy Inadvertent operating room surgical technician errors may occur 08/11/2025 Mild intermittent asthma without complication (ICD-10 - J45.20) #Weight Management 08/11/2025 I have given her options including getting back on Contrave as it is likely cheaper option Also given option for an office compounded injections She will get back to us if this [employer] Patient has been found to be overweight [...] software and direct typing Please excuse inadvertent operating room surgical technician or typing errors, or uncorrected word substitutions Although every attempt has been made by the provider to proofread this document, occasional misspellings and typographical errors may still be present Due to the previous pandemic, and the use of personal protective equipment (PPE) This may decrease voice recognition accuracy Inadvertent operating room surgical technician errors may occur 08/11/2025 Gastroesophageal reflux disease with esophagitis without hemorrhage (ICD-10 - K21.00) #Weight Management 08/11/2025 I have given her options including getting back on Contrave as it is likely cheaper option Also given option for an office compounded injections She will get back to us if this works [employer] Patient has been found to be overweight [...] software and direct typing Please excuse inadvertent operating room surgical technician or typing errors, or uncorrected word substitutions Although every attempt has been made by the provider to proofread this document, occasional misspellings and typographical errors may still be present Due to the previous pandemic, and the use of personal protective equipment (PPE) This may decrease voice recognition accuracy Inadvertent operating room surgical technician errors may occur 08/11/2025 Overweight (ICD-10 - E66.3) #Weight Management 08/11/2025 I have given her options including getting back on Contrave as it is likely cheaper option Also given option for an office compounded injections She will get back to us if this works financially Patient has been found to be overweight [...] software and direct typing Please excuse inadvertent operating room surgical technician or typing errors, or uncorrected word substitutions Although every attempt has been made by the provider to proofread this document, occasional misspellings and typographical errors may still be present Due to the previous pandemic, and the use of personal protective equipment (PPE) This may decrease voice recognition accuracy Inadvertent operating room surgical technician errors may occur 08/11/2025 Encounter for examination of blood pressure without abnormal findings (ICD-10 - Z01.30) #Weight Management 08/11/2025 I have given her options including getting back on Contrave as it is likely cheaper option Also given option for an office compounded injections She will get back to us if this works financially Patient has been found to be overweight [...] software and direct typing Please excuse inadvertent operating room surgical technician or typing errors, or uncorrected word substitutions Although every attempt has been made by the provider to proofread this document, occasional misspellings and typographical errors may still be present Due to the previous pandemic, and the use of personal protective equipment (PPE) This may decrease voice recognition accuracy Inadvertent operating room surgical technician errors may occur Plan Of Treatment Medication [...] days Next Appt Details Provider Name:BAYLEE PAVON, 09/22/2025 10:45:00 AM, [address] [facility], [facility] [address], [place], [address], Progress Notes * CHAGO DALEYB:11/1949 (75 yo F)Acc No.[id number]:08/11/2025 Patient: DANIELITO LACEY Provider: Maribeth PAVON NP :1950 A ge:75 Y S ex:Female Date:08/11/2025 Address:[address] [place] [address] Subjective: * Chief Complaints: * 1 . pt is here for wt mgt f/u with SECA scan ready for review. * HPI: C onstitutional: Patient here today for a weight management f/u visit Patient seen and examined. Full past medical history, social history, family history, allergies and current medications were reviewed and updated Body composition analysis reviewed #Weight Management 08/11/2025 [employer] Patient back from [place] Patient has been off of medications for quite some months now due to insurance issues and not covering Discuss cheaper alternatives such as Contrave, but was afraid to start We also discussed in office compounding program today Had done well in the past on dual incretin Cannot afford Taryn direct or [facility] Past medical history that includes acid reflux, chronic obstructive asthma which is well controlled w/Dulera She does have a history of gastroesophageal reflux on PPI as well as Carafate Recent EGD with GI, [facility] Dr Cornelius/Physiatry, gets injections for her lower back pain States her pain has been a barrier to exercise hx of scoliosis. BP stable Follows [facility] Sees a radio rigger once a year, [facility] PCP Liliana GUEVARA weight 08/11/2025 145lbs , BMI 28 weight 07/01/2025 142lbs, BMI 27 weight 2025 [...] Her target goal weight is 140 pounds Comprehensive labs December 2024, [facility] epic Renal function electrolytes and LFTs are stable Total cholesterol 158, HDL 79, triglycerides 94, LDL 60 Vitamin D 28 CBC mostly stable TSH 2.63. * ROS: A ll Other Systems: Review [...] meal Orally Once a day , Not-Taking Contrave 8-90 MG Tablet Extended Release 12 [...] Allergies: D emerol. Objective: * Vitals: H R:103/min, BP:112/80mm Hg, Wt:145.3lbs, BMI:29.34Index, Ht: 59 in, Oxygen sat %:98%. * Examination: G eneral Examination: GENERAL APPEARANCE: i n no acute distress, well developed, well nourished. H EAD: n ormocephalic, atraumatic. E YES: p upils equal, round, reactive to light and accommodation. N IVAN/THYROID: n ivan supple, full range of motion.. S KIN: [...] verweight - E66.3 (Primary) 2 . B [place] 28.0-28.9,adult - Z68.28 ? 3 . D ietary counseling and surveillance - Z71.3 4 . M ild intermittent asthma without complication - J45.20 5 . G astroesophageal reflux disease with esophagitis without hemorrhage - K21.00 6 . E ncounter for examination of blood pressure without abnormal findings - Z01.30 #Weight Management 08/11/2025 I have given her options including getting back on Contrave as it is likely cheaper option Also given option for an office compounded injections She will get back to us if this works financially Patient has been found to be overweight [...] software and direct typing Please excuse inadvertent operating room surgical technician or typing errors, or uncorrected word substitutions Although every attempt has been made by the provider to proofread this document, occasional misspellings and typographical errors may still be present Due to the previous pandemic, and the use of personal protective equipment (PPE) This may decrease voice recognition accuracy Inadvertent operating room surgical technician errors may occur Plan: * Treatment: * Procedure Codes: 3 079F DIAST BP 80-89 MM HG, 3074F SYST BP LT 130 MM HG, 33956 P/M CODING CONSULTANT, INDIV 15 MIN, Modifiers: 33 , SA * Images: Billing Information: * Visit Code: 64765 Office Visit, Est Pt., Level 4. Modifiers: SA * Procedure Codes: 3079F DIAST BP 80-89 MM HG. 3074F SYST BP LT 130 MM HG. 43982 P/M CODING CONSULTANT, INDIV 15 MIN. Modifiers: 33, SA * Sign off status: Completed true * Provider: Maribeth PAVON NP Date: Generated for Ruy saldana/Syl/eTransmitting on: 03:01 PM EDT History and Physical Notes * HPI (History of Present Illness) Category Sub-Category Detail Notes Category Not es Constitutional Patient here today for a weight management f/u visit Patient seen and examined. Full past medical history, social history, family history, allergies and current medications were reviewed and updated Body composition analysis reviewed #Weight Management 08/11/2025 [employer] Patient back from [place] Patient has been off of medications for quite some months now due to insurance issues and not covering Discuss cheaper alternatives such as Contrave, but was afraid to start We also discussed in office compounding program today Had done well in the past on dual incretin Cannot afford Taryn direct or [facility] pharmacy Past medical history that includes acid reflux, chronic obstructive asthma which is well controlled w/Dulera She does have a history of gastroesophageal reflux on PPI as well as Carafate Recent EGD with GI, [facility] Dr Cornelius/Physiatry, gets injections for her lower back pain States her pain has been a barrier to exercise hx of scoliosis. BP stable Follows [facility] Sees a radio rigger once a year, [facility] PCP Liliana GUEVARA weight 08/11/2025 145lbs , BMI 28 weight 07/01/2025 142lbs, BMI 27 weight 2025 [...] Her target goal weight is 140 pounds Comprehensive labs December 2024, [facility] Renal function electrolytes and LFTs are stable Total cholesterol 158, HDL 79, triglycerides 94, LDL 60 Vitamin D 28 CBC mostly stable TSH 2.63 Examination Category Sub-Category Detail Notes Category Not es General Examination GENERAL APPEARANCE: in no ac ever distress, well developed, well nourished HEAD: normocephalic, [...]
--- NOTE | ~2025-08-15 | MR_ITS ---
EXAMINATION: MR BRAIN WITHOUT CONTRAST CLINICAL INFORMATION: G31.84. Mild cognitive impairment of uncertain or unknown etiology. COMPARISON: None available. TECHNIQUE: MRI of the brain was obtained using routine sequences without contrast. FINDINGS: No restricted diffusion. No acute intracranial hemorrhage, mass effect, midline shift, hydrocephalus or herniation. Mariee-white matter differentiation is normal. Bilateral multifocal patchy and punctate deep periventricular white matter hyperintense T2 FLAIR signal involving centrum semiovale and aleman radiata, the most conspicuous in the left frontal lobe. Prominence of the extra-axial CSF spaces and cerebral sulci involving bifrontal lobes. Posterior cranial fossa contents demonstrated no signal abnormality. Flow-void signal within the main cerebral vessels is normal. Sellar/suprasellar region demonstrated no signal abnormality or masses. Craniocervical junction is intact with normal position of the cerebellar tonsils. MR/MR head/brain wo con IMPRESSION: No acute brain abnormality. 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 Bifrontal lobe atrophy. Electronically signed by: Fitz Marmolejo MD 08/16/2025 07:00 AM EDT
--- OUTSIDE RECORDS SUMMARY | 2025-08-15 15:00 | XMS_ITS | Encounter Summary ---
Author Organization [employer] Address [address] [place] [address] Care Team Providers Care Sap Gatherer Name Role Phone Saba Solorzano MD Primary Care Provider [phone] Encounter Details Date Type Department Care Team (Late st Contact Info) Description 08/03/2025 Results Follow-Up [facility] [address] [place] [address] Yan Hilario MD [address] [place] [address] Dr Vigil [address] [place] [address] Social History Tobacco Use Types Packs/Day Years [...] AM EST documented as of this encounter Plan of Treatment Upcoming Encounters Date Type Department Care Team (Late st Contact Info) Description 09/02/2025 10:45 AM EST Office Visit Orthopedic Surgery - [place] [address] [facility] [address] [place] [phone] Gus Judge, DPM 175 [facility] [address] [place] [phone] 09/06/2025 3:30 PM EST Office Visit [place] [facility] [address] [place], [place] [phone] Darrell Salazar PA [address] [place] [address] [phone] 12/09/2025 10:40 AM EST Office Visit [facility] [address] [place] [address] Anita Mims NP [address] [place] [address] Dr Musa [address] [place] [address] documented as of this encounter Goals Goal [...] Diagnoses Not on filedocumented in this encounter Additional Health Concerns Assessment Noted Time PHQ-9 Depression Total Score: 20 025 1:44 PM EDT documented as of this encounter Care Teams Sap Gatherer Relationship Specialty Start Date End Date Saba Solorzano MD [address] [place] [address] PCP - General Internal Medicine 09/21/24 documented as of this encounter
--- OUTSIDE RECORDS SUMMARY | 2025-08-15 15:00 | XMS_ITS | Encounter Summary ---
Author Organization [employer] Address [address] [place] [address] Care Team Providers Care Convenience Store Manager Name Role Phone Saba Solorzano MD Primary Care Provider [phone] Reason for Visit * Reason Onset Date Comments Medication Problem 08/11/2025 Encounter Details Date Type Department Care Team ([facility] Contact Info) Description 08/11/2025 Telephone [facility] Dr Curran [facility] Dr [address] [place] [address] Yan Hilario MD [address] [place] [address] Dr Vigil [address] [place] [address] Social History Tobacco Use Types [...] as of this encounter Progress Notes * Jessica Pal MA - 08/11/2025 3:07 PM EDT I spoke to Michael and advised as below * Yan Hilario MD - 08/11/2025 3:01 PM EDT It will depend on the medication. Would recommend for them to obtain the name of the medication during the next visit with the mental health specialist in October 2025 and after that information is provided we can evaluate if the patient has any cardiac contraindications to it. Of note, the patienthas an appointment with Yolette in November 2025. * Jessica Pal MA - 08/11/2025 2:39 PM EDT I called Michael the pts dtr and her appt for the proposed adhd med is not until October 2025 therefore she does not have the name of the medication. They are just preparing ahead of time with getting permission from a cardiac perspective if this would be ok with her cardiac diagnosis. * Jonas Marie - 08/11/2025 2:26 PM EDT Patients daughter michael is calling to see if patient can take stimulant for adhd. Please call. documented in this encounter Plan of Treatment Upcoming Encounters Date Type Department Care Team (Late st Contact Info) Description 09/02/2025 10:45 AM EST Office Visit Orthopedic Surgery - [place] [address] [phone] Gus Judge, DPM [address] [place] [address] [phone] 09/06/2025 3:30 PM EST Office Visit Adult Medicine [facility] [address] [place], [place] [phone] Darrell Salazar PA [address] [place], [place] 12/09/2025 10:40 AM EST Office Visit [facility] [address] [place] [address] Anita Mims NP [address] [place] [address] Dr Vigil [address] [place] [address] documented as of this encounter [...] documented as of this encounter Care Teams Convenience Store Manager Relationship Specialty Start Date End Date Saba Solorzano MD [address] [place] [address] PCP - General Internal Medicine 09/21/24 documented as of this encounter
--- OUTSIDE RECORDS SUMMARY | 2025-08-15 15:00 | XMS_ITS | Encounter Summary ---
Author Organization [employer] Address [address] [place] [address] Care Team Providers Care Mobile Home Lot Utility Worker Name Role Phone Saba Solorzano MD Primary Care Provider [phone] Encounter Details Date Type Department Care Team (Late st Contact Info) Description 08/10/2025 Results Follow-Up Adult Medicine [address] [phone] Saba Solorzano MD [address] [place] [address] Social History Tobacco Use Types Packs/Day Years [...] AM EST Office Visit Orthopedic Surgery - [place] 250 [address] [facility] [address] [place] [phone] Gus Judge DPM 175 [facility] [address] [place] [phone] 09/06/2025 3:30 PM EST Office Visit Adult Medicine [address] [phone] Darrell Salazar PA [address] [place] [phone] 12/09/2025 10:40 AM EST Office Visit [facility] Cardiology [facility] [address] [place] [address] Anita Mims NP [address] [place] [address] Mus[address] [place] [address] documented as of this encounter [...] documented as of this encounter Care Teams Mobile Home Lot Utility Worker Relationship Specialty Start Date End Date Saba Solorzano MD [address] [place] [address] PCP - General Internal Medicine 09/21/24 documented as of this encounter
--- OUTSIDE RECORDS SUMMARY | 2025-08-15 15:00 | XMS_ITS | Encounter Summary ---
Author Organization [employer] Address [address] [place] [address] Care Team Providers Care Natural Sciences Professor Name Role Phone Saba Solorzano MD Primary Care Provider [phone] Encounter Details Date Type Department Care Team (Late st Contact Info) Description 08/04/2025 Results Follow-Up Adult Medicine [facility] [address] [place] [address] Katy [place] MD [address] [place], [place] Social History Tobacco Use Types Packs/Day Years [...] AM EST Office Visit Orthopedic Surgery - [place] 250 175 [facility] [address] [place] [phone] Gus Judge, DPM 175 [facility] [address] [place] [phone] 09/06/2025 3:30 PM EST Office Visit Adult Medicine [address] [phone] Darrell Salazar PA [address] [place] [phone] 12/09/2025 10:40 AM EST Office Visit [facility] Card[facility] [address] [place] [address] Anita Mims NP [address] [place] [address] Musa [address] [place] [address] documented as of this encounter [...] documented as of this encounter Care Teams Natural Sciences Professor Relationship Specialty Start Date End Date Saba Solorzano MD [address] [place] [address] PCP - General Internal Medicine 09/21/24 documented as of this encounter
--- OUTSIDE RECORDS SUMMARY | 2025-08-15 15:01 | XMS_ITS | Encounter Summary ---
Author Organization [facility] Address [address] [facility] [address] [place] [phone] Phone Care Team Providers Care Manager Flight Name Role Phone Ester Padilla MD Primary Care Provide r Encounter Details Date Type Department Care Team (Latest Contact Info) Description 11/06/2021 Transcribe Orders Virtual Department [address] [place] [address] Carl Mejia MD [address] [place] [address], [address] [place], [place] [phone] [email or web address] TIA (transient ischemic attack) (Primary Dx) [...] ischemia documented in this encounter Care Teams Manager Flight Relationship Specialty Start Date End Date Ester Padilla MD [address] [place] [address] PCP - General Internal Medicine 07/03/22 documented as of this encounter Additional Source Comments The information contained in this document represents components of the legal health record. It is not the complete legal health record.[facility]
--- OUTSIDE RECORDS SUMMARY | 2025-08-15 15:01 | XMS_ITS | Clinical Summary ---
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 06/22/20 24 Active famotidine (PEPCID) 20 mg tablet [...] COUGH, WHEEZING OR SHORTNESS OF BREATH Active aspirin 81 mg chewable tablet Chew 1 tablet (81 mg total) 1 (one) time each day. Active mometasone/for moterol (DULERA INHL) Inhale by mouth. 2 puffs twice a day Active calcium carbonate-sharon min D3 600 mg-5 mcg (200 unit) per tablet TAKE 1 TABLET BY MOUTH EVERY DAY 90 tablet 1 03/08/20 25 Active rosuvastatin (CRESTOR) 20 mg tabletIndicati ons:Pure hypercholester olemia, unspecified TAKE 1 TABLET BY MOUTH EVERY DAY 90 tablet 1 03/11/20 25 Active Vitamin D3 25 mcg (1,000 unit) tabletIndicati ons:Vitamin D deficiency TAKE 2 TABLETS BY MOUTH DAILY 180 tablet 1 03/17/20 25 Active ammonium lactate (AMLACTIN) 12 % cream Apply topically if needed for dry skin. 560 g 06/10/20 25 2025 Active omeprazole (PriLOSEC) [address] capsule Take 1 capsule (40 mg total) by mouth 2 (two) times a day. Do not crush or chew. Active naltrexone HCl/bupropion HCl (CONTRAVE ORAL) Take by mouth. Activ e fluocinolone acetonide oiL 0.01 % drops Place 3 Drops in ear(s) as needed (ear itching). 20 mL 1 07/30/20 25 Active LORazepam (ATIVAN) 2 mg tablet TAKE 1 TABLET ORALLY ONCE NEEDED FOR ANXIETY 07/22/20 25 Active furosemide (LASIX) 20 mg tabletIndicati ons:Chronic heart failure with preserved ejection fraction (HFpEF) (CMS/HCC V24, CMS/HCC V28) Take 1 tablet (20 mg total) by mouth 1 (one) time each day. 30 each 11 08/03/20 25 2025 Active sucralfate (CARAFATE) 100 mg/mL suspension TAKE 10 ML BY MOUTH 4 TIMES DAILY (BEFORE MEALS AND NIGHTLY). 500 mL 1 08/13/20 25 Active sucralfate (CARAFATE) 100 mg/mL suspension TAKE 10 ML BY MOUTH 4 TIMES DAILY (BEFORE MEALS AND NIGHTLY). 03/02/20 24 2024 Discontinued fluocinolone acetonide oiL 0.01 % drops Place 3 Drops in ear(s) as needed (ear itching). 50 each 1 10/23/20 24 2024 Discontinued(R eorder) ammonium lactate (AMLACTIN) 12 % cream Apply topically at bedtime. Both heels dry skin 770 g 12/07/19 25 2024 Discontinued(D uplicate order) sertraline (ZOLOFT) 25 mg tablet Take 1 tablet (25 mg total) by mouth 1 (one) time each day. 2024 Discontinued(T herapy completed) predniSONE (DELTASONE) 20 mg tablet Take 60 mg PO daily for 3 days, then take 40 mg PO daily for 3 days, then 20 mg PO daily for 3 days, then stop 18 tablet 02/13/20 25 2024 Discontinued(T herapy completed) zafirlukast (Accolate) 20 mg tablet Take 1 tablet (20 mg total) by mouth 2 (two) times a day. 180 each 02/19/20 25 2024 Discontinued azithromycin (ZITHROMAX) 250 mg tablet PLEASE SEE ATTACHED FOR DETAILED DIRECTIONS 2024 Discontinued(T herapy completed) celecoxib (CeleBREX) 100 mg capsule Take 1 capsule (100 mg total) by mouth 1 (one) time each day. 01/15/202024 Discontinued(T herapy completed) Active Problems Problem Noted Date Diagnosed Date Chronic heart failure with p reserved ejection fraction (HFpEF) ([facility] V24, [facility] V28) 08/03/2025 Assessment & Plan (08/03/2025 6:13 PM EDT): The patient has symptoms of chronic exertional dyspnea. She does have a history of coronary artery disease but she only has mild nonobstructive CAD as noted on her cardiac CT scan from March 2023. Therefore, the patient does not have any significant obstructive coronary artery disease. Furthermore, nuclear stress test from January 2023 did not show any evidence of ischemia or infarct. 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 The patient does have a history of aortic valve stenosis but the aortic valve stenosis is only mild in severity as noted on her prior echocardiograms. On her most recent echocardiogram, she was noted to have a normal LVEF, grade 2 LV diastolic dysfunction, and normal pulmonary artery systolic pressures. Therefore, the patient does not have any pulmonary hypertension. Nevertheless, her diastolic dysfunction could be the cause of her symptoms of dyspnea and mild lower extremity edema. The patient has a H2FPEF score of 2 which correlates with an intermediate probability of having HFpEF. As such, we will start the patient on furosemide 20 mg orally daily. The patient will complete a follow-up chemistry panel 1 week after starting the furosemide. Orders: furosemide (LASIX) 20 mg tablet; Take 1 tablet (20 mg total) by mouth 1 (one) time each day. Comprehensive metabolic panel; Future B-type natriuretic peptide; Future Severe major depressive disorder (CMS/HCC V24, C MS/HCC V28) 07/22/2025 Assessment & Plan (07/22/2025 2:52 PM EDT): has a therapist from [facility] every other week. Patient was evaluated by crisis following which she was placed on a wait list for [facility]. Currently on wait list to see a psychiatrist with [facility] in October. She reports previously was on sertraline and buspirone however does not recall why the medications were discontinued, reports were only prescribed for 30 days by her psychiatrist at [facility] but no longer sees a psychiatrist, follows with [facility]. Patient states that she thinks that she has a component of ADD/ADHD which majorly contributed to her symptoms, she is interested in medication for ADD/ADHD, currently not interested to get on antidepressants. Patient denies SI/HI today. I have placed a referral for psychiatry for patient. Orders: Ambulatory referral to Psychiatry; Future Vitamin D deficiency 12/29/2024 Age-related osteoporosis wit hout current pathological fracture 12/29/2024 Stress incontinence 10/23/2024 BPPV (benign paroxysmal posi tional vertigo), unspecified laterality 09/21/2024 Asthma, moderate persistent 08/14/2024 Chronic back pain 08/14/2024 Assessment & Plan (07/07/2025 3:38 PM EDT): Ms. Sanchez describes chronic back pain. She says things were much worse before she lost a bunch of weight. She was on a medication for weight loss but since changing her insurance she is no longer able to get it. She has gained weight off of the medication. She is concerned about her breathing and back pain as she gains weight. She is neurologically intact and denies any radiation of pain or numbness to the perineum or lower extremities. X-rays and a CT of the chest do reveal a significant thoracic dextroscoliosis with the apex at around T10. There is a compensatory levoscoliosis in the lumbar spine at around L2-3. We spoke briefly about surgery and I explained that though we did not do this kind of surgery, there were spine surgeons in [place] in [place] that dealt with adult deformity problems. She said that she would not really consider surgery but she is concerned about her back pain and the weight. It would be ideal if she could get back on the medication to keep her weight under control. I offered her a prescription for physical therapy and we discussed acupuncture yoga and NSAIDs as other reasonable conservative modalities. She did not want a prescription for therapy today but said she would call if she changed her mind. She is welcome to follow-up with us in the future on an as-needed basis. Gastropathy 08/14/2024 GERD (gastroesophageal reflux disease) Overview (08/14/2024): Refractory GERD despite trying multiple PPIs, H2 blockers and [id number] antacids. Upper endoscopy in March 2020 was [...] stools 08/14/2024 Coronary artery disease invo lving bishop [place] coronary artery of [place] heart without angina pectoris 08/09/2023 Overview (08/14/2024): [...] continue her current therapy. Assessment & Plan (08/03/2025 6:13 PM EDT): The patient has a history of mild nonobstructive coronary artery disease. This was noted on a cardiac CT scan done in March 2023. Previous nuclear stress test from January 2023 did not show any evidence of ischemia or infarct on the myocardial perfusion imaging. On today's visit, the patient denies any symptoms of chest discomfort. The patient is on medical therapy with aspirin and rosuvastatin. Will continue her current medication regimen. Assessment & Plan (12/23/2024 8:41 AM EST): [...] Overview (08/14/2024): May/2023, likely from travel to/from [place], treated with Paxlovid Abnormal MRI, shoulder 01/30/2022 Overview (08/14/2024): Focal bony abnormality in the proximal humerus as described above. Principal differential diagnostic considerations include but are not limited to enchondroma, chondrosarcoma, bone infarct and metastasis. CT and whole body bone scan are recommended for further evaluation. Pt seen with [facility] Onc Dr. Cueva. Repeat MRI [...] removed. Also has a pathology report from [place] dated 01/2009 with fundic gland polyp Aortic stenosis 12/10/2017 Overview (08/14/2024): Last Assessment & Plan: The patient has a history of aortic valve stenosis. Aortic valve stenosis was noted to be mild on the echocardiogram done in December 2022. We will recommend to continue periodic monitoring with annual echocardiograms every 3 to 5 years. Assessment & Plan (08/03/2025 6:13 PM EDT): The patient has a history of aortic valve stenosis. Recent echocardiogram from June 2025 showed mild aortic valve stenosis. As such, there has been no progression of her aortic valve stenosis when compared to her prior echocardiograms from 2022 in 2020. As such, would recommend a follow-up echocardiogram in 3 years. Assessment & Plan (12/23/2024 8:41 AM [...] cardiac CT scan as recommended by the [employer] chest pain guidelines. Osteopenia 03/22/2020 12/29/2024 Encounters Date Type Department Care Team Description 08/11/2025 [address]phone [facility] [address] [address] [place] [address] Yan Hilario MD 08/10/2025 Results Follow-Up [facility] Medicine [address] [phone] Saba Solorzano MD 08/04/2025 Results Follow-Up [facility] Medicine [address] [phone] Katy Wright MD 08/03/2025 3:30 PM EDT Office Visit [facility] [facility] [address] [place] [phone] Yan Hilario MD Coronary artery disease involving bishop [place] coronary artery of [place] heart without angina pectoris (Primary Dx); Nonrheumatic aortic valve stenosis; Chronic heart failure with preserved ejection fraction (HFpEF) (CMS/HCC V24, CMS/HCC V28) 08/03/2025 Results Follow-Up [facility] Dr [facility] [facility] [address] [place] [address] Yan Hilario MD 07/29/2025 2:00 PM EDT Office Visit [facility] Hematology Oncology [address] [place] [phone] Ziggy Dailey MD Malignant neoplasm of female breast, unspecified estrogen receptor status, unspecified laterality, unspecified site of breast (CMS/HCC V24, CMS/[facility] V28) (Primary Dx); Breast pain 07/28/2025 3:30 PM EDT Office Visit Orthopedic Surgery [facility] [address] [phone] Gus Judge DPM Xerosis of skin (Primary Dx); Verruca plantaris 07/22/2025 2:35 PM EDT - 07/22/2025 11:59 PM EDT Hospital Encounter [address] [phone] Hand pain, left Discharge Disposition: Home or Self Care 07/22/2025 1:30 PM EDT Office Visit Adult [address] [phone] Saba Solorzano MD Encounter for annual wellness visit (AWV) in Medicare patient (Primary Dx); Severe major depressive disorder (CMS/[facility] V24, CMS/[facility] V28); Hand pain, left 07/07/2025 2:30 PM EDT Consult Neurosurgery [facility] [address] [phone] Soren Jaimes PA Chronic bilateral thoracic back pain (Primary Dx); Scoliosis of thoracolumbar spine, unspecified scoliosis type 07/02/2025 3:00 PM EDT Ancillary Procedure [facility] [address] [facility] [address] [place] [phone] Nonrheumatic aortic valve stenosis 06/21/2025 Telephone Adult Medicine [address] [phone] Saba Solorzano MD 06/21/2025 Telephone Adult [address] [phone] Saba Solorzano MD 06/10/2025 1:00 PM EDT Office Visit [facility] [place] [facility] [address] [phone] Judge, Christopher M, DPM Xerosis of skin (Primary Dx); Verruca plantaris 05/18/2025 Telephone Adult Medicine [facility] [address] [place] [address] Avis Sky MA 05/17/2025 Telephone Adult Medicine [facility] [address] [place] [phone] Avis Sky MA from Last 3 Months Immunizations Immunization Administration Dates Next Due Influenza trivalent, 0.5mL ( Fluad) 65yo and older 07/21/2024,08/10/2023,08/06/2021,07/27,07/21/2018 Influenza trivalent, with pr eservative (Fluzone; Afluria) 6mo and older 07/21/2025,07/26/2020 Influenza, Unspecified 09/17/2021 Pneumococcal conjugate 13 va lent (Prevnar 13, PCV13) 2mo and older 03/01/2017 Pneumococcal polysaccharide 23 valent (Pneumovax 23) 2yo and older 04/25/2021,08/02/2009 RSV, bivalent, protein subun it RSVpreF, 0.5mL, Preservative Free (Arexvy) 50yo and older 09/25/2023 Tdap Tetanus diptheria acell ular pertussis (Boostrix; Adacel) 7yo and older 01/15/2024,03/05/2013 Zoster Live 08/02/2009 Zoster recombinant (Shingrix ) 19yo and older 01/10/2024,08/12/2020 Surgical History Surgery Date Site/Laterality Comments SECTION PROCEDURE: HISTORICAL DELIVERY; COMMENT: x 2; 1977, 1974 CHOLECYSTECTOMY PROCEDURE: HISTORICAL CHOLECYSTECTOMY; COMMENT: in OR ESOPHAGOGASTRODUODENOSCOPY PROCEDURE: OR EGD TRANSORAL BIOPSY SINGLE/MULTIPLE; COMMENT: Performed in [place] UPPER GASTROINTESTINAL ENDOSCOPY 04/26/2020 PROCEDURE: UPPER GI ENDOSCOPY/EXAM; COMMENT: negative, biopsy shows reactive gastropathy without H. pylori STEREOTACTIC BREAST BIOPSY 04/26/2015 Left PROCEDURE: STEREOTACTIC BREAST BIOPSY; COMMENT: Negative for malignancy UPPER GASTROINTESTINAL ENDOSCOPY 01/05/2015 PROCEDURE: OR UPPER GI ENDOSCOPY PERFORMED; COMMENT: Gastric polyp x 3 - COLONOSCOPY 2011 PROCEDURE: HISTORICAL COLONOSCOPY; COMMENT: In [place]. Patient reports clear OTHER SURGICAL HISTORY 12/29/2020 PROCEDURE: OR ESOPHAGEAL MOTILITY STUDY W/INTERP&RPT; COMMENT: [facility]; small sliding hiatal hernia suggested, otherwise normal. OTHER SURGICAL HISTORY 12/29/2020 PROCEDURE: ACID REFLUX TEST OF ESOPHAGUS; COMMENT: [facility]; 24 hour ambulatory impedance-pH study off meds: positive for acid reflux. BREAST BIOPSY 2016 Left PROCEDURE: BX BREAST; PERC NEEDLE CORE W/IMAG GUID; COMMENT: neg BREAST SURGERY 2000 Right PROCEDURE: OR UNLISTED PROCEDURE BREAST; COMMENT: cancer BREAST SURGERY 2001 Right PROCEDURE: OR UNLISTED PROCEDURE BREAST; COMMENT: b9 Medical History Medical History Date Comments GERD (gastroesophageal reflu x disease) DX:GERD (gastroesophageal re flux disease) Chronic back pain DX:Chronic garry k pain Asthma, moderate persistent DX:A sthma, moderate persistent Gastric polyps 08/05/2018 DX:Gastric polyp s; COMMENT: EGD [address] Daniel Cota - 3 fundic polyps removed. Also has a pathology report from [place] dated 01/2009 with fundic gland polyp Abdominal [...] DX:History of breast cancer in female; COMMENT: [id number] wide local excision & axillary node dissection [...] Sign Reading Time Taken Comments Blood Pressure 136/60 08/03/2025 3:04 PM EDT Pulse 75 08/03/2025 3:04 PM EDT Temperature 37.1 C (98.7 F) 07/29/2025 1:50 PM EDT Respiratory Rate 14 07/22/2025 1:27 PM EDT Oxygen Saturation 97% 08/03/2025 3:04 PM EDT Inhaled Oxygen Concentration - - Weight 66 kg (145 lb 6.4 oz) 08/03/2025 3:04 PM EDT Height 152.4 cm (5') 08/03/2025 3:04 PM EDT Body Mass Index 28.4 08/03/2025 3:04 PM EDT Plan of Treatment Upcoming Encounters Date Type Department Care Team (Late st Contact Info) Description 09/02/2025 10:45 AM EST Office Visit Orthopedic Surgery [place] [address] [phone] Gus Judge, DPM [address] [phone] 09/06/2025 3:30 PM EST Office Visit Adult Medicine [address] [phone] Darrell Salazar PA [address] [place] [phone] 12/09/2025 10:40 AM EST Office Visit [facility] [address] [place] [phone] Anita Mims NP [address] [place] [address] [address] [place] [phone] Health Maintenance Due Date Last Done Comments Social Influencers of Health Screening 10/06/2022 COVID-19 Vaccine (6 - Moderna risk season) 2025 07/21/2024, 12/13/2022, 09/09/2021, Additional history exists Hypertension/CHF/CAD Annual BMP Blood Test 01/01/2026 01/01/2025, 07/30/2023 Falls Risk Assessment 07/22/2026 07/22/2025 Medicare Annual Wellness Visit 07/22/2026 07/22/2025 Breast Cancer Screening 08/21/2026 08/21/20 24, 08/03/2023, [...] 09/25/2023 Zoster Vaccines Completed 01/10/2024, 07/28, 08/02/2009 Influenza Vaccine Completed 07/21/2025, , 08/10/2023, Additional history exists Depression Screening Completed 07/22/2025, 09/27/20 23 HIB Vaccines Aged Out No longer eligi [...] Procedure Name Priority Date/Time Associated Diagnosis Comments CBC WITH AUTO DIFFERENTIAL Routine 07/27/2025 7:37 AM EDT Bruise TREPONEMA PALLIDUM ANTIBODY WITH REFLEX TO RPR AND PARTICLE AGGLUTINATION Routine 07/27/2025 7:37 AM EDT Loss of memory THYROID STIMULATING HORMONE WITH REFLEX TO FREE T4 AND FREE T3 Routine 07/27/2025 7:37 AM EDT Loss of memory VITAMIN B12 Routine 07/27/2025 7:37 AM EDT Loss of memory CBC AND DIFFERENTIAL Routine 07/27/2025 7:37 AM EDT Bruise PROTHROMBIN TIME WITH INR Routine 07/27/2025 7:37 AM EDT Bruise ACTIVATED PARTIAL THROMBOPLASTIN TIME Routine 07/27/2025 7:37 AM EDT Bruise XR HAND 3+ VIEWS LEFT Routine 07/22/2025 2:42 PM EDT Hand pain, left TRANSTHORACIC ECHOCARDIOGRAM (TTE) COMPLETE Routine 07/02/2025 4:01 PM EDT Nonrheumatic aortic valve stenosis COMPREHENSIVE METABOLIC PANEL Routine 01/01/2025 7:43 AM EST Pure hypercholesterolemia LIPID PANEL WITH REFLEX TO DIRECT LDL Routine 01/01/2025 7:43 AM EST Pure hypercholesterolemia [facility] SCREENING DIGITAL Routine 08/21/2024 1:08 PM EDT Encounter for screening mammogram for malignant neoplasm of breast [facility] DEXA AXIAL SKELETON Routine 07/24/2024 1:14 PM EDT Age-related osteoporosis without current pathological fracture COLONOSCOPY Routine 12/31/2023 DEPRESSION SCREENING Routine 09/27/2023 HEPATITIS C SCREENING Routine 04/01/2020 from Last 3 Months or Most Recently Relevant to Health Maintenance Results * Treponema pallidum antibody with reflex to RPR and particle agglutination (07/27/2025 7:37 AM EDT) T. Pallidum Antibodies Negative Negative LAB CHEMISTRY METHOD 07/27/2025 12:11 PM EDT [facility] Blood Venous blood specimen / Unknown Venipuncture / Unknown 07/27/2025 7:37 AM EDT 07/27/2025 7:37 AM EDT Katy Wright MD LAB BLOOD ORDERABLES Final Result Performing Organization Address [facility]/ZIP Co de Phone Number [facility] [address] [place] [address], [place] [phone] * Thyroid stimulating hormone with reflex to free t4 and free t3 (07/27/2025 7:37 AM EDT) TSH 2.63 0.40 - 4.00 mcIU/mL LAB CHEMISTRY METHOD 07/27/2025 12:00 PM EDT [facility] Blood Venous blood specimen / Unknown Venipuncture / Unknown 07/27/2025 7:37 AM EDT 07/27/2025 7:37 AM EDT Katy Wright MD LAB BLOOD ORDERABLES Final Result Performing Organization Address [facility]/ZIP Co de Phone Number [facility] [address] [place] [address], [place] [phone] * (ABNORMAL) CBC auto differential (07/27/2025 7:37 AM EDT) [facility] WBC 6.0 4.8 - 10.8 K/mcL LAB HEMETOLOGY METHOD 07/27/2025 10:20 AM [facility] RBC 4.80 3.80 - 4.80 M/mcL LAB HEMETOLOGY METHOD 07/27/2025 10:20 AM [facility] Hemoglobin 12.2 11.5 - 16.0 g/dL LAB HEMETOLOGY METHOD 07/27/2025 10:20 AM [facility] Hematocrit 38.9 35.0 - 47.0 % LAB HEMETOLOGY METHOD 07/27/2025 10:20 AM [facility] MCV 81.2 79.0 - 98.0 FL LAB HEMETOLOGY METHOD 07/27/2025 10:20 AM [facility] MCH 25.5(L) 27.0 - 32.0 pcg LAB HEMETOLOGY METHOD 07/27/2025 10:20 AM [facility] MCHC 31.4(L) 32.0 - 37.0 g/dL LAB HEMETOLOGY METHOD 07/27/2025 10:20 AM [facility] RDW 13.1 11.0 - 15.0 % LAB HEMETOLOGY METHOD 07/27/2025 10:20 AM [facility] Platelets 253 130 - 400 K/mcL LAB HEMETOLOGY METHOD 07/27/2025 10:20 AM [facility] MPV 10.5 7.0 - 11.0 FL LAB HEMETOLOGY METHOD 07/27/2025 10:20 AM [facility] NRBC 0.0 <1.0 % LAB HEMETOLOGY METHOD 07/27/2025 10:20 AM [facility] NRBC Absolute 0.00 <0.10 K/mcL LAB HEMETOLOGY METHOD 07/27/2025 10:20 AM [facility] Neutrophils Relative 47.6 % LAB HEMETOLOGY METHOD 07/27/2025 10:20 AM [facility] Lymphocytes Relative 24.6 % LAB HEMETOLOGY METHOD 07/27/2025 10:20 AM [facility] Monocytes Relative 8.2 % LAB HEMETOLOGY METHOD 07/27/2025 10:20 AM [facility] Eosinophils Relative 18.7 % LAB HEMETOLOGY METHOD 07/27/2025 10:20 AM [facility] Basophils Relative 0.7 % LAB HEMETOLOGY METHOD 07/27/2025 10:20 AM [facility] Immature Granulocytes Relative 0.2 % LAB HEMETOLOGY METHOD 07/27/2025 10:20 AM [facility] Neutrophils Absolute 2.85 1.50 - 7.00 K/mcL LAB HEMETOLOGY METHOD 07/27/2025 10:20 AM [facility] Lymphocytes Absolute 1.47 1.00 - 5.00 K/mcL LAB HEMETOLOGY METHOD 07/27/2025 10:20 AM [facility] Monocytes Absolute 0.49 0.20 - 1.00 K/mcL LAB HEMETOLOGY METHOD 07/27/2025 10:20 AM [facility] Eosinophils Absolute 1.12(H) 0.00 - 0.50 K/mcL LAB HEMETOLOGY METHOD 07/27/2025 10:20 AM [facility] Basophils Absolute 0.04 0.00 - 0.20 K/mcL LAB HEMETOLOGY METHOD 07/27/2025 10:20 AM [facility] Immature Granulocytes Absolute 0.01 0.00 - 0.03 K/mcL LAB HEMETOLOGY METHOD 07/27/2025 10:20 AM EDT [facility] Blood Venous blood specimen / Unknown Venipuncture / Unknown 07/27/2025 7:37 AM EDT 07/27/2025 7:37 AM EDT us Katy Wright MD LAB BLOOD ORDERABLES Final Result Performing Organization Address [facility]/ZIP Co de Phone Number [facility] [address] [place] [address], [place] [phone] * Activated partial thromboplastin time (07/27/2025 7:37 AM EDT) aPTT 30.2 24.1 - 39.3 sec LAB COAGULATION METHOD 07/27/2025 10:24 AM EDT [facility] Blood Venous blood specimen / Unknown Venipuncture / Unknown 07/27/2025 7:37 AM EDT 07/27/2025 7:37 AM EDT us Katy Wright MD LAB BLOOD ORDERABLES Final Result Performing Organization Address [facility] Co de Phone Number [facility] [address] [place] [address], [place] [phone] * Prothrombin time with INR (07/27/2025 7:37 AM EDT) Protime 12.9 10.6 - 13.9 sec LAB COAGULATION METHOD 07/27/2025 10:24 AM EDT [facility] INR 1.0 LAB COAGULATION METHOD 07/27/2025 10:24 AM EDT [facility] [facility] Blood Venous blood specimen / Unknown Venipuncture / Unknown 07/27/2025 7:37 AM EDT 07/27/2025 7:37 AM EDT us Katy Wright MD LAB BLOOD ORDERABLES Final Result [facility] [address] [place] [address], [place] [phone] * Vitamin B12 (07/27/2025 7:37 AM EDT) Vitamin B-12 508 250 - 900 pcg/mL LAB CHEMISTRY METHOD 07/27/2025 11:31 AM EDT [facility] Blood Venous blood specimen / Unknown Venipuncture / Unknown 07/27/2025 7:37 AM EDT 07/27/2025 7:37 AM EDT Katy Wright MD LAB BLOOD ORDERABLES Final Result [facility] [address] [place] [address], [place] [phone] * XR Hand 3+ Views Left (07/22/2025 2:42 PM EDT) Anatomical Region Laterality Modality Upper Extremities, Hand Left Radiogra phic Imaging 07/23/2025 1:52 AM EDT Narrative 07/23/2025 1:53 AM EDT Right hand, 3 views. History pain. There is periarticular osteopenia. There are mild degenerative changes in the DIP joints of the second and third fingers. There are mild degenerative changes in the PIP joint of the second third and fifth fingers. No fractures, dislocations or destructive lesions. There is tiny calcification adjacent to the ulnar styloid process. CONCLUSIONS: Periarticular osteopenia. Multisite degenerative changes. Calcification adjacent to the ulnar styloid process. -------- FINAL REPORT -------- Dictated By: Kat Juarez Dictated Date: 07/23/2025 01:52 ET Assigned Physician: Kat Juarez Reviewed and Electronically Signed By: Kat Juarez Signed Date: 07/23/2025 01:53 ET Workstation ID: [id number] Transcribed By: Self Edit Transcribed Date: 07/23/2025 01:52 ET Procedure Note Kat Juarez MD - 07/23/2025 Right hand, 3 views. History pain. There is periarticular osteopenia. There are mild degenerative changes inthe DIP joints of the second and third fingers. There are milddegenerative changes in the PIP joint of the second third and fifthfingers. No fractures, dislocations or destructive lesions. There is tinycalcification adjacent to the ulnar styloid process. CONCLUSIONS: Periarticular osteopenia. Multisite degenerative changes.Calcification adjacent to the ulnar styloid process. -------- FINAL REPORT -------- Dictated By: Kat Juarez Dictated Date: 07/23/2025 01:52 ET Assigned Physician: Kat Juarez Reviewed and Electronically Signed By: Kat Juarez Signed Date: 07/23/2025 01:53 ET Workstation ID: [id number] Transcribed By: Self Edit Transcribed Date: 07/23/2025 01:52 ET us Saba Solorzano MD IMG XR PROCEDURES Final Result * (ABNORMAL) TRANSTHORACIC ECHOCARDIOGRAM (TTE) COMPLETE (07/02/2025 4:01 PM EDT) Left Atrium Minor [place] 5.2 cm CV PACS Left Atrium Major [place] 5.1 cm CV PACS LA Area Sys (A2C) 22 cm2 CV PACS LA Area Sys (A4C) 20 cm2 CV PACS LA Volume (BP) 71 mL CV PACS RA Area 12.6 cm2 CV PACS RA 2D Volume 28 mL CV PACS AV Mean Gradient 12 mmHg CV PACS Ao VTI 50.8 cm CV PACS AV Peak Vineet 2.3 m/s CV PACS AV Peak Gradient 21 mmHg CV PACS AV Area Continuity Equation 1.5 cm2 CV PACS AV Area Peak Velocity 1.4 cm2 CV PACS Aortic Sinus Valsalva 2.6 cm CV PACS Ascending Aorta 3.0 cm CV PACS IVSD 0.9 0.6 - 0.9 cm CV PACS LVIDD 0.8(A) 3.8 - 5.2 cm CV PACS LVIDS 2.6 2.2 - 3.5 cm CV PACS LVOT Diameter 1.9 cm CV PACS LVOT Mean Grad 3 mmHg CV PACS LVOT Peak VTI 26.0 cm CV PACS LVOT Mean Vineet 0.8 m/s CV PACS LVOT Peak Vineet 1.2 m/s CV PACS LVOT Peak Gradient 5 mmHg CV PACS LVPWD 0.7 0.6 - 0.9 cm CV PACS MV E' Tissue Velocity Lateral 8 cm/s CV PACS MV E' Tissue Velocity Septal 8 cm/s CV PACS LVOT Area 2.8 cm2 CV PACS LVOT Stroke Volume 76 mL CV PACS E Wave Deceleration Time 197 119 - 242 ms CV PACS MV Peak A Vineet 0.90 m/s CV PACS MV Peak E Vineet 1.10 m/s CV PACS MV Mean Gradient 2 mmHg CV PACS MV VTI 34.3 cm CV PACS Mitral Valve Max Velocity 1.1 m/s CV PACS MV Peak Gradient 5 mmHg CV PACS MV Area Continuity Equation 2.1 cm2 CV PACS PV Acceleration Time 197 ms CV PACS PV Acceleration Time 141 ms CV PACS PV Acceleration Time 169 ms CV PACS RV Diastolic Basal Dimension 3.4 2.5 - 4.1 cm CV PACS RV S' 13 cm/s CV PACS TAPSE 18 mm CV PACS TR Peak Velocity 2.60 m/s CV PACS TR Peak Gradient 27 mmHg CV PACS E/E' Ratio Septal 14 CV PACS E/E' Ratio Averaged 14 CV PACS Relative Wall Thickness ratio 1.75(A) 0.22 - 0.42 CV PACS LVOT:AV VTI Index 0.51 CV PACS FS -225 % CV PACS LV Mass 2D 12(A) 66 - 150 g CV PACS MV VTI:LVOT VTI ratio 1.3 CV PACS LVOT flow 227 mL/s CV PACS AV Velocity Ratio 0.52 CV PACS E/A Ratio 1.2 0.8 - 2.0 CV PACS E/E' Ratio Lateral 14 CV PACS LVOT Stroke Index 47 mL/m2 CV PACS Ascending Aorta Index 1.86 cm/m2 CV PACS RA 2D Volume Index 17 15 - 27 mL/m2 CV PACS RANDI Index (VTI) 0.90 cm2/m2 CV PACS RANDI Index (Pk Vineet) 0.87 cm2/m2 CV PACS LVIDD Index 0.50 cm/m2 CV PACS LVIDS Index 1.61 cm/m2 CV PACS LA Volume Index (BP) 44 mL/m2 CV PACS LV Mass Index 2D 7(A) 44 - 88 g/m2 CV PACS BSA 1.65 m2 CV PACS RV Free Wall Peak S' 13 cm/s CV PACS RA Major [place] 4.4 cm CV PACS RA Major [place] Index 2.7 2.2 - 2.8 cm/m2 CV PACS MV PHT 57 ms CV PACS AV Area 2D 1.5 cm2 CV PACS RANDI Index (2D) 0.93 cm2/m2 CV PACS AV Area Index 0.9 CV PACS Right Ventricular Peak Systolic Pressure 30 mmHg CV PACS Est. RA Pressure 3 mmHg CV PACS Anatomical Region Laterality Modality Ultrasound Addenda Addendum by Yan Hilario MD on 08/03/2025 11:20 AM EDT Left Ventricle: Systolic function is normal with an ejection fraction of 55-60%. There is Grade II (moderate) diastolic dysfunction. No regional LV wall motion abnormalities noted. Right ventricle cavity is normal. Right ventricular systolic function is normal. Aortic Valve: There is mild stenosis. The aortic valve peak velocity is 2.3 m/s. The velocity ratio is 0.52. The mean gradient is 12 mmHg. Mitral Valve: There is mild regurgitation. Tricuspid Valve: There is mild regurgitation. The right ventricular systolic pressure is normal. The RVSP is estimated at 30 mmHg. Left Ventricle Left ventricle cavity size is normal. Wall thickness is normal. Systolic function is normal with an ejection fraction of 55-60%. There are no regional LV wall motion abnormalities. There is Grade II (moderate) diastolic dysfunction. Right Ventricle Right ventricle cavity appears normal. Systolic function is normal. Left Atrium Left atrium cavity is moderately dilated. Right Atrium Right atrium cavity is normal. There is a prominent Eustachian valve. IVC/SVC Inferior vena cava structure is normal. RA pressures is estimated to be 3 mmHg (IVC diameter <21 mm and decreases >50% during inspiration). Mitral Valve The leaflets are mildly thickened. There is elongation of the anterior leaflet. There is calcification of the anterior leaflet subvalvular apparatus. There is calcification of the posterior leaflet subvalvular apparatus. There is mild regurgitation. There is no evidence of mitral valve stenosis. Tricuspid Valve Tricuspid valve structure is normal. There is mild regurgitation. There is no evidence of tricuspid valve stenosis. The right ventricular systolic pressure is normal. The RVSP is estimated at 30 mmHg. Aortic Valve The aortic valve is trileaflet. The leaflets are mildly thickened. Aortic annular calcification. There is no regurgitation. There is mild stenosis. The aortic valve peak velocity is 2.3 m/s. The velocity ratio is 0.52. The mean gradient is 12 mmHg. Pulmonic Valve Visualized portions of the pulmonic valve appear normal. No significant pulmonic valve regurgitation. There is no evidence of pulmonic valve stenosis. Ascending Aorta The aorta appears normal in size. Pericardium Pericardium appears normal. There is no pericardial effusion. Study Details Overall the study quality was adequate. Wall Scoring Baseline Score Index: 1.00 The left ventricular wall motion is normal. us Yan Hilario MD CV ECHO PROCEDURES Hayden mary kate Result - Final * Lipid panel with reflex to direct LDL (01/01/2025 7:43 AM EST) Cholesterol 158 0 - 200 mg/dL LAB CHEMISTRY METHOD 01/01/2025 10:18 AM [facility] Triglycerides 94 0 - 150 mg/dL LAB CHEMISTRY METHOD 01/01/2025 10:18 AM [facility] HDL 79 >=40 mg/dL LAB CHEMISTRY METHOD 01/01/2025 10:18 AM [facility] LDL Calculated 60 0 - 100 mg/dL LAB CHEMISTRY METHOD 01/01/2025 10:18 AM [facility] VLDL Cholesterol Reji 18.8 mg/dL LAB CHEMISTRY METHOD 01/01/2025 10:18 AM [facility] Non HDL Chol. (LDL+VLDL) 79 <145 mg/dL LAB CHEMISTRY METHOD 01/01/2025 10:18 AM [facility] Chol/HDL Ratio 2.0 0.0 - 4.4 LAB CHEMISTRY METHOD 01/01/2025 10:18 AM [facility] Blood Venous blood specimen / Unknown Venipuncture / Unknown 01/01/2025 7:43 AM EST 01/01/2025 7:43 AM EST Yan Hilario MD LAB BLOOD ORDERABLES F inal Result [facility] [address] [place] [address], * Comprehensive metabolic panel (01/01/2025 7:43 AM EST) Sodium 142 133 - 145 mmol/L LAB CHEMISTRY METHOD 01/01/2025 10:21 AM [facility] Potassium 3.8 3.5 - 5.5 mmol/L LAB CHEMISTRY METHOD 01/01/2025 10:21 AM [facility] Chloride 108 96 - 110 mmol/L LAB CHEMISTRY METHOD 01/01/2025 10:21 AM [facility] CO2 26 21 - 32 mmol/L LAB CHEMISTRY METHOD 01/01/2025 10:21 AM [facility] Anion Gap 8 3 - 11 LAB CHEMISTRY METHOD 01/01/2025 10:21 AM [facility] Glucose 79 70 - 100 mg/dL LAB CHEMISTRY METHOD 01/01/2025 10:21 AM [facility] BUN 15 5 - 25 mg/dL LAB CHEMISTRY METHOD 01/01/2025 10:21 AM [facility] Creatinine 0.70 0.50 - 1.10 mg/dL LAB CHEMISTRY METHOD 01/01/2025 10:21 AM [facility] eGFR 91 >=60 mL/min/1. 73m2 LAB CHEMISTRY METHOD 01/01/2025 10:21 AM [facility] Comment:Calculation based on the Chronic Kidney Disease Epidemiology Collaboration (CKD-EPI) equation refit without adjustment for race. BUN/Creatinine Ratio 21.4 LAB CHEMISTRY METHOD 01/01/2025 10:21 AM [facility] Calcium 9.6 8.5 - 10.5 mg/dL LAB CHEMISTRY METHOD 01/01/2025 10:21 AM [facility] AST (SGOT) 23 10 - 42 unit/L LAB CHEMISTRY METHOD 01/01/2025 10:21 AM [facility] ALT (SGPT) 26 10 - 60 unit/L LAB CHEMISTRY METHOD 01/01/2025 10:21 AM [facility] Alkaline Phosphatase 106 42 - 121 unit/L LAB CHEMISTRY METHOD 01/01/2025 10:21 AM [facility] Total Protein 7.1 6.0 - 8.0 g/dL LAB CHEMISTRY METHOD 01/01/2025 10:21 AM [facility] Albumin 3.8 3.2 - 5.0 g/dL LAB CHEMISTRY METHOD 01/01/2025 10:21 AM [facility] Total Bilirubin 0.5 0.0 - 1.4 mg/dL LAB CHEMISTRY METHOD 01/01/2025 10:21 AM [facility] Blood Venous blood specimen / Unknown Venipuncture / Unknown 01/01/2025 7:43 AM EST 01/01/2025 7:43 AM EST Yan Hilario MD LAB BLOOD ORDERABLES F inal Result [facility] [address] [place] [address], * BRETT SCREENING DIGITAL (08/21/2024 1:08 PM EDT) Anatomical Region Laterality Modality Mammography 08/20/2024 3:10 PM EDT Narrative 08/21/2024 1:08 PM EDT [facility] Diagnostic Imaging Department [address] [place] [address] Patient: JESSI CASTREJON /Age/Sex: 1950 - 74 - F Unit#: [id number] Location/Status: [facility] CLI Mnemonic/Ordering Site: [facility] Ordering Physician: SABA SOLORZANO MD [facility] Screening Digital - 08/20/24 - [id number] Report Status:Signed EXAM: [facility] Screening Digital EXAM DATE AND TIME: 08/20/2024 3:36 PM HISTORY: Annual screening. History of right breast cancer. COMPARISON: 07/18/2020 and 04/23/2019 TECHNIQUE: Bilateral digital breast tomosynthesis was performed in the CC and MLO projections. Computer aided detection with Jumping Nuts 7.2-H and IID 3D 3.1 was employed. TISSUE DENSITY: b. [...] Procedure Note Fredy Car MD - 08/29/2024 [facility] Diagnostic Imaging Department [address] [place] [address] [id number] Patient: SILVINO SANCHEZJESSI./Age/Sex: 1950 - 74 - F Unit#: [id number] Location/Status: [facility] CLI Mnemonic/Ordering Site: [facility] Ordering Physician: SABA SOLORZANO MD [facility] Screening Digital - 08/20/24 - [id number] Report Status:Signed EXAM: [facility] Screening Digital EXAM DATE AND TIME: 08/20/2024 3:36 PM HISTORY: Annual screening. History of right breast cancer. COMPARISON: 07/18/2020 and 04/23/2019 TECHNIQUE: Bilateral digital breast tomosynthesis was performed in the CCand MLO projections. Computer aided detection with Jumping Nuts 7.2-H andAttention Point AI 3D 3.1 was employed. TISSUE DENSITY: [...] Dic Date/Time: 08/21/24 1306 Sign date/Time: 08/21/24 1309 us Saba Solorzano MD IMG BI PROCEDURES Final Result * [facility] DEXA AXIAL SKELETON (07/24/2024 1:14 PM EDT) Anatomical Region Laterality Modality Mammography 07/23/2024 2:29 PM EDT Narrative 07/24/2024 1:14 PM EDT [facility] Diagnostic Imaging Department [address] [place] [address] Patient: SILVINO SANCHEZJESSI D.O.B./Age/Sex: 1950 - 74 - F Unit#: [id number] [facility] Ordering Physician: SABA SOLORZANO MD [facility] Dexa Axial Skeleton - 07/23/24 - Report Status:Signed History: Low estrogen state due to menopause. Parent hip fracture. On omeprazole. Comparison: No comparison imaging. Findings: Bone densitometry is performed utilizing dual energy x-ray absorptiometry (DXA) in the Gamerius unit. The lumbar spine and proximal femora [...] 27.0 percent Hip 18.1 percent. IMPRESSION: Osteoporosis. [id number] Dictating Physician: YESSI SULLIVAN MD Electronically Signed by: YESSI SULLIVAN MD Dic Date/Time: 07/24/24 1314 Sign date/Time: 07/24/24 1314 Procedure Note Yessi Sullivan MD - 08/12/2024 [facility] Diagnostic Imaging Department [address] [place] [address] Patient: DUBOISBRAN SANCHEZJESSI./Age/Sex: 1950 - 74 - F Unit#: [id number] [facility] Ordering Physician: SABA SOLORZANO MD [facility] Dexa Axial Skeleton - 07/23/24 - Report Status:Signed History: Low estrogen state due to menopause. Parent hip fracture. On omeprazole. Comparison: No comparison imaging. Findings: Bone densitometry is performed utilizing dual energy x-ray absorptiometry(DXA) in the Gamerius unit. The lumbar spine and proximal femora [...] 27.0 percent Hip 18.1 percent. IMPRESSION: Osteoporosis. [id number] Dictating Physician: YESSI SULLIVAN MD Electronically Signed by: YESSI SULLIVAN MD Dic Date/Time: 07/24/24 1314 Sign date/Time: 07/24/24 1314 Saba Solorzano MD IMG BI PROCEDURES Final Result * Colonoscopy (12/31/2023) Pathologist [facility] Colonoscopy no interpretation , abstracted Anatomical Region Laterality Modality Other Historical Provider HEALTH MAINTENANCE Final Result * Depression Screening (09/27/2023) Pathologist [facility] Depression Screening ABSTRACTED Historical Provider HEALTH MAINTENANCE Final Result * Hepatitis C Screening (04/01/2020) Pathologist [facility] Hepatitis C Screening ABSTRACTED Historical Provider HEALTH MAINTENANCE Final Result from Last 3 Months or Most Recently Relevant to Health Maintenance Insurance [facility] MEDICARE ADVANTAGE Care Teams Valve Repairer Relationship Specialty Start Date End Date Saba Solorzano MD [address] [place] [id number] PCP - General Internal Medicine 09/21/24
--- OUTSIDE RECORDS SUMMARY | 2025-08-15 15:01 | XMS_ITS | Clinical Summary ---
Author Organization [facility] Address [address] [address] Phone Care Team Providers Care Rn X Ray Name Role Phone Ester Padilla MD Primary [...] 2001 OSTEOPOROSIS SCREENING INITI AL (ONE-TIME) 01/28/2016 INFLUENZA VACCINE (#1) 2025 08/10/2023 COVID-19 VACCINE (1 - 2024-2 6 season) 2025 RSV VACCINE (1 - 1-dose 75+ series) [...] topic Medical Devices Not on file Insurance MEDICARE REPLACEMENT MEDICARE REPLACEMENT [place] [id number] O MEDICARE REPLACEMENT [place] [address] [address] [place] [address] MEDICARE REPLACEMENT MEDICARE REPLACEMENT [facility] MEDICARE REPLACEMENT [place] [id number] Care Teams Rn X Ray Relationship Specialty Start Date End Date Ester Padilla MD [address] [place] [id number] PCP - General Internal Medicine 07/03/22 Additional Source Comments The information contained in this document represents components of the legal health record. It is not the complete legal health record.[facility]
--- OUTSIDE RECORDS SUMMARY | 2025-08-15 15:01 | XMS_ITS | Clinical Summary ---
Author Organization [facility] Address [address] [place] [address] Care Team Providers Care Architectural Design Lecturer Name Role Phone Ayo Denis MD Primary Care Provider Allergies Active Allergy Reactions Criticality Noted Date [...] patient's age to complete this topic Insurance [facility] Care Teams Architectural Design Lecturer Relationship Specialty Start Date End Date Ayo Denis MD PCP - General Internal Medicine 12/26/21
--- OUTSIDE RECORDS SUMMARY | 2025-08-15 15:01 | XMS_ITS | Patient Health Record ---
Author Organization [facility] [address] Address [address] [place] [address] Care Team Providers Care Director Plans Name Role Phone BAYLEE PAVON Unavailable [phone] Allergies Allergen (clinical drug ingredient) Drug/Non Drug Allergy documented on EMR Reaction Allergy Type Onset Date Status meperidine Demerol Unknown Drug Allergy Active Reason For Referral No Information Medications Medication SIG (Take, Route, Frequency, Duration) Notes Start Date End Date Status Tirzepatide 2.5 MG/0.5ML as directed Subcutaneous Active [...] 0.25mg Subcutaneous weekly; Duration: 30 days Active Social History Tobacco [...] Notes Problem Obesity due to excess calories (968844075) Other obesity due to excess calories (E66.09) Active confirmed Problem Overweight (488765822) Overweight (E66.3) Active confirmed Problem Lipid screening (319204232) Encounter for screening for lipoid disorders (Z13.220) Active confirmed Problem Adult health examination (498125826) Adult general medical exam (Z00.00) Active confirmed Problem Diabetes mellitus screening (857405817) Diabetes mellitus screening (Z13.1) Active confirmed Problem Body mass index 30.00 to 34.99 (996138853019345) Body mass index [BMI] 32.0-32.9, adult (Z68.32) Active confirmed Problem Gastroesophageal reflux disease with esophagitis (disorder) (720493349) Gastroesophageal reflux disease with esophagitis without hemorrhage (K21.00) Active confirmed Problem Mild intermittent asthma (169505837) Mild intermittent asthma without complication (J45.20) Active confirmed Problem Body mass index 30+ - obesity (423429920) BMI 30.0-30.9,adult (Z68.30) Active confirmed Problem Endocrine/metabolic screening (551859987) Encounter for screening for endocrine disorder (Z13.29) Active confirmed Vital Signs Heart Rate 103 /min 08/11/2025 Oximetry 98 % 08/11/2025 Blood pressure diastolic 80 mm Hg 08/11/2025 Height 59 in 08/11/2025 Blood pressure systolic 112 mm Hg 08/11/2025 Weight 145.3 lbs 08/11/2025 BMI 29.34 kg/m2 08/11/2025 Encounters Encounter Location Date Provider Diagnosis [facility] [address] [address] 01/13/2025 [facility] [address] [address] 02/18/2025 [facility] [address] [address] 10/01/2024 BAYLEE BORHOT BMI 27.0-27.9,adult Z68.27 ; Mild intermittent asthma without complication J45.20 ; Overweight E66.3 and Gastroesophageal reflux disease with esophagitis without hemorrhage K21.00 [facility] [address] 11/23/2024 BAYLEE BORHOT BMI 27.0-27.9,adult Z68.27 ; Mild intermittent asthma without complication J45.20 ; Overweight E66.3 and Gastroesophageal reflux disease with esophagitis without hemorrhage K21.00 [facility] [address] 12/30/2024 BAYLEE BORHOT BMI 28.0-28.9,adult Z68.28 ; Dietary counseling and surveillance Z71.3 ; Mild intermittent asthma without complication J45.20 ; Overweight E66.3 and Gastroesophageal reflux disease with esophagitis without hemorrhage K21.00 [facility] [address] [address] 2025 BAYLEE BORHOT BMI 28.0-28.9,adult Z68.28 ; Dietary counseling and surveillance Z71.3 ; Mild intermittent asthma without complication J45.20 ; Overweight E66.3 and Gastroesophageal reflux disease with esophagitis without hemorrhage K21.00 [facility] [address] [address] 06/30/2025 BAYLEE BORHOT BMI 28.0-28.9,adult Z68.28 ; Dietary counseling and surveillance Z71.3 ; Mild intermittent asthma without complication J45.20 ; Overweight E66.3 ; Gastroesophageal reflux disease with esophagitis without hemorrhage K21.00 and Encounter for examination of blood pressure without abnormal findings Z01.30 [facility] [address] [address] 08/11/2025 BAYLEE PAVON BMI 28.0-28.9,adult Z68.28 ; Dietary counseling and surveillance Z71.3 ; Mild intermittent asthma without complication J45.20 ; Gastroesophageal reflux disease with esophagitis without hemorrhage K21.00 ; Overweight E66.3 and Encounter for examination of blood pressure without abnormal findings Z01.30 [facility] [address] [address] 08/11/2025 [facility]ANGELIST[facility] [address] [address] 10/02/2024 [facility]E [facility]ROEHOT [facility] [address] [address] 10/16/2024 [facility]E COLINDREST [facility] [address] [address] 11/13/2024 B[facility]LEE PAVON [facility] [address] [address] 2025 BAYLEE PAVON Adult general medica l exam Z00.00 ; Encounter for screening for lipoid disorders Z13.220 ; Diabetes mellitus screening Z13.1 and Encounter for screening for endocrine disorder Z13.29 [facility] [address] [address] 02/16/2025 BAYLEE COLINDREST [facility] [address] [facility] [address] [address] 02/16/2025 BAYLEE PAVON [facility] [address] [facility] [address] [address] 06/16/2025 B[facility]E BORHOT [facility] [address] [address] 06/30/2025 BAYLEE PAVON Assessments Encounter Date Diagnosis (ICD Code) Assessment Notes Treatment Notes Treatment Clinical Notes Section Notes 10/01/2024 BMI 27.0-27.9,adult (ICD-10 - Z68.27) #Weight [...] software and direct typing Please excuse inadvertent medical transcription radiology or typing errors, or uncorrected word substitutions Although every attempt has been made by the provider to proofread this document, occasional misspellings and typographical errors may still be present Due to the previous pandemic, and the use of personal protective equipment (PPE) This may decrease voice recognition accuracy Inadvertent medical transcription radiology errors may occur 11/23/2024 BMI 27.0-27.9,adult (ICD-10 [...] software and direct typing Please excuse inadvertent medical transcription radiology or typing errors, or uncorrected word substitutions Although every attempt has been made by the provider to proofread this document, occasional misspellings and typographical errors may still be present Due to the previous pandemic, and the use of personal protective equipment (PPE) This may decrease voice recognition accuracy Inadvertent medical transcription radiology errors may occur 12/30/2024 BMI 28.0-28.9,adult (ICD-10 - Z68.28) #Weight Management 12/30/2024 Discussed options for her. She seems amendable to maintenance dosing of Tirzepatide compounded. She will get back to us if this works financially Going for labs on Saturday from Dr. Perez@ [facility] Patient has been found to be overweight [...] software and direct typing Please excuse inadvertent medical transcription radiology or typing errors, or uncorrected word substitutions Although every attempt has been made by the provider to proofread this document, occasional misspellings and typographical errors may still be present Due to the previous pandemic, and the use of personal protective equipment (PPE) This may decrease voice recognition accuracy Inadvertent medical transcription radiology errors may occur 2025 BMI 28.0-28.9,adult (ICD-10 - Z68.28) #Weight Management 2025 Discussed options for her including adding Contrave. Will send rx and patient will set up her fill. Continue Tirzepatide compounded. She will get back to us if this works financially _update labs prior to next visit and upon return from [place] Patient has been found to be overweight [...] software and direct typing Please excuse inadvertent medical transcription radiology or typing errors, or uncorrected word substitutions Although every attempt has been made by the provider to proofread this document, occasional misspellings and typographical errors may still be present Due to the previous pandemic, and the use of personal protective equipment (PPE) This may decrease voice recognition accuracy Inadvertent medical transcription radiology errors may occur 2025 Adult general medical exam (ICD-10 - Z00.00) 06/30/2025 BMI 28.0-28.9,adult (ICD-10 - Z68.28) #Weight Management 07/01/2025 Discussed options for her including adding Contrave It was a cheaper alternative to Taryn direct and Daphnie Nordisk She will get back to us if this works financially _update labs prior to next visit and upon return from [place] Patient has been found to be overweight [...] software and direct typing Please excuse inadvertent medical transcription radiology or typing errors, or uncorrected word substitutions Although every attempt has been made by the provider to proofread this document, occasional misspellings and typographical errors may still be present Due to the previous pandemic, and the use of personal protective equipment (PPE) This may decrease voice recognition accuracy Inadvertent medical transcription radiology errors may occur 08/11/2025 BMI 28.0-28.9,adult (ICD-10 - Z68.28) #Weight [...] software and direct typing Please excuse inadvertent medical transcription radiology or typing errors, or uncorrected word substitutions Although every attempt has been made by the provider to proofread this document, occasional misspellings and typographical errors may still be present Due to the previous pandemic, and the use of personal protective equipment (PPE) This may decrease voice recognition accuracy Inadvertent medical transcription radiology errors may occur 06/30/2025 Dietary counseling and surveillance (ICD-10 - Z71.3) #Weight Management 07/01/2025 Discussed options for her including adding Contrave It was a cheaper alternative to Taryn direct and Daphnie Nordisk She will get back to us if this works financially _update labs prior to next visit and upon return from [place] Patient has been found to be overweight [...] software and direct typing Please excuse inadvertent medical transcription radiology or typing errors, or uncorrected word substitutions Although every attempt has been made by the provider to proofread this document, occasional misspellings and typographical errors may still be present Due to the previous pandemic, and the use of personal protective equipment (PPE) This may decrease voice recognition accuracy Inadvertent medical transcription radiology errors may occur 08/11/2025 Dietary counseling and [...] software and direct typing Please excuse inadvertent medical transcription radiology or typing errors, or uncorrected word substitutions Although every attempt has been made by the provider to proofread this document, occasional misspellings and typographical errors may still be present Due to the previous pandemic, and the use of personal protective equipment (PPE) This may decrease voice recognition accuracy Inadvertent medical transcription radiology errors may occur 2025 Encounter for screening [...] to next visit and upon return from [place] Patient has been found to be overweight [...] software and direct typing Please excuse inadvertent medical transcription radiology or typing errors, or uncorrected word substitutions Although every attempt has been made by the provider to proofread this document, occasional misspellings and typographical errors may still be present Due to the previous pandemic, and the use of personal protective equipment (PPE) This may decrease voice recognition accuracy Inadvertent medical transcription radiology errors may occur 12/30/2024 Dietary counseling and surveillance (ICD-10 - Z71.3) #Weight Management 12/30/2024 Discussed options for her. She seems amendable to maintenance dosing of Tirzepatide compounded. She will get back to us if this works financially Going for labs on Saturday from Dr. Perez@ [facility] Patient has been found to be [...] software and direct typing Please excuse inadvertent medical transcription radiology or typing errors, or uncorrected word substitutions Although every attempt has been made by the provider to proofread this document, occasional misspellings and typographical errors may still be present Due to the previous pandemic, and the use of personal protective equipment (PPE) This may decrease voice recognition accuracy Inadvertent medical transcription radiology errors may occur 10/01/2024 Mild intermittent asthma [...] software and direct typing Please excuse inadvertent medical transcription radiology or typing errors, or uncorrected word substitutions Although every attempt has been made by the provider to proofread this document, occasional misspellings and typographical errors may still be present Due to the previous pandemic, and the use of personal protective equipment (PPE) This may decrease voice recognition accuracy Inadvertent medical transcription radiology errors may occur 11/23/2024 Mild intermittent asthma [...] software and direct typing Please excuse inadvertent medical transcription radiology or typing errors, or uncorrected word substitutions Although every attempt has been made by the provider to proofread this document, occasional misspellings and typographical errors may still be present Due to the previous pandemic, and the use of personal protective equipment (PPE) This may decrease voice recognition accuracy Inadvertent medical transcription radiology errors may occur 10/01/2024 Overweight (ICD-10 - [...] software and direct typing Please excuse inadvertent medical transcription radiology or typing errors, or uncorrected word substitutions Although every attempt has been made by the provider to proofread this document, occasional misspellings and typographical errors may still be present Due to the previous pandemic, and the use of personal protective equipment (PPE) This may decrease voice recognition accuracy Inadvertent medical transcription radiology errors may occur 11/23/2024 Overweight (ICD-10 - [...] software and direct typing Please excuse inadvertent medical transcription radiology or typing errors, or uncorrected word substitutions Although every attempt has been made by the provider to proofread this document, occasional misspellings and typographical errors may still be present Due to the previous pandemic, and the use of personal protective equipment (PPE) This may decrease voice recognition accuracy Inadvertent medical transcription radiology errors may occur 12/30/2024 Overweight (ICD-10 - E66.3) #Weight Management 12/30/2024 Discussed options for her. She seems amendable to maintenance dosing of Tirzepatide compounded. She will get back to us if this works financially Going for labs on Saturday from Dr. Perez@ [facility] Patient has been found to be [...] software and direct typing Please excuse inadvertent medical transcription radiology or typing errors, or uncorrected word substitutions Although every attempt has been made by the provider to proofread this document, occasional misspellings and typographical errors may still be present Due to the previous pandemic, and the use of personal protective equipment (PPE) This may decrease voice recognition accuracy Inadvertent medical transcription radiology errors may occur 12/30/2024 Mild intermittent asthma without complication (ICD-10 - J45.20) #Weight Management 12/30/2024 Discussed options for her. She seems amendable to maintenance dosing of Tirzepatide compounded. She will get back to us if this works financially Going for labs on Saturday from Dr. Perez@ [facility] Patient has been found to be [...] software and direct typing Please excuse inadvertent medical transcription radiology or typing errors, or uncorrected word substitutions Although every attempt has been made by the provider to proofread this document, occasional misspellings and typographical errors may still be present Due to the previous pandemic, and the use of personal protective equipment (PPE) This may decrease voice recognition accuracy Inadvertent medical transcription radiology errors may occur 2025 Mild intermittent asthma without complication (ICD-10 - J45.20) #Weight Management 2025 Discussed options for her including adding Contrave. Will send rx and patient will set up her fill. Continue Tirzepatide compounded. She will get back to us if this works financially _update labs prior to next visit and upon return from [place] Patient has been found to be overweight [...] software and direct typing Please excuse inadvertent medical transcription radiology or typing errors, or uncorrected word substitutions Although every attempt has been made by the provider to proofread this document, occasional misspellings and typographical errors may still be present Due to the previous pandemic, and the use of personal protective equipment (PPE) This may decrease voice recognition accuracy Inadvertent medical transcription radiology errors may occur 2025 Diabetes mellitus screening (ICD-10 - Z13.1) 06/30/2025 Mild intermittent asthma without complication (ICD-10 - J45.20) #Weight Management 07/01/2025 Discussed options for her including adding Contrave It was a cheaper alternative to Taryn direct and Daphnie Nordisk She will get back to us if this works financially _update labs prior to next visit and upon return from [place] Patient has been found to be overweight [...] software and direct typing Please excuse inadvertent medical transcription radiology or typing errors, or uncorrected word substitutions Although every attempt has been made by the provider to proofread this document, occasional misspellings and typographical errors may still be present Due to the previous pandemic, and the use of personal protective equipment (PPE) This may decrease voice recognition accuracy Inadvertent medical transcription radiology errors may occur 08/11/2025 Mild intermittent asthma [...] software and direct typing Please excuse inadvertent medical transcription radiology or typing errors, or uncorrected word substitutions Although every attempt has been made by the provider to proofread this document, occasional misspellings and typographical errors may still be present Due to the previous pandemic, and the use of personal protective equipment (PPE) This may decrease voice recognition accuracy Inadvertent medical transcription radiology errors may occur 08/11/2025 Gastroesophageal reflux disease [...] software and direct typing Please excuse inadvertent medical transcription radiology or typing errors, or uncorrected word substitutions Although every attempt has been made by the provider to proofread this document, occasional misspellings and typographical errors may still be present Due to the previous pandemic, and the use of personal protective equipment (PPE) This may decrease voice recognition accuracy Inadvertent medical transcription radiology errors may occur 06/30/2025 Gastroesophageal reflux disease with esophagitis without hemorrhage (ICD-10 - K21.00) #Weight Management 07/01/2025 Discussed options for her including adding Contrave It was a cheaper alternative to Taryn direct and Daphnie Nordisk She will get back to us if this works financially _update labs prior to next visit and upon return from [place] Patient has been found to be overweight [...] software and direct typing Please excuse inadvertent medical transcription radiology or typing errors, or uncorrected word substitutions Although every attempt has been made by the provider to proofread this document, occasional misspellings and typographical errors may still be present Due to the previous pandemic, and the use of personal protective equipment (PPE) This may decrease voice recognition accuracy Inadvertent medical transcription radiology errors may occur 2025 Encounter for screening for endocrine disorder (ICD-10 - Z13.29) 06/30/2025 Overweight (ICD-10 - E66.3) #Weight Management 07/01/2025 Discussed options for her including adding Contrave It was a cheaper alternative to Taryn direct and Daphnie Nordisk She will get back to us if this works financially _update labs prior to next visit and upon return from [place] Patient has been found to be overweight [...] software and direct typing Please excuse inadvertent medical transcription radiology or typing errors, or uncorrected word substitutions Although every attempt has been made by the provider to proofread this document, occasional misspellings and typographical errors may still be present Due to the previous pandemic, and the use of personal protective equipment (PPE) This may decrease voice recognition accuracy Inadvertent medical transcription radiology errors may occur 12/30/2024 Gastroesophageal reflux disease with esophagitis without hemorrhage (ICD-10 - K21.00) #Weight Management 12/30/2024 Discussed options for her. She seems amendable to maintenance dosing of Tirzepatide compounded. She will get back to us if this works financially Going for labs on Saturday from Dr. Perez@ [facility] Patient has been found to be [...] software and direct typing Please excuse inadvertent medical transcription radiology or typing errors, or uncorrected word substitutions Although every attempt has been made by the provider to proofread this document, occasional misspellings and typographical errors may still be present Due to the previous pandemic, and the use of personal protective equipment (PPE) This may decrease voice recognition accuracy Inadvertent medical transcription radiology errors may occur 2025 Gastroesophageal reflux disease with esophagitis without hemorrhage (ICD-10 - K21.00) #Weight Management 2025 Discussed options for her including adding Contrave. Will send rx and patient will set up her fill. Continue Tirzepatide compounded. She will get back to us if this works financially _update labs prior to next visit and upon return from [place] Patient has been found to be overweight [...] software and direct typing Please excuse inadvertent medical transcription radiology or typing errors, or uncorrected word substitutions Although every attempt has been made by the provider to proofread this document, occasional misspellings and typographical errors may still be present Due to the previous pandemic, and the use of personal protective equipment (PPE) This may decrease voice recognition accuracy Inadvertent medical transcription radiology errors may occur 2025 Overweight (ICD-10 - E66.3) #Weight Management 2025 Discussed options for her including adding Contrave. Will send rx and patient will set up her fill. Continue Tirzepatide compounded. She will get back to us if this works financially _update labs prior to next visit and upon return from [place] Patient has been found to be overweight [...] software and direct typing Please excuse inadvertent medical transcription radiology or typing errors, or uncorrected word substitutions Although every attempt has been made by the provider to proofread this document, occasional misspellings and typographical errors may still be present Due to the previous pandemic, and the use of personal protective equipment (PPE) This may decrease voice recognition accuracy Inadvertent medical transcription radiology errors may occur 11/23/2024 Gastroesophageal reflux disease [...] software and direct typing Please excuse inadvertent medical transcription radiology or typing errors, or uncorrected word substitutions Although every attempt has been made by the provider to proofread this document, occasional misspellings and typographical errors may still be present Due to the previous pandemic, and the use of personal protective equipment (PPE) This may decrease voice recognition accuracy Inadvertent medical transcription radiology errors may occur 10/01/2024 Gastroesophageal reflux disease [...] software and direct typing Please excuse inadvertent medical transcription radiology or typing errors, or uncorrected word substitutions Although every attempt has been made by the provider to proofread this document, occasional misspellings and typographical errors may still be present Due to the previous pandemic, and the use of personal protective equipment (PPE) This may decrease voice recognition accuracy Inadvertent medical transcription radiology errors may occur 06/30/2025 Encounter for examination of blood pressure without abnormal findings (ICD-10 - Z01.30) #Weight Management 07/01/2025 Discussed options for her including adding Contrave It was a cheaper alternative to Taryn direct and Daphnie Nordisk She will get back to us if this works financially _update labs prior to next visit and upon return from [place] Patient has been found to be overweight [...] software and direct typing Please excuse inadvertent medical transcription radiology or typing errors, or uncorrected word substitutions Although every attempt has been made by the provider to proofread this document, occasional misspellings and typographical errors may still be present Due to the previous pandemic, and the use of personal protective equipment (PPE) This may decrease voice recognition accuracy Inadvertent medical transcription radiology errors may occur 08/11/2025 Overweight (ICD-10 - [...] software and direct typing Please excuse inadvertent medical transcription radiology or typing errors, or uncorrected word substitutions Although every attempt has been made by the provider to proofread this document, occasional misspellings and typographical errors may still be present Due to the previous pandemic, and the use of personal protective equipment (PPE) This may decrease voice recognition accuracy Inadvertent medical transcription radiology errors may occur 08/11/2025 Encounter for examination [...] software and direct typing Please excuse inadvertent medical transcription radiology or typing errors, or uncorrected word substitutions Although every attempt has been made by the provider to proofread this document, occasional misspellings and typographical errors may still be present Due to the previous pandemic, and the use of personal protective equipment (PPE) This may decrease voice recognition accuracy Inadvertent medical transcription radiology errors may occur Plan Of Treatment Pending Test Test Name Order Date LIPID PANEL, STANDARD 2025 COMPREHENSIVE METABOLIC PANEL 2025 CBC (INCLUDES DIFF/PLT) 2025 URINALYSIS, COMPLETE 2025 HEMOGLOBIN A1c 2025 TSH W/REFLEX TO FT4 2025 Next Appt Details Provider Name:BAYLEE PAVON, 09/22/2025 10:45:00 AM, [address], [address], [place], [address], Insurance Providers Payer Name Payer Address Payer Phone Subscriber Number Group Number Insured Name Patient Relationship to Insured Coverage Start Date Coverage End Date [employer] [address] [address] [place] [address] [id number] DANIELITO B[place]MINGHAM Self - patient is the insured 5 [employer] [place] [address] [place] [address] [id number] TIANA GALVINDANIELITO Self - patient is the insured 5 Medications Administered Medication Instructions Date of Administration Dosage Notes MICC B12 INJECTION 08/30/2021 1 ANDREA [facility]ARM LOT#[id number] MICC B12 INJECTION 11/14/2021 MICC B12 INJECTION 12/20/2021 1 mL MICC B12 INJECTION 02/22/2022 lot # [id number] MICC B12 INJECTION 04/11/2022 MICC B12 INJECTION [...]
== END 2025-08-15 14:58 | disposition home or self-care (01) ==
LOC: HO.MRI 14:57
PROVIDERS: PCP Internal Medicine; Visit Provider Psychiatry & Neurology Neurology
DX: G31.84 Mild cognitive impairment of uncertain or unknown etiology (principal)
CPT/HCPCS: 70551

== ENCOUNTER → 2025-08-15 14:57 | Outpatient (BNV) | payer MEDICARE, SELFPAY | PROVIDERS: PCP Internal Medicine; Visit Provider Radiology Diagnostic Radiology | DX: G31.9 Degenerative disease of nervous system, unspecified (principal) | CPT/HCPCS: 70551 ==